=== PATIENT | male | born 1965 | race Caucasian/White ===

== ENCOUNTER 2017-06-19 09:37 | Inpatient (IN) | payer OTHER ==
[2017-06-19] MEDS ORDERED: Fentanyl 100 MCG/2 ML VIAL ONE ×2 (09:38→14:04)
[2017-06-19] MEDS ORDERED: Midazolam HCl 2 mg/2 ml Vial ONE (09:38)
[2017-06-19] MEDS ORDERED: Lidocaine 1% w/Epinephrine 1:200K 30 ML VIAL ONE (10:06)
[2017-06-19] MEDS ORDERED: PHENYLEPHRINE-NS 100 MCG/ML 10 ML SYRINGE ONE (10:48)
[2017-06-19] MEDS ORDERED: Propofol 200 MG/20 ML VIAL ONE ×2 (10:48)
[2017-06-19] MEDS ORDERED: Ondansetron HCl/PF 4 MG/2 ML Vial ONE (10:48)
[2017-06-19] MEDS ORDERED: Lidocaine 2% PF 10 ML AMP (For Epidural Use) ONE (10:48)
[2017-06-19] MEDS ORDERED: Clindamycin/D5W 900 mg/50 ml Premix Bag ONE (10:55)
[2017-06-19] MEDS ORDERED: Phenylephrine 10 MG/NS 250 ML 250 ML ONE ×2 (11:28→14:09)
[2017-06-19] MEDS ORDERED: metroNIDAZOLE 500 MG/100 ML BAG ONE (14:03)
[2017-06-19] MEDS ORDERED: Bacitracin Zinc Ointment 30 gm TUBE ONE (14:34)
[2017-06-19] MEDS ORDERED: Ondansetron HCl/PF 4 MG/2 ML Vial IVP PRN ×2 (15:42→16:22)
[2017-06-19] MEDS: Sodium Chloride 0.45% 1,000 ML IV SCH (15:52)
[2017-06-19] MEDS: Clindamycin/D5W 900 MG in Premix Bag 1 BAG IVPB SCH (15:58)
[2017-06-19] MEDS ORDERED: Fentanyl 5000 MCG/250 ML CADD IV PRN (16:22)
[2017-06-19] MEDS ORDERED: diphenhydrAMINE HCl 25 MG CAP PO PRN (16:22)
[2017-06-19] MEDS ORDERED: diphenhydrAMINE HCl 50 MG/ML 1 ML VIAL IM/IV PRN (16:22)
[2017-06-19] MEDS ORDERED: Zolpidem Tartrate 5 MG TAB PO PRN (16:22)
[2017-06-19] MEDS ORDERED: Promethazine HCl 25 MG/ML VIAL IM PRN (16:22)
[2017-06-19] MEDS ORDERED: Naloxone HCl 0.4 mg/ml Vial IV PRN (16:22)
--- NOTE | 2017-06-19 16:39 | RAD ---
PORTABLE CHEST: 06/19/17 HISTORY: Postop followup. COMPARISON: 10/11/15 Lung milan are clear. The heart and mediastinum appear unremarkable. Stranding and nodularity in th e left apical region is a stable finding. Skin lilian overlie the lower neck in the midline. IMPRESSION: No acute lung process identified. POS: EWELINA
[2017-06-19 17:45] VITALS: BMI 16.9
[2017-06-19] MEDS: Famotidine/PF 20 mg/2ml Vial SLOW IVP SCH (20:21)
--- NOTE | 2017-06-19 21:52 | CON ---
DATE OF CONSULTATION: 06/19/2017 CONSULTING PHYSICIAN: Juventino Figueroa M.D. REASON FOR CONSULTATION: ICU management. HISTORY OF PRESENT ILLNESS: This is a 52-year-old male who is a patient of Dr. Phoenix's. He came to the hospital today for modification of laryngectomy. He had a radical neck dissection. He also lilly d a feeding tube placed through his ostomy site into his esophagus. PAST MEDICAL HISTORY: 1. Tuberculosis treated many years ago. 2. Laryngeal cancer with recent tracheostomy placement. PAST SURGICAL HISTORY: He has had a feeding tube in the stomach in the past, which was removed. He had a tracheostomy placement several weeks ago. He also had treated tuberculosis with residual ___ __. ALLERGIES: TYLENOL. MEDICATIONS: Prior to admission noted. See chart. SOCIAL HISTORY: Drinks 4 to 6 drinks per day. Smokes a pack of cigarettes per day. REVIEW OF SYSTEMS: Otherwise, negative. PHYSICAL EXAMINATION: VITAL SIGNS: Temperature 97, pulse 85, blood pressure 148/85, O2 saturation 98% on humidified oxyge n. HEENT: Unremarkable. NECK: Laryngectomy noted. He has a feeding tube through his trachea that goes into his esophagus. He has bilateral neck wounds from the radical neck dissection. CARDIOVASCULAR: S1, S2, regular. LUNGS: Clear. ABDOMEN: Soft, nontender. EXTREMITIES: No edema. LABORATORY DATA: No labs have been obtained. ASSESSMENT: Status post laryngectomy and radical neck dissection. PLAN: 1. Pain management. 2. Hemodynamic monitoring. 3. Add Pepcid for GI prophylaxis and SCDs for deep venous thrombosis prophylaxis. Dr. Phoenix will r [facility] tomorrow.
--- NOTE | 2017-06-20 00:02 | OP ---
PREOPERATIVE DIAGNOSES: 1. 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 2. Dysphagia. 3. Dysphonia. POSTOPERATIVE DIAGNOSES: 1. 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 2. Dysphagia. 3. Dysphonia. PROCEDURES PERFORMED: 1. Total laryngectomy. 2. Bilateral modified radical neck dissections. 3. Cricopharyngeal myotomy. 4. Primary tracheoesophageal puncture. SURGEON: Juventino Figueroa M.D. UTILITY TECH: Carlos Alberto Clemente M.D. ESTIMATED BLOOD LOSS: 250 mL COMPLICATIONS: None. ANESTHESIA: GETA. DESCRIPTION OF PROCEDURE: The patient had previously trach placed and was placed supine on the oper ating room table armor-reinforced endotracheal tube was then replaced into his tracheostomy site. F ollowing this, the patient then prepped and draped in standard surgical fashion. A shoulder roll wa s placed. Following this, an Afrin type incision was made approximately 2 cm above the clavicles in feriorly and then vertical incisions were made superiorly along the posterior border of sternocleido mastoid, incision was made through skin, subcutaneous tissue, and platysma. Subplatysmal flaps were elevated superiorly and then inferiorly to the level of clavicle. Following this, the left neck di ssection was performed first. The digastric muscle was identified and the facial artery and vein wa s suture ligated. The submandibular gland and contents were then retracted superiorly with Army-Kanu y inferiorly. The mylohyoid muscle was identified and was ligated with the Bovie electrocautery and the inferior aspect at the level of the clavicle. Dissection was carried medially in the neck to t he deep neck musculature. This inferior margin of the neck dissection was then suture ligated with 3-0 and 2-0 silk stitches. Following this, the sternocleidomastoid was incised and was the investin g fascia of the SCM was then unrolled. The spinal accessory nerve was identified and was coursed an d was noted to be traveling lateral to the internal jugular vein. Following this, the neck dissecti on contents were then extended into the level 5 area. This dissection was then carried on its later al margin down to the level of the fascia of the deep neck musculature. Rolling this entire neck di ssection of levels L2-L5 anteriorly, the necrotic lymph nodes and any invasion into SCM muscles were then included in the specimen, it was unwrapped of its fascia and the dissection carried contents w ere carried medial to the larynx. Following this, a similar modified radical neck dissection was pe rformed on the right side; however, on the right side, the thyroid gland was included in the dissect ion contents that were suture ligating the inferior thyroid artery and the superior thyroid artery. The superior laryngeal arteries were then suture ligated bilaterally. Following this, the laryngec yarely portion of the procedure was begun. Dissection was carried down through the superior aspect of the hyoid bone with the suprahyoid musculature was released from the hyoid bone. Following this, t he lateral borders of the myringotomy were identified as the strap muscles were released from the th yroid cartilage. Minimal amount of perichondrium was elevated off of the lateral thyroid cartilage with [place] elevator. The stylohyoid ligament was then transected and the perichondrium and mucosa o f the larynx was then elevated off of the hyoid and the superior cornu of the thyroid. Following th is, the strap muscles were then incised inferiorly at the level of the new tracheostoma. Following this, a new tracheal incision was made horizontally with a 15 blade through half of the tracheal con tent and then extended and angled superiorly to the remainder of the tracheal cartilage. The endotr acheal tube was then removed and replaced into this new tracheostoma. Silk stitches were then place d to the anterior neck skin, securing the trachea anteriorly. Following this, the preepiglottic spa ce was identified and an incision and pharyngeal myotomy was made into the pharynx. The epiglottis was then grasped with an Allis clamp and delivered from the pharynx into the wound, allowing visuali zation of the internal pharyngeal and laryngeal structures. The surgeon at the top of the bed, raphael e curved scissors were then used to create a pharyngeal myotomy and then pharyngeal incisions leavin g a wide 2 cm margin around the laryngeal mask and cancer that was identified. Following this, the tracheal wall was from the esophagus and as much mucosa as was possible was preserved for the pharyngeal closure. Following this, the cricopharyngeal myotomy was made with a 15 blade on the right lateral aspect extending down through the anticipated tracheoesophageal puncture would be. F ollowing this, 90-degree clamp was then placed through the esophageal mucosa and was punctured into the trachea creating a tracheoesophageal puncture approximately 1.5 cm below the stoma area. Follow ing this, the larynx and his bilateral neck dissection contents were removed from the patient's body and a pharyngeal closure was made with a running Avis stitch with 4-0 silk. Following this, the wound was irrigated. Drains were placed and the skin platysmal layer and subcutaneous stitches wer e placed using Vicryl stitches and the skin was closed using lilian. The patient tolerated the pro cedure well and was transferred directly to the ICU in stable condition.
[2017-06-20] MEDS: Clindamycin/D5W 900 MG in Premix Bag 1 BAG IVPB SCH ×4 (00:18→23:00)
[2017-06-20] MEDS: Sodium Chloride 0.45% 1,000 ML IV SCH ×4 (00:19→22:29)
[2017-06-20 05:49] LABS: ALT (SGPT) Less than 7 U/L (8-55); AST (SGOT) 14 U/L (5-34); Alkaline Phosphatase 61 U/L (40-150); BUN (Urea Nitrogen) 6 mg/dL (8.4-25.7); Bilirubin, Total 0.6 mg/dL (0.2-1.2); Calc. Creatinine Clearance 105 mL/min (70-130); Calcium 7.9 mg/dL (7.8-10.44); Chloride 94 mmol/L (98-107); Estimated GFR-MDRD Greater than 90; Globulin 2.9 g/dL (2.4-3.5); Protein, Total 5.8 g/dL (6.0-8.3)
[2017-06-20 05:54] LABS: Anion Gap 13 mmol/L (10-20); Carbon Dioxide 22 mmol/L (22-29)
[2017-06-20 07:30] LABS: #Basophils 0.1 thou/uL (0.0-0.2); #Eosinphils 0.1 thou/uL (0.0-0.7); #Lymphocytes 1.8 thou/uL (1.20-3.40); #Monocytes 1.6 thou/uL (0.11-0.59); #Neutrophils 11.2 thou/uL (1.40-6.50); %Basophils 0.4 % (0.0-1.0); %Eosinophils 0.5 % (0.0-10.0); %Lymphocytes 12.4 % (21.0-51.0); %Monocytes 10.6 % (0.0-10.0); Mean Platelet Volume 6.6 fL (7.4-10.4); Red Blood Cell (RBC) Count 3.56 mill/uL (4.70-6.10); White Blood Cell (WBC) Count 14.6 thou/uL (4.8-10.8)
[2017-06-20] MEDS: Famotidine/PF 20 mg/2ml Vial SLOW IVP SCH ×2 (08:59→20:25)
[2017-06-20] MEDS: Sodium Chloride 0.9% 1,000 ML IV SCH (16:44)
--- NOTE | 2017-06-20 20:06 | PRG ---
DATE OF SERVICE: 06/20/2017 SUBJECTIVE: Sylvain did well overnight. He is not having any bleeding from his surgical sites. OBJECTIVE: VITAL SIGNS: His heart rate is 71, respiratory rate is 18, blood pressure is 159/75. LUNGS: Equal and clear. HEART: Regular rhythm. ABDOMEN: Soft. LABORATORY DATA: White count 14.6, hemoglobin 10.8, platelets 350. Sodium 126, potassium 4.4, chlo ride 94, bicarbonate 22, BUN 6, creatinine 0.68, glucose 123. IMPRESSION: 1. Status post laryngectomy. 2. Obstructive lung disease. 3. History of tuberculosis, treated. 4. Aspergilloma in his left upper lobe, does not need to be treated. 5. Hyponatremia. He had this last admission. I would guess that this is paraneoplastic. We will keep him hydrated with saline and then fluid restrict him if his sodium did not come up.
[2017-06-21] MEDS: Sodium Chloride 0.9% 1,000 ML IV SCH ×2 (02:57→15:14)
[2017-06-21 05:01] LABS: #Basophils 0.1 thou/uL (0.0-0.2); #Eosinphils 0.4 thou/uL (0.0-0.7); #Lymphocytes 1.8 thou/uL (1.20-3.40); #Monocytes 1.9 thou/uL (0.11-0.59); #Neutrophils 11.2 thou/uL (1.40-6.50); %Basophils 0.3 % (0.0-1.0); %Eosinophils 2.6 % (0.0-10.0); %Lymphocytes 11.7 % (21.0-51.0); %Monocytes 12.1 % (0.0-10.0); Hematocrit 34.1 % (42.0-52.0); Mean Platelet Volume 6.5 fL (7.4-10.4); Red Blood Cell (RBC) Count 3.68 mill/uL (4.70-6.10); White Blood Cell (WBC) Count 15.3 thou/uL (4.8-10.8)
[2017-06-21 05:33] LABS: ALT (SGPT) Less than 7 U/L (8-55); AST (SGOT) 13 U/L (5-34); Alkaline Phosphatase 59 U/L (40-150); Anion Gap 13 mmol/L (10-20); BUN (Urea Nitrogen) 5 mg/dL (8.4-25.7); Bilirubin, Total 0.5 mg/dL (0.2-1.2); Calc. Creatinine Clearance 119 mL/min (70-130); Calcium 8.2 mg/dL (7.8-10.44); Carbon Dioxide 24 mmol/L (22-29); Chloride 94 mmol/L (98-107); Estimated GFR-MDRD Greater than 90; Globulin 3.1 g/dL (2.4-3.5); Protein, Total 5.9 g/dL (6.0-8.3)
[2017-06-21] MEDS: Sodium Chloride 0.45% 1,000 ML IV SCH (08:46)
[2017-06-21] MEDS: Clindamycin/D5W 900 MG in Premix Bag 1 BAG IVPB SCH ×2 (08:52→15:13)
[2017-06-21] MEDS: Famotidine/PF 20 mg/2ml Vial SLOW IVP SCH ×2 (08:52→21:02)
--- NOTE | 2017-06-21 11:47 | PRG ---
DATE OF SERVICE: 06/21/2017 Mr. Narayan did well overnight. He has no complaints. PHYSICAL EXAMINATION: VITAL SIGNS: Blood pressure 132/70, heart rate 79, respiratory rate 18. LUNGS: He denies shortness of breath. His lungs are clear. CARDIOVASCULAR: Regular rhythm. ABDOMEN: Soft. IMPRESSION: 1. Status post laryngectomy, hemoglobin is stable at 11.2. Electrolytes are stable. His sodium is 127. 2. Hyponatremia, chronic, most likely syndrome of inappropriate antidiuretic hormone secretion asso ciated with his malignancy. He was intermittently hyponatremic last admission. We will continue wi th just gentle saline hydration and frequent blood draws monitoring this. 3. Chronic obstructive pulmonary disease. 4. History of neck abscesses requiring intubation in the past. 5. History of tuberculosis treated in the past. 6. Aspergilloma in his left upper lobe. There is no indication to treat this. PLAN: Continue supportive care.
[2017-06-21] MEDS: Bacitracin Zinc 1 Packet TOP PRN (13:24)
[2017-06-21] MEDS ORDERED: Morphine Sulfate 2 MG/ML SYRINGE SLOW IVP PRN (15:42)
[2017-06-21] MEDS ORDERED: Hydrocodone-Acetamin 15 ML UDCUP PO PRN ×2 (15:43)
[2017-06-22] MEDS: Clindamycin/D5W 900 MG in Premix Bag 1 BAG IVPB SCH ×3 (00:39→15:38)
[2017-06-22 04:43] LABS: #Basophils 0.1 thou/uL (0.0-0.2); #Eosinphils 0.5 thou/uL (0.0-0.7); #Lymphocytes 1.7 thou/uL (1.20-3.40); #Monocytes 1.8 thou/uL (0.11-0.59); #Neutrophils 8.5 thou/uL (1.40-6.50); %Basophils 0.4 % (0.0-1.0); %Eosinophils 4.3 % (0.0-10.0); %Lymphocytes 13.8 % (21.0-51.0); Hematocrit 30.6 % (42.0-52.0); Mean Platelet Volume 6.4 fL (7.4-10.4); Red Blood Cell (RBC) Count 3.27 mill/uL (4.70-6.10); White Blood Cell (WBC) Count 12.6 thou/uL (4.8-10.8)
[2017-06-22 05:01] LABS: ALT (SGPT) Less than 7 U/L (8-55); AST (SGOT) 11 U/L (5-34); Alkaline Phosphatase 57 U/L (40-150); Anion Gap 10 mmol/L (10-20); BUN (Urea Nitrogen) 6 mg/dL (8.4-25.7); Bilirubin, Total 0.4 mg/dL (0.2-1.2); Calc. Creatinine Clearance 130 mL/min (70-130); Carbon Dioxide 24 mmol/L (22-29); Chloride 97 mmol/L (98-107); Estimated GFR-MDRD Greater than 90; Globulin 2.9 g/dL (2.4-3.5); Protein, Total 5.5 g/dL (6.0-8.3)
[2017-06-22] MEDS: Sodium Chloride 0.9% 1,000 ML IV SCH ×2 (05:03→16:44)
[2017-06-22] MEDS: Famotidine/PF 20 mg/2ml Vial SLOW IVP SCH ×2 (09:10→21:01)
--- NOTE | 2017-06-22 13:48 | PRG ---
DATE OF SERVICE: 06/22/2017 SUBJECTIVE: Post laryngectomy pain but no difficulty breathing. OBJECTIVE: VITAL SIGNS: Blood pressure 130/74, pulse 84, sats 96%, respirations 18. CHEST: Reveals decreased breath sounds, no wheezing. CARDIAC: Normal S1, S2, no gallops. LABORATORY DATA: Sodium 127. White count 12,000, H\T\H 10 and 36. Electrolytes are normal. IMPRESSION: 1. Status post radical laryngectomy with feeding tube placed via the stoma. 2. History of chronic obstructive pulmonary disease. 3. History of aspergilloma. PLAN: Continue antibiotics, continue neb treatments. We will follow.
[2017-06-22] MEDS ORDERED: Morphine Sulfate 2 MG/ML SYRINGE SLOW IVP PRN (15:26)
[2017-06-23] MEDS: Clindamycin/D5W 900 MG in Premix Bag 1 BAG IVPB SCH ×4 (00:04→23:45)
[2017-06-23] MEDS: Sodium Chloride 0.9% 1,000 ML IV SCH ×2 (01:19→20:28)
[2017-06-23] MEDS: Famotidine/PF 20 mg/2ml Vial SLOW IVP SCH ×2 (08:58→20:28)
--- NOTE | 2017-06-23 13:25 | PRG ---
DATE OF SERVICE: 06/23/2017 SUBJECTIVE: This morning, awake, alert, responsive. Last night, he had problems with secretions an d hoping this is fresh tracheostomy site. PHYSICAL EXAMINATION: VITAL SIGNS: His pulse is 74, O2 sat is 98-99, respirations 18, temperature 97. CHEST: Reveals no wheezing. Anterior rhonchi. CARDIAC: Normal S1, S2. No gallops. ABDOMEN: Soft, no masses. IMPRESSION: Status post trach, status post feeding tube via tracheostoma. PLAN: At this stage, continue antibiotics, await ENT input. Supportive care.
[2017-06-23] MEDS: Bacitracin Zinc 1 Packet TOP PRN (20:40)
[2017-06-24] MEDS: Clindamycin/D5W 900 MG in Premix Bag 1 BAG IVPB SCH ×2 (08:51→16:49)
[2017-06-24] MEDS: Famotidine/PF 20 mg/2ml Vial SLOW IVP SCH ×2 (09:27→20:59)
--- NOTE | 2017-06-24 14:18 | PRG ---
DATE OF SERVICE: 06/24/2017 Mr. Narayan did well overnight. He is frustrated because he is not allowed to eat by mouth. PHYSICAL EXAMINATION: VITAL SIGNS: Blood pressure 143/76, heart rate 74, respiratory rate 10-12. LUNGS: His lungs are clear. HEART: Regular rhythm. ABDOMEN: Soft. LABORATORY DATA: There is no lab since the . I will order a CBC and electrolytes in the [facility]. IMPRESSION: 1. Status post laryngectomy. 2. Chronic obstructive pulmonary disease. 3. Treated tuberculosis. 4. Aspergilloma. 5. Deconditioning. PLAN: Continue supportive care.
[2017-06-24] MEDS: Sodium Chloride 0.9% 1,000 ML IV SCH (16:55)
[2017-06-25] MEDS: Clindamycin/D5W 900 MG in Premix Bag 1 BAG IVPB SCH ×4 (00:16→23:07)
[2017-06-25 06:34] LABS: Hematocrit 33.1 % (42.0-52.0); Mean Platelet Volume 6.9 fL (7.4-10.4); Red Blood Cell (RBC) Count 3.58 mill/uL (4.70-6.10); White Blood Cell (WBC) Count 10.4 thou/uL (4.8-10.8)
[2017-06-25 06:37] LABS: Anion Gap 13 mmol/L (10-20); BUN (Urea Nitrogen) 8 mg/dL (8.4-25.7); Calc. Creatinine Clearance 117 mL/min (70-130); Calcium 9.1 mg/dL (7.8-10.44); Carbon Dioxide 28 mmol/L (22-29); Chloride 93 mmol/L (98-107); Estimated GFR-MDRD Greater than 90
[2017-06-25 06:49] LABS: Band 4 % (5-11); Metamyelocyte 1 % (0-0); Neutrophil 69 % (42-75); Reactive Lymphocytes 1 % (0-10)
[2017-06-25] MEDS: Famotidine/PF 20 mg/2ml Vial SLOW IVP SCH ×2 (09:06→20:09)
[2017-06-25] MEDS: Sodium Chloride 0.9% 1,000 ML IV SCH (16:03)
[2017-06-26 05:13] LABS: Hematocrit 30.6 % (42.0-52.0); Mean Platelet Volume 6.6 fL (7.4-10.4); Neutrophil 50 % (42-75); Red Blood Cell (RBC) Count 3.31 mill/uL (4.70-6.10); White Blood Cell (WBC) Count 9.9 thou/uL (4.8-10.8)
[2017-06-26 05:25] LABS: Anion Gap 12 mmol/L (10-20); BUN (Urea Nitrogen) 8 mg/dL (8.4-25.7); Calc. Creatinine Clearance 110 mL/min (70-130); Calcium 9.3 mg/dL (7.8-10.44); Carbon Dioxide 29 mmol/L (22-29); Chloride 92 mmol/L (98-107); Estimated GFR-MDRD Greater than 90
[2017-06-26] MEDS: Famotidine/PF 20 mg/2ml Vial SLOW IVP SCH (08:42)
[2017-06-26] MEDS: Clindamycin/D5W 900 MG in Premix Bag 1 BAG IVPB SCH (08:42)
[2017-06-26] MEDS: Sodium Chloride 0.9% 1,000 ML IV SCH (14:30)
[2017-06-26 15:58] VITALS: BP 145/78; TEMP 97.8
--- NOTE | 2017-06-27 06:17 | DIS ---
DATE OF ADMISSION: 06/19/2017 DATE OF DISCHARGE: 06/26/2017 The patient is a postoperative day #7 status post total laryngectomy bilateral neck dissection. He has been doing well. He has began clear liquids since last night. No evidence of cellulitis. He c urrently has all of his home suctioning equipment and [facility] equipment already at his house ed rodriguez on him. He has been ambulatory. No evidence of fevers. PHYSICAL EXAMINATION: Incisions clean, dry and intact. Stoma is intact. He is doing self feed tubes and demonstrates a p rick use of his stoma-gastric tube. There was no leakage. HEART: Regular rate and rhythm. LUNGS: Clear to auscultation bilaterally. ASSESSMENT: Postoperative day #7 status post total laryngectomy bilateral neck dissection. Patient to be discharged to home. Prescriptions were called into [facility]; included amoxicillin and also oral pain medicine. He will follow up with us in clinic on Saturday.
== END 2017-06-26 16:03 | disposition home or self-care (01) | DRG 12 ==
LOC: SDC 09:37 → CCU 11:23 → SURG A 06-24 20:32
PROVIDERS: ADMIT Otolaryngology Plastic Surgery within the Head & Neck; ATTEND Otolaryngology Plastic Surgery within the Head & Neck
PROC: 0CTS0ZZ Resection of Larynx, Open Approach (ICD-10-PCS; principal; 2017-06-19)
PROC: 07T20ZZ Resection of Left Neck Lymphatic, Open Approach (ICD-10-PCS; 2017-06-19)
PROC: 07T10ZZ Resection of Right Neck Lymphatic, Open Approach (ICD-10-PCS; 2017-06-19)
PROC: 0BW10FZ Revision of Tracheostomy Device in Trachea, Open Approach (ICD-10-PCS; 2017-06-19)
DX: C32.9 Malignant neoplasm of larynx, unspecified (principal); B44.9 Aspergillosis, unspecified; E22.2 Syndrome of inappropriate secretion of antidiuretic hormone; E87.1 Hypo-osmolality and hyponatremia; R13.10 Dysphagia, unspecified; R49.0 Dysphonia; J44.9 Chronic obstructive pulmonary disease, unspecified; Z86.11 Personal history of tuberculosis; Z93.0 Tracheostomy status; Z88.6 Allergy status to analgesic agent; F17.210 Nicotine dependence, cigarettes, uncomplicated
CPT/HCPCS: 36415; 71010; 80048; 80053; 85007; 85025; 85027; 88309; 88311; 94640; G9171-GN-CN; G9172-GN-CL; J0690; J2001; J2250; J2270; J2405; J2704; J3010; J3490; J7050; S0028

== ENCOUNTER 2017-08-07 10:35 | Outpatient (CLI) | payer OTHER | END 2017-08-07 10:36 | disposition home or self-care (01) | LOC: LABBT 10:35 | PROVIDERS: ATTEND Surgery | DX: Z01.812 Encounter for preprocedural laboratory examination (principal); C32.9 Malignant neoplasm of larynx, unspecified ==

== ENCOUNTER 2017-08-09 07:50 | Day surgery (SDC) | payer OTHER, SELFPAY ==
[2017-08-07 10:49] VITALS: BMI 17.9
[2017-08-09] MEDS ORDERED: CEFAZOLIN/Water 2 GM/20 ML SYRINGE ONE (08:40)
[2017-08-09] MEDS ORDERED: Midazolam HCl 2 mg/2 ml Vial ONE (09:25)
[2017-08-09] MEDS ORDERED: Propofol 200 MG/20 ML VIAL ONE (10:40)
[2017-08-09] MEDS ORDERED: Lidocaine 1% PF 5 ML VIAL ONE (10:40)
--- NOTE | 2017-08-12 13:45 | OP ---
DATE OF PROCEDURE: 08/09/2017 PROCEDURE: PEG tube placement. SURGEON: Roz Muller M.D. PREOPERATIVE DIAGNOSIS: Dysphagia. POSTOPERATIVE DIAGNOSIS: Dysphagia. HISTORY: Mr. Narayan is a 52-year-old man who has undergone extensive surgery for head and neck cancer. He had a tracheoesophageal feeding tube in place, but cannot use this as it causes him to gag. He still requires nutritional supplementation, so a PEG tube placement has been requested. PROCEDURE: After informed consent was obtained and appropriate preoperative antibiotics wre administered, the patient was taken to the endoscopy suite where he was placed in the supine position and monitored anesthesia care was administered. Bite block was placed and an EGD scope advanced into the esophagus under direct vision and down into the stomach which insufflated easily. An excellent finger impulse was seen at the site of his previous PEG tube in the left upper quadrant. Local anesthesia was infused and the skin incision made. An introducer sheath was placed into the stomach under direct vision of the gastroscope and a wire grasped by the gastroscope and drawn out through the mouth. This was secured to a 20-Azerbaijani pull PEG which was then drawn out through the abdominal wall and seated at 3 cm at the skin. The gastroscope was then advanced down into the abdominal cavity and the PEG tube confirmed to be in excellent position. The tracheoesophageal feeding tube was well away from the area of the PEG tube. The gastroscope was then withdrawn and the PEG tube placed to gravity drain. The exit site was dressed with antibiotic ointment and gauze and the external flange secured, the patient was taken back to day stay in good condition. Estimated blood loss was minimal. There were no complications. There were no specimens. [facility]
== END 2017-08-09 11:43 | disposition home or self-care (01) ==
LOC: SDC 07:50
PROVIDERS: ATTEND Surgery
PROC: 0DH63UZ Insertion of Feeding Device into Stomach, Percutaneous Approach (ICD-10-PCS; principal; 2017-08-09)
DX: C32.9 Malignant neoplasm of larynx, unspecified (principal); F17.200 Nicotine dependence, unspecified, uncomplicated; Z88.8 Allergy status to other drugs, medicaments and biological substances; Z98.890 Other specified postprocedural states
CPT/HCPCS: J2001; J2250; J2704

== ENCOUNTER 2018-02-13 19:26 | Inpatient (IN) | payer OTHER, SELFPAY ==
[2018-02-13 19:54] LABS: Hemoglobin 13.2 g/dL (14.0-18.0); Mean Corpuscular HGB CONC 33.6 g/dL (32.0-36.0); Mean Corpuscular Hemoglobin 30.1 pg (27.0-31.0); Mean Corpuscular Volume 89.7 fl (80.0-94.0); Mean Platelet Volume 5.6 fL (7.4-10.4); Platelet Count 486 thou/uL (130-400); RBC Distribution Width 13.1 % (11.5-14.5); Red Blood Cell (RBC) Count 4.39 mill/uL (4.70-6.10); White Blood Cell (WBC) Count 25.9 thou/uL (4.8-10.8)
[2018-02-13 20:12] LABS: Band 10 % (5-11); Eosinophils 3 % (0-10); Lymphocytes 10 % (21-51); MDiff Complete? YES; Monocytes 5 % (0-10); Neutrophil 69 % (42-75); PLT Morphology Comment Appears Increased; Polychromasia SLIGHT = 2-3 cells (100X) (0-2/hpf); Reactive Lymphocytes 3 % (0-10)
[2018-02-13 20:15] LABS: ALT (SGPT) 7 U/L (8-55); AST (SGOT) 18 U/L (5-34); Alkaline Phosphatase 125 U/L (40-150); Anion Gap 11 mmol/L (10-20); BUN (Urea Nitrogen) 4 mg/dL (8.4-25.7); Bilirubin, Total 0.4 mg/dL (0.2-1.2); Calc. Creatinine Clearance 0 mL/min (70-130); Calcium 9.8 mg/dL (7.8-10.44); Carbon Dioxide 27 mmol/L (22-29); Chloride 93 mmol/L (98-107); Estimated GFR-MDRD Greater than 90; Globulin 4.2 g/dL (2.4-3.5); Glucose 127 mg/dL (70-105); Potassium 3.4 mmol/L (3.5-5.1); Protein, Total 8.2 g/dL (6.0-8.3); Sodium 128 mmol/L (136-145)
[2018-02-13] MEDS ORDERED: Morphine 4 MG/ML VIAL ONE (21:11)
[2018-02-13] MEDS ORDERED: Ondansetron ODT 4 MG TAB ONE (21:16)
[2018-02-13] MEDS ORDERED: Vancomycin HCl 1 GM in Premix Bag 1 BAG IVPB SCH (21:30)
--- NOTE | 2018-02-13 21:35 | RAD ---
CHEST ONE VIEW: 02/13/18 HISTORY: Hemoptysis. COMPARISON: Chest radiograph 06/19/17. FINDINGS: There is a mass in the left upper lobe . There appears to be an air fluid level peripheral to this ma ss. There is fluid/soft tissue mass density in the left lung apex. IMPRESSION: Left upper lobe mass air fluid level may be sequela of patient's prior tuberculosis and aspergilloma. Underlying malignancy cannot be totally excluded. Nonemergent followup CT of the chest may be benefi cial. POS: LANDEN
[2018-02-13 22:39] LABS: Bilirubin Negative (Negative); Blood, Urine Negative (Negative); Clarity CLEAR (Clear); Glucose, Urine (Dipstick) Negative (Negative); Leukocyte Negative (Negative); Nitrite Negative (Negative); Protein, Urine (Dipstick) Negative (Neg-Trace); Specific Gravity, Urine 1.006 (1.002-1.036); Urobilinogen 0.2 mg/dL (0.2-1.0); pH, Urine 7.5 (5.0-9.0)
[2018-02-13] MEDS ORDERED: cefTRIAXone\\ROCEPHIN 2 GM VIAL ONE (23:07)
[2018-02-14] MEDS ORDERED: Sodium Chloride 0.9% 1,000 ML IV SCH (01:11)
[2018-02-14 02:24] VITALS: BMI 18.9
[2018-02-14] MEDS ORDERED: cloNIDine 0.1 MG TAB PO PRN (02:31)
[2018-02-14] MEDS ORDERED: hydrALAZINE 20 MG/ML VIAL SLOW IVP PRN (02:31)
[2018-02-14] MEDS ORDERED: Ondansetron ODT 4 MG TAB PO PRN (02:31)
[2018-02-14] MEDS ORDERED: Guaifenesin DM 100-10/5 ML UDCUP PO PRN (02:31)
[2018-02-14] MEDS ORDERED: Ondansetron HCl/PF 4 MG/2 ML Vial IVP PRN (02:31)
[2018-02-14] MEDS ORDERED: Benzonatate 100 MG CAP PO PRN (02:31)
[2018-02-14] MEDS: Sodium Chloride 0.9% 1,000 ML IV SCH ×3 (04:17→22:35)
[2018-02-14 05:42] LABS: Anion Gap 9 mmol/L (10-20); BUN (Urea Nitrogen) Less than 4 mg/dL (8.4-25.7); Calc. Creatinine Clearance 111 mL/min (70-130); Calcium 9.1 mg/dL (7.8-10.44); Carbon Dioxide 30 mmol/L (22-29); Chloride 94 mmol/L (98-107); Estimated GFR-MDRD Greater than 90; Glucose 113 mg/dL (70-105); Potassium 3.9 mmol/L (3.5-5.1); Sodium 129 mmol/L (136-145)
[2018-02-14 06:13] LABS: Band 9 % (5-11); Eosinophils 1 % (0-10); Hemoglobin 12.6 g/dL (14.0-18.0); Lymphocytes 8 % (21-51); MDiff Complete? YES; Mean Corpuscular HGB CONC 32.7 g/dL (32.0-36.0); Mean Corpuscular Hemoglobin 29.1 pg (27.0-31.0); Mean Platelet Volume 5.5 fL (7.4-10.4); Monocytes 2 % (0-10); Neutrophil 79 % (42-75); PLT Morphology Comment Appears Increased; Platelet Count 480 thou/uL (130-400); RBC Distribution Width 13.1 % (11.5-14.5); RBC Morphology Normal; Reactive Lymphocytes 1 % (0-10); Red Blood Cell (RBC) Count 4.32 mill/uL (4.70-6.10); White Blood Cell (WBC) Count 25.3 thou/uL (4.8-10.8)
--- NOTE | 2018-02-14 07:34 | PDOC.PN ---
- Subjective Encounter Start Date: 02/14/18 Encounter Start Time: 07:33 Subjective: no sob, or further hemoptysis - Objective Resuscitation Status: Resuscitation Status FULL:Full Resuscitation MAR Reviewed: Yes Vital Signs & Weight: Vital Signs (12 hours) Temp Pulse Resp BP Pulse Ox 02/14/18 04:29 98.9 F 87 16 155/80 H 97 02/14/18 02:15 98 02/14/18 01:41 97.6 F 104 H 23 H 184/94 H 95 02/14/18 01:28 97.6 F 104 H 23 H 95 Weight Weight 151 lb 7 oz I&O: 02/13/18 02/14/18 02/15/18 06:59 06:59 06:59 Intake Total 156 Output Total 400 Balance -244 Result Diagrams: 02/14/18 04:55 02/14/18 04:55 Phys Exam - Physical Examination tracheostomy defect with marked erosions distant BS with exp wheezes Cardiovascular: RRR, no significant murmur Gastrointestinal: soft, positive bowel sounds Musculoskeletal: no edema Dx/Plan (1) Hemoptysis Code(s): R04.2 - HEMOPTYSIS Status: Acute (2) PNA (pneumonia) Code(s): J18.9 - PNEUMONIA, UNSPECIFIED ORGANISM Status: Acute Qualifiers: Pneumonia type: due to unspecified organism Laterality: left Lung location: upper lobe of lung Qualified Code(s): J18.1 - Lobar pneumonia, unspecified organism (3) Hyponatremia Code(s): E87.1 - HYPO-OSMOLALITY AND HYPONATREMIA Status: Acute (4) 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
[2018-02-14] MEDS: Cefepime 2 GM in Sodium Chloride 0.9% 100 ML IVPB SCH ×2 (08:49→20:59)
[2018-02-14] MEDS: Famotidine 20 MG TAB PO SCH ×2 (08:49→20:58)
--- NOTE | 2018-02-14 09:02 | HP ---
DATE OF ADMISSION: 02/15/2108 PRIMARY CARE PHYSICIAN: Tolu murphy. CHIEF COMPLAINT: Coughing up blood. HISTORY OF PRESENT ILLNESS: This is a 52-year-old male with significant history of squamou s cell carcinoma of the neck and throat, status post total laryngectomy with lymph node dissection in 2017. The patient underwent surgical intervention followed by radiation therapy with current stoma in place. The patient has noticed increased cough with blood in the sputum over the last 3 days. Th e patient admits to increased cough with productive sputum, but no specific or measured fever. The p atient denies any blood thinners or aspirin therapy, and denies any recent antibiotics or prednisone therapy. The patient denies using home oxygen therapy and tolerates a regular oral intake. The connor ent became concerned when he noted increasing blood in the mucus and sputum with coughing. The patie nt admits to some associated sensation of swelling of the neck and mouth region, but no dysphagia. T he patient denies taking any home remedies, NSAIDs, recent trauma. The patient does have a significa nt history of previously treated tuberculosis in 2000 as well as exposure to Aspergillus, treated wit h residual left upper lobe cavitary lesion. In the emergency room, the patient underwent chest imagi ng showing the persistent cavitary area of the left upper lobe. The patient received IV Rocephin, va ncomycin, morphine sulfate, Zofran and intravenous normal saline x1 liter. PAST MEDICAL HISTORY: 1. Squamous cell carcinoma of the larynx, status post total laryngectomy with lymph node dissection. 2. Tobacco abuse. 3. Syndrome of inappropriate antidiuretic hormone. 4. Chronic obstructive pulmonary disease. 5. History of primary tuberculosis, status post treatment. 6. History of abscess of the neck, status post incision and drainage. PAST SURGICAL HISTORY: 1. Status post transesophageal PEG tube placement. 2. Status post stoma after total laryngectomy with lymph node dissection. CURRENT MEDICATIONS: List will need to be obtained with family members. ALLERGIES: To ACETAMINOPHEN. FAMILY HISTORY: No inheritable diseases per patient report. SOCIAL HISTORY: The patient resides in [place], [place]. Accompanied by his significant other. No cur rent tobacco, alcohol or illicit drug use. Greater than [id number] history of smoking. REVIEW OF SYSTEMS: The following complete review of systems was negative, unless otherwise mentioned in the HPI or below: Constitutional: Weight loss or gain, ability to conduct usual activities. Skin: Rash, itching. Eyes: Double vision, pain. ENT/Mouth: Nose bleeding, neck stiffness, pain, tenderness. Cardiovascular: Palpitations, dyspnea on exertion, orthopnea. Respiratory: Shortness of breath, wheezing, cough, hemoptysis, fever or night sweats. Gastrointestinal: Poor appetite, abdominal pain, heartburn, nausea, vomiting, constipation, or diarr hea. Genitourinary: Urgency, frequency, dysuria, nocturia. Musculoskeletal: Pain, swelling. Neurologic/Psychiatric: Anxiety, depression. Allergy/Immunologic: Skin rash, bleeding tendency. PHYSICAL EXAMINATION: VITAL SIGNS: On admission, blood pressure 171/98, pulse 96, respiratory rate is 18, temperature 98.8 degrees Fahrenheit, and O2 saturation 97% on room air. GENERAL APPEARANCE: This is a 52-year-old male, alert and oriented x3, pleasant, in no acu te distress. HEENT: Pupils are equal, round, and reactive to light and accommodation. Extraocular muscles are in tact. No scleral icterus, no conjunctival injection. Nares are patent. OP is clear. Oral mucosa d ry appearing. NECK: Supple with large stoma in the anterior midline with dried blood on the periphery. Stomal mar gins with mild erythema noted. Mild edema palpated in the anterior neck bilaterally. No palpable ma ss. Cervical spine with full active and passive range of motion. CHEST: Diminished airflow in the bases bilaterally. Occasional expiratory wheeze. CARDIOVASCULAR: S1 and S2 without noted murmur, rub or gallop. ABDOMEN: Rounded, soft, nontender, nondistended. Bowel sounds are positive in all 4 quadrants. The re is no hepatosplenomegaly. No abdominal bruits. No rebound or guarding appreciated. EXTREMITIES: Warm and dry with fair turgor. No clubbing, cyanosis or asymmetric edema appreciated. Pulses palpable distally at the dorsalis pedis, posterior tibial, and popliteal arteries bilaterally . Capillary refill less than 2 seconds. NEUROLOGIC: Cranial nerves II through XII are grossly intact. No focal or lateralizing signs apprec iated. PERTINENT LABORATORY AND X-RAY FINDINGS: Sodium 128, potassium 3.4, chloride 93, CO2 of 27, BUN 4, c reatinine 0.73, estimated GFR greater than 90, glucose 127, lactic acid level 1.9, calcium 9.8. LFTs within normal limits. Albumin 4.0. CBC showed a white blood cell count of 25.9, hemoglobin 13, hem atocrit 39, platelet count 486 with 69% neutrophils. Urinalysis negative. Portable chest x-ray date d 02/13/2018 showed left upper lobe mass with air-fluid level consistent with prior imaging. ASSESSMENT AND PLAN: 1. Hemoptysis. The patient will be admitted to the telemetry unit. Exact underlying etiology may b e related to potential infectious process and developing pneumonia. Consideration for local inflamma tory process in the stomal region. We will consult ENT service in the a.m. for evaluation and questi onable local exploration. Avoid all NSAIDs and anticoagulation. Continue humidified oxygen. See #2 below for management. 2. Community-acquired pneumonia. Suspect left upper lobe infectious process given the distortion of anatomy based on prior insult and history of tuberculosis. Will continue cefepime 2 grams IV q.12 h ours with additional Levaquin 750 mg IV q.24 hours. Obtain sputum culture. Consult Pulmonology Serv ice in the a.m. 3. Hyponatremia, chronic. Suspect syndrome of inappropriate antidiuretic hormone secretion in conju nction with decreased oral intake. Repeat sodium level in the a.m. 4. Hypokalemia, mild. We will encourage increased oral intake of potassium and monitor serially. 5. Leukocytosis. Suspect secondary to infectious process as outlined in #2. Repeat CBC and monitor trend. 6. Squamous cell carcinoma of the larynx, status post total laryngectomy with radiation therapy. Se e above for management. 7. Prophylaxis. Sequential compression devices while in bed. Pepcid 20 mg p.o. b.i.d. 8. Code status is FULL. Surrogate medical decision maker is patient's aunt, Deepika Akhtar.
[2018-02-14] MEDS: traMADol HCl 50 MG TAB PO PRN ×2 (10:58→21:01)
[2018-02-14] MEDS ORDERED: Iopamidol 370 76% 100 ML VIAL ONE (11:22)
--- NOTE | 2018-02-14 11:29 | CT ---
CT NECK WITH CONTRAST: Date: 02/14/18 COMPARISON: 05/27/17. HISTORY: Laryngeal cancer, status post total laryngectomy and lymph node dissection in the neck. TECHNIQUE: Multiple contiguous axial images were obtained in a CT of the neck with contrast. Sagittal and blas l reformates were performed. FINDINGS: Postsurgical changes are seen from prior laryngectomy. The previously seen enlarged lymph nodes in th e neck are no longer visualized. There is soft tissue edema within the subcutaneous tissues of the ne ck. Calcifications are seen surrounding both carotid bifurcations. The parotid glands are unremarkable. There is a high density soft tissue structure just to the left o f the laryngectomy site which may represent a small amount of residual thyroid tissue in this locatio n. This measures 1.8 cm in width. Visualized intracranial structures are unremarkable. Mucosal thickening is seen in the maxillary sinu ses. Numerous dental caries are present. IMPRESSION: 1. Postsurgical changes as above with an enhancing mass just to the left of the laryngectomy site wh ich may represent residual thyroid tissue. 2. Removal of previously seen enlarged lymph nodes without evidence of residual lymphadenopathy. Please see dedicated chest CT for findings in the lung apices. POS: LANDEN
--- NOTE | 2018-02-14 11:40 | CT ---
CT OF THE CHEST WITH CONTRAST: Date: 02/14/18 COMPARISON: 05/27/17 and 06/17/13. TECHNIQUE: Multiple contiguous axial images were obtained in a CT of the chest with contrast. Coronal reformats were performed. FINDINGS: Emphysematous changes are seen in the lung apices. There is a large area of cavitation in the left up per lobe. This is predominantly filled with soft tissue density. The soft tissue density has increase d compared to the prior examination and now measures 3.8 cm in width and approximately 4.9 cm in cran iocaudal dimension. There has been volume loss in the left apex and the mass is now opposed to the to the apex as opposed to more centrally located where it was on the prior examination. There is possib le erosion of the undersurface of the second rib adjacent to this mass. No other pulmonary masses are seen. No pneumothorax or pleural effusions are present. The heart is normal in size. There is a small pericardial effusion. No hilar or mediastinal lymphaden opathy are seen. The visualized subdiaphragmatic structures are unremarkable. Please see dedicated neck CT for finding s above the clavicles. IMPRESSION: Enlarging left upper lobe lung mass. This started as a cavitary mass, but the soft tissue density com ponent has significantly increased. This is nonspecific. This could represent metastatic disease. Thi s could also represent a fungal infection or tuberculosis. CODE T. POS: LANDEN
[2018-02-14] MEDS: Triple Antibiotic Oint 1 GM Packet TOP SCH (13:45)
--- NOTE | 2018-02-14 15:10 | CON ---
DATE OF CONSULTATION: 02/14/2018 CONSULTING PHYSICIAN: Dr. Lan from [facility]. REASON FOR CONSULTATION: Hemoptysis. HISTORY OF PRESENT ILLNESS: This is a 52-year-old male who has been seen by Dr. Phoenix in our practic e in the past. He came in yesterday coughing up more blood than usual. He said this has been going on for about 3 days, but it is not out of the ordinary to have some hemoptysis. He has a laryngectom y from last year. He has a history of squamous cell carcinoma of the larynx. I believe he sees Dr. Figueroa and Dr. Clemente in that regard. He states that he completed a course of radiation last year. I do not believe he has had any chemoth erapy. Communication with him is somewhat impaired due to the fact that he had a laryngectomy and he would n ot use his speaking device. He is writing answers down in a piece of paper for me. PAST MEDICAL HISTORY: 1. Laryngeal cancer. 2. SIADH. 3. COPD. 4. Tuberculosis, treated back in 2000. 5. Abscess of the neck. PAST SURGICAL HISTORY: 1. I&D of the neck abscess. 2. Laryngectomy with stoma placement. 3. Previous PEG tube placement. MEDICATIONS PRIOR TO ADMISSION: Tramadol, clonazepam, promethazine. ALLERGIES: ACETAMINOPHEN. SOCIAL HISTORY: Former smoker, does not currently smoke, does not consume alcohol, does not use illi cit drugs. REVIEW OF SYSTEMS: Denies any weight loss. No fever, chills, nausea, vomiting, chest pain, hemateme sis, melena, hematochezia, hematuria or dysuria. PHYSICAL EXAMINATION: VITAL SIGNS: Temperature 98.1, pulse 78, respirations 12, O2 sat 94%, blood pressure 126/73. GENERAL: He is awake and alert and in no distress. HEENT: Pupils are reactive. Sclerae icteric. Oropharynx, no blood. NECK: Large laryngectomy area with erythematous mucosa. There is some blood at the posterior aspect of the trachea that I can see that is dried. LUNGS: Clear without wheezing or rhonchi. CARDIAC: S1, S2 regular without murmur. ABDOMEN: Soft, nontender, nondistended. EXTREMITIES: No clubbing, cyanosis or edema. LABORATORY DATA: White blood cell count 25.3, hemoglobin 12, hematocrit 38.5, platelet count 480,000 . Sodium 129, potassium 3.9, chloride 94, CO2 30, BUN 4, creatinine 0.7, glucose 113. I have review ed his CT scan in detail and this is compared to a scan from 04/2017. He has a superior left upper l obe mass, which was present to some degree in April, but appears larger. Just inferior to that, he has a cavitary lesion that has an air fluid level in it, previously this had more of a mycetoma appea dyana. ASSESSMENT: 1. Hemoptysis. This could be either from tracheitis or perhaps some bleeding from the site of the p revious aspergilloma or perhaps from a new malignancy in the left upper lobe. 2. History of laryngeal cancer. 3. Syndrome of inappropriate antidiuretic hormone secretion, which is chronic. RECOMMENDATIONS: Given elevated white count, etc., I would go ahead and treat him with antibiotics o gladys the weekend to see if this resolves. If it does not, then we can entertain bronchoscopy and perh aps getting ENT folks involved for an inspection of his laryngeal region. Biopsying the left upper l obe area may or may not be indicated. I will discuss that further with Dr. Phoenix. A PET scan could ultimately be helpful in further assessing left upper lobe lesion. This is a very complex case. Thank you for asking us to be involved. We will follow.
--- NOTE | 2018-02-14 20:02 | CON ---
DATE OF CONSULTATION: 02/13/2018 SUBJECTIVE: The patient was seen in ER last night due to coughing and some blood coming from previou s trach site secondary to laryngectomy caused by throat cancer. ENT was called for a consult. The [facility] was admitted, seen today in his hospital room. OBJECTIVE FINDINGS: VITAL SIGNS: Stable. GENERAL: He is in no acute distress. There is no audible wheezing coming from the trach site. Ther e was also no thick drainage that appeared around the trach site. PROCEDURE PERFORMED: Flexible scope. The entire nasopharynx region was explored bilaterally. There was no active sign of bleeding in any area. The trach site was also explored to about 2 inches into the site. There was no active arterial bleed that was noted. There was old scabbing that was seen. This is potentially the reason for the bleeding, but overall normal flex scope was performed with n o significant findings. We also reviewed CT of the neck, which showed no new findings. ASSESSMENT: Throat cancer with hemoptysis, also pneumonia. PLAN: We will continue with current treatment plan as put in place by the hospitalists. ENT may be consulted as needed. Upon discharge, we would like the patient to set up appointment with Ear, Nose and Throat, Dr. Figueroa with [facility].
[2018-02-15] MEDS: Triple Antibiotic Oint 1 GM Packet TOP SCH ×2 (08:45→20:31)
[2018-02-15] MEDS: Sodium Chloride 0.9% 1,000 ML IV SCH ×2 (08:45→20:30)
[2018-02-15] MEDS: Cefepime 2 GM in Sodium Chloride 0.9% 100 ML IVPB SCH ×2 (08:45→20:30)
[2018-02-15] MEDS: Famotidine 20 MG TAB PO SCH ×2 (08:45→20:30)
--- NOTE | 2018-02-15 11:55 | PDOC.PN ---
- Subjective Encounter Start Date: 02/15/18 Encounter Start Time: 11:53 Subjective: no hemoptysis, fever or chills - Objective Resuscitation Status: Resuscitation Status FULL:Full Resuscitation MAR Reviewed: Yes Vital Signs & Weight: Vital Signs (12 hours) Temp Pulse Resp BP Pulse Ox 02/15/18 07:32 97.8 F 81 16 136/81 96 02/15/18 07:26 98.1 F 80 18 Weight Admit Weight 151 lb 7 oz Weight 151 lb 7 oz I&O: 02/14/18 02/15/18 02/16/18 06:59 06:59 06:59 Intake Total 156 3305 Output Total 400 1580 Balance -244 1725 Result Diagrams: 02/14/18 04:55 02/14/18 04:55 Phys Exam - Physical Examination Neck: no JVD tracheosstoy non-focal, decreased BS Cardiovascular: RRR, no significant murmur Gastrointestinal: soft, positive bowel sounds Musculoskeletal: no edema Dx/Plan (1) Hemoptysis Code(s): R04.2 - HEMOPTYSIS Status: Acute (2) PNA (pneumonia) Code(s): J18.9 - PNEUMONIA, UNSPECIFIED ORGANISM Status: Acute Qualifiers: Pneumonia type: due to unspecified organism Laterality: left Lung location: upper lobe of lung Qualified Code(s): J18.1 - Lobar pneumonia, unspecified organism (3) Hyponatremia Code(s): E87.1 - HYPO-OSMOLALITY AND HYPONATREMIA Status: Acute (4) 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
--- NOTE | 2018-02-15 13:59 | PRG ---
DATE OF SERVICE: 02/15/2018 SUBJECTIVE: The patient says the hemoptysis is slowed down. He is coughing up some dark colored sec retions. PHYSICAL EXAMINATION: VITAL SIGNS: Temperature 97.8, pulse 81, respirations 16, O2 sat 96%, blood pressure 136/81. HEENT: Unremarkable. NECK: No adenopathy or JVD. CHEST: Clear without wheezing or rhonchi. Trach site looks good. ABDOMEN: Soft. EXTREMITIES: No edema. ASSESSMENT: 1. Tracheitis/pneumonia. 2. Possible left upper lobe mass. 3. Aspergilloma. PLAN: We will go ahead and continue the antibiotics. At some point down the road, he may need a PET scan to further workup of the left upper lobe findings.
[2018-02-16] MEDS: Sodium Chloride 0.9% 1,000 ML IV SCH (05:38)
[2018-02-16] MEDS: Famotidine 20 MG TAB PO SCH ×2 (08:52→19:56)
[2018-02-16] MEDS: Cefepime 2 GM in Sodium Chloride 0.9% 100 ML IVPB SCH ×2 (08:52→20:01)
[2018-02-16] MEDS: Triple Antibiotic Oint 1 GM Packet TOP SCH ×2 (08:52→17:19)
--- NOTE | 2018-02-16 11:45 | PRG ---
DATE OF SERVICE: 02/16/2018 SUBJECTIVE: He is coughing up blood, but he says it is much less than it has been. He is complainin g of swelling around his IV site on the right arm. PHYSICAL EXAMINATION: VITAL SIGNS: Temperature 98.0, pulse 81, respirations 18, O2 sat 92% on 5 liters trach collar. HEENT: Unremarkable. NECK: Ostomy site noted, appears to have some dry blood around the orifice. LUNGS: Clear. CARDIAC: S1 and S2 regular. ABDOMEN: Soft. EXTREMITIES: No edema. ASSESSMENT: 1. Hemoptysis. 2. Aspergilloma. 3. History of head and neck cancer. 4. Probable tracheitis. 5. Cannot rule out bleeding from the aspergilloma. PLAN: I will go ahead and add steroids to the current treatment regimen. Continue antibiotics. Dr. Phoenix will return tomorrow. Bronchoscopy might be considered if the bleeding does not subside.
--- NOTE | 2018-02-16 13:46 | PDOC.PN ---
- Subjective Encounter Start Date: 02/16/18 Encounter Start Time: 12:40 -: old records requested/rev Pt seen and examined, chart reviewed in its entirety, this is my first visit with this patient. Pt still with some blood streaked sputum, but markedly imrpoved. No F/c, no N/V /D/c, no CP, some cough, some LAZARO. no orthopnea, no PND. Pulm notes reviewed All systems reviewed and neg except as above - Objective Resuscitation Status: Resuscitation Status FULL:Full Resuscitation MAR Reviewed: Yes Vital Signs & Weight: Vital Signs (12 hours) Temp Pulse Resp BP Pulse Ox 02/16/18 07:40 98.0 F 81 18 02/16/18 07:31 98.0 F 81 18 110/68 91 L Weight Admit Weight 151 lb 7 oz Weight 151 lb 7 oz I&O: 02/15/18 02/16/18 02/17/18 06:59 06:59 06:59 Intake Total 3305 3350 Output Total 1580 2790 Balance 1725 560 Result Diagrams: 02/14/18 04:55 02/14/18 04:55 Radiology Reviewed by me: Yes EKG Reviewed by me: Yes Phys Exam - Physical Examination Constitutional: NAD HEENT: PERRLA, moist MMs, sclera anicteric tracheostome open to air, no tube. scabbing over right half. Neck: no nodes Respiratory: no wheezing, no rhonchi right posterior crackles 1/2 down back Cardiovascular: RRR, no significant murmur, no rub Gastrointestinal: soft, non-tender, no distention, positive bowel sounds Musculoskeletal: no edema, pulses present Neurological: non-focal, normal sensation, moves all 4 limbs Lymphatic: no nodes Psychiatric: normal affect, A&O x 3 Skin: no rash, normal turgor, cap refill <2 seconds Dx/Plan - Plan cont current plan of care, continue antibiotics, respiratory therapy, DVT proph w/SCDs * .
[2018-02-16] MEDS: traMADol HCl 50 MG TAB PO PRN (19:57)
[2018-02-17 06:14] LABS: Anion Gap 10 mmol/L (10-20); BUN (Urea Nitrogen) 8 mg/dL (8.4-25.7); Calc. Creatinine Clearance 109 mL/min (70-130); Calcium 9.3 mg/dL (7.8-10.44); Carbon Dioxide 28 mmol/L (22-29); Chloride 95 mmol/L (98-107); Estimated GFR-MDRD Greater than 90; Glucose 149 mg/dL (70-105); Magnesium 1.9 mg/dL (1.6-2.6); Potassium 4.2 mmol/L (3.5-5.1); Sodium 129 mmol/L (136-145)
[2018-02-17 06:23] LABS: Band 36 % (5-11); Hemoglobin 11.8 g/dL (14.0-18.0); Lymphocytes 2 % (21-51); MDiff Complete? YES; Mean Corpuscular HGB CONC 32.2 g/dL (32.0-36.0); Mean Corpuscular Hemoglobin 28.7 pg (27.0-31.0); Mean Platelet Volume 5.8 fL (7.4-10.4); Monocytes 4 % (0-10); Neutrophil 58 % (42-75); PLT Morphology Comment Appears Increased; Platelet Count 478 thou/uL (130-400); RBC Distribution Width 13.1 % (11.5-14.5); Red Blood Cell (RBC) Count 4.11 mill/uL (4.70-6.10); White Blood Cell (WBC) Count 30.1 thou/uL (4.8-10.8)
[2018-02-17] MEDS: Cefepime 2 GM in Sodium Chloride 0.9% 100 ML IVPB SCH ×2 (08:57→20:43)
[2018-02-17] MEDS: Famotidine 20 MG TAB PO SCH ×2 (08:57→20:43)
--- NOTE | 2018-02-17 15:50 | PRG ---
DATE OF SERVICE: 02/17/2018 SUBJECTIVE: Kody Narayan says his hemoptysis has decreased dramatically. OBJECTIVE: VITAL SIGNS: He is afebrile, heart rate 82, respiratory rate 22, oximetry is 92, blood pressure 127/ 78. LUNGS: Clear. HEART: Regular rhythm. ABDOMEN: Soft. Chest x-rays and chest CT have been reviewed. He may have an aspergilloma in his left upper lobe. I doubt he has tuberculosis. We will continue to follow. He may need bronchoscopy at some point, but we will continue conservativ elaine for now.
--- NOTE | 2018-02-17 15:57 | PDOC.PN ---
- Subjective Encounter Start Date: 02/17/18 Encounter Start Time: 11:10 Pt stable, less hemoptysis, no F/c, no N/V/D/c, case discussed with Dr Renteria and Dr Phoenix, no immediate plans for bronch. Pt with history of aspergilloma, clinically stable. all systems reviewed and neg x as above - Objective Resuscitation Status: Resuscitation Status FULL:Full Resuscitation MAR Reviewed: Yes Vital Signs & Weight: Vital Signs (12 hours) Temp Pulse Resp BP Pulse Ox 02/17/18 11:59 97.8 F 82 22 H 127/78 92 L 02/17/18 08:00 97.5 F L 91 18 02/17/18 07:41 97.5 F L 91 18 157/91 H 92 L 02/17/18 04:54 98.1 F 89 18 126/70 95 Weight Admit Weight 151 lb 7 oz Weight 151 lb 7 oz I&O: 02/16/18 02/17/18 02/18/18 06:59 06:59 06:59 Intake Total 3350 1820 250 Output Total 2790 2320 Balance 560 -500 250 Result Diagrams: 02/17/18 05:14 02/17/18 05:14 Radiology Reviewed by me: Yes Phys Exam - Physical Examination Constitutional: NAD HEENT: PERRLA, moist MMs, sclera anicteric, oral pharynx no lesions Neck: no nodes, no JVD, supple, full ROM trach site stable, scabbing same, no redness or swelling right posterior rales, no wheezes, no rhonchi Cardiovascular: RRR, no significant murmur, no rub Gastrointestinal: soft, non-tender, no distention, positive bowel sounds Musculoskeletal: no edema Neurological: non-focal, normal sensation, moves all 4 limbs Lymphatic: no nodes Psychiatric: normal affect, A&O x 3 Skin: no rash, normal turgor, cap refill <2 seconds Dx/Plan (1) Hemoptysis Code(s): R04.2 - HEMOPTYSIS Status: Acute Comment: improving, present on admit, will follow up on pulm recs, follow h/H, stablizing (2) Hyponatremia Code(s): E87.1 - HYPO-OSMOLALITY AND HYPONATREMIA Status: Acute (3) PNA (pneumonia) Code(s): J18.9 - PNEUMONIA, UNSPECIFIED ORGANISM Status: Acute Qualifiers: Pneumonia type: due to unspecified organism Laterality: left Lung location: upper lobe of lung Qualified Code(s): J18.1 - Lobar pneumonia, unspecified organism (4) Laryngeal squamous cell carcinoma Code(s): C32.9 - MALIGNANT NEOPLASM OF LARYNX, UNSPECIFIED Status: Chronic (5) COPD (chronic obstructive pulmonary disease) with emphysema Code(s): J43.9 - EMPHYSEMA, UNSPECIFIED Status: Chronic Qualifiers: Emphysema type: unspecified Qualified Code(s): J43.9 - Emphysema, unspecified (6) Hx of primary tuberculosis Code(s): Z86.11 - PERSONAL HISTORY OF TUBERCULOSIS Status: Chronic (7) Aspergillosis, unspecified Code(s): B44.9 - ASPERGILLOSIS, UNSPECIFIED Status: Chronic Comment: Hx of aspergilloma per Dr Phoenix. not excited to brinch this patient at this point - Plan cont current plan of care, continue antibiotics, PT/OT, respiratory therapy, out of bed/ambulate, DVT proph w/SCDs * .
[2018-02-17] MEDS: Triple Antibiotic Oint 1 GM Packet TOP SCH (18:34)
[2018-02-18 05:12] LABS: Anion Gap 8 mmol/L (10-20); BUN (Urea Nitrogen) 12 mg/dL (8.4-25.7); Calc. Creatinine Clearance 112 mL/min (70-130); Calcium 9.6 mg/dL (7.8-10.44); Carbon Dioxide 29 mmol/L (22-29); Chloride 97 mmol/L (98-107); Estimated GFR-MDRD Greater than 90; Glucose 123 mg/dL (70-105); Magnesium 2.2 mg/dL (1.6-2.6); Potassium 4.2 mmol/L (3.5-5.1); Sodium 130 mmol/L (136-145)
[2018-02-18 05:21] LABS: Band 25 % (5-11); Lymphocytes 4 % (21-51); MDiff Complete? YES; Mean Corpuscular HGB CONC 33.6 g/dL (32.0-36.0); Mean Corpuscular Hemoglobin 29.8 pg (27.0-31.0); Mean Corpuscular Volume 88.8 fl (80.0-94.0); Mean Platelet Volume 5.9 fL (7.4-10.4); Metamyelocyte 1 % (0-0); Monocytes 4 % (0-10); Neutrophil 66 % (42-75); PLT Morphology Comment Appears Increased; Platelet Count 536 thou/uL (130-400); RBC Distribution Width 13.2 % (11.5-14.5); Red Blood Cell (RBC) Count 4.02 mill/uL (4.70-6.10); White Blood Cell (WBC) Count 40.6 thou/uL (4.8-10.8)
[2018-02-18] MEDS: Cefepime 2 GM in Sodium Chloride 0.9% 100 ML IVPB SCH ×2 (09:07→21:36)
[2018-02-18] MEDS: Famotidine 20 MG TAB PO SCH ×2 (09:08→21:36)
--- NOTE | 2018-02-18 12:05 | PDOC.PN ---
- Subjective Encounter Start Date: 02/18/18 Encounter Start Time: 12:02 Dr Bowden note reviewed, CT reivewed. AFB and Fungal stans/cultures ordered, galactomanning and BDGlucan no F/c, no N/V/d/C, less hemoptysis daily. No current plans to scope. Per review, pt largely not compliant with home meds correction. All systems reviewed and neg x as above - Objective Resuscitation Status: Resuscitation Status FULL:Full Resuscitation MAR Reviewed: Yes Vital Signs & Weight: Vital Signs (12 hours) Temp Pulse Resp BP Pulse Ox 02/18/18 05:06 98.3 F 84 18 142/80 H 94 L Weight Admit Weight 151 lb 7 oz Weight 151 lb 7 oz I&O: 02/17/18 02/18/18 02/19/18 06:59 06:59 06:59 Intake Total 1820 990 Output Total 2320 1500 Balance -500 -510 Result Diagrams: 02/18/18 04:19 02/18/18 04:19 Radiology Reviewed by me: Yes Phys Exam - Physical Examination Constitutional: NAD HEENT: PERRLA, moist MMs, sclera anicteric, oral pharynx no lesions Neck: no nodes, no JVD, supple, full ROM trachesotomy stable, uncannulated RUL posterior crackles, no wheezes or rhonchi Cardiovascular: RRR, no significant murmur, no rub Gastrointestinal: soft, non-tender, no distention, positive bowel sounds Musculoskeletal: pulses present, edema present Neurological: non-focal, normal sensation, moves all 4 limbs Lymphatic: no nodes Psychiatric: normal affect, A&O x 3 Skin: no rash, normal turgor, cap refill <2 seconds Dx/Plan (1) Hemoptysis Code(s): R04.2 - HEMOPTYSIS Status: Acute Comment: improving, present on admit, will follow up on pulm recs, follow h/H, stablizing. CCM with abx, follow up on AFB and fungal smears and cultures. galactomanning and BDGlucan send outs, wont have back for a week. (2) Hyponatremia Code(s): E87.1 - HYPO-OSMOLALITY AND HYPONATREMIA Status: Acute Comment: stable, Na 129 up to 130 today (3) PNA (pneumonia) Code(s): J18.9 - PNEUMONIA, UNSPECIFIED ORGANISM Status: Acute Qualifiers: Pneumonia type: due to unspecified organism Laterality: left Lung location: upper lobe of lung Qualified Code(s): J18.1 - Lobar pneumonia, unspecified organism (4) Laryngeal squamous cell carcinoma Code(s): C32.9 - MALIGNANT NEOPLASM OF LARYNX, UNSPECIFIED Status: Chronic (5) COPD (chronic obstructive pulmonary disease) with emphysema Code(s): J43.9 - EMPHYSEMA, UNSPECIFIED Status: Chronic Qualifiers: Emphysema type: unspecified Qualified Code(s): J43.9 - Emphysema, unspecified (6) Hx of primary tuberculosis Code(s): Z86.11 - PERSONAL HISTORY OF TUBERCULOSIS Status: Chronic (7) Aspergillosis, unspecified Code(s): B44.9 - ASPERGILLOSIS, UNSPECIFIED Status: Chronic Comment: Hx of aspergilloma or suspicious for per Dr Phoenix. not excited to bronch this patient at this point - Plan cont current plan of care, continue antibiotics, social welfare administrator, respiratory therapy, out of bed/ambulate * .
[2018-02-18] MEDS: Vancomycin HCl 1 GM in Premix Bag 1 BAG IVPB SCH ×2 (13:35→23:55)
--- NOTE | 2018-02-18 15:02 | PRG ---
DATE OF SERVICE: 02/18/2018 SUBJECTIVE: His hemoptysis continues to decline. OBJECTIVE: VITAL SIGNS: He is afebrile, heart rate 80, respiratory rate is 20, oximetry is 95 on trach collar, blood pressure 142/80. LUNGS: Clear. HEART: Regular rhythm. ABDOMEN: Soft. MICROBIOLOGY: Sputum from yesterday shows gram positive cocci in clusters and few gram negative rods . I will add vancomycin for now in the event that this is gram-positive mediated with MRSA. IMPRESSION: History of large left upper lobe bolus airspace with an aspergilloma. This now has an a ir fluid level suggesting that it is infected. I do not feel he has a mass in his left upper lobe. We will continue to treat him for an acute infectious process, i.e. bullitis. Hopefully, we will see a slow decline in his white count, which is up to 40,000 with 25% bands on his peripheral smear, had 36% bands yesterday.
[2018-02-18 15:14] LABS: Ref Lab Test Ordered ASPERGILLUS AG; Reference Lab Name LABCORP
[2018-02-19 04:52] LABS: Mean Corpuscular HGB CONC 32.7 g/dL (32.0-36.0); Mean Corpuscular Hemoglobin 29.2 pg (27.0-31.0); Mean Corpuscular Volume 89.3 fl (80.0-94.0); Mean Platelet Volume 6.2 fL (7.4-10.4); Platelet Count 512 thou/uL (130-400); RBC Distribution Width 13.2 % (11.5-14.5); Red Blood Cell (RBC) Count 4.12 mill/uL (4.70-6.10); White Blood Cell (WBC) Count 42.3 thou/uL (4.8-10.8)
[2018-02-19 05:01] LABS: Anion Gap 15 mmol/L (10-20); BUN (Urea Nitrogen) 10 mg/dL (8.4-25.7); Calc. Creatinine Clearance 116 mL/min (70-130); Calcium 9.8 mg/dL (7.8-10.44); Carbon Dioxide 25 mmol/L (22-29); Chloride 94 mmol/L (98-107); Estimated GFR-MDRD Greater than 90; Glucose 118 mg/dL (70-105); Potassium 4.1 mmol/L (3.5-5.1); Sodium 130 mmol/L (136-145)
[2018-02-19 05:22] LABS: Band 20 % (5-11); Lymphocytes 8 % (21-51); MDiff Complete? YES; Metamyelocyte 1 % (0-0); Monocytes 4 % (0-10); Neutrophil 67 % (42-75); PLT Morphology Comment Appears Increased
[2018-02-19] MEDS: Cefepime 2 GM in Sodium Chloride 0.9% 100 ML IVPB SCH ×2 (09:18→22:22)
[2018-02-19] MEDS: Famotidine 20 MG TAB PO SCH ×2 (09:18→21:06)
--- NOTE | 2018-02-19 10:58 | PDOC.PN ---
- Subjective Encounter Start Date: 02/19/18 Encounter Start Time: 09:50 Pt feeling better, hemoptysis almost completely resolved, no F/c, no N/V/D/c, no CP, no SOB or LAZARO. Dr Phoenix's note reviewed, appreciate his assistance. Tolerating Vanc, Cefepime , Levoflox. Cultures pending. all systems reviewed and neg x as above - Objective Resuscitation Status: Resuscitation Status FULL:Full Resuscitation Vital Signs & Weight: Vital Signs (12 hours) Temp Pulse Resp BP Pulse Ox 02/19/18 07:36 97.9 F 88 20 145/88 H 96 Weight Admit Weight 151 lb 7 oz Weight 151 lb 7 oz I&O: 02/18/18 02/19/18 02/20/18 06:59 06:59 06:59 Intake Total 990 291.5 Output Total 1500 3250 Balance -510 -2958.5 Result Diagrams: 02/19/18 03:39 02/19/18 03:39 Phys Exam - Physical Examination Constitutional: NAD HEENT: PERRLA, moist MMs, sclera anicteric, oral pharynx no lesions Neck: no nodes, no JVD, supple, full ROM Trach site stable, uncannulated. right lateral aspect with echar-like scab Respiratory: no wheezing, no rales, no rhonchi, clear to auscultation bilateral Cardiovascular: RRR, no significant murmur, no rub Gastrointestinal: soft, non-tender, no distention, positive bowel sounds Musculoskeletal: pulses present, edema present Neurological: non-focal, normal sensation, moves all 4 limbs Lymphatic: no nodes Psychiatric: normal affect, A&O x 3 Skin: no rash, normal turgor, cap refill <2 seconds Dx/Plan (1) Hemoptysis Code(s): R04.2 - HEMOPTYSIS Status: Acute Comment: Still improving, present on admit, will follow up on pulm recs, follow h/H, stablizing. CCM with abx, follow up on AFB and fungal smears and cultures. galactomannin and BDGlucan send outs, wont have back for a week. CCM with abx (2) Hyponatremia Code(s): E87.1 - HYPO-OSMOLALITY AND HYPONATREMIA Status: Acute Comment: stable, Na 129 up to 130 today (3) PNA (pneumonia) Code(s): J18.9 - PNEUMONIA, UNSPECIFIED ORGANISM Status: Acute Qualifiers: Pneumonia type: due to unspecified organism Laterality: left Lung location: upper lobe of lung Qualified Code(s): J18.1 - Lobar pneumonia, unspecified organism (4) Laryngeal squamous cell carcinoma Code(s): C32.9 - MALIGNANT NEOPLASM OF LARYNX, UNSPECIFIED Status: Chronic (5) COPD (chronic obstructive pulmonary disease) with emphysema Code(s): J43.9 - EMPHYSEMA, UNSPECIFIED Status: Chronic Qualifiers: Emphysema type: unspecified Qualified Code(s): J43.9 - Emphysema, unspecified (6) Hx of primary tuberculosis Code(s): Z86.11 - PERSONAL HISTORY OF TUBERCULOSIS Status: Chronic (7) Aspergillosis, unspecified Code(s): B44.9 - ASPERGILLOSIS, UNSPECIFIED Status: Chronic Comment: Hx of aspergilloma or suspicious for per Dr Phoenix. not excited to bronch this patient at this point - Plan cont current plan of care, continue antibiotics, psych social worker, respiratory therapy, out of bed/ambulate * .
[2018-02-19] MEDS: Vancomycin HCl 1 GM in Premix Bag 1 BAG IVPB SCH (13:21)
--- NOTE | 2018-02-19 18:24 | PRG ---
DATE OF SERVICE: 02/19/2018 SUBJECTIVE: Ms. Narayan's hemoptysis has resolved. He still has an elevated white count, but maybe t his is plateaued. OBJECTIVE: He is afebrile, heart rate is 89, respiratory rate 20, oximetry is 96, blood pressure 122 /78. Lungs, heart, and abdomen are unchanged. IMPRESSION: Infected bolus airspace, most likely with bacteria. I doubt he has tuberculosis, probab ly has a leukocytosis associated with this and reactive thrombocytosis. I doubt this is related to h is primary malignancy. We will continue to follow him closely.
[2018-02-20] MEDS: Vancomycin HCl 1 GM in Premix Bag 1 BAG IVPB SCH ×2 (00:17→14:23)
[2018-02-20 05:55] LABS: Hemoglobin 12.5 g/dL (14.0-18.0); Mean Corpuscular HGB CONC 32.6 g/dL (32.0-36.0); Mean Corpuscular Hemoglobin 29.4 pg (27.0-31.0); Mean Corpuscular Volume 90.1 fl (80.0-94.0); Mean Platelet Volume 6.7 fL (7.4-10.4); Platelet Count 515 thou/uL (130-400); RBC Distribution Width 13.1 % (11.5-14.5); Red Blood Cell (RBC) Count 4.27 mill/uL (4.70-6.10); White Blood Cell (WBC) Count 48.6 thou/uL (4.8-10.8)
[2018-02-20 06:53] LABS: Band 3 % (5-11); Lymphocytes 4 % (21-51); MDiff Complete? YES; Monocytes 7 % (0-10); Neutrophil 86 % (42-75); PLT Morphology Comment Appears Increased
[2018-02-20] MEDS: Triple Antibiotic Oint 1 GM Packet TOP SCH (09:15)
[2018-02-20] MEDS: Cefepime 2 GM in Sodium Chloride 0.9% 100 ML IVPB SCH ×2 (09:16→21:30)
[2018-02-20] MEDS: Famotidine 20 MG TAB PO SCH ×2 (09:17→21:32)
--- NOTE | 2018-02-20 14:04 | PDOC.PN ---
- Subjective Encounter Start Date: 02/20/18 Encounter Start Time: 11:20 Pt feeling good, no more hemoptysis, no F/c, no N/V/D/C, no CP, no LAZARO or SOB. WBC up, but band have essentially gone to zero today. symptomatically improved, deanna Vanc, Cefepime, Levoflox. Case discussed with Dr Phoenix. all systems reviewed and neg x as above - Objective Resuscitation Status: Resuscitation Status FULL:Full Resuscitation Vital Signs & Weight: Vital Signs (12 hours) Temp Pulse Resp BP Pulse Ox 02/20/18 11:32 98.1 F 114 H 16 119/78 02/20/18 08:07 97.8 F 87 16 143/94 H 96 02/20/18 08:00 97.8 F 87 16 96 Weight Admit Weight 151 lb 7 oz Weight 151 lb 7 oz I&O: 02/19/18 02/20/18 02/21/18 06:59 06:59 06:59 Intake Total 291.5 2680 240 Output Total 3250 2875 Balance -2958.5 -195 240 Result Diagrams: 02/20/18 04:27 02/19/18 03:39 Radiology Reviewed by me: Yes Phys Exam - Physical Examination Constitutional: NAD HEENT: PERRLA, moist MMs, sclera anicteric, oral pharynx no lesions Neck: no nodes, no JVD, supple, full ROM trach site intact, uncannulated Respiratory: no wheezing, no rhonchi, clear to auscultation bilateral fine RUL posterior rales Cardiovascular: RRR, no significant murmur, no rub Gastrointestinal: soft, non-tender, no distention, positive bowel sounds Musculoskeletal: no edema, pulses present Neurological: non-focal, normal sensation, moves all 4 limbs Lymphatic: no nodes Psychiatric: normal affect, A&O x 3 Skin: no rash, normal turgor, cap refill <2 seconds Dx/Plan (1) Hemoptysis Code(s): R04.2 - HEMOPTYSIS Status: Resolved Comment: Resolved, present on admit, will follow up on pulm recs, follow h/H, stablizing. CCM with abx, follow up on AFB and fungal smears and cultures. galactomannin and BDGlucan send outs, wont have back for a week. CCM with abx (2) Hyponatremia Code(s): E87.1 - HYPO-OSMOLALITY AND HYPONATREMIA Status: Acute Comment: stable, Na 129 up to 130 today (3) PNA (pneumonia) Code(s): J18.9 - PNEUMONIA, UNSPECIFIED ORGANISM Status: Acute Qualifiers: Pneumonia type: due to unspecified organism Laterality: left Lung location: upper lobe of lung Qualified Code(s): J18.1 - Lobar pneumonia, unspecified organism (4) Laryngeal squamous cell carcinoma Code(s): C32.9 - MALIGNANT NEOPLASM OF LARYNX, UNSPECIFIED Status: Chronic (5) COPD (chronic obstructive pulmonary disease) with emphysema Code(s): J43.9 - EMPHYSEMA, UNSPECIFIED Status: Chronic Qualifiers: Emphysema type: unspecified Qualified Code(s): J43.9 - Emphysema, unspecified (6) Hx of primary tuberculosis Code(s): Z86.11 - PERSONAL HISTORY OF TUBERCULOSIS Status: Chronic (7) Aspergillosis, unspecified Code(s): B44.9 - ASPERGILLOSIS, UNSPECIFIED Status: Chronic Comment: Hx of aspergilloma or suspicious for per Dr Phoenix. not excited to bronch this patient at this point - Plan * .
--- NOTE | 2018-02-20 16:55 | PRG ---
DATE OF SERVICE: 02/20/2018 SUBJECTIVE: Sylvain has stopped coughing up blood. He is in no distress. OBJECTIVE: VITAL SIGNS: He is afebrile, heart rates in the 80s, respiratory rate 16, oximetry is 96 on room air , blood pressure 143/94. LUNGS: Clear. HEART: Regular rhythm. LABORATORY DATA: His white count is 48,000, but his bands are down to 3, so hopefully his white coun t plateaued. Since he is not wheezing up, I think it is reasonable to cut his steroids way back, so I have stopped his Medrol and placed him on 20 mg a day of prednisone. I still do not feel that there is any indication for bronchoscopy at this point. We will continue wi current antimicrobial therapy. I appreciate the assistance of Dr. Gray.
[2018-02-20 23:40] LABS: Vancomycin, Trough 4.5 ug/mL
[2018-02-21] MEDS: Vancomycin HCl 1 GM in Premix Bag 1 BAG IVPB SCH (01:08)
[2018-02-21 05:49] LABS: Anion Gap 9 mmol/L (10-20); BUN (Urea Nitrogen) 11 mg/dL (8.4-25.7); Calc. Creatinine Clearance 128 mL/min (70-130); Calcium 10.1 mg/dL (7.8-10.44); Carbon Dioxide 29 mmol/L (22-29); Chloride 95 mmol/L (98-107); Estimated GFR-MDRD Greater than 90; Glucose 70 mg/dL (70-105); Magnesium 1.9 mg/dL (1.6-2.6); Sodium 129 mmol/L (136-145)
[2018-02-21 06:39] LABS: Band 16 % (5-11); Hemoglobin 12.7 g/dL (14.0-18.0); Lymphocytes 5 % (21-51); MDiff Complete? YES; Mean Corpuscular HGB CONC 32.2 g/dL (32.0-36.0); Mean Corpuscular Hemoglobin 28.5 pg (27.0-31.0); Mean Corpuscular Volume 88.6 fl (80.0-94.0); Mean Platelet Volume 5.9 fL (7.4-10.4); Monocytes 4 % (0-10); Neutrophil 75 % (42-75); Platelet Count 514 thou/uL (130-400); RBC Distribution Width 13.1 % (11.5-14.5); Red Blood Cell (RBC) Count 4.44 mill/uL (4.70-6.10); White Blood Cell (WBC) Count 46.2 thou/uL (4.8-10.8)
[2018-02-21] MEDS ORDERED: Cefepime 2 GM in Sodium Chloride 0.9% 100 ML IVPB SCH (08:00)
[2018-02-21] MEDS: predniSONE 20 MG TAB PO SCH (10:16)
[2018-02-21] MEDS: Famotidine 20 MG TAB PO SCH ×2 (10:16→20:53)
[2018-02-21] MEDS: Nafcillin 2 GM in Sodium Chloride 0.9% 100 ML IVPB SCH ×3 (11:07→20:54)
--- NOTE | 2018-02-21 13:12 | PDOC.PN ---
- Subjective Encounter Start Date: 02/21/18 Encounter Start Time: 10:20 Pt feeling good, les cough, less sputum, no blood. No F/C, no N/V/D/C, no CP, no SOB, or LAZARO. SpCx back with MSSA Steno. steno is resistent to Bactrim and Levoflox. Ceftaz is next drug to try, but not tested, requested from [facility] lab. rj also can work. Ceftaz ordered, but apparently auto-exchanged to cefepime again. Cefepime stopped and Ceftaz will be here tomorrow. Minocycline started, levoflox contnued for now. Vanc and cefepime stopped, Nafcillin started for MSSA - Objective Resuscitation Status: Resuscitation Status FULL:Full Resuscitation MAR Reviewed: Yes Vital Signs & Weight: Vital Signs (12 hours) Temp Pulse Resp BP Pulse Ox 02/21/18 08:00 98.9 F 77 18 127/77 95 Weight Admit Weight 151 lb 7 oz Weight 151 lb 7 oz I&O: 02/20/18 02/21/18 02/22/18 06:59 06:59 06:59 Intake Total 2680 490 Output Total 2875 300 Balance -195 190 Result Diagrams: 02/21/18 04:46 02/21/18 04:46 Phys Exam - Physical Examination Constitutional: NAD HEENT: PERRLA, moist MMs, sclera anicteric, oral pharynx no lesions Neck: no nodes, no JVD, supple, full ROM Respiratory: no wheezing, no rales, no rhonchi, clear to auscultation bilateral Cardiovascular: RRR, no significant murmur, no rub Gastrointestinal: soft, non-tender, no distention, positive bowel sounds Musculoskeletal: no edema, pulses present Neurological: non-focal, normal sensation, moves all 4 limbs Lymphatic: no nodes Psychiatric: normal affect, A&O x 3 Skin: no rash, normal turgor, cap refill <2 seconds Dx/Plan (1) Hemoptysis Code(s): R04.2 - HEMOPTYSIS Status: Resolved Comment: Resolved, present on admit, will follow up on pulm recs, follow h/H, stablizing. CCM with abx, follow up on AFB and fungal smears and cultures. galactomannin and BDGlucan send outs, wont have back for a week. CCM with abx (2) Hyponatremia Code(s): E87.1 - HYPO-OSMOLALITY AND HYPONATREMIA Status: Acute Comment: stable, Na 129 up to 130 today (3) PNA (pneumonia) Code(s): J18.9 - PNEUMONIA, UNSPECIFIED ORGANISM Status: Acute Qualifiers: Pneumonia type: due to unspecified organism Laterality: left Lung location: upper lobe of lung Qualified Code(s): J18.1 - Lobar pneumonia, unspecified organism Comment: MSSA on culture - polk eo Nafcillin Stenotrophomonas on culture - resistant to Levofloxacin and Bactrim. Start Ceftaz when here, Minocycline po started. additional sensitivities requested - send out continue levoflox for now (4) Laryngeal squamous cell carcinoma Code(s): C32.9 - MALIGNANT NEOPLASM OF LARYNX, UNSPECIFIED Status: Chronic (5) COPD (chronic obstructive pulmonary disease) with emphysema Code(s): J43.9 - EMPHYSEMA, UNSPECIFIED Status: Chronic Qualifiers: Emphysema type: unspecified Qualified Code(s): J43.9 - Emphysema, unspecified (6) Hx of primary tuberculosis Code(s): Z86.11 - PERSONAL HISTORY OF TUBERCULOSIS Status: Chronic (7) Aspergillosis, unspecified Code(s): B44.9 - ASPERGILLOSIS, UNSPECIFIED Status: Chronic Comment: Hx of aspergilloma or suspicious for per Dr Phoenix. not excited to bronch this patient at this point. Awaiting Galactomannin and B-D-glucan assays - Plan cont current plan of care, continue antibiotics, respiratory therapy, out of bed /ambulate * .
--- NOTE | 2018-02-21 13:45 | PRG ---
DATE OF SERVICE: 02/21/2018 SUBJECTIVE: Mr. Narayan's white count appears to be starting to trend down in 16% bands on today's sm ear, 46,000 white count. He has had no hemoptysis. OBJECTIVE: VITAL SIGNS: He has been afebrile. LUNGS: Clear. HEART: Regular rhythm. Respiratory culture grew Stenotrophomonas, which was fairly resistant organism. Staph was methicilli n sensitive. We will continue antimicrobial therapy. I appreciate Dr. Gray's input. Steroid dosing has been in creased. He is not a candidate for discharge at this time.
[2018-02-21] MEDS: CEFTAZIDIME FORTAZ IVPB SCH ×2 (15:39→23:09)
[2018-02-21] MEDS: ADMIXTURE FEE IVPB SCH ×2 (15:39→23:09)
[2018-02-21] MEDS: SODIUM CHLORIDE IVPB SCH ×2 (15:39→23:09)
[2018-02-22] MEDS: Nafcillin 2 GM in Sodium Chloride 0.9% 100 ML IVPB SCH ×4 (02:42→20:05)
[2018-02-22] MEDS: ADMIXTURE FEE IVPB SCH ×3 (06:51→23:40)
[2018-02-22] MEDS: SODIUM CHLORIDE IVPB SCH ×3 (06:51→23:40)
[2018-02-22] MEDS: CEFTAZIDIME FORTAZ IVPB SCH ×3 (06:51→23:40)
[2018-02-22] MEDS: Famotidine 20 MG TAB PO SCH ×2 (09:02→20:05)
[2018-02-22] MEDS: predniSONE 20 MG TAB PO SCH (09:02)
--- NOTE | 2018-02-22 12:32 | PDOC.PN ---
- Subjective Encounter Start Date: 02/22/18 Encounter Start Time: 10:00 pt feeling pretty good. no cough, minimal sputum, hemoptysis resolved, no SBO, no LAZARO or orthopne,a no CP. Deanna Nafcillin well, Ceftaz actually started yesterday afternoon, deanna well. Minocycline started yesterday, deanna well. Still on levoflox for 'normal stuff' No F/C, no N/V/D/c, no CP, no itching or rash, no abd pain all systems reviewed neg except as above - Objective Resuscitation Status: Resuscitation Status FULL:Full Resuscitation MAR Reviewed: Yes Vital Signs & Weight: Vital Signs (12 hours) Temp Pulse Resp BP Pulse Ox 02/22/18 08:46 98.2 F 93 20 112/77 95 02/22/18 08:00 98.2 F 93 20 02/22/18 06:49 96 Weight Admit Weight 151 lb 7 oz Weight 151 lb 7 oz I&O: 02/21/18 02/22/18 02/23/18 06:59 06:59 06:59 Intake Total 490 3214 240 Output Total 300 3350 Balance 190 -136 240 Result Diagrams: 02/21/18 04:46 02/21/18 04:46 Additional Labs: Accuchecks 02/21/18 19:34 POC Glucose 144 H Phys Exam - Physical Examination Constitutional: NAD HEENT: PERRLA, moist MMs, sclera anicteric, oral pharynx no lesions Neck: no nodes, no JVD, supple, full ROM trach stoma stable Respiratory: no wheezing, no rales, no rhonchi, clear to auscultation bilateral faint posterior RUL rales Cardiovascular: RRR, no significant murmur, no rub Gastrointestinal: soft, no distention, positive bowel sounds Musculoskeletal: no edema, pulses present Neurological: non-focal, normal sensation, moves all 4 limbs Lymphatic: no nodes Psychiatric: normal affect, A&O x 3 Skin: no rash, normal turgor, cap refill <2 seconds Dx/Plan (1) Hemoptysis Code(s): R04.2 - HEMOPTYSIS Status: Resolved Comment: Resolved, present on admit, will follow up on pulm recs, follow h/H, stablizing. CCM with abx, follow up on AFB and fungal smears and cultures. galactomannin and BDGlucan negative. would not add in Vori unless we obtain a biopsy or culture with elements. Crypto not detected with BDGlucan, but pulm disease rare (2) Hyponatremia Code(s): E87.1 - HYPO-OSMOLALITY AND HYPONATREMIA Status: Acute Comment: stable (3) PNA (pneumonia) Code(s): J18.9 - PNEUMONIA, UNSPECIFIED ORGANISM Status: Acute Qualifiers: Pneumonia type: due to methicillin-sensitive Staphylococcus aureus (MSSA) Laterality: left Lung location: upper lobe of lung Qualified Code(s): J15.211 - Pneumonia due to Methicillin susceptible Staphylococcus aureus Comment: MSSA on culture - changed to Nafcillin. Check CBC tomorrow Stenotrophomonas on culture - resistant to Levofloxacin and Bactrim. Started Ceftaz yesterday, Minocycline po started yesterday. additional sensitivities requested - send out. check CBC in AM continue levoflox for now (4) Laryngeal squamous cell carcinoma Code(s): C32.9 - MALIGNANT NEOPLASM OF LARYNX, UNSPECIFIED Status: Chronic (5) COPD (chronic obstructive pulmonary disease) with emphysema Code(s): J43.9 - EMPHYSEMA, UNSPECIFIED Status: Chronic Qualifiers: Emphysema type: unspecified Qualified Code(s): J43.9 - Emphysema, unspecified Comment: not active (6) Hx of primary tuberculosis Code(s): Z86.11 - PERSONAL HISTORY OF TUBERCULOSIS Status: Chronic (7) Aspergillosis, unspecified Code(s): B44.9 - ASPERGILLOSIS, UNSPECIFIED Status: Chronic Comment: Hx of aspergilloma or suspicious for per Dr Phoenix. not excited to bronch this patient at this point. fungal serologies negative. would not add in vori at this point. if concenred, could check Histo ab and/or Ur ag. - Plan cont current plan of care, continue antibiotics, respiratory therapy, out of bed /ambulate * .
[2018-02-22 14:13] LABS: Fungus Stain Final report (.)
--- NOTE | 2018-02-22 15:56 | PRG ---
DATE OF SERVICE: 02/22/2018 SERVICE: Pulmonary Medicine. INTERVAL HISTORY: The patient is doing fantastic from a respiratory standpoint. He is on room air. He denies any current chest pain, nausea, vomiting, shortness of breath, fevers or chills. He is not having any difficulty with his breathing. Otherwise, he feels like he has had a significant improvement in his breathing. PHYSICAL EXAMINATION: VITAL SIGNS: Afebrile, pulse 93, blood pressure 112/77, respirations 20, saturation 95% on room air. GENERAL: The patient is awake, alert, no apparent distress. LUNGS: Excellent air entry. Rhonchi are present. No prolonged expiratory phase or wheezing is appreciated. HEART: Normal rate, regular. ABDOMEN: Soft, nontender, nondistended. Bowel sounds are positive. MUSCULOSKELETAL: No cyanosis or clubbing. There is no pitting in the bilateral lower extremities. NEUROLOGIC: Grossly nonfocal. LABORATORY DATA: WBC 46.2, hemoglobin 12.7, platelets 514,000. Neutrophil count is down trending, but bands are increasing once again to 16%. Sodium 129. Basic metabolic profile is otherwise unremarkable. Magnesium 1.9. Stenotrophomonas and MSSA are both growing in the culture. Urine culture and blood culture x2 are unremarkable to date. Acid fast bacilli, tracheal aspirate was negative. ASSESSMENT: 1. Acute hypoxic respiratory failure, resolved. 2. Community-acquired pneumonia secondary to MSSA and Stenotrophomonas. 3. History of pulmonary tuberculosis, status post full course of therapy with residual cavitary lesion in the left upper lobe. 4. History of squamous cell carcinoma of the head and neck, status post laryngectomy. PLAN: I will continue antibiotics as directed by Dr. Gray. Pulmonary or Critical Care will continue to follow along for the time being. Because he has colonization of pulmonary cavity, he will likely need a slightly protracted course of antibiotic therapy. [facility]
[2018-02-23] MEDS: Nafcillin 2 GM in Sodium Chloride 0.9% 100 ML IVPB SCH ×4 (02:50→19:58)
[2018-02-23 04:56] LABS: ALT (SGPT) 39 U/L (8-55); AST (SGOT) 17 U/L (5-34); Albumin 3.2 g/dL (3.5-5.0); Alkaline Phosphatase 100 U/L (40-150); Anion Gap 10 mmol/L (10-20); BUN (Urea Nitrogen) 11 mg/dL (8.4-25.7); Bilirubin, Total 0.3 mg/dL (0.2-1.2); Calc. Creatinine Clearance 124 mL/min (70-130); Carbon Dioxide 27 mmol/L (22-29); Chloride 96 mmol/L (98-107); Estimated GFR-MDRD Greater than 90; Globulin 2.8 g/dL (2.4-3.5); Glucose 98 mg/dL (70-105); Potassium 3.7 mmol/L (3.5-5.1); Sodium 129 mmol/L (136-145)
[2018-02-23 05:36] LABS: Band 15 % (5-11); Hemoglobin 11.5 g/dL (14.0-18.0); Lymphocytes 8 % (21-51); MDiff Complete? YES; Mean Corpuscular HGB CONC 34.4 g/dL (32.0-36.0); Mean Corpuscular Hemoglobin 30.9 pg (27.0-31.0); Mean Corpuscular Volume 89.7 fl (80.0-94.0); Mean Platelet Volume 6.2 fL (7.4-10.4); Monocytes 8 % (0-10); Myelocyte 1 % (0-0); Neutrophil 68 % (42-75); Platelet Count 427 thou/uL (130-400); RBC Distribution Width 13.1 % (11.5-14.5); Red Blood Cell (RBC) Count 3.74 mill/uL (4.70-6.10); White Blood Cell (WBC) Count 36.1 thou/uL (4.8-10.8)
[2018-02-23] MEDS: CEFTAZIDIME FORTAZ IVPB SCH ×3 (07:09→23:12)
[2018-02-23] MEDS: ADMIXTURE FEE IVPB SCH ×3 (07:09→23:12)
[2018-02-23] MEDS: SODIUM CHLORIDE IVPB SCH ×3 (07:09→23:12)
[2018-02-23] MEDS: Famotidine 20 MG TAB PO SCH ×2 (08:15→19:58)
[2018-02-23] MEDS: predniSONE 20 MG TAB PO SCH (08:15)
[2018-02-23] MEDS: Triple Antibiotic Oint 1 GM Packet TOP SCH (09:34)
--- NOTE | 2018-02-23 11:52 | PRG ---
DATE OF SERVICE: 02/23/2018 SERVICE: Pulmonary Medicine. INTERVAL HISTORY: The patient is doing fantastic from a respiratory standpoint. He is breathing comfortably. He has been up while taking a shower. He has been walking around his room. He is yet to walk the hallways. Otherwise, there has been no interval change to his condition. PHYSICAL EXAMINATION: VITAL SIGNS: Afebrile, pulse 82, blood pressure 126/80, respirations at 20, saturation 97% on room air. GENERAL: The patient is awake, alert, no apparent distress. LUNGS: Excellent air entry with no prolonged expiratory phase, wheezing, rhonchi or crackles. HEART: Normal rate and regular. ABDOMEN: Soft, nontender, and nondistended. Bowel sounds are positive. MUSCULOSKELETAL: No cyanosis or clubbing. There is no pitting in the bilateral lower extremities. NEUROLOGIC: Grossly nonfocal. LABORATORY DATA: WBC 36.1 and down trending. Hemoglobin 11.5, platelets 427, 000, neutrophils are improving to 68%. Sodium 129. Basic metabolic profile and liver function studies are otherwise unremarkable. Microbiology: Sputum aspirate is growing Stenotrophomonas and Staph aureus. The Stenotrophomonas is resistant to Levaquin and Bactrim. Additional resistance profiles are being requested. ASSESSMENT: 1. Acute hypoxic respiratory failure, resolved. 2. Community-acquired pneumonia secondary to MSSA and Stenotrophomonas. 3. History of pulmonary tuberculosis, status post full course of therapy with residual cavity in the left upper lobe. 4. Squamous cell carcinoma of the head and neck, status post laryngectomy. DISCUSSION AND PLAN: The patient will be continued on his empiric antibiotics. We are awaiting sensitivities. Once they resolve, we will know whether or not we can discharge the patient on oral or IV medications. Once the antibiotic course and duration is identified, he will be stable for transition out of the hospital. We will follow labs intermittently. I will give him a holiday in the morning. DARY
--- NOTE | 2018-02-23 13:44 | PDOC.PN ---
- Subjective Encounter Start Date: 02/23/18 Encounter Start Time: 11:20 Pt feeling well, case discussedwith Dr Patrick, his notes have been reviewed Deanna deanna Naf, Ceftaz and lvoflox and minocyclie well. No f/C, no n/V/d/c,no CP or SOB, no cough or sputum, no hemoptysis All systems reviewed and neg x as per HPI - Objective Resuscitation Status: Resuscitation Status FULL:Full Resuscitation MAR Reviewed: Yes Vital Signs & Weight: Vital Signs (12 hours) Temp Pulse Resp BP Pulse Ox 02/23/18 08:00 97.8 F 82 20 02/23/18 07:36 97.8 F 82 20 126/80 97 02/23/18 06:00 96 Weight Admit Weight 151 lb 7 oz Weight 151 lb 7 oz I&O: 02/22/18 02/23/18 02/24/18 06:59 06:59 06:59 Intake Total 3214 4362 240 Output Total 3350 3150 150 Balance -136 1212 90 Result Diagrams: 02/23/18 03:40 02/23/18 03:40 Phys Exam - Physical Examination Constitutional: NAD HEENT: PERRLA, moist MMs, sclera anicteric, oral pharynx no lesions Neck: no nodes, no JVD, supple, full ROM trach c/D/I Respiratory: no wheezing, no rhonchi, clear to auscultation bilateral Cardiovascular: RRR, no significant murmur, no rub Gastrointestinal: soft, non-tender, no distention, positive bowel sounds Musculoskeletal: no edema, pulses present Neurological: non-focal, normal sensation, moves all 4 limbs Lymphatic: no nodes Psychiatric: normal affect, A&O x 3 Skin: no rash, normal turgor, cap refill <2 seconds Dx/Plan (1) PNA (pneumonia) Code(s): J18.9 - PNEUMONIA, UNSPECIFIED ORGANISM Status: Acute Qualifiers: Pneumonia type: due to methicillin-sensitive Staphylococcus aureus (MSSA) Laterality: left Lung location: upper lobe of lung Qualified Code(s): J15.211 - Pneumonia due to Methicillin susceptible Staphylococcus aureus Comment: MSSA on culture - changed to Nafcillin. CBC down to 36K Stenotrophomonas on culture - resistant to Levofloxacin and Bactrim. Started Ceftaz yesterday, Minocycline po started yesterday. additional sensitivities requested - send out. check CBC in AM continue levoflox for now (2) Hyponatremia Code(s): E87.1 - HYPO-OSMOLALITY AND HYPONATREMIA Status: Acute Comment: stable (3) Laryngeal squamous cell carcinoma Code(s): C32.9 - MALIGNANT NEOPLASM OF LARYNX, UNSPECIFIED Status: Chronic (4) COPD (chronic obstructive pulmonary disease) with emphysema Code(s): J43.9 - EMPHYSEMA, UNSPECIFIED Status: Chronic Qualifiers: Emphysema type: unspecified Qualified Code(s): J43.9 - Emphysema, unspecified Comment: not active (5) Hx of primary tuberculosis Code(s): Z86.11 - PERSONAL HISTORY OF TUBERCULOSIS Status: Chronic (6) Aspergillosis, unspecified Code(s): B44.9 - ASPERGILLOSIS, UNSPECIFIED Status: Chronic Comment: Hx of aspergilloma or suspicious for per Dr Phoenix. not excited to bronch this patient at this point. fungal serologies negative. would not add in vori at this point. if concenred, could check Histo ab and/or Ur ag. (7) Hemoptysis Code(s): R04.2 - HEMOPTYSIS Status: Resolved Comment: Resolved, present on admit, will follow up on pulm recs, follow h/H, stablizing. CCM with abx, follow up on AFB and fungal smears and cultures. galactomannin and BDGlucan negative. would not add in Vori unless we obtain a biopsy or culture with elements. Crypto not detected with BDGlucan, but pulm disease rare - Plan cont current plan of care, continue antibiotics, respiratory therapy, incentive spirometry, out of bed/ambulate * .
[2018-02-24] MEDS: Nafcillin 2 GM in Sodium Chloride 0.9% 100 ML IVPB SCH ×4 (03:04→19:57)
[2018-02-24 06:06] LABS: Band 8 % (5-11); Hemoglobin 11.1 g/dL (14.0-18.0); Lymphocytes 6 % (21-51); MDiff Complete? YES; Mean Corpuscular HGB CONC 33.3 g/dL (32.0-36.0); Mean Corpuscular Hemoglobin 29.7 pg (27.0-31.0); Mean Corpuscular Volume 89.3 fl (80.0-94.0); Mean Platelet Volume 6.3 fL (7.4-10.4); Monocytes 4 % (0-10); Neutrophil 82 % (42-75); PLT Morphology Comment Appears Increased; Platelet Count 426 thou/uL (130-400); RBC Distribution Width 13.1 % (11.5-14.5); Red Blood Cell (RBC) Count 3.73 mill/uL (4.70-6.10); White Blood Cell (WBC) Count 38.9 thou/uL (4.8-10.8)
[2018-02-24] MEDS: ADMIXTURE FEE IVPB SCH ×3 (06:31→22:47)
[2018-02-24] MEDS: SODIUM CHLORIDE IVPB SCH ×3 (06:31→22:47)
[2018-02-24] MEDS: CEFTAZIDIME FORTAZ IVPB SCH ×3 (06:31→22:47)
[2018-02-24] MEDS: predniSONE 20 MG TAB PO SCH (08:28)
[2018-02-24] MEDS: Famotidine 20 MG TAB PO SCH ×2 (08:28→19:58)
--- NOTE | 2018-02-24 10:39 | PDOC.PN ---
- Subjective Encounter Start Date: 02/24/18 Encounter Start Time: 11:30 Subjective: Patient with decreased hemoptysis. Feeling much better. - Objective Resuscitation Status: Resuscitation Status FULL:Full Resuscitation MAR Reviewed: Yes Vital Signs & Weight: Vital Signs (12 hours) Temp Pulse Resp BP Pulse Ox 02/24/18 07:25 97.8 F 88 20 130/82 95 02/24/18 06:00 97 Weight Admit Weight 151 lb 7 oz Weight 151 lb 7 oz I&O: 02/23/18 02/24/18 02/25/18 06:59 06:59 06:59 Intake Total 4362 4374 240 Output Total 3150 2725 Balance 1212 1649 240 Result Diagrams: 02/24/18 03:10 02/23/18 03:40 Phys Exam - Physical Examination Constitutional: NAD HEENT: moist MMs trach hole in place, larynx absent Respiratory: no wheezing, no rales, no rhonchi Cardiovascular: RRR, no significant murmur Gastrointestinal: soft, positive bowel sounds Neurological: non-focal, moves all 4 limbs Psychiatric: normal affect, A&O x 3 Dx/Plan (1) PNA (pneumonia) Code(s): J18.9 - PNEUMONIA, UNSPECIFIED ORGANISM Status: Acute Qualifiers: Pneumonia type: due to methicillin-sensitive Staphylococcus aureus (MSSA) Laterality: left Lung location: upper lobe of lung Qualified Code(s): J15.211 - Pneumonia due to Methicillin susceptible Staphylococcus aureus Comment: MSSA on culture - changed to Nafcillin. CBC down to 36K Stenotrophomonas on culture - resistant to Levofloxacin and Bactrim. Started Ceftaz yesterday, Minocycline po started yesterday. additional sensitivities requested - send out. continue levoflox for now (2) Hyponatremia Code(s): E87.1 - HYPO-OSMOLALITY AND HYPONATREMIA Status: Acute Comment: stable (3) Hemoptysis Code(s): R04.2 - HEMOPTYSIS Status: Resolved Comment: Resolved, present on admit, will follow up on pulm recs, follow h/H, stablizing. CCM with abx, follow up on AFB and fungal smears and cultures. galactomannin and BDGlucan negative. would not add in Vori unless we obtain a biopsy or culture with elements. Crypto not detected with BDGlucan, but pulm disease rare (4) Aspergillosis, unspecified Code(s): B44.9 - ASPERGILLOSIS, UNSPECIFIED Status: Chronic Comment: Hx of aspergilloma or suspicious for per Dr Phoenix. not excited to bronch this patient at this point. fungal serologies negative. would not add in vori at this point. if concenred, could check Histo ab and/or Ur ag. (5) COPD (chronic obstructive pulmonary disease) with emphysema Code(s): J43.9 - EMPHYSEMA, UNSPECIFIED Status: Chronic Qualifiers: Emphysema type: unspecified Qualified Code(s): J43.9 - Emphysema, unspecified Comment: not active (6) Hx of primary tuberculosis Code(s): Z86.11 - PERSONAL HISTORY OF TUBERCULOSIS Status: Chronic (7) Laryngeal squamous cell carcinoma Code(s): C32.9 - MALIGNANT NEOPLASM OF LARYNX, UNSPECIFIED Status: Chronic Comment: s/p laryngectomy - Plan cont current plan of care, continue antibiotics, out of bed/ambulate, DVT proph w/SCDs Continue IV antibiotics for now as directed by pulmonary and Dr. Gray. * . - Discharge Day Encounter end time: 11:45
--- NOTE | 2018-02-24 14:01 | PRG ---
DATE OF SERVICE: 02/24/2018 SUBJECTIVE: Mr. Narayan remains on the antibiotics. He was down on the floor when I made rounds. Hi s white count is still elevated at 36,000 yesterday, 38,000 today. He has only 8% bands on his perip heral smear today. IMPRESSION: Bullitis with Stenotrophomonas and Staphylococcus aureus isolated from sputum. PLAN: Continue antimicrobial therapy. Dr. Gray's input is appreciated.
[2018-02-25] MEDS: Nafcillin 2 GM in Sodium Chloride 0.9% 100 ML IVPB SCH ×4 (03:59→20:42)
[2018-02-25 05:16] LABS: Anion Gap 10 mmol/L (10-20); BUN (Urea Nitrogen) 9 mg/dL (8.4-25.7); Calc. Creatinine Clearance 121 mL/min (70-130); Calcium 9.4 mg/dL (7.8-10.44); Carbon Dioxide 28 mmol/L (22-29); Chloride 96 mmol/L (98-107); Estimated GFR-MDRD Greater than 90; Glucose 88 mg/dL (70-105); Sodium 130 mmol/L (136-145)
[2018-02-25 05:20] LABS: White Blood Cell (WBC) Count 40.9 thou/uL (4.8-10.8)
[2018-02-25] MEDS: CEFTAZIDIME FORTAZ IVPB SCH ×3 (06:00→23:11)
[2018-02-25] MEDS: ADMIXTURE FEE IVPB SCH ×3 (06:00→23:11)
[2018-02-25] MEDS: SODIUM CHLORIDE IVPB SCH ×3 (06:00→23:11)
[2018-02-25 06:22] LABS: Band 27 % (5-11); Eosinophils 1 % (0-10); Hemoglobin 11.7 g/dL (14.0-18.0); Lymphocytes 5 % (21-51); MDiff Complete? YES; Mean Corpuscular Hemoglobin 28.6 pg (27.0-31.0); Mean Corpuscular Volume 89.5 fl (80.0-94.0); Mean Platelet Volume 5.9 fL (7.4-10.4); Monocytes 4 % (0-10); Neutrophil 63 % (42-75); Platelet Count 440 thou/uL (130-400); RBC Distribution Width 13.3 % (11.5-14.5); Red Blood Cell (RBC) Count 4.09 mill/uL (4.70-6.10)
[2018-02-25] MEDS: predniSONE 20 MG TAB PO SCH (09:05)
--- NOTE | 2018-02-25 09:35 | PDOC.PN ---
- Subjective Encounter Start Date: 02/25/18 Encounter Start Time: 11:20 Subjective: Cough with minimal pink sputum. No fever or other complaints. - Objective Resuscitation Status: Resuscitation Status FULL:Full Resuscitation MAR Reviewed: Yes Vital Signs & Weight: Vital Signs (12 hours) Temp Pulse Resp BP Pulse Ox 02/25/18 07:22 98.2 F 98 18 135/81 92 L Weight Admit Weight 151 lb 7 oz Weight 151 lb 7 oz I&O: 02/24/18 02/25/18 02/26/18 06:59 06:59 06:59 Intake Total 4374 4120 Output Total 2725 1650 Balance 1649 1210 Result Diagrams: 02/25/18 04:26 02/25/18 04:26 Phys Exam - Physical Examination Constitutional: NAD HEENT: moist MMs tracheostomy coarse breath sounds Cardiovascular: RRR Gastrointestinal: soft, positive bowel sounds Neurological: non-focal, moves all 4 limbs Dx/Plan (1) PNA (pneumonia) Code(s): J18.9 - PNEUMONIA, UNSPECIFIED ORGANISM Status: Acute Qualifiers: Pneumonia type: due to methicillin-sensitive Staphylococcus aureus (MSSA) Laterality: left Lung location: upper lobe of lung Qualified Code(s): J15.211 - Pneumonia due to Methicillin susceptible Staphylococcus aureus Comment: MSSA on culture - changed to Nafcillin. CBC down to 36K Stenotrophomonas on culture - resistant to Levofloxacin and Bactrim. Started Ceftaz yesterday, Minocycline po started yesterday. additional sensitivities requested - send out. continue levoflox for now (2) Hyponatremia Code(s): E87.1 - HYPO-OSMOLALITY AND HYPONATREMIA Status: Acute Comment: stable (3) Hemoptysis Code(s): R04.2 - HEMOPTYSIS Status: Resolved Comment: Resolved, present on admit, will follow up on pulm recs, follow h/H, stablizing. CCM with abx, follow up on AFB and fungal smears and cultures. galactomannin and BDGlucan negative. would not add in Vori unless we obtain a biopsy or culture with elements. Crypto not detected with BDGlucan, but pulm disease rare (4) Aspergillosis, unspecified Code(s): B44.9 - ASPERGILLOSIS, UNSPECIFIED Status: Chronic Comment: Hx of aspergilloma or suspicious for per Dr Phoenix. not excited to bronch this patient at this point. fungal serologies negative. would not add in vori at this point. if concenred, could check Histo ab and/or Ur ag. (5) COPD (chronic obstructive pulmonary disease) with emphysema Code(s): J43.9 - EMPHYSEMA, UNSPECIFIED Status: Chronic Qualifiers: Emphysema type: unspecified Qualified Code(s): J43.9 - Emphysema, unspecified Comment: not active (6) Hx of primary tuberculosis Code(s): Z86.11 - PERSONAL HISTORY OF TUBERCULOSIS Status: Chronic (7) Laryngeal squamous cell carcinoma Code(s): C32.9 - MALIGNANT NEOPLASM OF LARYNX, UNSPECIFIED Status: Chronic Comment: s/p laryngectomy - Plan cont current plan of care, continue antibiotics, DVT proph w/SCDs WBC climbing above 40,000 again. Ceftazadine sensitivities pending. * . - Discharge Day Encounter end time: 11:40
[2018-02-25] MEDS: Famotidine 20 MG TAB PO SCH ×2 (10:12→20:43)
[2018-02-25 14:01] LABS: Reference Lab Name LABCORP
[2018-02-25 14:02] LABS: Ref Lab Test Ordered SUSCEPTABILITY
--- NOTE | 2018-02-25 15:38 | PRG ---
DATE OF SERVICE: 02/25/2018 Kody Narayan says he actually feels well. I have asked him to go sit outside and get some fresh air. His white count remains elevated. I am not really sure what to do with this given his dramatic cli nical improvement, remains afebrile. He is coughing up almost nothing. His lungs are clear. I will repeat a CT without contrast in the morning, reassess this area and make further recommendatio ns after that.
[2018-02-25] MEDS ORDERED: Triple Antibiotic Oint 1 GM Packet TOP SCH (23:45)
[2018-02-26] MEDS: Nafcillin 2 GM in Sodium Chloride 0.9% 100 ML IVPB SCH ×4 (02:58→20:46)
[2018-02-26] MEDS: SODIUM CHLORIDE IVPB SCH ×2 (06:20→14:55)
[2018-02-26] MEDS: ADMIXTURE FEE IVPB SCH ×2 (06:20→14:55)
[2018-02-26] MEDS: CEFTAZIDIME FORTAZ IVPB SCH ×2 (06:20→14:55)
[2018-02-26] MEDS: predniSONE 20 MG TAB PO SCH (09:40)
[2018-02-26] MEDS: Famotidine 20 MG TAB PO SCH ×2 (09:40→20:44)
--- NOTE | 2018-02-26 10:32 | CT ---
CT CHEST WITHOUT CONTRAST: TECHNIQUE: Multiple axial tomograms were obtained through the chest without IV enhancement. INDICATION: Bullitis is given as a reason for the exam. History of squamous cell carcinoma of the larynx with le ukocytosis. Followup lung mass. COMPARISON: Comparison is made to a CT of 02/14/[address] of 05/27/17. FINDINGS: The pleural-based mass in the left upper lobe peripherally continues to enlarge. The soft tissue mas s measures 5.3 x 3.8 cm today. Previous measurements were recorded at 3.8 x 2.8 cm in the axial plan e. There is a suggestion of mild erosive change involving the lateral left 2nd rib adjacent to this pleural-based mass. A caviar component along the inferior margin of this soft tissue mass is again seen. Lung milan oth erwise remain clear and unchanged. Mediastinum unremarkable. There is evidence of small pericardial effusion which may have slightly enlarged. Images through the upper abdomen are unremarkable. IMPRESSION: 1. Continued enlargement of the pleural-based soft tissue mass left upper lobe. Mild erosive change s involving the adjacent lateral left 2nd rib. 2. Small pericardial effusion. POS: [facility]
--- NOTE | 2018-02-26 13:53 | PDOC.PN ---
- Subjective Encounter Start Date: 02/26/18 Encounter Start Time: 13:52 -: non-verbal Subjective: Pt seen and Examined, S/p Larengectomy - Objective Resuscitation Status: Resuscitation Status FULL:Full Resuscitation MAR Reviewed: Yes Vital Signs & Weight: Vital Signs (12 hours) Temp Pulse Resp BP Pulse Ox 02/26/18 08:00 97.9 F 80 18 143/86 H 95 Weight Admit Weight 151 lb 7 oz Weight 151 lb 7 oz I&O: 02/25/18 02/26/18 02/27/18 06:59 06:59 06:59 Intake Total 4120 3160 Output Total 1650 1500 Balance 2470 1660 Result Diagrams: 02/25/18 04:26 02/25/18 04:26 Radiology Reviewed by me: Yes Phys Exam - Physical Examination HEENT: PERRLA, sclera anicteric, TM's clear, oral pharynx no lesions Neck: no nodes (s/p Tracheostomy ), no JVD, supple, full ROM Respiratory: no wheezing, no rales, no rhonchi, clear to auscultation bilateral Cardiovascular: RRR, no significant murmur, no rub Gastrointestinal: soft, non-tender, no distention, positive bowel sounds Musculoskeletal: no edema Neurological: non-focal Lymphatic: no nodes Psychiatric: normal affect Dx/Plan - Plan cont current plan of care, continue antibiotics PLan (1) PNA (pneumonia) Code(s): J18.9 - PNEUMONIA, UNSPECIFIED ORGANISM Status: Acute Qualifiers: Pneumonia type: due to methicillin-sensitive Staphylococcus aureus (MSSA) Laterality: left Lung location: upper lobe of lung Qualified Code(s): J15.211 - Pneumonia due to Methicillin susceptible Staphylococcus aureus Comment: MSSA on culture - changed to Nafcillin. CBC down to 36K Stenotrophomonas on culture - resistant to Levofloxacin and Bactrim. Started Ceftaz additional sensitivities requested - send out. continue levoflox for now (2) Hyponatremia Code(s): E87.1 - HYPO-OSMOLALITY AND HYPONATREMIA Status: Acute Comment: stable (3) Hemoptysis Code(s): R04.2 - HEMOPTYSIS Status: Resolved Comment: Resolved, present on admit, will follow up on pulm recs, follow h/H, stablizing. CCM with abx, follow up on AFB and fungal smears and cultures. galactomannin and BDGlucan negative. would not add in Vori unless we obtain a biopsy or culture with elements. Crypto not detected with BDGlucan, but pulm disease rare (4) Aspergillosis, unspecified Code(s): B44.9 - ASPERGILLOSIS, UNSPECIFIED Status: Chronic Comment: Hx of aspergilloma or suspicious for per Dr Phoenix. not excited to bronch this patient at this point. fungal serologies negative. would not add in vori at this point. if concenred, could check Histo ab and/or Ur ag. (5) COPD (chronic obstructive pulmonary disease) with emphysema Code(s): J43.9 - EMPHYSEMA, UNSPECIFIED Status: Chronic Qualifiers: Emphysema type: unspecified Qualified Code(s): J43.9 - Emphysema, unspecified Comment: not active (6) Hx of primary tuberculosis Code(s): Z86.11 - PERSONAL HISTORY OF TUBERCULOSIS Status: Chronic (7) Laryngeal squamous cell carcinoma Code(s): C32.9 - MALIGNANT NEOPLASM OF LARYNX, UNSPECIFIED Status: Chronic Comment: s/p laryngectomy - Plan cont current plan of care, continue antibiotics, DVT proph w/SCDs WBC climbing above 40,000 again. Ceftazadine sensitivity * .
--- NOTE | 2018-02-26 16:05 | PRG ---
DATE OF SERVICE: 02/26/[address] was reviewed, also reviewed this with Radiology. The fluid in the cystic airspace in his left upper lobe has the density more of blood than pure fluid. I suppose that the CAT scan done today could be a downstream reflection of bleeding that occurred for the first 3-4 days after he got here and may not represent an infected bulla to this point. I was contemplating putting a percutane ous catheter into that area to see if drainage would help with his white count, but clinically actual ly looks quite well at this point in time, opted to hold off on doing that for now. I will ask [facility] one of the infectious disease doctors to take a look at him to see if he has any input or ideas. I will check CBC again in the morning.
[2018-02-27] MEDS: ADMIXTURE FEE IVPB SCH ×4 (00:27→23:08)
[2018-02-27] MEDS: CEFTAZIDIME FORTAZ IVPB SCH ×4 (00:27→23:08)
[2018-02-27] MEDS: SODIUM CHLORIDE IVPB SCH ×4 (00:27→23:08)
[2018-02-27] MEDS: Nafcillin 2 GM in Sodium Chloride 0.9% 100 ML IVPB SCH ×4 (03:00→20:30)
[2018-02-27 05:37] LABS: Band 34 % (5-11); Eosinophils 1 % (0-10); Lymphocytes 5 % (21-51); MDiff Complete? YES; Mean Corpuscular HGB CONC 32.8 g/dL (32.0-36.0); Mean Corpuscular Hemoglobin 29.3 pg (27.0-31.0); Mean Corpuscular Volume 89.4 fl (80.0-94.0); Mean Platelet Volume 6.1 fL (7.4-10.4); Monocytes 6 % (0-10); Neutrophil 54 % (42-75); PLT Morphology Comment Appears Increased; Platelet Count 405 thou/uL (130-400); RBC Distribution Width 13.4 % (11.5-14.5); Red Blood Cell (RBC) Count 3.75 mill/uL (4.70-6.10); White Blood Cell (WBC) Count 37.7 thou/uL (4.8-10.8)
--- NOTE | 2018-02-27 07:55 | CON ---
DATE OF CONSULTATION: 02/26/2018 REASON FOR CONSULTATION: Abnormalities in chest imaging and elevated white cell count. HISTORY OF PRESENT ILLNESS: A 52-year-old gentleman with a history of prior pulmonary TB treated to completion in 2000 with no evidence of recurrence as well as chronic smoking, prior submandibular infectious process related to teeth necrosis which required protracted IV antimicrobial therapy and surgical debridement and then development of a laryngeal carcinoma with local spread which has been managed with radical resection, ostomy placement and radiation therapy. 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 I believe, at that time, antifungal treatment was offered, although of questionable value, but this was mainly related to the upcoming chemotherapy at that time. Now, the patient has been admitted with worsening cough and hemoptysis which developed 3 days prior to this admission. He had some sputum production associated with it, but no documented fever. He has had the sensations in the neck area associated with the radiation therapy changes, some headaches, no visual symptoms. All teeth have been removed. No chest pain, no back pain, no abdominal pain or diarrhea. No genitourinary symptoms. No joint symptoms. Communication is limited because of loss of ability to speak. PAST MEDICAL HISTORY: 1. Treated tuberculosis to completion. 2. Infection mandibular area which requires antimicrobial therapy and tooth extraction. 3. Chronic obstructive pulmonary disease. 4. Laryngeal carcinoma, status post radical resection, and radiation and chemotherapy. 5. There is a cavitary lesion left upper lobe with what appeared to be a mycetoma at the center of the lower edge cavitary section. PAST SURGICAL HISTORY: Also includes a gastrostomy tube placement in addition to the above surgeries. ALLERGIES: ACETAMINOPHEN. MEDICATIONS: Tessalon, ceftazidime, Catapres, Pepcid, Robitussin, Apresoline, minocycline, nafcillin, ondansetron, prednisone. FAMILY HISTORY: Noncontributory. SOCIAL HISTORY: Former smoker, disabled. PHYSICAL EXAMINATION: VITAL SIGNS: T-max 98.9, blood pressure 130/80, pulse 86, respirations 18, O2 sat 96% on 6 liters nasal cannula. GENERAL: He appears awake, alert, oriented, pleasant. He does not appear in distress. SKIN: Shows the areas of radiation therapy induced changes in the anterior neck region. There is a shallow ulcerated region oval shaped to the right side of the tracheostomy. The patient has an exit site of the gastrostomy tube, which appears normal and a peripheral IV access. No lymphadenopathy. HEENT: Ocular movements conjugate. Oral cavity with some element of trismus. The patient has no teeth remaining. Oral cavity mucosa is somewhat dry. NECK: Supple. LUNGS: With symmetric air entry, diminished breath sounds in the left upper lobe. No wheezing. HEART: S1, S2, regular rate. No S3, S4. ABDOMEN: Soft, not distended or tender. No ascites. No bladder distention. : No genital abnormalities. EXTREMITIES: Pulses are 1+ in dorsalis pedis. He is able to move all extremities equally. NEUROLOGIC: Cognitive function appears to be intact with the limitations of communication related above. LABORATORY DATA: White cell counts, there is noticeable increase in white cell count which started around 02/13/2018 when it was 25.9 and it has gone up to 48.6, now is down to 37.7. The platelet count has increased starting on 2017 from 486 to a peak of 514, now is down to 405. Sodium is stable at 130, creatinine is stable at 0.7 and liver profile has been normal. Albumin 3.2. Lactic acid 1.9. Urinalysis was normal and the last Fungitell assay from 2017 with 76, which is less than 80. No fungi observed from 02/18/2018 sample and microbiology with Stenotrophomonas maltophilia and Staphylococcus aureus from one sample of sputum. This sample had been obtained from the paper towel had 0-5 epithelial cells, many WBCs and RBCs and a few gram positive cocci in clusters and few gram negative rods. There was moderate Stenotrophomonas maltophilia and moderate Staphylococcus aureus and few normal respiratory [place]. Stenotrophomonas maltophilia had a resistant phenotype and Staph aureus was MSSA phenotype. Imaging studies include a CT of chest from 02/26/2018 that showed a pleural based mass left upper lobe which appears to be enlarging measuring 5.3 x 3.8 cm. Previous measurements were recorded at 3.8 x 2.8 cm in the axial plane and a suggestion of mild erosive changes involving the lateral left second rib adjacent to this pleural based mass, small pericardial effusion. ASSESSMENT: History of cavitary lesion left upper lobe, which now appears to have been filled by fluid or turned into a mass-like lesion. This associated with a history of laryngeal carcinoma treated with radical resection, chemoradiation therapy and a possible history of Mycetoma. Now, he presents with this leukemoid reaction with bandemia. Extreme leukocytosis or leukemoid reaction has been identified in solid tumor patients and pretty much all types of solid tumors usually historically associated with poor outcomes. In series published in the past, etiology usually associated with various factors including administration of hematopoietic growth factors, corticosteroid administration and paraneoplastic leukemoid reaction as well as a minority with diagnosed infections. In summary, infection is uncommon cause of extreme leukocytosis in patients with a solid tumors, the majority of them have other factors contributing to this change. In this patient, the coexistence of high dose corticosteroids administration as well as possible paraneoplastic leukemoid reaction might be a factor. One cannot completely rule out an infectious process. The organisms isolated from the sputum are more likely to represent a colonization of the oropharyngeal area with contamination of the sample rather than a true pathogenic role in view of the lack clinical features of an acute infectious process. From a practical standpoint since the sampling of the area is not felt to be feasible at this point in time, we will have to continue treatment as currently. If there are changes in the clinical presentation that suggest lack of responsiveness to the antimicrobial regimen, one might try adding colistin, which is reproducibly nephrotoxic and I would probably avoid it unless absolutely necessary. In view of the suggestion of the ribcage involvement, may consider a bone scan. If it shows uptake in the area then the possibility of malignancy would increase. MTDD
[2018-02-27] MEDS: Famotidine 20 MG TAB PO SCH ×3 (09:20→20:26)
[2018-02-27] MEDS: predniSONE 20 MG TAB PO SCH (09:20)
--- NOTE | 2018-02-27 10:19 | PRG ---
DATE OF SERVICE: 02/27/2018 SUBJECTIVE: Mr. Narayan has no new complaints. He actually looks well. His white count is still elevated over 30,000. PHYSICAL EXAMINATION: LUNGS: His lungs are clear. HEART: Regular rhythm. ABDOMEN: Abdomen is soft. Dr. Nicole did not recommended changing antimicrobial therapy. He did suggest a bone scan, which I th ink is reasonable. We will continue to treat with current antimicrobial therapy, although we probably should be reaching end of the time period where he needs antibiotics. If we see a lytic bone lesion then will have to rethink this, but clearly when review of his serial C Ts the "mass" in the left upper lobe appears to be the old cystic cavity full of either blood or pus.
--- NOTE | 2018-02-27 13:39 | PDOC.PN ---
- Subjective Encounter Start Date: 02/27/18 Encounter Start Time: 09:30 Pt seen on rounds, no complaints. increased hemoptysis since i last saw. Noted reviewed, ID note reviewed no F/C, no N/V/d/C, no CP , no SOB deanna activity well, deanna abx well - Objective Resuscitation Status: Resuscitation Status FULL:Full Resuscitation MAR Reviewed: Yes Vital Signs & Weight: Vital Signs (12 hours) Temp Pulse Resp BP Pulse Ox 02/27/18 08:26 93 L 02/27/18 08:01 97.9 F 90 18 126/82 94 L 02/27/18 08:00 97.9 F 90 18 Weight Admit Weight 151 lb 7 oz Weight 151 lb 7 oz I&O: 02/26/18 02/27/18 02/28/18 06:59 06:59 06:59 Intake Total 3160 2300 Output Total 1500 Balance 1660 2300 Result Diagrams: 02/27/18 04:20 02/25/18 04:26 Radiology Reviewed by me: Yes Phys Exam - Physical Examination Constitutional: NAD HEENT: PERRLA, moist MMs, sclera anicteric, oral pharynx no lesions Neck: no nodes, no JVD, supple, full ROM trach decannulated, no erythema, scab improving Respiratory: no wheezing, no rhonchi, clear to auscultation bilateral rales to Lposter lung field Cardiovascular: RRR, no significant murmur, no rub Gastrointestinal: soft, non-tender, no distention, positive bowel sounds Musculoskeletal: no edema, pulses present Neurological: non-focal, normal sensation, moves all 4 limbs Lymphatic: no nodes Psychiatric: normal affect, A&O x 3 Skin: no rash, normal turgor, cap refill <2 seconds Dx/Plan (1) PNA (pneumonia) Code(s): J18.9 - PNEUMONIA, UNSPECIFIED ORGANISM Status: Acute Qualifiers: Pneumonia type: due to methicillin-sensitive Staphylococcus aureus (MSSA) Laterality: left Lung location: upper lobe of lung Qualified Code(s): J15.211 - Pneumonia due to Methicillin susceptible Staphylococcus aureus Comment: MSSA on culture - changed to Nafcillin. CBC down to 36K now up and down daily. Stenotrophomonas on culture - resistant to Levofloxacin and Bactrim. Started Ceftaz yesterday, Minocycline po started yesterday. additional sensitivities requested - send out. continue levoflox for now. Id recommended to continue therapy. I think its imperative to determine whether this CT fnding is blood, pus, or tumor. Will discuss with Dr Phoenix. looks like it cold be amenable to percutaenous sampling (2) Hyponatremia Code(s): E87.1 - HYPO-OSMOLALITY AND HYPONATREMIA Status: Acute Comment: stable (3) Laryngeal squamous cell carcinoma Code(s): C32.9 - MALIGNANT NEOPLASM OF LARYNX, UNSPECIFIED Status: Chronic Comment: s/p laryngectomy (4) COPD (chronic obstructive pulmonary disease) with emphysema Code(s): J43.9 - EMPHYSEMA, UNSPECIFIED Status: Chronic Qualifiers: Emphysema type: unspecified Qualified Code(s): J43.9 - Emphysema, unspecified Comment: not active (5) Hx of primary tuberculosis Code(s): Z86.11 - PERSONAL HISTORY OF TUBERCULOSIS Status: Resolved (6) Aspergillosis, unspecified Code(s): B44.9 - ASPERGILLOSIS, UNSPECIFIED Status: Chronic Comment: Hx of aspergilloma or suspicious for per Dr Phoenix. not excited to bronch this patient at this point. fungal serologies negative. would not add in vori at this point. if concerned, could check Histo ab and/or Ur ag. (7) Hemoptysis Code(s): R04.2 - HEMOPTYSIS Status: Resolved Comment: Resolved, present on admit, then recurring now. will follow up on pulm recs, follow h/H, stablizing. CCM with abx, follow up on AFB and fungal smears and cultures. galactomannin and BDGlucan negative. would not add in Vori unless we obtain a biopsy or culture with elements. Crypto not detected with BDGlucan, but pulm disease rare. Bone Scan recommended by ID. Ordered - Plan cont current plan of care, continue antibiotics, PT/OT, respiratory therapy, out of bed/ambulate * .
--- NOTE | 2018-02-27 18:30 | NM ---
WHOLE BODY BONE SCAN 02/27/18 COMPARISON: CT chest 02/26/18. HISTORY: Left upper lobe mass with possible rib involvement on CT. TECHNIQUE: A whole body bone scan was performed after the administration of 28 millicuries of technetium 99m MDP . FINDINGS: Abnormal increased uptake of the radiopharmaceutical is seen in the lateral left second rib. This cor responds to the abnormality on CT and likely represents osseous involvement. No other abnormal osseou s uptake of the radiopharmaceutical is seen. Soft tissue activity is unremarkable. IMPRESSION: Abnormal uptake in the left second rib suggests osseous involvement by the left upper lobe lung mass. POS: [facility]
[2018-02-28] MEDS: Nafcillin 2 GM in Sodium Chloride 0.9% 100 ML IVPB SCH ×4 (03:20→20:21)
[2018-02-28 05:55] LABS: Band 38 % (5-11); Hemoglobin 11.1 g/dL (14.0-18.0); Lymphocytes 2 % (21-51); MDiff Complete? YES; Mean Corpuscular HGB CONC 31.2 g/dL (32.0-36.0); Mean Corpuscular Hemoglobin 27.8 pg (27.0-31.0); Mean Platelet Volume 5.9 fL (7.4-10.4); Monocytes 6 % (0-10); Neutrophil 54 % (42-75); PLT Morphology Comment Appears Adequate; Platelet Count 392 thou/uL (130-400); RBC Distribution Width 13.6 % (11.5-14.5); Red Blood Cell (RBC) Count 3.98 mill/uL (4.70-6.10); White Blood Cell (WBC) Count 35.7 thou/uL (4.8-10.8)
[2018-02-28] MEDS: ADMIXTURE FEE IVPB SCH ×3 (06:24→22:11)
[2018-02-28] MEDS: SODIUM CHLORIDE IVPB SCH ×3 (06:24→22:11)
[2018-02-28] MEDS: CEFTAZIDIME FORTAZ IVPB SCH ×3 (06:24→22:11)
[2018-02-28] MEDS: predniSONE 20 MG TAB PO SCH (08:04)
[2018-02-28] MEDS: Famotidine 20 MG TAB PO SCH ×2 (08:04→20:21)
--- NOTE | 2018-02-28 13:16 | PDOC.PN ---
- Subjective Encounter Start Date: 02/28/18 Encounter Start Time: 11:00 Pt feels better. hemoptysis better and worse. No f/c, no N/V/D/C, no CP or SOB , no complaints. Case discusse with Dr Phoenix including bone scan findings. He will discuss with Dr Foster regarding options All systems reviewed and neg x as above - Objective Resuscitation Status: Resuscitation Status FULL:Full Resuscitation MAR Reviewed: Yes Vital Signs & Weight: Vital Signs (12 hours) Temp Pulse Resp BP Pulse Ox 02/28/18 08:00 97.5 F L 96 18 96 02/28/18 07:06 97.5 F L 96 18 144/82 H 96 Weight Admit Weight 151 lb 7 oz Weight 151 lb 7 oz I&O: 02/27/18 02/28/18 03/01/18 06:59 06:59 06:59 Intake Total 2300 3500 240 Balance 2300 3500 240 Result Diagrams: 02/28/18 04:51 02/25/18 04:26 Phys Exam - Physical Examination Constitutional: NAD HEENT: PERRLA, moist MMs, sclera anicteric, oral pharynx no lesions Neck: no nodes, no JVD, supple, full ROM trach c/d/i, uncannulated Respiratory: no wheezing, no rales, no rhonchi, clear to auscultation bilateral Cardiovascular: RRR, no significant murmur, no rub Gastrointestinal: soft, non-tender, no distention, positive bowel sounds Musculoskeletal: no edema, pulses present Neurological: non-focal, normal sensation, moves all 4 limbs Lymphatic: no nodes Psychiatric: normal affect, A&O x 3 Skin: no rash, normal turgor, cap refill <2 seconds Dx/Plan (1) PNA (pneumonia) Code(s): J18.9 - PNEUMONIA, UNSPECIFIED ORGANISM Status: Acute Qualifiers: Pneumonia type: due to methicillin-sensitive Staphylococcus aureus (MSSA) Laterality: left Lung location: upper lobe of lung Qualified Code(s): J15.211 - Pneumonia due to Methicillin susceptible Staphylococcus aureus Comment: MSSA on culture - changed to Nafcillin. CBC down to 36K now up and down daily. Stenotrophomonas on culture - resistant to Levofloxacin and Bactrim. Started Ceftaz yesterday, Minocycline po started yesterday. additional sensitivities requested - send out. continue levoflox for now. Id recommended to continue therapy. I think its imperative to determine whether this CT fnding is blood, pus, or tumor. Will discuss with Dr Phoenix. looks like it cold be amenable to percutaenous sampling (2) Hyponatremia Code(s): E87.1 - HYPO-OSMOLALITY AND HYPONATREMIA Status: Acute Comment: stable (3) Laryngeal squamous cell carcinoma Code(s): C32.9 - MALIGNANT NEOPLASM OF LARYNX, UNSPECIFIED Status: Chronic Comment: s/p laryngectomy (4) COPD (chronic obstructive pulmonary disease) with emphysema Code(s): J43.9 - EMPHYSEMA, UNSPECIFIED Status: Chronic Qualifiers: Emphysema type: unspecified Qualified Code(s): J43.9 - Emphysema, unspecified Comment: not active (5) Hx of primary tuberculosis Code(s): Z86.11 - PERSONAL HISTORY OF TUBERCULOSIS Status: Resolved (6) Aspergillosis, unspecified Code(s): B44.9 - ASPERGILLOSIS, UNSPECIFIED Status: Chronic Comment: Hx of aspergilloma or suspicious for per Dr Phoenix. not excited to bronch this patient at this point. fungal serologies negative. would not add in vori at this point. if concerned, could check Histo ab and/or Ur ag. (7) Hemoptysis Code(s): R04.2 - HEMOPTYSIS Status: Resolved Comment: Resolved, present on admit, then recurring now. will follow up on pulm recs, follow h/H, stablizing. CCM with abx, follow up on AFB and fungal smears and cultures. galactomannin and BDGlucan negative. would not add in Vori unless we obtain a biopsy or culture with elements. Crypto not detected with BDGlucan, but pulm disease rare. Bone Scan recommended by ID. Ordered - Plan * .
[2018-03-01] MEDS: Nafcillin 2 GM in Sodium Chloride 0.9% 100 ML IVPB SCH ×4 (03:05→20:00)
[2018-03-01 05:50] LABS: Anion Gap 11 mmol/L (10-20); BUN (Urea Nitrogen) 8 mg/dL (8.4-25.7); Calc. Creatinine Clearance 116 mL/min (70-130); Calcium 9.7 mg/dL (7.8-10.44); Carbon Dioxide 27 mmol/L (22-29); Chloride 95 mmol/L (98-107); Estimated GFR-MDRD Greater than 90; Glucose 95 mg/dL (70-105); Magnesium 1.5 mg/dL (1.6-2.6); Potassium 3.7 mmol/L (3.5-5.1); Sodium 129 mmol/L (136-145)
[2018-03-01] MEDS: ADMIXTURE FEE IVPB SCH ×3 (05:52→22:00)
[2018-03-01] MEDS: CEFTAZIDIME FORTAZ IVPB SCH ×3 (05:52→22:00)
[2018-03-01] MEDS: SODIUM CHLORIDE IVPB SCH ×3 (05:52→22:00)
[2018-03-01 07:00] LABS: Band 18 % (5-11); Lymphocytes 5 % (21-51); MDiff Complete? YES; Mean Corpuscular HGB CONC 32.5 g/dL (32.0-36.0); Mean Corpuscular Hemoglobin 28.9 pg (27.0-31.0); Monocytes 5 % (0-10); Neutrophil 72 % (42-75); PLT Morphology Comment Appears Adequate; Platelet Count 381 thou/uL (130-400); RBC Distribution Width 13.6 % (11.5-14.5); Red Blood Cell (RBC) Count 3.81 mill/uL (4.70-6.10); White Blood Cell (WBC) Count 37.1 thou/uL (4.8-10.8)
[2018-03-01] MEDS: predniSONE 20 MG TAB PO SCH (08:14)
[2018-03-01] MEDS: Famotidine 20 MG TAB PO SCH ×2 (08:14→20:00)
--- NOTE | 2018-03-01 16:39 | PRG ---
DATE OF SERVICE: 03/01/2018 SUBJECTIVE: Mr. Narayan has no new complaints. OBJECTIVE: VITAL SIGNS: He is afebrile, heart rate is 103, respiratory rate 20, oximetry is 93 on room air, blo od pressure 109/73. LUNGS: Unchanged. HEART: Unchanged. ABDOMEN: Unchanged. ASSESSMENT AND PLAN: Awaiting CT Surgery input for possible surgical biopsy of the left upper lobe a bnormality with specimens being sent for multiple different cultures as well as pathology. Different ial at this time would be actinomycosis versus peripheral malignant process that could be related or unrelated to his primary head and neck cancer. It would be unusual for him to develop metastatic head and neck cancer, it was already leading throug h his chest wall. Squamous cell carcinoma that is metastatic to the lung tends to be a little more i ndolent than this, but we will await pathology and cultures.
--- NOTE | 2018-03-01 17:05 | PDOC.PN ---
- Subjective Encounter Start Date: 03/01/18 Encounter Start Time: 14:30 follow up for CAP, resisteatn steno and MSSA on cx, possible abscess vs tumor in DU. No new complants. Dr pfeiffer discussed with CT surgery - they will see and schedule for I&D/open biopsy. All systems reviewe dand neg x as above - Objective Resuscitation Status: Resuscitation Status FULL:Full Resuscitation MAR Reviewed: Yes Vital Signs & Weight: Vital Signs (12 hours) Temp Pulse Resp BP Pulse Ox 03/01/18 08:00 98.1 F 103 H 20 109/73 93 L Weight Admit Weight 151 lb 7 oz Weight 151 lb 7 oz I&O: 02/28/18 03/01/18 03/02/18 06:59 06:59 06:59 Intake Total 3500 3837 740 Balance 3500 3837 740 Result Diagrams: 03/01/18 05:10 03/01/18 05:10 Phys Exam - Physical Examination Constitutional: NAD HEENT: PERRLA, moist MMs, sclera anicteric, oral pharynx no lesions Neck: no nodes, no JVD, supple, full ROM trach C/D/I Respiratory: no wheezing, no rales, no rhonchi, clear to auscultation bilateral Cardiovascular: RRR, no significant murmur, no rub Gastrointestinal: soft, non-tender, no distention, positive bowel sounds Musculoskeletal: no edema, pulses present Neurological: non-focal, normal sensation, moves all 4 limbs Lymphatic: no nodes Psychiatric: normal affect, A&O x 3 Skin: no rash, normal turgor, cap refill <2 seconds Dx/Plan (1) PNA (pneumonia) Code(s): J18.9 - PNEUMONIA, UNSPECIFIED ORGANISM Status: Acute Qualifiers: Pneumonia type: due to methicillin-sensitive Staphylococcus aureus (MSSA) Laterality: left Lung location: upper lobe of lung Qualified Code(s): J15.211 - Pneumonia due to Methicillin susceptible Staphylococcus aureus Comment: MSSA on culture - changed to Nafcillin. CBC down to 36K now up and down daily. Stenotrophomonas on culture - resistant to Levofloxacin and Bactrim. Started Ceftaz yesterday, Minocycline po started yesterday. additional sensitivities requested - send out. continue levoflox for now. Id recommended to continue therapy. I think its imperative to determine whether this CT fnding is blood, pus, or tumor. Will discuss with Dr Pfeiffer. looks like it cold be amenable to percutaenous sampling (2) Hyponatremia Code(s): E87.1 - HYPO-OSMOLALITY AND HYPONATREMIA Status: Acute Comment: stable (3) Laryngeal squamous cell carcinoma Code(s): C32.9 - MALIGNANT NEOPLASM OF LARYNX, UNSPECIFIED Status: Chronic Comment: s/p laryngectomy (4) COPD (chronic obstructive pulmonary disease) with emphysema Code(s): J43.9 - EMPHYSEMA, UNSPECIFIED Status: Chronic Qualifiers: Emphysema type: unspecified Qualified Code(s): J43.9 - Emphysema, unspecified Comment: not active (5) Hx of primary tuberculosis Code(s): Z86.11 - PERSONAL HISTORY OF TUBERCULOSIS Status: Resolved (6) Aspergillosis, unspecified Code(s): B44.9 - ASPERGILLOSIS, UNSPECIFIED Status: Chronic Comment: Hx of aspergilloma or suspicious for per Dr Pfeiffer. not excited to bronch this patient at this point. fungal serologies negative. would not add in vori at this point. if concerned, could check Histo ab and/or Ur ag. (7) Hemoptysis Code(s): R04.2 - HEMOPTYSIS Status: Resolved Comment: Resolved, present on admit, then recurring now. will follow up on pulm recs, follow h/H, stablizing. CCM with abx, follow up on AFB and fungal smears and cultures. galactomannin and BDGlucan negative. would not add in Vori unless we obtain a biopsy or culture with elements. Crypto not detected with BDGlucan, but pulm disease rare. Bone Scan recommended by ID. Ordered - Plan * .
--- NOTE | 2018-03-01 17:16 | PRG ---
DATE OF SERVICE: 02/28/2018 SUBJECTIVE: Mr. Narayan's bone scan showed erosion into a rib this lesion. Still not clear whether t his is malignant.
[2018-03-02] MEDS: Nafcillin 2 GM in Sodium Chloride 0.9% 100 ML IVPB SCH ×4 (02:11→20:13)
[2018-03-02 06:03] LABS: Band 22 % (5-11); Eosinophils 3 % (0-10); Hemoglobin 10.9 g/dL (14.0-18.0); Lymphocytes 10 % (21-51); MDiff Complete? YES; Mean Corpuscular HGB CONC 32.9 g/dL (32.0-36.0); Mean Corpuscular Hemoglobin 29.4 pg (27.0-31.0); Mean Corpuscular Volume 89.4 fl (80.0-94.0); Mean Platelet Volume 6.1 fL (7.4-10.4); Monocytes 10 % (0-10); Neutrophil 55 % (42-75); PLT Morphology Comment Appears Adequate; Platelet Count 379 thou/uL (130-400); RBC Distribution Width 13.8 % (11.5-14.5); RBC Morphology Normal; Red Blood Cell (RBC) Count 3.69 mill/uL (4.70-6.10); White Blood Cell (WBC) Count 36.5 thou/uL (4.8-10.8)
[2018-03-02] MEDS: SODIUM CHLORIDE IVPB SCH ×3 (06:09→22:10)
[2018-03-02] MEDS: CEFTAZIDIME FORTAZ IVPB SCH ×3 (06:09→22:10)
[2018-03-02] MEDS: ADMIXTURE FEE IVPB SCH ×3 (06:09→22:10)
[2018-03-02] MEDS: predniSONE 20 MG TAB PO SCH (08:24)
[2018-03-02] MEDS: Famotidine 20 MG TAB PO SCH ×2 (08:24→20:13)
[2018-03-03] MEDS: Nafcillin 2 GM in Sodium Chloride 0.9% 100 ML IVPB SCH ×2 (02:00→08:42)
--- NOTE | 2018-03-03 02:59 | PRG ---
DATE OF SERVICE: 03/02/2018. SUBJECTIVE: The patient is sitting up. He denies any pain. No shortness of breath, no abdominal pain. He does relate to pain a little bit in the posterior left-sided upper rib cage region, but he makes signs to indicate that this pain is mild. No diarrhea. OBJECTIVE: VITAL SIGNS: He has been afebrile, T-max 98.4. Other vital signs are normal. O2 sats 94%. GENERAL: Awake, alert, oriented. SKIN: There are skin changes around the ostomy site. LUNGS: Symmetric air entry without crackles or wheezing. HEART: S1, S2, regular rate. ABDOMEN: Soft, not distended. EXTREMITIES: Moves all extremities equally. LABORATORY DATA: White cell count at 36.5, hemoglobin 10.9, platelets 379,000 with 55% neutrophils, 22% bands and creatinine 0.71, sodium 129. Liver profile normal. Aspergillus antigen BAL was not elevated. The AFB smear was negative from tracheal aspirate. The patient had a bone scan, which showed abnormal uptake in the left 2nd ribcage area suggestive of osseous involvement by the left upper lobe lung mass. ASSESSMENT AND DISCUSSION: Cavitary lesion in the left upper lobe associated with overlying ribcage involvement and also following treatment for laryngeal carcinoma, treated with radical chemoradiation therapy. The patient now presents with leukemoid reaction and there is a concern with infection in the area and he has been started on broad spectrum coverage guided by the results of cultures. The possibility of a leukemoid reaction due to second primary malignancy with ribcage involvement is considered in the differential diagnosis. In terms of the antimicrobial therapy, I would probably discontinue it if there is no further improvement in the neutrophil count. MTDD
[2018-03-03] MEDS: SODIUM CHLORIDE IVPB SCH ×2 (06:12→14:20)
[2018-03-03] MEDS: ADMIXTURE FEE IVPB SCH ×2 (06:12→14:20)
[2018-03-03] MEDS: CEFTAZIDIME FORTAZ IVPB SCH ×2 (06:12→14:20)
--- NOTE | 2018-03-03 08:07 | PDOC.PN ---
- Subjective Encounter Start Date: 03/02/18 Encounter Start Time: 10:00 follow upfor hemoptysis, PNA, DU mass/fluid No changes, no note form CT surgery yet. no new complaints All systems reviewed and neg x as above - Objective Resuscitation Status: Resuscitation Status FULL:Full Resuscitation MAR Reviewed: Yes Vital Signs & Weight: Vital Signs (12 hours) Temp Pulse Resp BP Pulse Ox 03/03/18 07:23 97.7 F 84 18 129/75 94 L 03/03/18 06:20 95 Weight Admit Weight 151 lb 7 oz Weight 151 lb 7 oz I&O: 03/02/18 03/03/18 03/04/18 06:59 06:59 06:59 Intake Total 4316 4337 Output Total 450 1600 Balance 8686 7157 Result Diagrams: 03/02/18 04:35 03/01/18 05:10 Phys Exam - Physical Examination Constitutional: NAD HEENT: PERRLA, moist MMs, sclera anicteric, oral pharynx no lesions Neck: no nodes, no JVD, supple, full ROM Respiratory: no wheezing, no rales, no rhonchi, clear to auscultation bilateral Cardiovascular: RRR, no significant murmur, no rub Gastrointestinal: soft, non-tender, no distention, positive bowel sounds Musculoskeletal: no edema, pulses present Neurological: non-focal, normal sensation, moves all 4 limbs Lymphatic: no nodes Psychiatric: normal affect, A&O x 3 Dx/Plan (1) PNA (pneumonia) Code(s): J18.9 - PNEUMONIA, UNSPECIFIED ORGANISM Status: Acute Qualifiers: Pneumonia type: due to methicillin-sensitive Staphylococcus aureus (MSSA) Laterality: left Lung location: upper lobe of lung Qualified Code(s): J15.211 - Pneumonia due to Methicillin susceptible Staphylococcus aureus Comment: MSSA on culture - changed to Nafcillin. CBC down to 36K now up and down daily. Stenotrophomonas on culture - resistant to Levofloxacin and Bactrim. Started Ceftaz yesterday, Minocycline po started yesterday. additional sensitivities requested - send out. continue levoflox for now. Id recommended to continue therapy. I think its imperative to determine whether this CT fnding is blood, pus, or tumor. Will discuss with Dr Phoenix. looks like it cold be amenable to percutaenous sampling (2) Hyponatremia Code(s): E87.1 - HYPO-OSMOLALITY AND HYPONATREMIA Status: Acute Comment: stable (3) Laryngeal squamous cell carcinoma Code(s): C32.9 - MALIGNANT NEOPLASM OF LARYNX, UNSPECIFIED Status: Chronic Comment: s/p laryngectomy (4) COPD (chronic obstructive pulmonary disease) with emphysema Code(s): J43.9 - EMPHYSEMA, UNSPECIFIED Status: Chronic Qualifiers: Emphysema type: unspecified Qualified Code(s): J43.9 - Emphysema, unspecified Comment: not active (5) Hx of primary tuberculosis Code(s): Z86.11 - PERSONAL HISTORY OF TUBERCULOSIS Status: Resolved (6) Aspergillosis, unspecified Code(s): B44.9 - ASPERGILLOSIS, UNSPECIFIED Status: Chronic Comment: Hx of aspergilloma or suspicious for per Dr Phoenix. not excited to bronch this patient at this point. fungal serologies negative. would not add in vori at this point. if concerned, could check Histo ab and/or Ur ag. (7) Hemoptysis Code(s): R04.2 - HEMOPTYSIS Status: Resolved Comment: Resolved, present on admit, then recurring now. will follow up on pulm recs, follow h/H, stablizing. CCM with abx, follow up on AFB and fungal smears and cultures. galactomannin and BDGlucan negative. would not add in Vori unless we obtain a biopsy or culture with elements. Crypto not detected with BDGlucan, but pulm disease rare. Bone Scan recommended by ID. Ordered - Plan * .
[2018-03-03] MEDS: Famotidine 20 MG TAB PO SCH ×2 (08:41→20:55)
[2018-03-03] MEDS: predniSONE 20 MG TAB PO SCH (08:41)
[2018-03-03] MEDS ORDERED: predniSONE 20 MG TAB PO SCH ×2 (11:05→11:15)
--- NOTE | 2018-03-03 11:24 | PRG ---
DATE OF SERVICE: 03/03/2018 PHYSICAL EXAMINATION: VITAL SIGNS: Mr. Narayan's vital signs remains stable. He is afebrile, heart rate 84, respiratory ra te is 18, oximetry 94% on room air. LUNGS: Clear. We are awaiting his surgical biopsy with pathology as well as AFB fungal and routine cultures. [facility] has been quite busy, so he is on their schedule to be evaluated for surgery. I d iscussed this with Cardiothoracic Surgery.
--- NOTE | 2018-03-03 12:08 | PRG ---
DATE OF SERVICE: 02/28/2018 SUBJECTIVE: Mr. Narayan's bone scan showed erosion into a rib next to the lesion in his left upper lo be. It is still not clear whether or not this is malignant or an erosion due to infectious process s uch as actinomycosis. He clinically remained stable. OBJECTIVE: VITAL SIGNS: Stable. LUNGS: Clear. HEART: Regular rhythm. ABDOMEN: Soft. His hemoptysis is resolved. IMPRESSION: Lytic bone lesion adjacent to an area that was felt to be an infected cystic airspace. PLAN: 1. CT surgery intervention. 2. Culture and biopsy of this area.
--- NOTE | 2018-03-03 13:34 | CON ---
DATE OF CONSULTATION: 02/28/2018 HISTORY OF PRESENT ILLNESS: Mr. Narayan is a 52-year-old gentleman who presented with hemoptysis. He has a history of having had a laryngectomy for laryngeal cancer in the past. He has a history of a cavitary mass in his left upper lobe which was originally thought to potentially be an aspergilloma. On repeat scans, the cavitary portion has filled probably with blood and also now has noted an erosi ve component into the left second rib anteriorly. I have been asked to see him for biopsies. PAST MEDICAL HISTORY: 1. Laryngeal cancer status post laryngectomy for squamous cell carcinoma of the larynx. 2. History of tobacco abuse. 3. Syndrome of inappropriate antidiuretic hormone. 4. Chronic obstructive pulmonary disease. 5. History of primary tuberculosis. PAST SURGICAL HISTORY: 1. PEG placement. 2. Permanent stoma, post laryngectomy. ALLERGIES: ACETAMINOPHEN. SOCIAL HISTORY: He lives in [place]. He has a [id number] history of tobacco use. Currently, he is not smoking. REVIEW OF SYSTEMS: Is performed and is negative except as above to the best of our ability with him having no ability to speak currently. PHYSICAL EXAMINATION: GENERAL: This is a thin gentleman resting comfortably on the floor. VITAL SIGNS: Temperature is 97.7, pulse is 84 and regular, blood pressure 129/75. Height is 6 feet 3 inches, weight is 151 pounds. HEENT: He has permanent stoma. NECK: There is a nonhealing portion on the right side which is open and granulating. CHEST: Clear bilaterally. HEART: Rhythm is regular. On palpation of his chest wall, he does have some tenderness over the sec ond rib. ABDOMEN: Soft and nontender. EXTREMITIES: No edema. ASSESSMENT AND PLAN: Left upper lobe cavitary mass with erosion into his left second rib. I have di scussed open biopsy with him and he is agreeable for surgery tomorrow.
[2018-03-04] MEDS ORDERED: Fentanyl 250 MCG/5 ML VIAL ONE (06:49)
[2018-03-04] MEDS ORDERED: CEFAZOLIN/Water 2 GM/20 ML SYRINGE ONE (07:20)
[2018-03-04] MEDS ORDERED: Midazolam HCl 2 mg/2 ml Vial ONE (07:25)
[2018-03-04] MEDS ORDERED: Bupivacaine HCl 0.5%/Epinephrine 1:200,000/PF 30 ml Vial ONE (07:44)
[2018-03-04] MEDS ORDERED: Promethazine HCl 25 MG/ML VIAL IM PRN (08:51)
[2018-03-04] MEDS ORDERED: HYDROmorphone 2 MG/ML VIAL SLOW IVP PRN (08:51)
[2018-03-04] MEDS ORDERED: Meperidine HCl/PF 25 MG/ML VIAL SLOW IVP PRN (08:51)
[2018-03-04] MEDS ORDERED: Fentanyl 100 MCG/2 ML VIAL ONE (08:56)
[2018-03-04] MEDS: Famotidine 20 MG TAB PO SCH ×2 (09:00→18:57)
--- NOTE | 2018-03-04 09:47 | OP ---
DATE OF PROCEDURE: 03/04/2018 PREOPERATIVE DIAGNOSES: Left upper lobe mass with invasion into the second rib. POSTOPERATIVE DIAGNOSES: Left upper lobe mass with invasion into the second rib. PROCEDURE: Left chest wall resection/biopsy - second rib. SURGEON: Bharat Foster M.D. ANESTHESIA: General endotracheal. ESTIMATED BLOOD LOSS: Less than 20 mL. PROCEDURE IN DETAIL: After consent was obtained, the patient was brought to the operating room and placed in supine position on the operating table. Appropriate anesthetic monitor was placed and general endotracheal anesthesia was induced through his stoma. Chest was prepped and draped in usual sterile fashion. Skin incision was made over the second rib. Once the second rib was isolated it was followed posteriorly toward the lateral portion. Dissection above the rib was then performed with electrocautery. I was able to sneak my finger posterior to the rib and feel the mass in question where it abutted the rib. A short segment of chest wall and rib was resected and sent as multiple biopsies.of the second rib. Specimens were also sent for culture and pathologic exam. The wound was infiltrated with 0.5% Marcaine with epinephrine. The wound was ensured of hemostasis. Wound was then closed in layers and Dermabond applied to the skin. The patient was awakened, extubated, and transferred to the recovery room in stable condition. DARY
--- NOTE | 2018-03-04 11:36 | PRG ---
DATE OF SERVICE: 03/04/2018 SERVICE: Pulmonary Medicine. INTERVAL HISTORY: The patient just got back from the operating room. He underwent a biopsy of the left lung mass. He has some appropriate chest discomfort, but otherwise, denies any shortness of breath, fevers, chills, nausea or vomiting. PHYSICAL EXAMINATION: VITAL SIGNS: Afebrile, pulse 94, blood pressure 149/89, respirations 16, saturation 91% on room air. GENERAL: The patient is awake, alert, in no apparent distress. LUNGS: Excellent air entry. There is no prolonged expiratory phase or wheezing present. HEART: Normal rate, regular. ABDOMEN: Soft, nontender, nondistended. Bowel sounds are positive. MUSCULOSKELETAL: No cyanosis or clubbing. There is no pitting in the bilateral lower extremities. NEUROLOGIC: Grossly nonfocal. ASSESSMENT: 1. Acute hypoxic respiratory failure, resolved. 2. Community-acquired pneumonia, secondary to methicillin-sensitive Staphylococcus aureus and Stenotrophomonas, status post antibiotics. 3. Enlarging left lung mass with apparent erosion into the bony tissues now. 4. History of pulmonary tuberculosis, status post full course of therapy with residual cavity in the left upper lobe. 5. Squamous cell carcinoma of the head and neck, status post laryngectomy. DISCUSSION AND PLAN: We will await the pathology results. Pulmonary Critical Care will continue to follow along for the time being. They are differential and includes neoplastic, inflammatory, and infectious processes. Hopefully, we can find something that can be treated easily. That being said, with invasion into the rib, the patient may need surgical debridement. DARY
[2018-03-04] MEDS: predniSONE 20 MG TAB PO SCH (15:48)
[2018-03-04] MEDS ORDERED: Glycopyrrolate 0.2 MG/ML 5 ML SYRINGE ONE (16:16)
[2018-03-04] MEDS ORDERED: PROPOFOL 200 MG/20 ML VIAL ONE (16:16)
[2018-03-04] MEDS ORDERED: Lidocaine 1% PF 5 ML VIAL ONE (16:16)
[2018-03-04] MEDS ORDERED: PHENYLEPHRINE-NS 100 MCG/ML 10 ML SYRINGE ONE (16:16)
[2018-03-04] MEDS ORDERED: Dexamethasone 20 MG/5 ML VIAL ONE (16:16)
[2018-03-04] MEDS ORDERED: Naloxone HCl 0.4 mg/ml Vial ONE (16:16)
[2018-03-04] MEDS ORDERED: Ondansetron HCl/PF 4 MG/2 ML Vial ONE (16:16)
[2018-03-04] MEDS ORDERED: ePHEDrine/0.9% NaCl/PF SYRINGE 50 mg/10 ml ONE (16:16)
[2018-03-05] MEDS: predniSONE 20 MG TAB PO SCH (08:39)
[2018-03-05] MEDS: Famotidine 20 MG TAB PO SCH ×2 (08:39→20:33)
--- NOTE | 2018-03-05 10:25 | PRG ---
DATE OF SERVICE: 03/05/2018 SERVICE: Pulmonary Medicine. INTERVAL HISTORY: The patient is doing fine from a cardiovascular and respiratory standpoint. He denies any chest pain, nausea, vomiting, fevers or chills. Otherwise, there has been no interval change to his condition. He has got a little bit of chest wall discomfort associated with biopsy, but otherwise , he is in his usual state. PHYSICAL EXAMINATION: VITAL SIGNS: Afebrile, pulse 100, blood pressure 118/76, respirations 18, saturation 95% on room air. GENERAL: The patient is awake, alert, no apparent distress. LUNGS: Excellent air entry without prolonged expiratory phase, wheezing, rhonchi or crackles. HEART: Normal rate, regular. ABDOMEN: Soft, nontender, nondistended. Bowel sounds positive. MUSCULOSKELETAL: No cyanosis or clubbing. No pitting in the bilateral lower extremities. NEUROLOGIC: Grossly nonfocal. LABORATORY DATA: Microbiology is negative to date. Pathology currently pending on chest wall biopsy. ASSESSMENT: 1. Community-acquired pneumonia, secondary to possible MSSA, Stenotrophomonas, status post full course of antibiotic. 2. Enlarging left lung mass, status post biopsy. 3. Remote history of pulmonary tuberculosis, status post full course of therapy with residual cavitary lesion in the left upper lobe. 4. Squamous cell carcinoma of the head and neck, status post laryngectomy. DISCUSSION AND PLAN: At this point, we are waiting for the pathology results so that we can help understand what our next step is. I will continue to follow along with you. DARY
--- NOTE | 2018-03-05 13:54 | PDOC.PN ---
- Subjective Encounter Start Date: 03/03/18 Encounter Start Time: 11:15 No new complaint,s no changes, hemoptysis about the same, no CP, no LAZARO, no F/C , no night sweats. deanna abx all systems reviewed and neg x as per HPI. seen by Dr Foster, to go for open biopsy tomorrow AM - Objective Resuscitation Status: Resuscitation Status FULL:Full Resuscitation MAR Reviewed: Yes Vital Signs & Weight: Vital Signs (12 hours) Temp Pulse Resp BP Pulse Ox 03/05/18 08:00 98.0 F 100 18 95 03/05/18 07:35 98.0 F 100 18 118/76 95 Weight Admit Weight 151 lb 7 oz Weight 151 lb 7 oz I&O: 03/04/18 03/05/18 03/06/18 06:59 06:59 06:59 Intake Total 283 240 Output Total 1700 2700 Balance -7438 -4395 Result Diagrams: 03/02/18 04:35 03/01/18 05:10 Phys Exam - Physical Examination Constitutional: NAD HEENT: PERRLA, moist MMs, sclera anicteric, oral pharynx no lesions Neck: no nodes, no JVD, supple, full ROM trach open, no change Respiratory: no wheezing, no rales, no rhonchi, clear to auscultation bilateral Cardiovascular: RRR, no significant murmur, no rub Gastrointestinal: soft, non-tender, no distention, positive bowel sounds Musculoskeletal: no edema, pulses present Neurological: non-focal, normal sensation, moves all 4 limbs Lymphatic: no nodes Psychiatric: normal affect, A&O x 3 Skin: no rash, normal turgor, cap refill <2 seconds Dx/Plan (1) PNA (pneumonia) Code(s): J18.9 - PNEUMONIA, UNSPECIFIED ORGANISM Status: Acute Qualifiers: Pneumonia type: due to methicillin-sensitive Staphylococcus aureus (MSSA) Laterality: left Lung location: upper lobe of lung Qualified Code(s): J15.211 - Pneumonia due to Methicillin susceptible Staphylococcus aureus Comment: MSSA on culture - changed to Nafcillin. CBC down to 36K now up and down daily. Stenotrophomonas on culture - resistant to Levofloxacin and Bactrim. Started Ceftaz yesterday, Minocycline po started yesterday. additional sensitivities requested - send out. continue levoflox for now. Id recommended to continue therapy. I think its imperative to determine whether this CT fnding is blood, pus, or tumor. Will discuss with Dr Phoenix. looks like it cold be amenable to percutaenous sampling (2) Hyponatremia Code(s): E87.1 - HYPO-OSMOLALITY AND HYPONATREMIA Status: Acute Comment: stable (3) Laryngeal squamous cell carcinoma Code(s): C32.9 - MALIGNANT NEOPLASM OF LARYNX, UNSPECIFIED Status: Chronic Comment: s/p laryngectomy (4) COPD (chronic obstructive pulmonary disease) with emphysema Code(s): J43.9 - EMPHYSEMA, UNSPECIFIED Status: Chronic Qualifiers: Emphysema type: unspecified Qualified Code(s): J43.9 - Emphysema, unspecified Comment: not active (5) Hx of primary tuberculosis Code(s): Z86.11 - PERSONAL HISTORY OF TUBERCULOSIS Status: Resolved (6) Aspergillosis, unspecified Code(s): B44.9 - ASPERGILLOSIS, UNSPECIFIED Status: Chronic Comment: Hx of aspergilloma or suspicious for per Dr Phoenix. not excited to bronch this patient at this point. fungal serologies negative. would not add in vori at this point. if concerned, could check Histo ab and/or Ur ag. (7) Hemoptysis Code(s): R04.2 - HEMOPTYSIS Status: Resolved Comment: Resolved, present on admit, then recurring now. will follow up on pulm recs, follow h/H, stablizing. CCM with abx, follow up on AFB and fungal smears and cultures. galactomannin and BDGlucan negative. would not add in Vori unless we obtain a biopsy or culture with elements. Crypto not detected with BDGlucan, but pulm disease rare. Bone Scan recommended by ID. Ordered - Plan cont current plan of care, continue antibiotics, respiratory therapy, out of bed /ambulate * . CCM thrugh biopsy until resulted, top po when ready D/c workup for Steno revealed bactrim sensitive, rj sensitive and Ceftaz intermediate
--- NOTE | 2018-03-05 13:57 | PDOC.PN ---
- Subjective Encounter Start Date: 03/04/18 Encounter Start Time: 11:35 No new complaint,s no changes, hemoptysis about the same, no CP, no LAZARO, no F/C , no night sweats. deanna abx all systems reviewed and neg x as per HPI. biopsy this AM, sore post op - Objective Resuscitation Status: Resuscitation Status FULL:Full Resuscitation MAR Reviewed: Yes Vital Signs & Weight: Vital Signs (12 hours) Temp Pulse Resp BP Pulse Ox 03/05/18 08:00 98.0 F 100 18 95 03/05/18 07:35 98.0 F 100 18 118/76 95 Weight Admit Weight 151 lb 7 oz Weight 151 lb 7 oz I&O: 03/04/18 03/05/18 03/06/18 06:59 06:59 06:59 Intake Total 283 240 Output Total 1700 2700 Balance -1417 -2460 Result Diagrams: 03/02/18 04:35 03/01/18 05:10 Radiology Reviewed by me: Yes Phys Exam - Physical Examination Constitutional: NAD HEENT: PERRLA, moist MMs, sclera anicteric, oral pharynx no lesions Neck: no nodes, no JVD, supple, full ROM Respiratory: no wheezing, no rales, no rhonchi, clear to auscultation bilateral Cardiovascular: RRR, no significant murmur, no rub Gastrointestinal: soft, non-tender, no distention, positive bowel sounds Musculoskeletal: no edema, pulses present Neurological: non-focal, normal sensation, moves all 4 limbs Lymphatic: no nodes Psychiatric: normal affect, A&O x 3 Skin: no rash, normal turgor, cap refill <2 seconds Deviation from normal: incision to Left chest C/D/I Dx/Plan (1) PNA (pneumonia) Code(s): J18.9 - PNEUMONIA, UNSPECIFIED ORGANISM Status: Acute Qualifiers: Pneumonia type: due to methicillin-sensitive Staphylococcus aureus (MSSA) Laterality: left Lung location: upper lobe of lung Qualified Code(s): J15.211 - Pneumonia due to Methicillin susceptible Staphylococcus aureus Comment: MSSA on culture - changed to Nafcillin. CBC down to 36K now up and down daily. Stenotrophomonas on culture - resistant to Levofloxacin and Bactrim. Started Ceftaz yesterday, Minocycline po started yesterday. additional sensitivities requested - send out. continue levoflox for now. Id recommended to continue therapy. I think its imperative to determine whether this CT fnding is blood, pus, or tumor. Will discuss with Dr Phoenix. looks like it cold be amenable to percutaenous sampling (2) Hyponatremia Code(s): E87.1 - HYPO-OSMOLALITY AND HYPONATREMIA Status: Acute Comment: stable (3) Laryngeal squamous cell carcinoma Code(s): C32.9 - MALIGNANT NEOPLASM OF LARYNX, UNSPECIFIED Status: Chronic Comment: s/p laryngectomy (4) COPD (chronic obstructive pulmonary disease) with emphysema Code(s): J43.9 - EMPHYSEMA, UNSPECIFIED Status: Chronic Qualifiers: Emphysema type: unspecified Qualified Code(s): J43.9 - Emphysema, unspecified Comment: not active (5) Hx of primary tuberculosis Code(s): Z86.11 - PERSONAL HISTORY OF TUBERCULOSIS Status: Resolved (6) Aspergillosis, unspecified Code(s): B44.9 - ASPERGILLOSIS, UNSPECIFIED Status: Chronic Comment: Hx of aspergilloma or suspicious for per Dr Phoenix. not excited to bronch this patient at this point. fungal serologies negative. would not add in vori at this point. if concerned, could check Histo ab and/or Ur ag. (7) Hemoptysis Code(s): R04.2 - HEMOPTYSIS Status: Resolved Comment: Resolved, present on admit, then recurring now. will follow up on pulm recs, follow h/H, stablizing. CCM with abx, follow up on AFB and fungal smears and cultures. galactomannin and BDGlucan negative. would not add in Vori unless we obtain a biopsy or culture with elements. Crypto not detected with BDGlucan, but pulm disease rare. Bone Scan recommended by ID. Ordered - Plan cont current plan of care, continue antibiotics, respiratory therapy, out of bed /ambulate * . CCM, pending path
--- NOTE | 2018-03-05 13:58 | PDOC.PN ---
- Subjective Encounter Start Date: 03/05/18 Encounter Start Time: 11:45 No new complaint,s no changes, hemoptysis about the same, no CP, no LAZARO, no F/C , no night sweats. deanna abx all systems reviewed and neg x as per HPI. - Objective Resuscitation Status: Resuscitation Status FULL:Full Resuscitation MAR Reviewed: Yes Vital Signs & Weight: Vital Signs (12 hours) Temp Pulse Resp BP Pulse Ox 03/05/18 08:00 98.0 F 100 18 95 03/05/18 07:35 98.0 F 100 18 118/76 95 Weight Admit Weight 151 lb 7 oz Weight 151 lb 7 oz I&O: 03/04/18 03/05/18 03/06/18 06:59 06:59 06:59 Intake Total 283 240 Output Total 1700 2700 Balance -1417 -2460 Result Diagrams: 03/02/18 04:35 03/01/18 05:10 Phys Exam - Physical Examination Constitutional: NAD HEENT: PERRLA, moist MMs, sclera anicteric, oral pharynx no lesions Neck: no nodes, no JVD, supple, full ROM Respiratory: no wheezing, no rales, no rhonchi, clear to auscultation bilateral Cardiovascular: RRR, no significant murmur, no rub Gastrointestinal: soft, non-tender, no distention, positive bowel sounds Musculoskeletal: no edema, pulses present Neurological: non-focal, normal sensation, moves all 4 limbs Lymphatic: no nodes Psychiatric: normal affect, A&O x 3 Skin: no rash, normal turgor, cap refill <2 seconds Dx/Plan (1) PNA (pneumonia) Code(s): J18.9 - PNEUMONIA, UNSPECIFIED ORGANISM Status: Acute Qualifiers: Pneumonia type: due to methicillin-sensitive Staphylococcus aureus (MSSA) Laterality: left Lung location: upper lobe of lung Qualified Code(s): J15.211 - Pneumonia due to Methicillin susceptible Staphylococcus aureus Comment: MSSA on culture - changed to Nafcillin. CBC down to 36K now up and down daily. Stenotrophomonas on culture - resistant to Levofloxacin and Bactrim. Started Ceftaz yesterday, Minocycline po started yesterday. additional sensitivities requested - send out. continue levoflox for now. Id recommended to continue therapy. I think its imperative to determine whether this CT fnding is blood, pus, or tumor. Will discuss with Dr Phoenix. looks like it cold be amenable to percutaenous sampling (2) Hyponatremia Code(s): E87.1 - HYPO-OSMOLALITY AND HYPONATREMIA Status: Acute Comment: stable (3) Laryngeal squamous cell carcinoma Code(s): C32.9 - MALIGNANT NEOPLASM OF LARYNX, UNSPECIFIED Status: Chronic Comment: s/p laryngectomy (4) COPD (chronic obstructive pulmonary disease) with emphysema Code(s): J43.9 - EMPHYSEMA, UNSPECIFIED Status: Chronic Qualifiers: Emphysema type: unspecified Qualified Code(s): J43.9 - Emphysema, unspecified Comment: not active (5) Hx of primary tuberculosis Code(s): Z86.11 - PERSONAL HISTORY OF TUBERCULOSIS Status: Resolved (6) Aspergillosis, unspecified Code(s): B44.9 - ASPERGILLOSIS, UNSPECIFIED Status: Chronic Comment: Hx of aspergilloma or suspicious for per Dr Phoenix. not excited to bronch this patient at this point. fungal serologies negative. would not add in vori at this point. if concerned, could check Histo ab and/or Ur ag. (7) Hemoptysis Code(s): R04.2 - HEMOPTYSIS Status: Resolved Comment: Resolved, present on admit, then recurring now. will follow up on pulm recs, follow h/H, stablizing. CCM with abx, follow up on AFB and fungal smears and cultures. galactomannin and BDGlucan negative. would not add in Vori unless we obtain a biopsy or culture with elements. Crypto not detected with BDGlucan, but pulm disease rare. Bone Scan recommended by ID. Ordered - Plan cont current plan of care, continue antibiotics, PT/OT, respiratory therapy, out of bed/ambulate * . await path, antcipate d/c on po in 1-2 days
[2018-03-06 05:27] LABS: Anion Gap 11 mmol/L (10-20); BUN (Urea Nitrogen) 9 mg/dL (8.4-25.7); Calc. Creatinine Clearance 114 mL/min (70-130); Calcium 9.7 mg/dL (7.8-10.44); Carbon Dioxide 32 mmol/L (22-29); Chloride 91 mmol/L (98-107); Estimated GFR-MDRD Greater than 90; Glucose 89 mg/dL (70-105); Magnesium 1.5 mg/dL (1.6-2.6); Potassium 3.9 mmol/L (3.5-5.1); Sodium 130 mmol/L (136-145)
[2018-03-06 06:07] LABS: Band 24 % (5-11); Eosinophils 2 % (0-10); Hemoglobin 10.2 g/dL (14.0-18.0); Lymphocytes 4 % (21-51); MDiff Complete? YES; Mean Corpuscular HGB CONC 32.5 g/dL (32.0-36.0); Mean Corpuscular Hemoglobin 28.6 pg (27.0-31.0); Mean Corpuscular Volume 88.1 fl (80.0-94.0); Monocytes 7 % (0-10); Myelocyte 2 % (0-0); Neutrophil 61 % (42-75); Platelet Count 368 thou/uL (130-400); RBC Distribution Width 14.3 % (11.5-14.5); Red Blood Cell (RBC) Count 3.56 mill/uL (4.70-6.10); White Blood Cell (WBC) Count 31.2 thou/uL (4.8-10.8)
[2018-03-06] MEDS ORDERED: Magnesium 2 GM/NS 0.9% 100 ML 2 GM in Premix Bag 1 BAG IVPB SCH ×2 (08:15→15:45)
[2018-03-06] MEDS: predniSONE 20 MG TAB PO SCH (09:04)
[2018-03-06] MEDS: Famotidine 20 MG TAB PO SCH ×2 (09:05→20:51)
--- NOTE | 2018-03-06 15:41 | PRG ---
DATE OF SERVICE: 03/06/2018 SERVICE: Pulmonary Medicine. INTERVAL HISTORY: The patient is doing fine from a cardiovascular and respiratory standpoint. He is breathing comfortably. He has no complaints of chest pain, nausea, vomiting, fevers, or chills. Ot herwise, there has been no interval change to his condition. PHYSICAL EXAMINATION: VITAL SIGNS: Afebrile, pulse 99, blood pressure 121/77, respirations 20, saturation 93% on room air. GENERAL: The patient is awake, alert, in no apparent distress. LUNGS: Excellent air entry without prolonged expiratory phase, wheezing, rhonchi, or crackles. HEART: Normal rate, regular. ABDOMEN: Soft, nontender, nondistended. Bowel sounds are positive. MUSCULOSKELETAL: No cyanosis or clubbing. There is no pitting in the bilateral lower extremities. NEUROLOGIC: Grossly nonfocal. LABORATORY DATA: WBC 31.2, hemoglobin 10.2, platelets 368,000. Band count remains elevated at 24%. Neutrophils are 61%. Microbiology is negative to date. AFB smear and culture from the chest tissue was negative. There are moderate white blood cells seen and moderate red blood cells seen, but no o rganisms were identified. There is a possible growth in the subculture. ASSESSMENT: 1. Community-acquired pneumonia, secondary to methicillin-susceptible Staphylococcus aureus, and Brody notrophomonas, status post full course of antibiotic therapy. 2. Enlarging lung mass, status post biopsy. 3. History of pulmonary tuberculosis, status post full course of therapy with residual cavitary lesi on in left upper lobe. 4. Squamous cell carcinoma of the head and neck, status post laryngectomy. DISCUSSION AND PLAN: At this point, we are just simply awaiting culture and biopsy results. We will continue to follow the patient on a day-by-day basis.
--- NOTE | 2018-03-07 00:25 | PRG ---
DATE OF SERVICE: 03/06/2018 Mr. Narayan is doing well. 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 Cultures were all preliminarily negative. I briefly discussed the pathology with the patient. He will need oncologic/Radiation Oncology referr al. I am not sure as to who his previous oncologist and radiation therapist was, and if he would be a candidate for any further radiation therapy.
[2018-03-07] MEDS: predniSONE 20 MG TAB PO SCH (08:49)
[2018-03-07] MEDS: Famotidine 20 MG TAB PO SCH ×2 (08:49→20:00)
[2018-03-07 09:21] LABS: Fungus Stain Final report (.)
--- NOTE | 2018-03-07 13:50 | PDOC.PN ---
- Subjective Encounter Start Date: 03/06/18 Encounter Start Time: 12:30 Pt seen in followup, still pending pathology. no new complaints, or events All systems reviewed adn neg x as per HPI NoF/C, no n/V/d/C, no Cp, no SOB, minimal cough or sputum, rare blood tinging All systems reviewed and neg x as above - Objective Resuscitation Status: Resuscitation Status FULL:Full Resuscitation MAR Reviewed: Yes Vital Signs & Weight: Vital Signs (12 hours) Temp Pulse Resp BP BP Pulse Ox 03/07/18 08:00 98.4 F 91 18 95 03/07/18 07:54 98.4 F 91 18 132/80 95 03/07/18 04:14 98.3 F 91 20 108/73 95 Weight Admit Weight 151 lb 7 oz Weight 151 lb 7 oz I&O: 03/06/18 03/07/18 03/08/18 06:59 06:59 06:59 Intake Total 980 240 Output Total 2100 2100 Balance -1120 -1860 Result Diagrams: 03/06/18 04:21 03/06/18 04:21 Phys Exam - Physical Examination Constitutional: NAD HEENT: PERRLA, moist MMs, sclera anicteric, oral pharynx no lesions Neck: no nodes, no JVD, supple, full ROM trach scab healing well Respiratory: no wheezing, no rales, no rhonchi, clear to auscultation bilateral Cardiovascular: RRR, no significant murmur, no rub Gastrointestinal: soft, non-tender, no distention, positive bowel sounds Musculoskeletal: no edema, pulses present Neurological: non-focal, normal sensation, moves all 4 limbs Lymphatic: no nodes Psychiatric: normal affect, A&O x 3 Skin: no rash, normal turgor, cap refill <2 seconds Dx/Plan (1) PNA (pneumonia) Code(s): J18.9 - PNEUMONIA, UNSPECIFIED ORGANISM Status: Acute Qualifiers: Pneumonia type: due to methicillin-sensitive Staphylococcus aureus (MSSA) Laterality: left Lung location: upper lobe of lung Qualified Code(s): J15.211 - Pneumonia due to Methicillin susceptible Staphylococcus aureus Comment: MSSA on culture - changed to Nafcillin. CBC down to 36K now up and down daily. Stenotrophomonas on culture - resistant to Levofloxacin and Bactrim. Started Ceftaz yesterday, Minocycline po started yesterday. additional sensitivities requested - send out. continue levoflox for now. Id recommended to continue therapy. I think its imperative to determine whether this CT fnding is blood, pus, or tumor. Will discuss with Dr Phoenix. looks like it cold be amenable to percutaenous sampling (2) Hyponatremia Code(s): E87.1 - HYPO-OSMOLALITY AND HYPONATREMIA Status: Acute Comment: stable (3) Laryngeal squamous cell carcinoma Code(s): C32.9 - MALIGNANT NEOPLASM OF LARYNX, UNSPECIFIED Status: Chronic Comment: s/p laryngectomy (4) COPD (chronic obstructive pulmonary disease) with emphysema Code(s): J43.9 - EMPHYSEMA, UNSPECIFIED Status: Chronic Qualifiers: Emphysema type: unspecified Qualified Code(s): J43.9 - Emphysema, unspecified Comment: not active (5) Hx of primary tuberculosis Code(s): Z86.11 - PERSONAL HISTORY OF TUBERCULOSIS Status: Resolved (6) Aspergillosis, unspecified Code(s): B44.9 - ASPERGILLOSIS, UNSPECIFIED Status: Chronic Comment: Hx of aspergilloma or suspicious for per Dr Phoenix. not excited to bronch this patient at this point. fungal serologies negative. would not add in vori at this point. if concerned, could check Histo ab and/or Ur ag. (7) Hemoptysis Code(s): R04.2 - HEMOPTYSIS Status: Resolved Comment: Resolved, present on admit, then recurring now. will follow up on pulm recs, follow h/H, stablizing. CCM with abx, follow up on AFB and fungal smears and cultures. galactomannin and BDGlucan negative. would not add in Vori unless we obtain a biopsy or culture with elements. Crypto not detected with BDGlucan, but pulm disease rare. Bone Scan recommended by ID. Ordered - Plan cont current plan of care, continue antibiotics, respiratory therapy, out of bed /ambulate * . folllow up on biopsy results
--- NOTE | 2018-03-07 13:53 | PDOC.PN ---
- Subjective Encounter Start Date: 03/07/18 Encounter Start Time: 10:00 follow up for PNA, hemptysis, lung mass Biopsy back - SqCC. no F/C, no N/V/d/C. Pt saw Dr waddell for radiation after surgery with Dr Figueroa for his laryngeal CA. all systems reviewed adn neg x as above - Objective Resuscitation Status: Resuscitation Status FULL:Full Resuscitation MAR Reviewed: Yes Vital Signs & Weight: Vital Signs (12 hours) Temp Pulse Resp BP BP Pulse Ox 03/07/18 08:00 98.4 F 91 18 95 03/07/18 07:54 98.4 F 91 18 132/80 95 03/07/18 04:14 98.3 F 91 20 108/73 95 Weight Admit Weight 151 lb 7 oz Weight 151 lb 7 oz I&O: 03/06/18 03/07/18 03/08/18 06:59 06:59 06:59 Intake Total 980 240 Output Total 2100 2100 Balance -1120 -1860 Result Diagrams: 03/06/18 04:21 03/06/18 04:21 Phys Exam - Physical Examination Constitutional: NAD HEENT: PERRLA, moist MMs, sclera anicteric, oral pharynx no lesions Neck: no nodes, no JVD, supple, full ROM Respiratory: no wheezing, no rales, no rhonchi, clear to auscultation bilateral Cardiovascular: RRR, no significant murmur, no rub Gastrointestinal: soft, non-tender, no distention, positive bowel sounds Musculoskeletal: no edema, pulses present Neurological: non-focal, normal sensation, moves all 4 limbs Lymphatic: no nodes Psychiatric: normal affect, A&O x 3 Skin: no rash, normal turgor, cap refill <2 seconds Dx/Plan (1) PNA (pneumonia) Code(s): J18.9 - PNEUMONIA, UNSPECIFIED ORGANISM Status: Acute Qualifiers: Pneumonia type: due to methicillin-sensitive Staphylococcus aureus (MSSA) Laterality: left Lung location: upper lobe of lung Qualified Code(s): J15.211 - Pneumonia due to Methicillin susceptible Staphylococcus aureus Comment: MSSA on culture - changed to Nafcillin. CBC down to 36K now up and down daily. Stenotrophomonas on culture - resistant to Levofloxacin and Bactrim. Started Ceftaz yesterday, Minocycline po started yesterday. additional sensitivities requested - send out. continue levoflox for now. Id recommended to continue therapy. I think its imperative to determine whether this CT fnding is blood, pus, or tumor. Will discuss with Dr Phoenix. looks like it cold be amenable to percutaenous sampling (2) Hyponatremia Code(s): E87.1 - HYPO-OSMOLALITY AND HYPONATREMIA Status: Chronic Comment: stable (3) Laryngeal squamous cell carcinoma Code(s): C32.9 - MALIGNANT NEOPLASM OF LARYNX, UNSPECIFIED Status: Chronic Comment: s/p laryngectomy (4) COPD (chronic obstructive pulmonary disease) with emphysema Code(s): J43.9 - EMPHYSEMA, UNSPECIFIED Status: Chronic Qualifiers: Emphysema type: unspecified Qualified Code(s): J43.9 - Emphysema, unspecified Comment: not active (5) Hx of primary tuberculosis Code(s): Z86.11 - PERSONAL HISTORY OF TUBERCULOSIS Status: Resolved (6) Aspergillosis, unspecified Code(s): B44.9 - ASPERGILLOSIS, UNSPECIFIED Status: Chronic Comment: Hx of aspergilloma or suspicious for per Dr Phoenix. not excited to bronch this patient at this point. fungal serologies negative. would not add in vori at this point. if concerned, could check Histo ab and/or Ur ag. (7) Hemoptysis Code(s): R04.2 - HEMOPTYSIS Status: Resolved Comment: Resolved, present on admit, then recurring now. will follow up on pulm recs, follow h/H, stablizing. CCM with abx, follow up on AFB and fungal smears and cultures. galactomannin and BDGlucan negative. would not add in Vori unless we obtain a biopsy or culture with elements. Crypto not detected with BDGlucan, but pulm disease rare. Bone Scan recommended by ID. Ordered (8) Lung mass Code(s): R91.8 - OTHER NONSPECIFIC ABNORMAL FINDING OF LUNG FIELD Status: Acute Comment: Sq Cell Ca with extension to the Rib. will ask medical onc to see - Plan * .
--- NOTE | 2018-03-07 14:57 | PRG ---
DATE OF SERVICE: 03/07/2018 SERVICE: Pulmonary Medicine. INTERVAL HISTORY: The patient is doing fine from a respiratory standpoint. He remains in his usual state of health. He is very pleasant to talk to every time we have the opportunity. PHYSICAL EXAMINATION: VITAL SIGNS: Afebrile, pulse 93, blood pressure 143/82, respirations 16, saturation 96% on room air. GENERAL: The patient is awake, alert, no apparent distress. LUNGS: Decent air entry with no prolonged expiratory phase, wheezing, rhonchi or crackles. HEART: Normal rate, regular. ABDOMEN: Soft, nontender, nondistended. Bowel sounds are positive. MUSCULOSKELETAL: No cyanosis or clubbing. There is no pitting in the bilateral lower extremities. NEUROLOGIC: Grossly nonfocal. LABORATORY DATA: Biopsy results are consistent with squamous cell carcinoma. ASSESSMENT: 1. Community-acquired pneumonia secondary to methicillin-susceptible Staphylococcus aureus and Steno trophomonas, status post full course of antibiotic therapy. 2. History of pulmonary tuberculosis, status post full course of therapy with residual cavitary lesi on in the left upper lobe. 3. Squamous cell carcinoma of the head and neck, status post laryngectomy and radiation therapy with out any chemotherapy. 4. Squamous cell carcinoma of the lung. DISCUSSION AND PLAN: The special stains are currently pending. Oncology referral will be made. Onc e the plan is in place, the patient will likely be a candidate for discharge from the hospital. Pulm onary Critical Care will continue to follow along if he remains in house.
--- NOTE | 2018-03-07 19:10 | CT ---
CT BRAIN WITH AND WITHOUT CONTRAST 03/07/18 HISTORY: Staging of lung cancer. COMPARISON: None. FINDINGS: On a noncontrast examination, there is no acute territorial infarct or hemorrhage. No midline shift o r mass effect. No midline shift or mass effect. No vasogenic edema. On the contrast enhanced portion, there are no abnormal enhancing masses. . The calvarium is intact. The paranasal sinuses are clear. There is fluid within the mastoids bilatera lly. IMPRESSION: No acute intracranial abnormality. POS: [facility]
--- NOTE | 2018-03-07 23:45 | CON ---
DATE OF CONSULTATION: 03/07/2018 REASON FOR CONSULTATION OR CHIEF COMPLAINT: Mr. 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 HISTORY OF PRESENT ILLNESS: Mr. Narayan is well known to me. He completed his radiation therapy in 10/2016 which is given postoperatively following laryngectomy and neck dissection for a stage JACOBO, T4a N2c M0 squamous cell carcinoma. At the time of his initial diagnosis, he had a thin walled cavitary lesion involving the left upper lobe of the lung. He had been seen by Dr. Phoenix. A previous histor y of having been treated TB as well as Aspergillus infection. At that time that did not represent ma lignancy. He tolerated his treatment very well. I saw him again in September and then he became lost a followup. He was admitted to the hospital because of hemoptysis. He underwent a CT scan of the ne ck and chest, which suggested no local recurrence. He still had a thyroid remnant. However, he did have a new mass lesion in the left upper lobe of the lung that appears to be involving chest wall. I t measured about 4.9 cm in greatest dimension. It was adjacent to involving the previously known are a of cavitation. There was no definite adenopathy. There is not certain whether this represented in fection versus new primary tumor versus metastatic disease. He has been treated with antibiotics and evaluated by Dr. Phoeinx. On 02/26/2018, he underwent a repeat CT scan of the chest which showed the mass to be slightly larger. It now measured 5.3 x 3.8 cm. There was some suggestion of erosive hernandez ge involving the left second rib. There is no evidence of adenopathy. He was evaluated by [facility] and earlier this week underwent an open biopsy. Pathology from that returned fragments of squamous cell carcinoma. I have been asked by Dr. Bradshaw who is also going to see the patient t o see him in consultation to discuss his treatment options. He still remains uninsured. PAST MEDICAL HISTORY: 1. Laryngeal cancer as mentioned above. 2. History of tuberculosis treated in 2000. 3. Incision and drainage of an abscess involving the right neck in the past. 4. History of right broken collarbone. 5. History of broken left foot. 6. History of Aspergillus exposure. 7. Syndrome of inappropriate antidiuretic hormone. MEDICATIONS: Prednisone and IV fluids. ALLERGIES: TYLENOL, which caused hives. FAMILY HISTORY: Negative for malignancy. SOCIAL HISTORY: The patient is now residing in [place], [place]. He has a greater than [id number] hi story of smoking, although he is not smoking at the present time. He has no alcohol use at the prese nt time. He is unemployed and does not have medical insurance. REVIEW OF SYSTEMS: Twelve-system review of systems is otherwise negative. He is eating and swallowi ng without difficulty. He has had his PEG tube removed. PHYSICAL EXAMINATION: VITAL SIGNS: Height 6 feet 3 inches, weight 151 pounds, blood pressure 143/82, pulse is 93, respirat ions are 16, temperature is 98.2, O2 saturation is 96%. GENERAL: He is alert and oriented and in no apparent distress. He looks like he has gained weight s amadeo I last saw him. Karnofsky performance status is 70%. EYES: Pupils equal, round, react to light. Extraocular movements are intact. ENT: Oral cavity and oropharynx normal without lesion or erythema. Palate elevates symmetrically. Gingiva is intact. NECK: Bilaterally firm with no preauricular, submandibular, cervical, supraclavicular adenopathy. S kira is widely patent. There is no evidence of local recurrence, although there is firmness around t he stoma, but no mass lesion seen. No thyromegaly. LUNGS: Breathing nonlabored. Clear to auscultation and percussion. CARDIOVASCULAR: Heart regular rate and rhythm without murmur. No lower extremity edema. BACK: No tenderness on fist percussion of the spine. LYMPHATIC: No axillary or inguinal adenopathy. ABDOMEN: Soft, nontender, nondistended, without mass or hepatosplenomegaly. Bowel sounds are presen t. PEG tube site is healed well. NEUROLOGIC: Cranial nerves II-XII grossly intact. Motor strength is 5/5 in both upper and lower ext remities in all muscle groups tested. Reflexes are normal and symmetrical. Gait was not tested. Re flexes are normal. LABORATORY DATA AND X-RAY FINDINGS: Pathology from his recent biopsy showed fragments of squamous ce ll carcinoma. CBC revealed a white blood cell count of 31,000 with a hemoglobin of 10.2, hematocrit of 31.4, platelet count of 368,000. Chemistry group revealed sodium of 130. Magnesium was 1.5. Cre atinine was normal. RADIOLOGIC: CT scan of the neck and chest from admission as well as recent CT scan of the chest were all personally reviewed. I also looked at his old CT scan of the chest from last April. He has lilly d a definite change in the left upper lobe area. Previously had a thin walled cavitary area with a s mall solid component. Now, he still has a cavitary area, but arising from this or arising adjacent t o this, it is a large solid mass which appears to be involving the overlying second rib. The mass le morena is slightly larger over a 2-week time frame. More recently, it measured 5.3 x 3.8 cm. No other lesion was seen. There was no definite evidence of mediastinal adenopathy. ASSESSMENT: Mr. Narayan is a 52-year-old gentleman with a previous history of a stage JACOBO T4a N2c M0 squamous cell carcinoma of the larynx who is status post laryngectomy and radiation therapy. He now has what appears to be a solitary lung mass involving the left upper lobe of the lung and invading th e chest wall. This could represent either a new primary lung cancer versus a metastasis. There is n o way to exclude one or the other. Some component of this could still be related to an infectious et iology with his elevated white blood cell count. My suspicion is that this represents a new primary lesion in the lung which would make this a stage IIB, T3 N0 M0 lesion. PLAN: I had a long discussion with Mr. Narayan regarding his diagnosis, prognosis, prognostic factors , and treatment options. We discussed the significance of the pathology and the current situation. I explained that he likely has a new primary lung cancer, although this could be metastatic disease f rom his voice box. The area of previous radiation was close to, but did not include this area that w as treated. I think we have 2 options for treatment. One option would be to proceed with neoadjuvan t chemotherapy followed by radiation therapy. The second option for treatment would be to do concurr ent chemoradiotherapy from the beginning. He has no insurance and so we will need to work with [facility] financial assistance asked manager rn case to make a disposition on his treatment possibilities. He is going to be seen by Dr. Bradshaw in the near future also. The logistics of radiation as well as t he benefits and risks of treatment were discussed. Side effects would include but not be limited to skin reaction, fatigue, lower blood counts, possible damage to his brachial plexus, and possible radi ation pneumonitis. Since he does not appear to have any mediastinal adenopathy, I would likely just treat the lung lesion only with radiation and therefore would be able to stay off his esophagus. I a lso do not think is going to overlap significantly and his brachial plexus and therefore I think his risk of brachial plexopathy is low. I also think his risk of radiation pneumonitis would be low also . Time was taken to answer all of his questions regarding his treatment options. Once the patient h as been evaluated by Dr. Bradshaw, we can coordinate and discussed possible treatment options and make a final treatment plan in a multidisciplinary manner. Thank you for this interesting consultation.
--- NOTE | 2018-03-08 01:02 | CON ---
DATE OF CONSULTATION: 03/07/2018. HISTORY OF PRESENT ILLNESS: Mr. Narayan is a 52-year-old male with a history of squamous cell carcino ma of the larynx, who was treated a few years ago with laryngectomy followed by adjuvant radiation. He did not receive any adjuvant chemotherapy because he did not have any lymph node involvement. He has had a known cavitary mass in his left lung for some time and has a history of pulmonary tuberculo sis as well as aspergillosis. He presented on this admission and was found to have a polymicrobial p neumonia with MSSA as well as Stenotrophomonas. He has been on IV antibiotics this entire time. Thi s cavitary lesion that was growing this also recently was found to have squamous cell carcinoma of th e lung. There is some question about whether or not this is metastatic disease or a primary. The maikel vega states that he feels much better since being in the hospital. He does still have a cough. He is not losing weight and his appetite is good. He swallows and does not have a feeding tube. We are consulted for further workup. He feels like he could go home whenever the primary team states that at this time for him to go home. Pulmonary thinks that he is stable respiratory baum, but this is no t resectable as it is invading into the chest wall. PAST MEDICAL HISTORY: 1. History of laryngeal squamous cell carcinoma, status post laryngectomy and adjuvant radiation. 2. Long history of tobacco use. 3. COPD. 4. History of pulmonary tuberculosis, status post treatment. 5. History of abscess of the neck, status post incision and drainage. CURRENT MEDICATIONS: 1. Tessalon Perles. 2. Catapres 0.1 mg p.o. q.4 hours p.r.n. 3. Pepcid 20 mg p.o. b.i.d. 4. Robitussin-DM 15 mL p.o. q.4 hours p.r.n. 5. Hydralazine 10 mg IV q.4 hours p.r.n. 6. Morphine 3 mg IV q.4 hours p.r.n. 7. Triple antibiotic ointment. 8. Zofran 4 mg p.o. q.6 hours p.r.n. 9. Zofran 4 mg IV q.6 hours p.r.n. 10. Prednisone 10 mg p.o. daily. ALLERGIES: TYLENOL. SOCIAL HISTORY: He has psychosocial issues including at one time, I think being somewhat homeless. He does have tobacco use history and I think he is uninsured. He denies anything other than occasion al alcohol use. REVIEW OF SYSTEMS: Otherwise, 10-point review of systems is negative. PHYSICAL EXAMINATION: VITAL SIGNS: Temperature 98.2, respirations 16, pulse 93, O2 sat 96% on room air, blood pressure 143 /82. GENERAL: He is quite pleasant, sitting up in bed, eating dinner. HEENT: Extraocular muscles are intact. Pupils are equal and reactive to light. NECK: Supple. NEUROLOGIC: He does have an ostomy site in the anterior part of the neck with some raw areas, but no signs of erythema or infection. LUNGS: Decreased breath sounds throughout consistent with COPD. ABDOMEN: Hypoactive bowel sounds. Soft, nontender, nondistended. EXTREMITIES: No edema, no petechia. LABORATORY DATA: White blood cell count 31,000 down from 40,000, hemoglobin 10.2, platelets 368,000. Sodium 130, potassium 3.9, chloride 91, CO2 of 32, creatinine 0.72, BUN 9, calcium 9.7, magnesium 1 .5. Pathology report from the rib biopsy shows multiple bone fragments with squamous cell carcinoma, this could be consistent with metastatic disease. Given that it is a rib biopsy, according to the pathol ogist. However, this is coming from a lung mass invading into ribs. ASSESSMENT: Mr. Narayan is a 52-year-old male with: 1. History of squamous cell carcinoma of the larynx, status post laryngectomy and adjuvant radiation . 2. New squamous cell carcinoma of the lung, invading into rib, possibly a new primary, although coul d be consistent with metastatic disease. 3. History of cavitary lung lesion consistent with a history of tuberculosis and aspergillosis. 4. Community-acquired pneumonia with Stenotrophomonas and methicillin-sensitive Staphylococcus aureu s. 5. Psychosocial issues including being uninsured. PLAN: 1. I discussed with Mr. Narayan that this is likely to be a new primary, but could in fact be metasta tic disease. He has been staged with a bone scan and had a CT of the chest. We will also stage him with a CT of the brain. He would be unlikely to be able to get a PET scan and given all of his recen t infections, this might be too confusing on the clinical picture regardless. Therefore, we will jim id a PET scan and staging with CT scan and a bone scan. 2. I have discussed the case with Dr. Natarajan who will also be seeing the patient. I think that he co uld possibly benefit from a combination of chemoradiotherapy. We will discuss him further at tumor b oard. 3. Ultimately need to discuss the case with Dr. Phoenix, he has multiple pulmonary findings that need to be worked out including if his pneumonia resolves. We would want him to complete his IV antibioti cs ideally before we started him on chemotherapy. 4. We will follow him up as an outpatient. He does not need to stay in the hospital for this workup .
[2018-03-08 05:07] LABS: Anion Gap 12 mmol/L (10-20); BUN (Urea Nitrogen) 8 mg/dL (8.4-25.7); Calc. Creatinine Clearance 112 mL/min (70-130); Calcium 9.6 mg/dL (7.8-10.44); Carbon Dioxide 29 mmol/L (22-29); Chloride 92 mmol/L (98-107); Estimated GFR-MDRD Greater than 90; Glucose 76 mg/dL (70-105); Magnesium 1.6 mg/dL (1.6-2.6); Potassium 3.7 mmol/L (3.5-5.1); Sodium 129 mmol/L (136-145)
[2018-03-08 05:48] LABS: Band 23 % (5-11); Hemoglobin 10.2 g/dL (14.0-18.0); Lymphocytes 9 % (21-51); MDiff Complete? YES; Mean Corpuscular HGB CONC 32.7 g/dL (32.0-36.0); Mean Corpuscular Volume 88.5 fl (80.0-94.0); Monocytes 6 % (0-10); Neutrophil 62 % (42-75); Platelet Count 369 thou/uL (130-400); RBC Distribution Width 14.2 % (11.5-14.5); Red Blood Cell (RBC) Count 3.51 mill/uL (4.70-6.10); White Blood Cell (WBC) Count 35.3 thou/uL (4.8-10.8)
[2018-03-08] MEDS: Famotidine 20 MG TAB PO SCH ×2 (09:01→20:22)
[2018-03-08] MEDS: predniSONE 20 MG TAB PO SCH (09:01)
--- NOTE | 2018-03-08 11:54 | PRG ---
DATE OF SERVICE: 03/08/2018 SUBJECTIVE: This morning, he is awake, alert and responsive. He has some pain from his surgery, but no shortness of breath. OBJECTIVE: VITAL SIGNS: Sats are 96, pulse 93, temperature 98, blood pressure 137/81. CHEST: Chest revealed no wheezing or crackles. CARDIAC: Normal S1, S2, no gallops. ABDOMEN: Soft, no masses. LABORATORY DATA: White count is 35,000. Sodium 129. IMAGING: CT brain performed yesterday, which shows no acute hemorrhage. Oncology was consulted. IMPRESSION: 1. Squamous cell carcinoma of the larynx status post laryngectomy. 2. Squamous cell carcinoma of the left lung, primary versus metastatic disease. PLAN: The patient being staged. Further recommendations per Oncology. In the meantime, continue supportive care.
--- NOTE | 2018-03-08 12:39 | PDOC.PN ---
- Subjective Encounter Start Date: 03/08/18 Encounter Start Time: 12:36 Patient seen and examined for Pneumonia/Metastatic throat Ca. No new complaints. No overnight events - Objective Resuscitation Status: Resuscitation Status FULL:Full Resuscitation MAR Reviewed: Yes Vital Signs & Weight: Vital Signs (12 hours) Temp Pulse Resp BP Pulse Ox 03/08/18 07:28 98.2 F 93 18 137/81 96 Weight Admit Weight 151 lb 7 oz Weight 151 lb 7 oz I&O: 03/07/18 03/08/18 03/09/18 06:59 06:59 06:59 Intake Total 240 2134.5 Output Total 2100 2175 Balance -1860 -40.5 Result Diagrams: 03/08/18 03:50 03/08/18 03:50 Phys Exam - Physical Examination Constitutional: NAD Respiratory: no wheezing, no rhonchi Cardiovascular: RRR, no rub Gastrointestinal: soft, non-tender, positive bowel sounds Musculoskeletal: no edema Neurological: moves all 4 limbs Dx/Plan (1) Sepsis due to pneumonia Code(s): J18.9 - PNEUMONIA, UNSPECIFIED ORGANISM; A41.9 - SEPSIS, UNSPECIFIED ORGANISM Status: Acute Comment: due to Staph (2) Lung mass Code(s): R91.8 - OTHER NONSPECIFIC ABNORMAL FINDING OF LUNG FIELD Status: Acute Comment: Sq Cell Ca with extension to the Rib. s/p biopsy (3) Hemoptysis Code(s): R04.2 - HEMOPTYSIS Status: Resolved Comment: No new episodes (4) Laryngeal squamous cell carcinoma Code(s): C32.9 - MALIGNANT NEOPLASM OF LARYNX, UNSPECIFIED Status: Chronic Comment: s/p laryngectomy (5) SIADH (syndrome of inappropriate ADH production) Status: Chronic (6) Hypomagnesemia Code(s): E83.42 - HYPOMAGNESEMIA Status: Acute Comment: Replaced. - Plan DVT proph w/SCDs Cont current meds as below -: Probably completed Atbx -: Cont to monitor -: DC planning Review of Systems - Review of Systems Cardiovascular: negative: chest pain, palpitations, orthopnea, paroxysmal nocturnal dyspnea, edema, light headedness, other Gastrointestinal: negative: Nausea, Vomiting, Abdominal Pain, Diarrhea, Constipation, Melena, Hematochezia, Other - Medications/Allergies Allergies/Adverse Reactions: Allergies Allergy/AdvReac Type Severity Reaction Status Date / Time acetaminophen [From Tylenol] Allergy n/v, hives Verified 06/18/17 13:46 Medications: Current Medications Benzonatate (Tessalon) 200 mg PO Q6H PRN PRN Reason: Cough Clonidine (Catapres) 0.1 mg PO Q4H PRN PRN Reason: Systolic BP > 180 Famotidine (Pepcid) 20 mg PO BID [facility] Last Admin: 03/08/18 09:01 Dose: 20 mg Guaifenesin/Dextromethorphan (Robitussin Dm) 15 ml PO Q4H PRN PRN Reason: Cough Hydralazine HCl (Apresoline) 10 mg SLOW IVP Q4H PRN PRN Reason: Systolic BP > 180 Morphine Sulfate (Morphine) 3 mg SLOW IVP Q4H PRN PRN Reason: Severe Pain (7-10) Last Admin: 03/08/18 06:19 Dose: 3 mg Ondansetron HCl (Zofran Odt) 4 mg PO Q6H PRN PRN Reason: Nausea/Vomiting Ondansetron HCl (Zofran) 4 mg IVP Q6H PRN PRN Reason: Nausea/Vomiting Prednisone (Prednisone) 10 mg PO QAM-WM [facility] Last Admin: 03/08/18 09:01 Dose: 10 mg Sodium Chloride (Flush - Normal Saline) 10 ml IVF Q12HR [facility] Last Admin: 03/08/18 09:01 Dose: 10 ml Sodium Chloride (Flush - Normal Saline) 10 ml IVF PRN PRN PRN Reason: Saline Flush Last Admin: 03/08/18 06:20 Dose: 10 ml
[2018-03-09] MEDS: predniSONE 20 MG TAB PO SCH (07:57)
[2018-03-09] MEDS: Famotidine 20 MG TAB PO SCH ×2 (07:57→19:51)
[2018-03-09] MEDS: traMADol HCl 50 MG TAB PO PRN ×3 (07:58→22:17)
--- NOTE | 2018-03-09 12:32 | PRG ---
DATE OF SERVICE: 03/09/2018 SUBJECTIVE: This morning, he is complaining of pain, but no shortness of breath. OBJECTIVE: VITAL SIGNS: Blood pressure is 143/90, sats 90% on room air, respiration 15, temperature 98, pulse 9 9. CHEST: No wheezing. CARDIAC: Normal S1, S2, no gallops. ABDOMEN: Soft. IMPRESSION: Metastatic squamous cell carcinoma, status post trach. Comfort care, pain relief. Await Oncology input.
--- NOTE | 2018-03-09 19:55 | PDOC.PN ---
- Subjective Encounter Start Date: 03/09/18 Encounter Start Time: 12:30 Patient seen and examined for Pneumonia with Metastatic Ca. No new complaints. No overnight events - Objective Resuscitation Status: Resuscitation Status FULL:Full Resuscitation MAR Reviewed: Yes Vital Signs & Weight: Vital Signs (12 hours) Temp Pulse Resp BP BP Pulse Ox 03/09/18 19:33 98.6 F 84 18 128/78 95 03/09/18 15:21 98.0 F 92 20 155/78 H 96 03/09/18 11:21 98.3 F 95 16 124/75 93 L 03/09/18 08:00 98.1 F 99 15 92 L Weight Admit Weight 151 lb 7 oz Weight 151 lb 7 oz I&O: 03/08/18 03/09/18 03/10/18 06:59 06:59 06:59 Intake Total 2134.5 1615 1800 Output Total 2175 600 Balance -40.5 1015 1800 Result Diagrams: 03/10/18 04:07 03/10/18 04:07 Phys Exam - Physical Examination Constitutional: NAD Respiratory: no wheezing, no rhonchi Cardiovascular: RRR, no rub Gastrointestinal: soft, non-tender, positive bowel sounds Musculoskeletal: no edema Dx/Plan (1) Sepsis due to pneumonia Code(s): J18.9 - PNEUMONIA, UNSPECIFIED ORGANISM; A41.9 - SEPSIS, UNSPECIFIED ORGANISM Status: Acute Comment: due to Staph (2) Lung mass Code(s): R91.8 - OTHER NONSPECIFIC ABNORMAL FINDING OF LUNG FIELD Status: Acute Comment: Sq Cell Ca with extension to the Rib. s/p biopsy (3) Hemoptysis Code(s): R04.2 - HEMOPTYSIS Status: Resolved Comment: No new episodes (4) Laryngeal squamous cell carcinoma Code(s): C32.9 - MALIGNANT NEOPLASM OF LARYNX, UNSPECIFIED Status: Chronic Comment: s/p laryngectomy (5) SIADH (syndrome of inappropriate ADH production) Status: Chronic (6) Hypomagnesemia Code(s): E83.42 - HYPOMAGNESEMIA Status: Acute Comment: Replaced. - Plan DVT proph w/SCDs AM labs -: Onc/Pulm following -: Cont current meds as below Review of Systems - Review of Systems Constitutional: negative: fever, chills, sweats, weakness, malaise, other Gastrointestinal: negative: Nausea, Vomiting, Abdominal Pain, Diarrhea, Constipation, Melena, Hematochezia, Other - Medications/Allergies Allergies/Adverse Reactions: Allergies Allergy/AdvReac Type Severity Reaction Status Date / Time acetaminophen [From Tylenol] Allergy n/v, hives Verified 06/18/17 13:46 Medications: Current Medications Benzonatate (Tessalon) 200 mg PO Q6H PRN PRN Reason: Cough Clonidine (Catapres) 0.1 mg PO Q4H PRN PRN Reason: Systolic BP > 180 Famotidine (Pepcid) 20 mg PO BID [facility] Last Admin: 03/09/18 19:51 Dose: 20 mg Guaifenesin/Dextromethorphan (Robitussin Dm) 15 ml PO Q4H PRN PRN Reason: Cough Hydralazine HCl (Apresoline) 10 mg SLOW IVP Q4H PRN PRN Reason: Systolic BP > 180 Ondansetron HCl (Zofran Odt) 4 mg PO Q6H PRN PRN Reason: Nausea/Vomiting Ondansetron HCl (Zofran) 4 mg IVP Q6H PRN PRN Reason: Nausea/Vomiting Prednisone (Prednisone) 10 mg PO QAM-WM [facility] Last Admin: 03/09/18 07:57 Dose: 10 mg Sodium Chloride (Flush - Normal Saline) 10 ml IVF Q12HR [facility] Last Admin: 03/09/18 19:52 Dose: Not Given Sodium Chloride (Flush - Normal Saline) 10 ml IVF PRN PRN PRN Reason: Saline Flush Last Admin: 03/08/18 06:20 Dose: 10 ml Tramadol HCl (Ultram) 50 mg PO Q4H PRN PRN Reason: Moderate Pain (4-6) Last Admin: 03/09/18 16:29 Dose: 50 mg
[2018-03-10 05:14] LABS: Albumin 3.5 g/dL (3.5-5.0); Anion Gap 15 mmol/L (10-20); BUN (Urea Nitrogen) 9 mg/dL (8.4-25.7); BUN/Creatinine Ratio 12.33; Calc. Creatinine Clearance 112 mL/min (70-130); Calcium 10.1 mg/dL (7.8-10.44); Carbon Dioxide 26 mmol/L (22-29); Chloride 92 mmol/L (98-107); Estimated GFR-MDRD Greater than 90; Glucose 78 mg/dL (70-105); Magnesium 1.5 mg/dL (1.6-2.6); Phosphorus 3.4 mg/dL (2.3-4.7); Sodium 129 mmol/L (136-145)
[2018-03-10 05:29] LABS: White Blood Cell (WBC) Count 40.6 thou/uL (4.8-10.8)
[2018-03-10 06:16] LABS: Band 28 % (5-11); Eosinophils 2 % (0-10); Hemoglobin 10.7 g/dL (14.0-18.0); Lymphocytes 5 % (21-51); MDiff Complete? YES; Mean Corpuscular HGB CONC 32.1 g/dL (32.0-36.0); Mean Corpuscular Hemoglobin 28.5 pg (27.0-31.0); Mean Corpuscular Volume 88.9 fl (80.0-94.0); Mean Platelet Volume 6.1 fL (7.4-10.4); Monocytes 7 % (0-10); Neutrophil 58 % (42-75); Platelet Count 409 thou/uL (130-400); RBC Distribution Width 14.2 % (11.5-14.5); Red Blood Cell (RBC) Count 3.75 mill/uL (4.70-6.10)
[2018-03-10] MEDS ORDERED: Magnesium 2 GM/NS 0.9% 100 ML 2 GM in Premix Bag 1 BAG IVPB SCH (08:00)
[2018-03-10] MEDS: Famotidine 20 MG TAB PO SCH ×2 (08:27→19:58)
[2018-03-10] MEDS: predniSONE 20 MG TAB PO SCH (08:27)
[2018-03-10] MEDS: traMADol HCl 50 MG TAB PO PRN (08:29)
[2018-03-10] MEDS: Multivit, Therapeutic 1 TAB PO SCH (08:29)
--- NOTE | 2018-03-10 12:46 | PRG ---
DATE OF SERVICE: 03/10/2018 SERVICE: Pulmonary Medicine INTERVAL HISTORY: The patient is doing fine from a respiratory standpoint. He is breathing comforta bonnie. He has got some minimal chest discomfort. Otherwise, there has been no interval change to his condition. PHYSICAL EXAMINATION: VITAL SIGNS: Afebrile, pulse 83, blood pressure 138/83, respirations 18, saturation 94% on room air. GENERAL: The patient is awake, alert, in no apparent distress. LUNGS: Decent air entry. There is no prolonged expiratory phase, wheezing, rhonchi or crackles. HEART: Normal rate, regular. ABDOMEN: Soft, nontender, nondistended. Bowel sounds are positive. MUSCULOSKELETAL: No cyanosis or clubbing. There is no pitting in the bilateral lower extremities. NEUROLOGIC: Grossly nonfocal. LABORATORY DATA: WBC 41, hemoglobin 10.7, platelets 409,000. Sodium 129. Basic metabolic profile i s otherwise unremarkable. Phosphorus is normal. Magnesium 1.5. ASSESSMENT: 1. Community-acquired pneumonia secondary to methicillin-susceptible Staphylococcus aureus, Stenotr ophomonas, status post full course of antibiotic therapy. 2. History of pulmonary tuberculosis, status post full course of therapy with residual cavitary lesi on left upper lobe. 3. Squamous cell carcinoma of the head and neck, status post laryngectomy and radiation therapy with out chemotherapy. 4. Squamous cell carcinoma of the left upper lobe. DISCUSSION AND PLAN: Apparently, the patient has been staged out. It looks like disease may be limi ramez to the left upper lobe. We will discuss whether or not surgical options are available here with Thoracic Surgery. Pulmonary Critical Care will continue to follow along. Dr. Phoenix will resume care in the morning. I will replace the magnesium and give him a lab holiday tomorrow.
[2018-03-10] MEDS ORDERED: Triple Antibiotic Oint 1 GM Packet TOP SCH (15:00)
[2018-03-10] MEDS ORDERED: Triple Antibiotic Oint 1 GM Packet TOP PRN (15:47)
--- NOTE | 2018-03-10 22:41 | PDOC.PN ---
- Subjective Encounter Start Date: 03/10/18 Encounter Start Time: 12:00 Patient seen and examined for Pneumonia/Metastasis. No new complaints. No overnight events - Objective Resuscitation Status: Resuscitation Status FULL:Full Resuscitation MAR Reviewed: Yes Vital Signs & Weight: Vital Signs (12 hours) Temp Pulse Resp BP Pulse Ox 03/10/18 19:32 98.2 F 80 20 113/72 96 Weight Admit Weight 151 lb 7 oz Weight 151 lb 7 oz I&O: 03/09/18 03/10/18 03/11/18 06:59 06:59 06:59 Intake Total 1615 2300 1310 Output Total 600 Balance 1015 2300 1310 Result Diagrams: 03/10/18 04:07 03/10/18 04:07 Phys Exam - Physical Examination Constitutional: NAD Respiratory: no wheezing Scat rhonchi Cardiovascular: RRR, no rub Gastrointestinal: soft, positive bowel sounds Musculoskeletal: no edema Dx/Plan (1) Sepsis due to pneumonia Code(s): J18.9 - PNEUMONIA, UNSPECIFIED ORGANISM; A41.9 - SEPSIS, UNSPECIFIED ORGANISM Status: Acute Comment: due to Staph (2) Lung mass Code(s): R91.8 - OTHER NONSPECIFIC ABNORMAL FINDING OF LUNG FIELD Status: Acute Comment: Sq Cell Ca with extension to the Rib. s/p biopsy (3) Hemoptysis Code(s): R04.2 - HEMOPTYSIS Status: Resolved Comment: No new episodes (4) Laryngeal squamous cell carcinoma Code(s): C32.9 - MALIGNANT NEOPLASM OF LARYNX, UNSPECIFIED Status: Chronic Comment: s/p laryngectomy (5) SIADH (syndrome of inappropriate ADH production) Status: Chronic (6) Hypomagnesemia Code(s): E83.42 - HYPOMAGNESEMIA Status: Acute Comment: Replaced. - Plan DVT proph w/SCDs Cont Nebs/O2/Steroids -: Pulm/Onc following -: Cont to monitor -: Replace Magnessium Review of Systems - Review of Systems Respiratory: negative: Cough, Dry, Shortness of Breath, Hemoptysis, SOB with Excertion, Pleuritic Pain, Sputum, Wheezing Cardiovascular: negative: chest pain, palpitations, orthopnea, paroxysmal nocturnal dyspnea, edema, light headedness, other - Medications/Allergies Allergies/Adverse Reactions: Allergies Allergy/AdvReac Type Severity Reaction Status Date / Time acetaminophen [From Tylenol] Allergy n/v, hives Verified 06/18/17 13:46 Medications: Current Medications Benzonatate (Tessalon) 200 mg PO Q6H PRN PRN Reason: Cough Clonidine (Catapres) 0.1 mg PO Q4H PRN PRN Reason: Systolic BP > 180 Famotidine (Pepcid) 20 mg PO BID [facility] Last Admin: 03/10/18 19:58 Dose: 20 mg Guaifenesin/Dextromethorphan (Robitussin Dm) 15 ml PO Q4H PRN PRN Reason: Cough Hydralazine HCl (Apresoline) 10 mg SLOW IVP Q4H PRN PRN Reason: Systolic BP > 180 Multivitamins (Theragran) 1 tab PO DAILY [facility] Last Admin: 03/10/18 08:29 Dose: Not Given Neomycin/Polymyxin/Bacitracin (Triple Antibiotic) 1 gm TOP TID PRN PRN Reason: Rash/Topical Irritation Ondansetron HCl (Zofran Odt) 4 mg PO Q6H PRN PRN Reason: Nausea/Vomiting Ondansetron HCl (Zofran) 4 mg IVP Q6H PRN PRN Reason: Nausea/Vomiting Prednisone (Prednisone) 10 mg PO QAM-WM [facility] Last Admin: 03/10/18 08:27 Dose: 10 mg Sodium Chloride (Flush - Normal Saline) 10 ml IVF Q12HR [facility] Last Admin: 03/10/18 19:58 Dose: 10 ml Sodium Chloride (Flush - Normal Saline) 10 ml IVF PRN PRN PRN Reason: Saline Flush Last Admin: 03/08/18 06:20 Dose: 10 ml Tramadol HCl (Ultram) 50 mg PO Q4H PRN PRN Reason: Moderate Pain (4-6) Last Admin: 03/10/18 08:29 Dose: 50 mg
[2018-03-11] MEDS: traMADol HCl 50 MG TAB PO PRN ×2 (03:16→18:34)
[2018-03-11] MEDS: predniSONE 20 MG TAB PO SCH (08:03)
[2018-03-11] MEDS: Multivit, Therapeutic 1 TAB PO SCH (08:04)
[2018-03-11] MEDS: Famotidine 20 MG TAB PO SCH ×2 (08:04→20:52)
--- NOTE | 2018-03-11 16:24 | PRG ---
DATE OF SERVICE: 03/11/2018 He has no complaints. He is afebrile. His pathology results were reviewed. He has no new lung find ings. The remainder of his exam is unremarkable. Cultures from his surgical biopsy have not grown any organisms. In my opinion, he is a candidate for discharge for outpatient followup for chemo and radiation therap y. I suspect this is a primary peripheral lung malignancy he has brought into his chest wall and not metastatic disease.
--- NOTE | 2018-03-11 19:21 | PDOC.PN ---
- Subjective Encounter Start Date: 03/11/18 Encounter Start Time: 09:00 Patient seen and examined for Pneumonia/Hemoptysis. No new complaints. No overnight events - Objective Resuscitation Status: Resuscitation Status FULL:Full Resuscitation MAR Reviewed: Yes Vital Signs & Weight: Vital Signs (12 hours) Temp Pulse Resp BP BP Pulse Ox 03/11/18 19:10 98.7 F 87 20 125/73 96 03/11/18 08:00 97.3 F L 87 16 95 03/11/18 07:38 97.3 F L 87 16 134/80 95 Weight Admit Weight 151 lb 7 oz Weight 151 lb 7 oz I&O: 03/10/18 03/11/18 03/12/18 06:59 06:59 06:59 Intake Total 2300 2060 1210 Output Total 1 Balance 2300 2060 1209 Result Diagrams: 03/10/18 04:07 03/10/18 04:07 Phys Exam - Physical Examination Constitutional: NAD Respiratory: no wheezing, no rhonchi Cardiovascular: RRR, no rub Gastrointestinal: soft, non-tender, positive bowel sounds Musculoskeletal: no edema Dx/Plan (1) Sepsis due to pneumonia Code(s): J18.9 - PNEUMONIA, UNSPECIFIED ORGANISM; A41.9 - SEPSIS, UNSPECIFIED ORGANISM Status: Acute Comment: due to Staph (2) Lung mass Code(s): R91.8 - OTHER NONSPECIFIC ABNORMAL FINDING OF LUNG FIELD Status: Acute Comment: Sq Cell Ca with extension to the Rib. s/p biopsy (3) Hemoptysis Code(s): R04.2 - HEMOPTYSIS Status: Resolved Comment: No new episodes (4) Laryngeal squamous cell carcinoma Code(s): C32.9 - MALIGNANT NEOPLASM OF LARYNX, UNSPECIFIED Status: Chronic Comment: s/p laryngectomy (5) SIADH (syndrome of inappropriate ADH production) Status: Chronic (6) Hypomagnesemia Code(s): E83.42 - HYPOMAGNESEMIA Status: Acute Comment: Replaced. - Plan DVT proph w/SCDs Completed Atbx -: Cont current meds as below -: DC planning later today or in AM if ok with Pulmonary/Oncology Review of Systems - Review of Systems Cardiovascular: negative: chest pain, palpitations, orthopnea, paroxysmal nocturnal dyspnea, edema, light headedness, other - Medications/Allergies Allergies/Adverse Reactions: Allergies Allergy/AdvReac Type Severity Reaction Status Date / Time acetaminophen [From Tylenol] Allergy n/v, hives Verified 06/18/17 13:46 Medications: Current Medications Benzonatate (Tessalon) 200 mg PO Q6H PRN PRN Reason: Cough Clonidine (Catapres) 0.1 mg PO Q4H PRN PRN Reason: Systolic BP > 180 Famotidine (Pepcid) 20 mg PO BID [facility] Last Admin: 03/11/18 08:04 Dose: 20 mg Guaifenesin/Dextromethorphan (Robitussin Dm) 15 ml PO Q4H PRN PRN Reason: Cough Hydralazine HCl (Apresoline) 10 mg SLOW IVP Q4H PRN PRN Reason: Systolic BP > 180 Multivitamins (Theragran) 1 tab PO DAILY [facility] Last Admin: 03/11/18 08:04 Dose: Not Given Neomycin/Polymyxin/Bacitracin (Triple Antibiotic) 1 gm TOP TID PRN PRN Reason: Rash/Topical Irritation Ondansetron HCl (Zofran Odt) 4 mg PO Q6H PRN PRN Reason: Nausea/Vomiting Ondansetron HCl (Zofran) 4 mg IVP Q6H PRN PRN Reason: Nausea/Vomiting Sodium Chloride (Flush - Normal Saline) 10 ml IVF Q12HR [facility] Last Admin: 03/11/18 08:04 Dose: 10 ml Sodium Chloride (Flush - Normal Saline) 10 ml IVF PRN PRN PRN Reason: Saline Flush Last Admin: 03/08/18 06:20 Dose: 10 ml Tramadol HCl (Ultram) 50 mg PO Q4H PRN PRN Reason: Moderate Pain (4-6) Last Admin: 03/11/18 18:34 Dose: 50 mg
[2018-03-12] MEDS: traMADol HCl 50 MG TAB PO PRN ×2 (01:38→08:18)
[2018-03-12] MEDS: Famotidine 20 MG TAB PO SCH (08:13)
[2018-03-12] MEDS: Multivit, Therapeutic 1 TAB PO SCH (08:14)
[2018-03-12 12:11] VITALS: BP 144/82; TEMP 98.4
--- NOTE | 2018-03-12 22:16 | DIS ---
DATE OF DISCHARGE: 03/12/2018 DISCHARGE DISPOSITION: Home. FOLLOWUP: Follow up with primary care physician at [facility] in 1 week. DISCHARGE MEDICATIONS: Same as admission medication. No changes were made. The patient takes clona zepam, Phenergan, and tramadol as needed. INPATIENT CONSULTANTS: Pulmonary, Dr. Phoenix; Oncology, Dr. Bradshaw; Radiation Oncology, Dr. Natarajan; C ardiovascular, Dr. Foster. INPATIENT PROCEDURES: On 03/04/2018, the patient underwent left chest wall resection/biopsy of the s econd drip. The pathology was consistent with squamous cell carcinoma, moderately differentiated. DIAGNOSTIC TESTS: Chest x-ray on admission showed left upper lobe mass with air fluid level. Soft t issue neck CT showed postsurgical changes with enhancing mass just to the left of the laryngectomy si te. CT of the chest on 02/14/2018, showed enlarging left upper lobe lung mass. CT scan of the brain on 03/07/2018 was negative. Bone scan on 02/27/2018, showed abnormal uptake in the left second rib. BRIEF HOSPITAL COURSE: Patient is a 52-year-old male with squamous cell carcinoma of the larynx, sta tus post laryngectomy, presented to the hospital with hemoptysis. Please refer to the history and ph ysical dated 02/13/2018 for further details. The patient was admitted to the hospital with a diagnosis of hemoptysis/sepsis due to pneumonia. He was started on broad spectrum antibiotics. He was also seen by ENT. Later on Oncology as well as Ra diation Oncology were consulted due to enlarging left lung mass. Patient underwent PET scan with bio psy as discussed above. The patient has been cleared by consultants for discharge. He will follow u p with Oncology Clinic as outpatient for chemotherapy and radiation therapy. He probably has primary peripheral lung malignancy per Dr. Phoenix. He has completed antibiotics during this hospital stay. FINAL DIAGNOSES: 1. Sepsis due to pneumonia, suspected Staphylococcus, completed antibiotics. 2. Lung mass, status post biopsy. 3. Hemoptysis, resolved. 4. History of laryngeal squamous cell carcinoma. 5. 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 6. Hypomagnesemia. 7. Leukocytosis, unlikely to be infectious. 8. Mild protein-calorie malnutrition. Plan of care was discussed with the patient in detail. He stated understanding. Total time coordinating the discharge of this patient was 38 minutes.
--- NOTE | 2018-03-13 12:35 | PQF ---
Kdoy Narayan MALIK MD [id number] CLINICAL DOCUMENTATION CLARIFICATION FORM: POST DISCHARGE Addendum to original discharge summary date: 03/12/18 Late entry note date: 03/21/18 Documentation of Acute Hypoxic Respiratory Failure was documented on 02/22. Please provide the appropriate POA status for the Acute Hypoxic Respiratory Failure. Please exercise your independent, professional judgment in responding to the clarification form. Clinical indicators are provided on the bottom of this form for your review Diagnosis:Acute Hypoxic Respiratory Failure Present on Admission (POA): [ x ] Yes [ ] No [ ] Unable to determine Coding guidelines require hospitals to identify whether a diagnosis was present on admission (POA) or not. To accurately assign the appropriate POA indicator, this information must be clearly documented within the medical record. CLINICAL INDICATORS - SIGNS / SYMPTOMS / LABS difficulty breathing cough hemoptysis RISK FACTORS: SCC of DU lung tracheostomy TREATMENT: biopsy oncology consultation (This form is maintained as a part of the permanent medical record) 2014 [employer], [employer]. All Rights Reserved [email or web address] [phone] DARY
--- NOTE | 2018-03-13 12:41 | PQF ---
Kody Narayan MALIK MD [id number] CLINICAL DOCUMENTATION CLARIFICATION FORM: POST DISCHARGE Addendum to original discharge summary date: 03/12/18 Late entry note date: 03/21/18 Documnetation of SEPSIS began on 03/08/18. Please select the appropriate POA indicator for the diagnosis of SEPSIS. Please exercise your independent, professional judgment in responding to the clarification form. Clinical indicators are provided on the bottom of this form for your review Diagnosis: SEPSIS Present on Admission (POA): [ x ] Yes [ ] No [ ] Unable to determine Coding guidelines require hospitals to identify whether a diagnosis was present on admission (POA) or not. To accurately assign the appropriate POA indicator, this information must be clearly documented within the medical record. CLINICAL INDICATORS - SIGNS / SYMPTOMS / LABS fever leukocytosis infection RISK FACTORS: MSSA pneumonia steno pneumonia TREATMENT: antibiotics (This form is maintained as a part of the permanent medical record) 2014 [employer], [employer] All Rights Reserved [email or web address] [phone] [email or web address]
[2018-03-19 07:31] LABS: Fungus Culture Final report (.)
== END 2018-03-12 12:07 | disposition home or self-care (01) | DRG 853 ==
LOC: ERS 19:26 → ERHOLD 22:20 → 2NO 02-14 01:01 → T4-B 02-14 09:19
PROVIDERS: ADMIT Family Medicine; ATTEND Family Medicine
PROC: 0CJY8ZZ Inspection of Mouth and Throat, Via Natural or Artificial Opening Endoscopic (ICD-10-PCS; 2018-02-13)
PROC: 0WB80ZX Excision of Chest Wall, Open Approach, Diagnostic (ICD-10-PCS; principal; 2018-03-04)
PROC: 0PB Upper Bones, Excision (ICD-10-PCS; 2018-03-04)
DX: A41.01 Sepsis due to Methicillin susceptible Staphylococcus aureus (principal); J15.211 Pneumonia due to Methicillin susceptible Staphylococcus aureus; J96.01 Acute respiratory failure with hypoxia; J15.6 Pneumonia due to other Gram-negative bacteria; R04.2 Hemoptysis; R64 Cachexia; Z68.1 Body mass index [BMI] 19.9 or less, adult; E22.2 Syndrome of inappropriate secretion of antidiuretic hormone; B44.9 Aspergillosis, unspecified; C79.51 Secondary malignant neoplasm of bone; C34.12 Malignant neoplasm of upper lobe, left bronchus or lung; E44.1 Mild protein-calorie malnutrition; J43.9 Emphysema, unspecified; D72.823 Leukemoid reaction; E83.42 Hypomagnesemia; Y83.6 Removal of other organ (partial) (total) as the cause of abnormal reaction of the patient, or of later complication, without mention of misadventure at the time of the procedure; Y83.3 Surgical operation with formation of external stoma as the cause of abnormal reaction of the patient, or of later complication, without mention of misadventure at the time of the procedure; E87.6 Hypokalemia; Y92.9 Unspecified place or not applicable; Z92.3 Personal history of irradiation; Z85.21 Personal history of malignant neoplasm of larynx; Z90.02 Acquired absence of larynx; Z86.19 Personal history of other infectious and parasitic diseases; Z86.11 Personal history of tuberculosis; Z88.6 Allergy status to analgesic agent; Z87.891 Personal history of nicotine dependence; Z79.899 Other long term (current) drug therapy
CPT/HCPCS: 36415; 36416; 70470; 70491; 71045; 71250; 71260; 78306; 80048; 80053; 80069; 80202; 81003; 83605; 83735; 85007; 85025; 85027; 86850; 86900; 86901; 87040; 87070; 87077; 87086; 87102; 87116; 87186; 87205; 87206; 87449; 88307; 88311; 90471; 90732; 96365; 96367; 96375; A4216; A9503; G0009; J0131; J0670; J0692; J0696; J0713; J1100; J1956; J2001; J2250; J2270; J2310; J2405; J2704; J2920; J3010; J3370; J3475; J7050; J7506; Q0162; S0032

== ENCOUNTER 2018-04-16 11:22 | Day surgery (SDC) | payer OTHER, SELFPAY ==
[2018-04-16] MEDS ORDERED: Sodium Chloride 0.9% 30 ML ONE (11:59)
[2018-04-16] MEDS ORDERED: Ondansetron HCl/PF 10 MG, Dexamethasone 10 MG in Sodium Chloride 0.9% 50 ML IVPB SCH (12:30)
[2018-04-16] MEDS ORDERED: CARBOplatin 300 MG in Sodium Chloride 0.9% 250 ML 250 ML IVPB SCH (13:00)
[2018-04-16] MEDS ORDERED: PACLitaxel 100 MG in Sodium Chloride 0.9% 250 ML 250 ML IVPB SCH (13:00)
[2018-04-16 14:09] VITALS: BP 151/83; TEMP 99.1
== END 2018-04-16 15:10 | disposition home or self-care (01) ==
LOC: ONC/OP 11:22
PROVIDERS: ATTEND Internal Medicine Hematology & Oncology
DX: Z51.11 Encounter for antineoplastic chemotherapy (principal); C32.3 Malignant neoplasm of laryngeal cartilage; C34.12 Malignant neoplasm of upper lobe, left bronchus or lung; F41.9 Anxiety disorder, unspecified; F32.9 Major depressive disorder, single episode, unspecified; F17.200 Nicotine dependence, unspecified, uncomplicated; Z88.8 Allergy status to other drugs, medicaments and biological substances
CPT/HCPCS: 96375; 96413; 96417; A4216; J1100; J2405; J7050; J9045; J9267

== ENCOUNTER 2018-04-23 10:10 | Day surgery (SDC) | payer SELFPAY ==
[2018-04-23] MEDS ORDERED: PACLitaxel 100 MG in Sodium Chloride 0.9% 250 ML 250 ML IVPB SCH (10:30)
[2018-04-23] MEDS ORDERED: SODIUM CHLORIDE 0.9% IVPB SCH (10:30)
[2018-04-23] MEDS ORDERED: Ondansetron 2MG/ML MDV 10 MG, Dexamethasone 10 MG in Sodium Chloride 0.9% 50 ML IVP SCH (10:30)
[2018-04-23] MEDS ORDERED: CARBOPLATIN IVPB SCH (10:30)
[2018-04-23 10:58] VITALS: BP 128/68; TEMP 97.7
== END 2018-04-23 13:55 | disposition home or self-care (01) ==
LOC: ONC/OP 10:10
PROVIDERS: ATTEND Internal Medicine Hematology & Oncology
DX: Z51.11 Encounter for antineoplastic chemotherapy (principal); C34.12 Malignant neoplasm of upper lobe, left bronchus or lung; C32.3 Malignant neoplasm of laryngeal cartilage; E46 Unspecified protein-calorie malnutrition; F41.9 Anxiety disorder, unspecified; F32.9 Major depressive disorder, single episode, unspecified; Z88.5 Allergy status to narcotic agent
CPT/HCPCS: 96375; 96413; 96417; J1100; J2405; J7050; J9045; J9267

== ENCOUNTER 2018-04-30 10:15 | Day surgery (SDC) | payer SELFPAY ==
[2018-04-30] MEDS ORDERED: Sodium Chloride 0.9% 10 ML ONE (10:33)
[2018-04-30] MEDS ORDERED: Ondansetron 2MG/ML MDV 10 MG, Dexamethasone 10 MG in Sodium Chloride 0.9% 50 ML IVPB SCH (10:45)
[2018-04-30] MEDS ORDERED: PACLitaxel 100 MG in Sodium Chloride 0.9% 250 ML 250 ML IVPB SCH (11:00)
[2018-04-30] MEDS ORDERED: SODIUM CHLORIDE 0.9% IVPB SCH (11:00)
[2018-04-30] MEDS ORDERED: CARBOPLATIN IVPB SCH (11:00)
[2018-04-30 11:04] VITALS: BP 112/72; TEMP 98.1
== END 2018-04-30 13:34 | disposition home or self-care (01) ==
LOC: ONC/OP 10:15
PROVIDERS: ATTEND Internal Medicine Hematology & Oncology
DX: Z51.11 Encounter for antineoplastic chemotherapy (principal); C32.3 Malignant neoplasm of laryngeal cartilage; C34.12 Malignant neoplasm of upper lobe, left bronchus or lung; J18.9 Pneumonia, unspecified organism; E46 Unspecified protein-calorie malnutrition; F41.9 Anxiety disorder, unspecified; F32.9 Major depressive disorder, single episode, unspecified; F17.200 Nicotine dependence, unspecified, uncomplicated; Z88.5 Allergy status to narcotic agent
CPT/HCPCS: 96375; 96413; 96417; A4216; J1100; J1642; J2405; J7050; J9045; J9267

== ENCOUNTER 2018-06-07 13:44 | Inpatient (IN) | payer SELFPAY ==
[2018-06-07 14:29] LABS: #Eosinphils 0.1 thou/uL (0.0-0.7); #Lymphocytes 0.8 thou/uL (1.20-3.40); #Monocytes 1.1 thou/uL (0.11-0.59); #Neutrophils 9.5 thou/uL (1.40-6.50); %Eosinophils 0.6 % (0.0-10.0); %Lymphocytes 7.2 % (21.0-51.0); %Monocytes 9.2 % (0.0-10.0); Hemoglobin 10.1 g/dL (14.0-18.0); Mean Corpuscular HGB CONC 33.9 g/dL (32.0-36.0); Mean Corpuscular Hemoglobin 29.9 pg (27.0-31.0); Mean Corpuscular Volume 88.3 fL (78.0-98.0); Mean Platelet Volume 5.6 fL (7.4-10.4); Platelet Count 629 thou/uL (130-400); RBC Distribution Width 15.9 % (11.5-14.5); Red Blood Cell (RBC) Count 3.39 mill/uL (4.70-6.10); White Blood Cell (WBC) Count 11.4 thou/uL (4.8-10.8)
[2018-06-07 14:46] LABS: ALT (SGPT) Less than 7 U/L (8-55); AST (SGOT) 12 U/L (5-34); Albumin 2.8 g/dL (3.5-5.0); Alkaline Phosphatase 109 U/L (40-150); Anion Gap 17 mmol/L (10-20); BUN (Urea Nitrogen) 4 mg/dL (8.4-25.7); Bilirubin, Total 0.5 mg/dL (0.2-1.2); Calc. Creatinine Clearance 0 mL/min (70-130); Calcium 8.4 mg/dL (7.8-10.44); Carbon Dioxide 25 mmol/L (22-29); Chloride 87 mmol/L (98-107); Estimated GFR-MDRD Greater than 90; Globulin 4.2 g/dL (2.4-3.5); Glucose 93 mg/dL (70-105); Lipase 7 U/L (8-78); Potassium 3.7 mmol/L (3.5-5.1); Sodium 125 mmol/L (136-145)
[2018-06-07] MEDS ORDERED: Ondansetron HCl/PF 4 MG/2 ML Vial ONE (15:05)
[2018-06-07 15:38] LABS: Bilirubin Negative (Negative); Blood, Urine Moderate (Negative); Clarity CLEAR (Clear); Glucose, Urine (Dipstick) Negative (Negative); Leukocyte Negative (Negative); Nitrite Negative (Negative); Protein, Urine (Dipstick) Negative (Neg-Trace); Specific Gravity, Urine 1.006 (1.002-1.036)
[2018-06-07 15:41] LABS: Bacteria/HPF None Seen HPF (None Seen); Hyaline Casts/LPF 0-3 HYALINE CAST LPF (0-3 Hyaline); RBC/HPF 0-3 HPF (0-3); Squamous Epithelial 0-3 HPF (0-3); WBC/HPF 0-3 HPF (0-3)
[2018-06-07] MEDS ORDERED: Ondansetron HCl/PF 4 MG/2 ML Vial IVP PRN (18:53)
[2018-06-07] MEDS ORDERED: hydrALAZINE 20 MG/ML VIAL SLOW IVP PRN (18:53)
[2018-06-07] MEDS ORDERED: Mag-Al 1200 mg/1200 mg/30 ML UDCUP PO PRN (18:53)
[2018-06-07] MEDS ORDERED: traMADol HCl 50 MG TAB PO PRN (18:53)
[2018-06-07] MEDS ORDERED: Ondansetron ODT 4 MG TAB PO PRN (18:53)
[2018-06-07] MEDS ORDERED: Milk Of Magnesia 30 ML UDCUP PO PRN (18:53)
--- NOTE | 2018-06-07 19:12 | HP ---
PRIMARY CARE PHYSICIAN: Dr. Bradshaw. CHIEF COMPLAINT: Generalized weakness. HISTORY OF PRESENT ILLNESS: The history of present illness is somewhat limited in that the patient carlos garcia had a complete laryngectomy and is writing all of his responses down or communicating nonverbally. He states that he began having flu-like symptoms about 3 weeks ago with fever and chills, and cough , which was productive of dark green phlegm. He also was having some nausea as well as vomiting, but no diarrhea. He also noted some pain on the left side which he admits he has had for some time. Th subha symptoms continued and he continued to get weaker and as a result, he came to the ER for evaluati on. In the ER, it was found that his sodium was low at 125 and he also had a mild leukocytosis and carlos damon is being admitted for symptomatic hyponatremia. He says that his last chemotherapy was about a mon ago. He normally gets it once a week, but he states that due to transportation issues, he has not been able to get any more chemotherapy. When asked if he lives alone, he says he does not, but he w rote down that people keep him in a corner and he lives with his aunt, but she leaves all the time. Therefore, it is unclear what type of support system he has. He denies any abdominal pain. He denie s any diarrhea, no blood in the stool, and his last normal bowel movement was 2 days ago. The vomiti ng has stopped 3 days ago, but he continues to have some nausea. REVIEW OF SYSTEMS: All systems were reviewed and are negative except for that mentioned in the histo ry of present illness. PAST MEDICAL HISTORY: Significant for squamous cell carcinoma of the larynx also a new lung primary has been discovered as well as a metastatic to the left rib. He has a history of chronic hyponatremi a due to syndrome of inappropriate antidiuretic hormone secretion, COPD, history of pulmonary tubercu losis and tobacco abuse. PAST SURGICAL HISTORY: He had a PEG tube placed, but this has been since removed. He has had a tota l laryngectomy and lymph node dissection. ALLERGIES: ACETAMINOPHEN. SOCIAL HISTORY: He is single. He lives with family. He is a former smoker, but he has a greater th an [id number] history of smoking. He quit a year ago. Occasionally drinks about 6 ounces of beer daily. FAMILY HISTORY: Significant for brother and aunt had cancer. MEDICATIONS: Tramadol and clonazepam. PHYSICAL EXAMINATION: GENERAL: He is alert and oriented. He appears to be in no acute distress. He is quite thin and bladimir ears a bit cachectic. VITAL SIGNS: Blood pressure was 125/74, heart rate 105, respiratory rate of 20, temperature is 99.1. HEENT: Pupils are equal, round, and reactive. Extraocular muscles are intact. His sclerae are anic teric. Throat: He has got some dry mucous membranes, poor dentition. NECK: He has an open stoma with an irregular border with some greenish, yellowish purulent drainage from the stoma site with some surrounding erythema on the skin. LUNGS: He has got some mild bibasilar rales and decreased breath sounds at the bases, some scattered wheezing, but no rhonchi. CARDIOVASCULAR: He has a normal S1 and S2. I do not appreciate an S3 or S4. No murmurs, clicks or rubs. ABDOMEN: Soft, scaphoid, diffusely tender. There is no rebound, no guarding, no organomegaly. EXTREMITIES: There is no edema, no skin changes. No muscle tenderness. He has got good dorsalis pe dis pulses bilaterally. NEUROLOGIC: His cranial nerves II-XII are intact. Muscle strength is 5/5 in both his upper and lowe r extremities. LABORATORY RESULTS: Urinalysis was essentially negative except for some moderate blood. White blood cell count 11.4, hemoglobin 10.1, hematocrit is 29.9, platelet count is 629. Sodium 125, potassium 3.7, chloride is 87, CO2 is 25, BUN of 4, creatinine 0.7, glucose was 93. ASSESSMENT AND PLAN: This is a pleasant 53-year-old gentleman who presents to the emergency room wit h generalized weakness and low sodium. He also has a productive cough with some fairly dark greenish sputum. 1. Symptomatic hyponatremia. This is likely multifactorial due to some baseline hyponatremia from s yndrome of inappropriate antidiuretic hormone secretion and I suspect he also has a component of volu me depletion as well. We will place him on IV normal saline for gentle hydration. 2. Generalized weakness. I suspect this is likely the result of the low sodium as well as bronchiti s. Hopefully, this will improve with treatment of both. For the bronchitis/chronic obstructive pulm onary disease or chronic bronchitis exacerbation, we will place him on antibiotics as well as DuoNebs . 3. Chronic left chest wall pain from metastatic cancer. We will place him on tramadol as he has joe herbert been getting and also IV morphine p.r.n. and he will likely need some reevaluation of his regime n for pain as an outpatient. He will also be placed on deep venous thrombosis and gastrointestinal p rophylaxis.
[2018-06-07] MEDS: Sodium Chloride 0.9% 1,000 ML IV SCH (20:04)
[2018-06-07] MEDS: Famotidine 20 MG TAB PO SCH (20:08)
[2018-06-07] MEDS: Docusate 100 MG CAP PO SCH (20:08)
[2018-06-07] MEDS: clonazePAM 0.5 MG TAB PO PRN (20:15)
[2018-06-08] MEDS: Lorazepam 1 MG TAB PO PRN (04:07)
[2018-06-08 05:25] LABS: Anion Gap 12 mmol/L (10-20); BUN (Urea Nitrogen) 4 mg/dL (8.4-25.7); Calc. Creatinine Clearance 110 mL/min (70-130); Calcium 7.8 mg/dL (7.8-10.44); Carbon Dioxide 27 mmol/L (22-29); Chloride 91 mmol/L (98-107); Estimated GFR-MDRD Greater than 90; Glucose 92 mg/dL (70-105); Potassium 3.8 mmol/L (3.5-5.1); Sodium 126 mmol/L (136-145)
[2018-06-08 06:17] LABS: Band 5 % (5-11); Eosinophils 3 % (0-10); Hemoglobin 9.1 g/dL (14.0-18.0); Hypochromia SLIGHT = 6-15 cells (100X) (0-5/hpf); Lymphocytes 6 % (21-51); MDiff Complete? YES; Mean Corpuscular Hemoglobin 30.1 pg (27.0-31.0); Mean Corpuscular Volume 88.4 fL (78.0-98.0); Mean Platelet Volume 5.9 fL (7.4-10.4); Monocytes 8 % (0-10); Neutrophil 78 % (42-75); PLT Morphology Comment Appears Increased; Platelet Count 549 thou/uL (130-400); RBC Distribution Width 15.8 % (11.5-14.5); Red Blood Cell (RBC) Count 3.04 mill/uL (4.70-6.10); White Blood Cell (WBC) Count 8.4 thou/uL (4.8-10.8)
[2018-06-08] MEDS: Famotidine 20 MG TAB PO SCH ×2 (10:01→20:11)
[2018-06-08] MEDS: Enoxaparin Sodium 40 MG/0.4 ML SYRINGE SC SCH (10:02)
[2018-06-08] MEDS: Docusate 100 MG CAP PO SCH ×2 (10:02→20:11)
[2018-06-08] MEDS: Sodium Chloride 0.9% 1,000 ML IV SCH (13:38)
--- NOTE | 2018-06-08 13:40 | PDOC.PN ---
- Subjective Encounter Start Date: 06/08/18 Encounter Start Time: 13:38 Mr. Narayan was seen today in follow-up of generalized weakness and hyponatremia. He says he is feeling a little better now. He still has some pretty thick greenish phlem. - Objective Resuscitation Status: Resuscitation Status FULL:Full Resuscitation MAR Reviewed: Yes Vital Signs & Weight: Vital Signs (12 hours) Temp Pulse Resp BP Pulse Ox 06/08/18 12:35 96.1 F L 92 20 91/53 L 91 L 06/08/18 09:00 98.2 F 99 20 107/64 99 06/08/18 08:00 98.2 F 99 20 99 06/08/18 04:55 90 L 06/08/18 04:18 98.3 F 97 16 114/64 84 L Weight Weight 134 lb 5 oz I&O: 06/07/18 06/08/18 06/09/18 06:59 06:59 06:59 Intake Total 100 250 Balance 100 250 Result Diagrams: 06/08/18 04:01 06/08/18 04:01 Phys Exam - Physical Examination HEENT: PERRLA Respiratory: no wheezing, no rales + rhonchi bilaterally, decreased breath sounds at both bases Cardiovascular: RRR, no significant murmur, no rub no gallop Gastrointestinal: soft, non-tender, no distention, positive bowel sounds Musculoskeletal: no edema Dx/Plan (1) Hyponatremia Code(s): E87.1 - HYPO-OSMOLALITY AND HYPONATREMIA Status: Acute Comment: stable (2) Acute exacerbation of chronic bronchitis Code(s): J20.9 - ACUTE BRONCHITIS, UNSPECIFIED; J42 - UNSPECIFIED CHRONIC BRONCHITIS Status: Acute (3) Moderate malnutrition Code(s): E44.0 - MODERATE PROTEIN-CALORIE MALNUTRITION Status: Chronic (4) Laryngeal squamous cell carcinoma Code(s): C32.9 - MALIGNANT NEOPLASM OF LARYNX, UNSPECIFIED Status: Chronic Comment: s/p laryngectomy - Plan * Hyponatremia- improved only slightly- will add salt tab, and continue to monitor * Acute on chronic bronchitis flair- continue Levaquin, and will also culture his sputum, and add mucinex * Malnutrition he is eating well - this could be due to cancer cachexia - continue to encourage oral intake, and supplements as needed. * Stoma care- wound care consult * Case Management consult in the AM
[2018-06-08] MEDS: guaiFENesin ER 600 MG TAB PO SCH (20:11)
[2018-06-08] MEDS: Sodium Chloride 1 GM TAB PO SCH (20:11)
[2018-06-08] MEDS: clonazePAM 0.5 MG TAB PO PRN (20:11)
[2018-06-08] MEDS: Triple Antibiotic Ointment 30 GM TUBE TOP SCH (20:47)
[2018-06-09] MEDS: Lorazepam 1 MG TAB PO PRN (01:43)
[2018-06-09] MEDS: Sodium Chloride 0.9% 1,000 ML IV SCH ×2 (01:48→08:23)
[2018-06-09 04:44] LABS: Anion Gap 8 mmol/L (10-20); BUN (Urea Nitrogen) Less than 4 mg/dL (8.4-25.7); Calc. Creatinine Clearance 112 mL/min (70-130); Calcium 7.6 mg/dL (7.8-10.44); Carbon Dioxide 28 mmol/L (22-29); Chloride 94 mmol/L (98-107); Estimated GFR-MDRD Greater than 90; Glucose 112 mg/dL (70-105); Potassium 3.8 mmol/L (3.5-5.1); Sodium 126 mmol/L (136-145)
[2018-06-09] MEDS: Docusate 100 MG CAP PO SCH (08:23)
[2018-06-09] MEDS: Triple Antibiotic Ointment 30 GM TUBE TOP SCH (08:23)
[2018-06-09] MEDS: guaiFENesin ER 600 MG TAB PO SCH (08:23)
[2018-06-09] MEDS: Enoxaparin Sodium 40 MG/0.4 ML SYRINGE SC SCH (08:23)
[2018-06-09] MEDS: Famotidine 20 MG TAB PO SCH (08:23)
[2018-06-09] MEDS: Sodium Chloride 1 GM TAB PO SCH (08:23)
[2018-06-09 11:39] VITALS: BMI 17.2
[2018-06-09 12:35] VITALS: BP 102/63; TEMP 97.8
--- NOTE | 2018-06-09 15:35 | PDOC.PN ---
- Subjective Encounter Start Date: 06/09/18 Encounter Start Time: 15:33 Mr. Narayan was seen today in follow-up of generalized weakness. He does not have any new complaints. - Objective Resuscitation Status: Resuscitation Status FULL:Full Resuscitation MAR Reviewed: Yes Vital Signs & Weight: Vital Signs (12 hours) Temp Pulse Resp BP Pulse Ox 06/09/18 11:25 97.8 F 92 22 H 102/63 90 L 06/09/18 08:00 98.2 F 92 22 H 123/79 88 L 06/09/18 06:19 80 14 06/09/18 04:00 98.0 F 85 16 116/67 98 Weight Admit Weight 131 lb Weight 138 lb I&O: 06/08/18 06/09/18 06/10/18 06:59 06:59 06:59 Intake Total 100 2200 550 Output Total 1800 Balance 100 400 550 Result Diagrams: 06/08/18 04:01 06/09/18 04:01 Phys Exam - Physical Examination HEENT: PERRLA Respiratory: no wheezing, no rales, no rhonchi, clear to auscultation bilateral Cardiovascular: RRR, no significant murmur, no rub Gastrointestinal: soft, non-tender, no distention, positive bowel sounds Musculoskeletal: no edema Dx/Plan (1) Hyponatremia Code(s): E87.1 - HYPO-OSMOLALITY AND HYPONATREMIA Status: Acute Comment: stable (2) Acute exacerbation of chronic bronchitis Code(s): J20.9 - ACUTE BRONCHITIS, UNSPECIFIED; J42 - UNSPECIFIED CHRONIC BRONCHITIS Status: Acute (3) Moderate malnutrition Code(s): E44.0 - MODERATE PROTEIN-CALORIE MALNUTRITION Status: Chronic (4) Laryngeal squamous cell carcinoma Code(s): C32.9 - MALIGNANT NEOPLASM OF LARYNX, UNSPECIFIED Status: Chronic Comment: s/p laryngectomy - Plan * Hyponatremia- chronic, and he is no longer symptomatic from this * Bronchitis- improved- he can be discharge on Cipro orally * He has been seen by Case Management and he will be given a gas card worth 75$ to aid with transportation * He is stable for discharge home.
--- NOTE | 2018-06-10 02:33 | DIS ---
DATE OF ADMISSION: 06/07/2018 DATE OF DISCHARGE: 06/09/2018 PRIMARY CARE PHYSICIAN: The patient does not have a primary care physician. DISCHARGE DISPOSITION: Home. DISCHARGE DIAGNOSES: 1. Symptomatic hyponatremia. 2. Acute on chronic bronchitis. 3. Squamous cell carcinoma of the larynx. CODE STATUS: FULL CODE. ALLERGIES: ACETAMINOPHEN. HOSPITAL COURSE: Mr. Narayan is a pleasant 53-year-old gentleman who presented to the emergency room with complaints of feeling extremely weak and tired. He was found to have a slightly lower sodium th en normal and was initially placed in observation for this. He was treated with IV fluids. His sodi um went up just 1 or 2 points, but symptomatically, it was actually pretty much at his baseline. He has been ambulatory, but he did have some cough productive of some greenish sputum, which in review o f his records this has been an off and on problem. We started IV antibiotics during this hospital st ay and he will be discharged home on Cipro. He was also seen by case management to help with some of his social issues as he had not been to cancer treatment in over 3 weeks. He stated it had to do [facility]. from [facility] came and provided gas cards and a value of 75 dollar s to drawbench operator helper with the transportation. He was also seen by Palliative Care and they documented that he is obtaining food stamps to help with food in the home and from the patient's own discussion with me, he does have a vehicle. Therefore, he will be able to be discharged home today and encouraged to follow up with the Cancer Center as he has been scheduled.
== END 2018-06-09 17:13 | disposition home or self-care (01) | DRG 644 ==
LOC: ERS 13:44 → ONC 17:42
PROVIDERS: ADMIT Internal Medicine; ATTEND Internal Medicine
DX: E22.2 Syndrome of inappropriate secretion of antidiuretic hormone (principal); J44.0 Chronic obstructive pulmonary disease with (acute) lower respiratory infection; E44.0 Moderate protein-calorie malnutrition; Z68.1 Body mass index [BMI] 19.9 or less, adult; G89.29 Other chronic pain; R07.89 Other chest pain; J20.9 Acute bronchitis, unspecified; C32.9 Malignant neoplasm of larynx, unspecified; Z85.118 Personal history of other malignant neoplasm of bronchus and lung; Z85.830 Personal history of malignant neoplasm of bone; Z87.891 Personal history of nicotine dependence; Z93.1 Gastrostomy status; Z90.02 Acquired absence of larynx; Z80.9 Family history of malignant neoplasm, unspecified
CPT/HCPCS: 36415; 80048; 80053; 81003; 81015; 83690; 85025; 87040; 87070; 87077; 87086; 87186; 87205; 93005; 94640; 94760; 96361; 96374; 96375; A4216; J1650; J1956; J2270; J2405; J7620

== ENCOUNTER 2018-06-19 14:21 | Inpatient (IN) | payer SELFPAY ==
[2018-06-19 14:55] LABS: Mean Corpuscular HGB CONC 32.9 g/dL (32.0-36.0); Mean Corpuscular Hemoglobin 28.5 pg (27.0-31.0); Mean Corpuscular Volume 86.7 fL (78.0-98.0); Mean Platelet Volume 5.8 fL (7.4-10.4); Platelet Count 759 thou/uL (130-400); RBC Distribution Width 16.3 % (11.5-14.5); Red Blood Cell (RBC) Count 3.51 mill/uL (4.70-6.10); White Blood Cell (WBC) Count 11.9 thou/uL (4.8-10.8)
[2018-06-19 15:09] LABS: Anisocytosis SLIGHT = 6-15 cells (100X) (0-5/hpf); Band 3 % (5-11); Eosinophils 3 % (0-10); Lymphocytes 10 % (21-51); MDiff Complete? YES; Monocytes 2 % (0-10); Neutrophil 82 % (42-75); PLT Morphology Comment Appears Increased; Polychromasia SLIGHT = 2-3 cells (100X) (0-2/hpf)
[2018-06-19 15:21] LABS: ALT (SGPT) Less than 7 U/L (8-55); AST (SGOT) 15 U/L (5-34); Albumin 2.7 g/dL (3.5-5.0); Alkaline Phosphatase 110 U/L (40-150); Anion Gap 10 mmol/L (10-20); BUN (Urea Nitrogen) 4 mg/dL (8.4-25.7); Bilirubin, Total 0.5 mg/dL (0.2-1.2); Calc. Creatinine Clearance 0 mL/min (70-130); Calcium 8.3 mg/dL (7.8-10.44); Carbon Dioxide 27 mmol/L (22-29); Chloride 85 mmol/L (98-107); Estimated GFR-MDRD Greater than 90; Globulin 4.1 g/dL (2.4-3.5); Glucose 104 mg/dL (70-105); Protein, Total 6.8 g/dL (6.0-8.3)
[2018-06-19 15:27] LABS: Sodium 118 mmol/L (136-145)
[2018-06-19] MEDS ORDERED: Ondansetron HCl/PF 4 MG/2 ML Vial IVP PRN (19:31)
[2018-06-19] MEDS ORDERED: Ondansetron ODT 4 MG TAB SL PRN (19:31)
[2018-06-19] MEDS ORDERED: clonazePAM 0.5 MG TAB PO PRN (22:16)
[2018-06-19] MEDS ORDERED: traMADol HCl 50 MG TAB PO PRN (22:16)
[2018-06-20] MEDS ORDERED: Sodium Chloride 0.9% 1,000 ML IV SCH (00:45)
[2018-06-20 01:15] LABS: Osmolality, Serum 248 mOsm/kg (280-295)
[2018-06-20 01:34] LABS: Anion Gap 11 mmol/L (10-20); BUN (Urea Nitrogen) Less than 4 mg/dL (8.4-25.7); Calc. Creatinine Clearance 120 mL/min (70-130); Calcium 8.2 mg/dL (7.8-10.44); Carbon Dioxide 25 mmol/L (22-29); Chloride 88 mmol/L (98-107); Estimated GFR-MDRD Greater than 90; Glucose 94 mg/dL (70-105); Potassium 3.9 mmol/L (3.5-5.1); Sodium 120 mmol/L (136-145)
--- NOTE | 2018-06-20 02:50 | HP ---
CHIEF COMPLAINT: "Sent here from my primary care doctor for my low sodium and my low T4 levels." The patient is a historian and patient writes everything. Patient is nonverbal. HISTORY OF PRESENT ILLNESS: This is a 53-year-old male with past medical history of squamous cell carcinoma of the larynx, chronic hyponatremia likely due to SIADH, COPD, history of pulmonary tuberculosis and tobacco abuse, who is presenting with hyponatremia and hypothyroidism. Per the patient, he went to visit his primary care physician and he was told that his sodium levels were low and his primary care doctor transferred him to come to the hospital. Otherwise, patient says that he does not have any other symptoms except for mild cough with phlegm that he gets which he has had for some time. Of note, patient was recently in the hospital and patient was found to be hyponatremic of 125. Patient was given IV fluids. Patient's sodium did not really jump back to normal levels and the patient was discharged around that time. REVIEW OF SYSTEMS: Positive for cough and lower extremity leg weakness, otherwise as documented in the HPI. All other systems were reviewed and are negative. PAST MEDICAL HISTORY: Squamous cell carcinoma of the larynx also new lung primary has been discovered as well as metastatic to the left rib, history of chronic hyponatremia, COPD, pulmonary tuberculosis, and tobacco abuse. PAST SURGICAL HISTORY: PEG tube placed, status post removal; total laryngectomy ; and lymph node dissection. ALLERGIES: ACETAMINOPHEN. SOCIAL HISTORY: Patient lives with family. Single. Former smoker, smoked for about [id number], patient quit a year ago. The patient is an occasional drinker, drinks about 6 ounces of beer daily. FAMILY HISTORY: Significant for brother and aunt who had cancer. MEDICATIONS: Tramadol and clonazepam. PHYSICAL EXAMINATION: GENERAL: Patient is alert and oriented x3, not in acute distress. The patient is nonverbal. VITAL SIGNS: Blood pressure 101/69, pulse 130, respiratory rate of 20, temperature of 99.1. HEENT: Normocephalic, atraumatic. Pupils are equally round and reactive to light. Extraocular movements are intact. No scleral icterus. NECK: The patient do have a stoma noted with purulent cough production. Trachea is midline. Full range of motion. RESPIRATORY: Lungs clear to auscultation bilaterally. No wheezing, no rales, no rhonchi is appreciated. CARDIOVASCULAR: S1, S2, regular rate and rhythm. No murmurs, no gallops, no rubs appreciated. ABDOMEN: Soft, nontender, nondistended. Bowel sounds are positive in all quadrants. No masses. No peritoneal signs. EXTREMITIES: Upper extremity: 5/5 upper extremity strength and 5/5 lower extremity strength. Good pulses bilaterally at the upper extremities and lower extremities. NEUROLOGIC: Cranial nerves II through XII grossly intact. No neurologic deficit noted. The patient did have some weakness with lower extremity. Patient states that he uses a wheelchair. SKIN: Warm, dry, and intact. No rash. PSYCHIATRIC: Alert, oriented x3, normal affect. LABORATORY DATA: WBC 11.9, hemoglobin 10.0, hematocrit 30.5, platelet is 759, bands of 3. Sodium 118, potassium 4.0, chloride is 85, carbon dioxide 27, anion gap of 10, BUN of 4, creatinine of 0.68, GFR greater than 90. AST 15, ALT less than 7, alkaline phosphatase is 110, albumin 2.7, free T4 is 0.40. ASSESSMENT AND PLAN: 1. This is a 53-year-old male being admitted for hyponatremia. Patient's sodium is 118. Patient has been started on IV fluids since we think the patient 's hyponatremia is a combination of syndrome of inappropriate antidiuretic hormone and some dehydration. At this point, we will do BMP every 6 hours. We have consulted Nephrology to help manage the patient's hyponatremia. 2. Hypothyroidism. Patient's free T4 levels are low, that is why we will start patient on levothyroxine and we will continue to manage the patient. 3. Squamous cell carcinoma of the larynx stable at this time. We will continue patient on current management. 4. History of chronic obstructive pulmonary disease, currently stable. We will monitor the patient. 5. History of pulmonary tuberculosis and tobacco abuse. Patient quit tobacco a year ago. The patient does not have any signs of tuberculosis at this time. 6. Deep vein thrombosis and gastrointestinal prophylaxis. We will do Lovenox for deep vein thrombosis prophylaxis. No chemical gastrointestinal prophylaxis needed at this time. MTDD
[2018-06-20 02:58] LABS: Sodium 121 mmol/L (136-145)
[2018-06-20] MEDS ORDERED: Levothyroxine Sodium 25 MCG TAB PO SCH (06:00)
[2018-06-20 06:43] LABS: Anion Gap 10 mmol/L (10-20); BUN (Urea Nitrogen) Less than 4 mg/dL (8.4-25.7); Calc. Creatinine Clearance 112 mL/min (70-130); Calcium 7.8 mg/dL (7.8-10.44); Carbon Dioxide 25 mmol/L (22-29); Chloride 89 mmol/L (98-107); Estimated GFR-MDRD Greater than 90; Glucose 83 mg/dL (70-105); Potassium 3.9 mmol/L (3.5-5.1); Sodium 120 mmol/L (136-145)
--- NOTE | 2018-06-20 07:43 | CON ---
DATE OF CONSULTATION: 06/20/2018 HISTORY OF PRESENT ILLNESS: Mr. Narayan is a 53-year-old white male who was seen for hyponatremia. H is initial serum sodium was noted at 118, it is now currently at 120. Please note he has been given volume repletion for presumptive component of prerenal azotemia. Of interest, the patient's TSH will be checked at the same time. We are now following this patient for further management of his hyponatremia. REVIEW OF SYSTEMS: No chest pain or shortness of breath. No mental status change. No confusion. N o nausea, no vomiting, no diarrhea. The patient is somewhat hoarse and unable to speak due to his un derlying intrinsic laryngeal problem. No fever or chills, no abdominal pain, no syncopal episode, no productive cough, no gross hematuria, no hematochezia, no melena, no hematemesis. MEDICATIONS: Klonopin 0.5 mg p.o. b.i.d., Lovenox 40 mg subcu every day, Pepcid 20 mg p.o. b.i.d., S ynthroid 25 mcg every day, normal saline at 80 mL per hour, levothyroxine 25 mcg every day. PAST MEDICAL HISTORY: The patient has history of squamous cell carcinoma of the larynx with metastat ic to the lungs and left rib, history of chronic hyponatremia, COPD, pulmonary tuberculosis, tobacco abuse. PAST SURGICAL HISTORY: 1. Status post PEG tube placement. 2. Status post total laryngectomy with lymph node dissection. SOCIAL HISTORY: The patient is a former smoker, [id number]. Currently, not smoking. Alcohol, occ asional. Sedentary lifestyle. The patient lives with his family. Single. No IV drug abuse. FAMILY HISTORY: No family history of ESRD. ALLERGIES: ACETAMINOPHEN. TRAUMA: None. IMMUNIZATIONS: Up to date. PHYSICAL EXAMINATION: VITAL SIGNS: Blood pressure 101/62, heart rate 78, respiratory rate 16, temperature 97.5, pulse ox 9 2%. GENERAL: The patient is noted to be awake, alert, comfortable, not in distress. SKIN: Adequate turgor. HEENT: He has pinkish conjunctivae, anicteric sclerae. NECK: No neck mass, no carotid bruits, no JVD. CHEST: No deformities. LUNGS: Clear breath sounds. HEART: Normal sinus rhythm. No murmur, no gallops or murmurs. ABDOMEN: Globular, soft, nontender. Positive for PEG tube. EXTREMITIES: No edema. NEUROLOGIC: Awake, oriented to 3 spheres, unable to vocalize due to his laryngectomy. Moving all ex tremities. No tremors, no asterixis. LABORATORY: 06/20/2018 - Sodium 120, potassium 3.9, chloride 89, carbon dioxide 25, BUN 4, creatinin e 0.62, calcium 7.8, serum osmolality is 248. 06/19/2018 - Serum sodium was 118. Urinalysis, urine sodium is 26, urine osmolality 227. ASSESSMENT AND PLAN: Hyponatremia, unclear etiology. Empiric volume repletion is being given. The possibility of syndrome of inappropriate antidiuretic hormone secretion remains with this patient's. Serum sodium is slowly improving. My bias is to start this patient on least 1.5% sodium chloride an d run this at 50 mL per hour with careful monitoring of the serum sodium. If he has syndrome of inap propriate antidiuretic hormone secretion, I do not think it will respond to the normal saline. Lyndsay nue free water restriction. We will check for uric acid, TSH, cortisol level and urine chemistries w ith this patient. Overall I agree with current management. Slow correction of the serum sodium.
[2018-06-20] MEDS ORDERED: Prevnar 13-Val Conj/PF 0.5 ML SYRINGE IM ONE (09:00)
[2018-06-20] MEDS: Famotidine 20 MG TAB PO SCH ×2 (09:13→20:07)
[2018-06-20] MEDS: Enoxaparin Sodium 40 MG/0.4 ML SYRINGE SC SCH (09:13)
[2018-06-20] MEDS: Sodium Chloride 256 MEQ in Sterile Water Injection 936 ML IV SCH (09:14)
[2018-06-20] MEDS ORDERED: Levothyroxine Sodium 100 MCG TAB PO SCH (11:36)
[2018-06-20 13:04] LABS: Creatinine, Urine 54.1 mg/dL (63-166)
[2018-06-20 13:14] LABS: Anion Gap 10 mmol/L (10-20); BUN (Urea Nitrogen) Less than 4 mg/dL (8.4-25.7); Calc. Creatinine Clearance 114 mL/min (70-130); Calcium 7.9 mg/dL (7.8-10.44); Carbon Dioxide 24 mmol/L (22-29); Chloride 89 mmol/L (98-107); Estimated GFR-MDRD Greater than 90; Glucose 90 mg/dL (70-105); Potassium 3.7 mmol/L (3.5-5.1)
[2018-06-20 13:17] LABS: Sodium 119 mmol/L (136-145)
--- NOTE | 2018-06-20 14:24 | PDOC.PN ---
- Subjective Encounter Start Date: 06/20/18 Encounter Start Time: 10:40 Subjective: no sob or chest pain -: feels better, no specific weakness -: is amb in room - Objective Resuscitation Status: Resuscitation Status FULL:Full Resuscitation MAR Reviewed: Yes Vital Signs & Weight: Vital Signs (12 hours) Temp Pulse Resp BP Pulse Ox 06/20/18 11:50 97.7 F 86 13 109/67 95 06/20/18 07:05 97.6 F 77 16 111/67 92 L 06/20/18 04:00 97.5 F L 78 16 101/62 92 L Weight Admit Weight 129 lb 11.2 oz Weight 125 lb 14.4 oz I&O: 06/19/18 06/20/18 06/21/18 06:59 06:59 06:59 Intake Total 554 Output Total 450 Balance 104 Result Diagrams: 06/19/18 14:42 06/20/18 12:47 Phys Exam - Physical Examination HEENT: PERRLA, moist MMs Neck: no JVD has chronic tracheal stoma Respiratory: no rales rhonchi+ Cardiovascular: RRR, no significant murmur Gastrointestinal: soft, no distention, positive bowel sounds Musculoskeletal: no edema, pulses present Neurological: non-focal, moves all 4 limbs Psychiatric: A&O x 3 Dx/Plan (1) Hypothyroidism Code(s): E03.9 - HYPOTHYROIDISM, UNSPECIFIED Status: Acute Qualifiers: Hypothyroidism type: acquired Qualified Code(s): E03.9 - Hypothyroidism, unspecified (2) Lung cancer Code(s): C34.90 - MALIGNANT NEOPLASM OF UNSP PART OF UNSP BRONCHUS OR LUNG Status: Acute Comment: on treatment with (3) Hyponatremia Code(s): E87.1 - HYPO-OSMOLALITY AND HYPONATREMIA Status: Acute Comment: stable (4) COPD (chronic obstructive pulmonary disease) with emphysema Code(s): J43.9 - EMPHYSEMA, UNSPECIFIED Status: Chronic Qualifiers: Comment: not active (5) Laryngeal squamous cell carcinoma Code(s): C32.9 - MALIGNANT NEOPLASM OF LARYNX, UNSPECIFIED Status: Chronic Comment: h/o laryngectomy, has tracheal stoma, likely is in remission? (6) SIADH (syndrome of inappropriate ADH production) Status: Chronic - Plan is on hypertonic saline per 's advice -: sod is 119 -: increase synthroid to 100mcg daily -: watch for electrolytes, nebs prn -: may tx to medical floor this evening * . Review of Systems - Medications/Allergies Allergies/Adverse Reactions: Allergies Allergy/AdvReac Type Severity Reaction Status Date / Time acetaminophen [From Tylenol] Allergy n/v, hives Verified 06/07/18 19:07 Medications: Current Medications Clonazepam (Klonopin) 0.5 mg PO BIDPRN PRN PRN Reason: Anxiety Enoxaparin Sodium (Lovenox) 40 mg SC 0900 [facility] Last Admin: 06/20/18 09:13 Dose: 40 mg Famotidine (Pepcid) 20 mg PO BID [facility] Last Admin: 06/20/18 09:13 Dose: 20 mg Sodium Chloride 256 meq/ (Sterile Water) 1,000 mls @ 70 mls/hr IV INF [facility] Last Admin: 06/20/18 09:14 Dose: 1,000 mls Levothyroxine Sodium (Synthroid) 100 mcg PO 0600 [facility] Sodium Chloride (Flush - Normal Saline) 10 ml IVF Q12HR [facility] Last Admin: 06/20/18 09:13 Dose: Not Given Sodium Chloride (Flush - Normal Saline) 10 ml IVF PRN PRN PRN Reason: Saline Flush Tramadol HCl (Ultram) 50 mg PO TIDPRN PRN PRN Reason: Pain
[2018-06-20] MEDS: clonazePAM 0.5 MG TAB PO PRN (17:32)
[2018-06-20] MEDS: traMADol HCl 50 MG TAB PO PRN (17:32)
[2018-06-20 19:38] LABS: Anion Gap 12 mmol/L (10-20); BUN (Urea Nitrogen) Less than 4 mg/dL (8.4-25.7); Calc. Creatinine Clearance 120 mL/min (70-130); Calcium 8.1 mg/dL (7.8-10.44); Carbon Dioxide 25 mmol/L (22-29); Chloride 90 mmol/L (98-107); Estimated GFR-MDRD Greater than 90; Glucose 92 mg/dL (70-105); Sodium 123 mmol/L (136-145)
[2018-06-21 01:25] LABS: Anion Gap 10 mmol/L (10-20); BUN (Urea Nitrogen) Less than 4 mg/dL (8.4-25.7); Calc. Creatinine Clearance 112 mL/min (70-130); Calcium 7.8 mg/dL (7.8-10.44); Carbon Dioxide 24 mmol/L (22-29); Chloride 93 mmol/L (98-107); Estimated GFR-MDRD Greater than 90; Glucose 87 mg/dL (70-105); Sodium 123 mmol/L (136-145)
[2018-06-21] MEDS: Levothyroxine Sodium 100 MCG TAB PO SCH (05:08)
[2018-06-21 07:22] LABS: Anion Gap 9 mmol/L (10-20); BUN (Urea Nitrogen) Less than 4 mg/dL (8.4-25.7); Calc. Creatinine Clearance 115 mL/min (70-130); Calcium 7.7 mg/dL (7.8-10.44); Carbon Dioxide 27 mmol/L (22-29); Chloride 94 mmol/L (98-107); Estimated GFR-MDRD Greater than 90; Glucose 80 mg/dL (70-105); Potassium 3.9 mmol/L (3.5-5.1); Sodium 126 mmol/L (136-145)
[2018-06-21] MEDS: Famotidine 20 MG TAB PO SCH ×2 (09:54→20:23)
[2018-06-21] MEDS: Enoxaparin Sodium 40 MG/0.4 ML SYRINGE SC SCH (09:54)
[2018-06-21] MEDS: traMADol HCl 50 MG TAB PO PRN ×2 (10:01→20:22)
--- NOTE | 2018-06-21 11:56 | PRG ---
DATE OF SERVICE: 06/21/2018 SERVICE: Renal Medicine. SUBJECTIVE: Mr. Narayan is a 53-year-old white male, who was seen for his chronic hyponatremia. We h ave done several serologies and this suggested that the hyponatremia is probably from SIADH. He has been started on 1.5% sodium chloride and his serum sodium slowly improving. He is also on free water restriction. Please note, he is unable to vocalize due to his laryngectomy. No other complaints to day. PHYSICAL EXAMINATION: VITAL SIGNS: Blood pressure is 112/72, heart rate 82, respiratory rate 18, temperature 97.9, pulse o x 91%. GENERAL EXAM: Noted to be awake, alert, comfortable. SKIN: Adequate turgor. HEENT: He has pinkish conjunctivae. Anicteric sclerae. NECK: No neck mass, no carotid bruits, no JVD. CHEST: No deformities. LUNGS: Clear breath sounds. HEART: Normal sinus rhythm. No murmur, no gallops, no rubs. ABDOMEN: Flat, soft, nontender. EXTREMITIES: No edema. Medications of 06/21/2018 were reviewed. LABORATORY DATA: Laboratories of 06/21/2018, sodium 126, potassium 3.9, chloride 94, carbon dioxide 27, BUN is 4, creatinine 0.62, calcium 7.7. ASSESSMENT AND PLAN: Hyponatremia - this is most likely syndrome of inappropriate antidiuretic hormo ne secretion. Serologies have been done. Most recent cortisol was noted at 7 and uric acid was decr eased at 2.6. The plan is to continue current 1.5% sodium chloride. Optimize serum sodium. Continu e free water restriction.
[2018-06-21 12:52] LABS: Sodium 127 mmol/L (136-145)
--- NOTE | 2018-06-21 14:06 | PDOC.PN ---
- Subjective Encounter Start Date: 06/21/18 Encounter Start Time: 13:25 Subjective: awake, not in distress -: is watching tv -: tolerating oral diet - Objective Resuscitation Status: Resuscitation Status FULL:Full Resuscitation MAR Reviewed: Yes Vital Signs & Weight: Vital Signs (12 hours) Temp Pulse Resp BP Pulse Ox 06/21/18 11:42 97.3 F L 85 18 106/67 92 L 06/21/18 08:00 92 L 06/21/18 07:17 97.9 F 82 18 112/72 91 L 06/21/18 04:00 98.2 F 84 18 116/77 92 L Weight Admit Weight 129 lb 11.2 oz Weight 133 lb 4 oz I&O: 06/20/18 06/21/18 06/22/18 06:59 06:59 06:59 Intake Total 554 2685 Output Total 450 4225 Balance 104 -1540 Result Diagrams: 06/19/18 14:42 06/21/18 12:27 Phys Exam - Physical Examination HEENT: PERRLA, moist MMs Neck: no JVD tracheal stoma+ Respiratory: no wheezing rhonchi++ Cardiovascular: RRR, no significant murmur Gastrointestinal: soft, non-tender, positive bowel sounds Musculoskeletal: no edema, pulses present Neurological: non-focal, moves all 4 limbs Psychiatric: normal affect, A&O x 3 Dx/Plan (1) Hypothyroidism Code(s): E03.9 - HYPOTHYROIDISM, UNSPECIFIED Status: Acute Qualifiers: Hypothyroidism type: acquired Qualified Code(s): E03.9 - Hypothyroidism, unspecified (2) Lung cancer Code(s): C34.90 - MALIGNANT NEOPLASM OF UNSP PART OF UNSP BRONCHUS OR LUNG Status: Acute Comment: on treatment with (3) Hyponatremia Code(s): E87.1 - HYPO-OSMOLALITY AND HYPONATREMIA Status: Acute Comment: stable (4) COPD (chronic obstructive pulmonary disease) with emphysema Code(s): J43.9 - EMPHYSEMA, UNSPECIFIED Status: Chronic Qualifiers: Comment: not active (5) Laryngeal squamous cell carcinoma Code(s): C32.9 - MALIGNANT NEOPLASM OF LARYNX, UNSPECIFIED Status: Chronic Comment: h/o laryngectomy, has tracheal stoma, likely is in remission? (6) SIADH (syndrome of inappropriate ADH production) Status: Chronic - Plan sodium is better, is on 1.5% nacl per -: no arrhythmias with synthroid, to continue at 100mcg daily -: dc plan in am if ok with -: to ambulate as tolerated * . Review of Systems - Medications/Allergies Allergies/Adverse Reactions: Allergies Allergy/AdvReac Type Severity Reaction Status Date / Time acetaminophen [From Tylenol] Allergy n/v, hives Verified 06/07/18 19:07 Medications: Current Medications Clonazepam (Klonopin) 0.5 mg PO BIDPRN PRN PRN Reason: Anxiety Last Admin: 06/20/18 17:32 Dose: 0.5 mg Enoxaparin Sodium (Lovenox) 40 mg SC 0900 [facility] Last Admin: 06/21/18 09:54 Dose: 40 mg Famotidine (Pepcid) 20 mg PO BID [facility] Last Admin: 06/21/18 09:54 Dose: 20 mg Sodium Chloride 256 meq/ (Sterile Water) 1,000 mls @ 70 mls/hr IV INF [facility] Last Admin: 06/21/18 00:00 Dose: 1,000 mls Levothyroxine Sodium (Synthroid) 100 mcg PO 0600 [facility] Last Admin: 06/21/18 05:08 Dose: 100 mcg Sodium Chloride (Flush - Normal Saline) 10 ml IVF Q12HR [facility] Last Admin: 06/21/18 09:54 Dose: Not Given Sodium Chloride (Flush - Normal Saline) 10 ml IVF PRN PRN PRN Reason: Saline Flush Tramadol HCl (Ultram) 50 mg PO TIDPRN PRN PRN Reason: Pain Last Admin: 06/21/18 10:01 Dose: 50 mg
[2018-06-21] MEDS: Sodium Chloride 256 MEQ in Sterile Water Injection 936 ML IV SCH ×2 (14:59)
[2018-06-21 18:19] LABS: Sodium 123 mmol/L (136-145)
[2018-06-21] MEDS: clonazePAM 0.5 MG TAB PO PRN (20:22)
[2018-06-22] MEDS: Sodium Chloride 256 MEQ in Sterile Water Injection 936 ML IV SCH (04:28)
[2018-06-22 05:08] LABS: Anion Gap 8 mmol/L (10-20); BUN (Urea Nitrogen) Less than 4 mg/dL (8.4-25.7); Calc. Creatinine Clearance 113 mL/min (70-130); Calcium 7.7 mg/dL (7.8-10.44); Carbon Dioxide 27 mmol/L (22-29); Chloride 96 mmol/L (98-107); Estimated GFR-MDRD Greater than 90; Glucose 83 mg/dL (70-105); Potassium 3.8 mmol/L (3.5-5.1); Sodium 127 mmol/L (136-145)
[2018-06-22] MEDS: Levothyroxine Sodium 100 MCG TAB PO SCH (05:22)
[2018-06-22] MEDS: traMADol HCl 50 MG TAB PO PRN ×2 (05:28→20:29)
[2018-06-22] MEDS: clonazePAM 0.5 MG TAB PO PRN ×2 (05:28→20:29)
[2018-06-22] MEDS: Enoxaparin Sodium 40 MG/0.4 ML SYRINGE SC SCH (08:02)
[2018-06-22] MEDS: Famotidine 20 MG TAB PO SCH ×2 (08:02→20:29)
--- NOTE | 2018-06-22 10:54 | PRG ---
DATE OF SERVICE: 06/22/2018 SUBJECTIVE: Mr. Narayan is a 53-year-old white male, who was seen for his chronic hyponatremia. The feeling of the Renal Service this could be an SIADH as suggested by a low uric acid. Free water rest riction has been done and is currently on 1.5% sodium chloride. PHYSICAL EXAMINATION: VITAL SIGNS: Blood pressure is 138/75, heart rate 84, respiratory rate 18, temperature 97.6, pulse o x is 92%. GENERAL: He is noted to be awake, alert, comfortable, not in distress. SKIN: Adequate turgor. HEENT: He has pinkish conjunctivae, anicteric sclerae. NECK: No neck mass, no carotid bruit, no JVD. Positive for tracheal ostomy. LUNGS: Decreased breath sounds. No wheezing, no crackles. HEART: Normal sinus rhythm. No murmur, no gallops or rubs. ABDOMEN: Flat, soft, nontender, no masses. EXTREMITIES: No edema, no deformities. NEUROLOGIC: The patient is oriented to 3 spheres. Moving all extremities. LABORATORY DATA: Of 06/19/2018. Hemoglobin is 10. Sodium is 127, potassium is 3.8, chloride 96, ca rbon dioxide 27, BUN is 4, creatinine 0.63, calcium is 7.7. ASSESSMENT AND PLAN: 1. Chronic hyponatremia -- most likely from syndrome of inappropriate antidiuretic hormone. Current ly, still on 1.5% sodium chloride. Serum sodium is stable. Continue to observe. Continue free wate r restriction. I have not excluded in considering sodium chloride 1000 mg b.i.d. supplementation wit h this patient once we taper off the 1.5% sodium chloride. 2. Feeling weak and tired. No exact etiology for the complaints. We will simply observe this. He s aid he feels chilly, but review of the vital signs shows the patient to be afebrile. We will recheck another basic metabolic panel in a.m. We will add sodium chloride 1000 mg b.i.d.
[2018-06-22 12:35] LABS: Anion Gap 9 mmol/L (10-20); BUN (Urea Nitrogen) Less than 4 mg/dL (8.4-25.7); Calc. Creatinine Clearance 111 mL/min (70-130); Calcium 7.7 mg/dL (7.8-10.44); Carbon Dioxide 25 mmol/L (22-29); Chloride 97 mmol/L (98-107); Estimated GFR-MDRD Greater than 90; Glucose 81 mg/dL (70-105); Potassium 4.1 mmol/L (3.5-5.1); Sodium 127 mmol/L (136-145)
--- NOTE | 2018-06-22 14:37 | PDOC.PN ---
- Subjective Encounter Start Date: 06/22/18 Encounter Start Time: 13:00 Subjective: says he doesn't feel good, has chills but no fever -: no trouble passing urine or altered sputum -: no abd pain or nausea - Objective Resuscitation Status: Resuscitation Status FULL:Full Resuscitation MAR Reviewed: Yes Vital Signs & Weight: Vital Signs (12 hours) Temp Pulse Resp BP BP Pulse Ox 06/22/18 13:37 84 18 90 L 06/22/18 08:00 92 L 06/22/18 07:50 97.6 F 84 18 138/75 92 L 06/22/18 07:05 79 18 97 06/22/18 04:57 97.9 F 76 20 120/76 97 Weight Admit Weight 129 lb 11.2 oz Weight 137 lb 2 oz I&O: 06/21/18 06/22/18 06/23/18 06:59 06:59 06:59 Intake Total 2685 1645 Output Total 4225 300 Balance -1540 1345 Result Diagrams: 06/19/18 14:42 06/22/18 11:58 Phys Exam - Physical Examination HEENT: PERRLA, moist MMs Neck: no JVD tracheal stoma Respiratory: no wheezing, no rales Cardiovascular: RRR, no significant murmur Gastrointestinal: soft, no distention, positive bowel sounds Musculoskeletal: no edema, pulses present Neurological: non-focal, moves all 4 limbs Psychiatric: normal affect, A&O x 3 Dx/Plan (1) Hypothyroidism Code(s): E03.9 - HYPOTHYROIDISM, UNSPECIFIED Status: Acute Qualifiers: Hypothyroidism type: acquired Qualified Code(s): E03.9 - Hypothyroidism, unspecified (2) Lung cancer Code(s): C34.90 - MALIGNANT NEOPLASM OF UNSP PART OF UNSP BRONCHUS OR LUNG Status: Acute Comment: on treatment with (3) Hyponatremia Code(s): E87.1 - HYPO-OSMOLALITY AND HYPONATREMIA Status: Acute Comment: stable (4) COPD (chronic obstructive pulmonary disease) with emphysema Code(s): J43.9 - EMPHYSEMA, UNSPECIFIED Status: Chronic Qualifiers: Comment: not active (5) Laryngeal squamous cell carcinoma Code(s): C32.9 - MALIGNANT NEOPLASM OF LARYNX, UNSPECIFIED Status: Chronic Comment: h/o laryngectomy, has tracheal stoma, likely is in remission? (6) SIADH (syndrome of inappropriate ADH production) Status: Chronic - Plan cxr reviewed -: levaquin daily -: blood and urine cs -: stop hypertonic saline, d/w -: hold discharge for today * . Review of Systems - Medications/Allergies Allergies/Adverse Reactions: Allergies Allergy/AdvReac Type Severity Reaction Status Date / Time acetaminophen [From Tylenol] Allergy n/v, hives Verified 06/07/18 19:07 Medications: Current Medications Albuterol/Ipratropium (Duoneb) 3 ml NEB [id number] [facility] Last Admin: 06/22/18 13:37 Dose: 3 ml Clonazepam (Klonopin) 0.5 mg PO BIDPRN PRN PRN Reason: Anxiety Last Admin: 06/22/18 05:28 Dose: 0.5 mg Enoxaparin Sodium (Lovenox) 40 mg SC 0900 [facility] Last Admin: 06/22/18 08:02 Dose: 40 mg Famotidine (Pepcid) 20 mg PO BID [facility] Last Admin: 06/22/18 08:02 Dose: 20 mg Levofloxacin (Levaquin) 500 mg PO 1500 [facility] Levothyroxine Sodium (Synthroid) 100 mcg PO 0600 [facility] Last Admin: 06/22/18 05:22 Dose: 100 mcg Sodium Chloride (Flush - Normal Saline) 10 ml IVF Q12HR [facility] Last Admin: 06/22/18 08:02 Dose: Not Given Sodium Chloride (Flush - Normal Saline) 10 ml IVF PRN PRN PRN Reason: Saline Flush Sodium Chloride (Sodium Chloride) 1 gm PO BID [facility] Tramadol HCl (Ultram) 50 mg PO TIDPRN PRN PRN Reason: Pain Last Admin: 06/22/18 05:28 Dose: 50 mg
--- NOTE | 2018-06-22 17:47 | EKG ---
Test Reason : Blood Pressure : / mmHG Vent. Rate : 077 BPM Atrial Rate : 077 BPM P-R Int : 194 ms QRS Dur : 088 ms QT Int : 416 ms P-R-T Axes : 087 094 087 degrees QTc Int : 470 ms Normal sinus rhythm Rightward axis Borderline ECG When compared with ECG of 07-JUN-2018 14:14, (Unconfirmed) Criteria for Anteroseptal infarct are no longer Present Confirmed by KERVIN RODRIGUEZ (2) on 06/22/2018 5:47:25 PM Referred By: CHRIS Confirmed By:KERVIN RODRIGUEZ
--- NOTE | 2018-06-22 18:06 | RAD ---
PORTABLE AP CHEST XRAY: DATE: 06/22/18. HISTORY: Infiltrate. COMPARISON: 02/13/18. FINDINGS: Large cavitary mass left upper lobe and left lung apex which has increased in size compared to prior exam. There are surgical clips overlying this region. There is now pleural and parenchymal density at the left lung base which may be related to left pleural effusion with parenchymal changes related to pneumonia. Minimal pleural thickening is seen at the right lung apex. The right lung is otherwis e clear. Cardiac silhouette is magnified by projection. Pulmonary vasculature is within normal limi ts. Vascular calcifications are seen in the thoracic aorta. IMPRESSION: 1. Significant interval enlargement of cavitary mass in the left upper lobe/left lung apex when com pared to the prior study on 02/13/18. This may be related to patient's history of tuberculosis and as pergilloma, but neoplastic process is also a possibility. There are surgical clips now overlying thi s region as well. 2. Interval development of pleural and parenchymal changes at the left lung base which may represent small left pleural effusion with parenchymal changes possibly representing pneumonia, but followup t o complete resolution is recommended. 3. Stable remote right clavicle fracture. POS: [facility]
[2018-06-22] MEDS: Sodium Chloride 1 GM TAB PO SCH (20:29)
[2018-06-23 05:06] LABS: Anion Gap 11 mmol/L (10-20); BUN (Urea Nitrogen) Less than 4 mg/dL (8.4-25.7); Calc. Creatinine Clearance 118 mL/min (70-130); Carbon Dioxide 25 mmol/L (22-29); Chloride 94 mmol/L (98-107); Estimated GFR-MDRD Greater than 90; Glucose 92 mg/dL (70-105); Sodium 126 mmol/L (136-145)
[2018-06-23] MEDS: Levothyroxine Sodium 100 MCG TAB PO SCH (05:34)
[2018-06-23] MEDS: traMADol HCl 50 MG TAB PO PRN (05:35)
[2018-06-23] MEDS: clonazePAM 0.5 MG TAB PO PRN (05:35)
[2018-06-23 08:22] LABS: #Basophils 0.1 thou/uL (0.0-0.2); #Eosinphils 0.1 thou/uL (0.0-0.7); #Monocytes 0.5 thou/uL (0.11-0.59); %Eosinophils 1.8 % (0.0-10.0); %Lymphocytes 12.5 % (21.0-51.0); %Monocytes 6.7 % (0.0-10.0); Hemoglobin 8.5 g/dL (14.0-18.0); Mean Corpuscular HGB CONC 32.4 g/dL (32.0-36.0); Mean Corpuscular Hemoglobin 28.8 pg (27.0-31.0); Mean Corpuscular Volume 88.8 fL (78.0-98.0); Mean Platelet Volume 5.9 fL (7.4-10.4); Platelet Count 524 thou/uL (130-400); RBC Distribution Width 16.5 % (11.5-14.5); Red Blood Cell (RBC) Count 2.96 mill/uL (4.70-6.10); White Blood Cell (WBC) Count 7.7 thou/uL (4.8-10.8)
[2018-06-23] MEDS: Famotidine 20 MG TAB PO SCH ×2 (08:22→20:22)
[2018-06-23] MEDS: Enoxaparin Sodium 40 MG/0.4 ML SYRINGE SC SCH (08:22)
[2018-06-23] MEDS: Sodium Chloride 1 GM TAB PO SCH ×2 (08:24→20:22)
--- NOTE | 2018-06-23 11:27 | PDOC.PN ---
- Subjective Encounter Start Date: 06/23/18 Encounter Start Time: 10:50 Subjective: still feels weak, no fever, c/o off and on chills - Objective Resuscitation Status: Resuscitation Status FULL:Full Resuscitation MAR Reviewed: Yes Vital Signs & Weight: Vital Signs (12 hours) Temp Pulse Resp BP Pulse Ox 06/23/18 08:14 98.0 F 80 16 94/55 L 96 06/23/18 08:00 96 06/23/18 06:18 74 16 97 06/23/18 04:00 98.0 F 83 18 105/69 93 L 06/23/18 00:00 97.7 F 93 18 121/76 92 L 06/22/18 23:46 90 16 Weight Admit Weight 129 lb 11.2 oz Weight 141 lb 3 oz I&O: 06/22/18 06/23/18 06/24/18 06:59 06:59 06:59 Intake Total 1645 1330 Output Total 300 1575 Balance 1345 -245 Result Diagrams: 06/23/18 04:18 06/23/18 04:18 Phys Exam - Physical Examination HEENT: PERRLA, moist MMs Neck: no JVD stoma+ Respiratory: no wheezing, no rales Cardiovascular: RRR, no significant murmur Gastrointestinal: soft, non-tender, positive bowel sounds Musculoskeletal: no edema, pulses present Neurological: non-focal, moves all 4 limbs Psychiatric: A&O x 3 Dx/Plan (1) Hypothyroidism Code(s): E03.9 - HYPOTHYROIDISM, UNSPECIFIED Status: Acute Qualifiers: Hypothyroidism type: acquired Qualified Code(s): E03.9 - Hypothyroidism, unspecified (2) Lung cancer Code(s): C34.90 - MALIGNANT NEOPLASM OF UNSP PART OF UNSP BRONCHUS OR LUNG Status: Acute Comment: on treatment with (3) Hyponatremia Code(s): E87.1 - HYPO-OSMOLALITY AND HYPONATREMIA Status: Acute Comment: stable (4) COPD (chronic obstructive pulmonary disease) with emphysema Code(s): J43.9 - EMPHYSEMA, UNSPECIFIED Status: Chronic Qualifiers: Comment: not active (5) Laryngeal squamous cell carcinoma Code(s): C32.9 - MALIGNANT NEOPLASM OF LARYNX, UNSPECIFIED Status: Chronic Comment: h/o laryngectomy, has tracheal stoma, likely is in remission? (6) SIADH (syndrome of inappropriate ADH production) Status: Chronic - Plan CT chest with contrast -: prelim blood cs are -ve -: likely has chronic colonization of staph and stenotrophomonas in his stoma -: continue levaquin, synthroid and nebs -: on oral nacl 1g bid, will d/w and likely home if CT is same as bef * . Review of Systems - Medications/Allergies Allergies/Adverse Reactions: Allergies Allergy/AdvReac Type Severity Reaction Status Date / Time acetaminophen [From Tylenol] Allergy n/v, hives Verified 06/07/18 19:07 Medications: Current Medications Albuterol/Ipratropium (Duoneb) 3 ml NEB [id number] [facility] Last Admin: 06/23/18 06:18 Dose: 3 ml Clonazepam (Klonopin) 0.5 mg PO BIDPRN PRN PRN Reason: Anxiety Last Admin: 06/23/18 05:35 Dose: 0.5 mg Enoxaparin Sodium (Lovenox) 40 mg SC 0900 [facility] Last Admin: 06/23/18 08:22 Dose: 40 mg Famotidine (Pepcid) 20 mg PO BID [facility] Last Admin: 06/23/18 08:22 Dose: 20 mg Levofloxacin (Levaquin) 500 mg PO 1500 [facility] Last Admin: 06/22/18 15:10 Dose: 500 mg Levothyroxine Sodium (Synthroid) 100 mcg PO 0600 [facility] Last Admin: 06/23/18 05:34 Dose: 100 mcg Sodium Chloride (Flush - Normal Saline) 10 ml IVF Q12HR [facility] Last Admin: 06/23/18 08:22 Dose: 10 ml Sodium Chloride (Flush - Normal Saline) 10 ml IVF PRN PRN PRN Reason: Saline Flush Sodium Chloride (Sodium Chloride) 1 gm PO BID [facility] Last Admin: 06/23/18 08:24 Dose: 1 gm Tramadol HCl (Ultram) 50 mg PO TIDPRN PRN PRN Reason: Pain Last Admin: 06/23/18 05:35 Dose: 50 mg
[2018-06-23] MEDS ORDERED: ISOVUE-370 76%-LOCM 1 ML ONE (12:22)
--- NOTE | 2018-06-23 15:14 | CT ---
CT OF CHEST WITH CONTRAST ENHANCEMENT: Comparison: 06-22-18 Chest x-ray; 02-14-18 CT. History: Remote history of TB. History of lung and laryngeal cancer is also give. FINDINGS: There is now a large cavity measuring approximately 5.7 cm in size with an air fluid level within the left upper lobe. On the previous examination in this area was more of a soft tissue density collecti on with a cavitary area directly inferior to this. This all appears contiguous now. There is also mor e consolidation in air bronchograms involving larger portion of the left upper lobe as compared to th e prior study. There are emphysematous lung changes. The right upper lobe is clear. There is atelectatic changes in the right base. Pleural based nodule in the right lower lobe is stable measuring approximately 5-6 mm . There are bilateral pleural effusions, left larger than right, and left lower lobe infiltrative proce ss is seen. I do not appreciate significant mediastinal or hilar adenopathy. There are small right paratracheal n odes although these are not pathologically enlarged they are increased in size as compared to the rafi or examination measuring in the 2-3 mm range on the prior exam, not pressuring 7-8 mm. These still co uld be reactive in nature. Visualized liver parenchyma shows no focal findings. There is some free fluid seen within Butler's pouch region. The right and left adrenal glands are normal. There is mild pericardial effusion. IMPRESSION: 1. Definite change in the appearance of the chest, now with a large cavity with an airfluid level in the left upper lobe with surrounding consolidating appearing infiltrate. I would favor this to be on the basis of an infectious process and an entity such as TB is a prime consideration. 2. Increase in size of the mediastinal nodes, specifically the aorticopulmonary and paratracheal node s are more prominent. These could still be reactive in nature. 3. Moderate left and somewhat small right pleural effusion with right lower lobe atelectasis and left lower lobe infiltrative appearing process which could be on the basis of aspiration. 4. Mild pericardial effusion. 5. Some ascites was incidentally noted. POS: [facility]
--- NOTE | 2018-06-24 02:05 | CON ---
DATE OF CONSULTATION: 06/23/2018 HISTORY OF PRESENT ILLNESS: Sylvain is a 53-year-old male who presented 3 days ago with low sodium an d identified as having hypothyroidism. The patient is well known to me, [facility] years. He is diagnosed with head and neck cancer in 2016. He underwent radiati on therapy for this after surgery which included a laryngectomy. He was seen by me earlier this year . We identified a malignant process involving his left upper lobe and chest wall at that time. He h as subsequently been radiated for that. I first met him in 2012 when he presented with a neck absces s, requiring a stay in the critical care unit. He is also seen here in 2016 with radial artery lacer ation that required surgical repair. In any event, he was consulted for an abnormal chest radiograph . PAST MEDICAL HISTORY: Remarkable for PEG placement, laryngectomy. He has a history of COPD with bul lous lung disease at his apex. 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 FAMILY HISTORY: Negative for lung disease in early age. SOCIAL HISTORY: He is not currently smoking, not drinking or using drugs. REVIEW OF SYSTEMS: Ten-point review of systems is remarkable only for malaise. PHYSICAL EXAMINATION: VITAL SIGNS: Afebrile, heart rate is 81, respiratory rate is 18, oximetry is 93 on room air, blood p ressure 114/72. HEENT: Laryngectomy. He has a large ulcer to the right of his ostomy that most likely is representa tive of radiation burn. LUNGS: Remarkable for equal breath sounds. HEART: Regular rhythm. ABDOMEN: Soft. LABORATORY AND DIAGNOSTIC DATA: White count 7.7, hemoglobin 8.5, platelets 524,000. Sodium 126, pot assium 4, chloride 94, bicarbonate 25, BUN , creatinine 0.62. Chest x-ray shows haziness of his left upper lung field. Chest CT shows left upper lobe alveolar infiltrate with a large area of necr osis. IMPRESSION: 1. 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 I doubt he has tuberculosis. 2. Hyponatremia secondary to hypothyroidism. 3. Severe hypothyroidism with TSH of over 100. I will be happy to follow with the other physicians caring for him. Plan to discuss the above with merged with [facility].
[2018-06-24] MEDS: Levothyroxine Sodium 100 MCG TAB PO SCH (05:25)
[2018-06-24] MEDS: Sodium Chloride 1 GM TAB PO SCH ×2 (08:26→20:29)
[2018-06-24] MEDS: Enoxaparin Sodium 40 MG/0.4 ML SYRINGE SC SCH (08:26)
[2018-06-24] MEDS: Famotidine 20 MG TAB PO SCH ×2 (08:26→20:30)
--- NOTE | 2018-06-24 12:09 | PDOC.PN ---
- Subjective Encounter Start Date: 06/24/18 Encounter Start Time: 11:30 Subjective: feels better, no chills now - Objective Resuscitation Status: Resuscitation Status FULL:Full Resuscitation MAR Reviewed: Yes Vital Signs & Weight: Vital Signs (12 hours) Temp Pulse Resp BP Pulse Ox 06/24/18 08:51 98.3 F 98 18 93/57 L 100 06/24/18 08:20 100 06/24/18 07:24 86 16 90 L Weight Admit Weight 129 lb 11.2 oz Weight 138 lb 6.4 oz I&O: 06/23/18 06/24/18 06/25/18 06:59 06:59 06:59 Intake Total 1330 880 Output Total 1575 Balance -245 880 Result Diagrams: 06/23/18 04:18 06/23/18 04:18 Phys Exam - Physical Examination HEENT: PERRLA, sclera anicteric Neck: no JVD chronic tracheal stoma with non healing ulceration to right lat area neck Respiratory: no wheezing rhonchi+ Cardiovascular: RRR, no significant murmur Gastrointestinal: soft, non-tender, positive bowel sounds Musculoskeletal: no edema, pulses present Neurological: non-focal, moves all 4 limbs Psychiatric: A&O x 3 Dx/Plan (1) Hypothyroidism Code(s): E03.9 - HYPOTHYROIDISM, UNSPECIFIED Status: Acute Qualifiers: Hypothyroidism type: acquired Qualified Code(s): E03.9 - Hypothyroidism, unspecified Comment: likely due to prior radiation (2) Lung cancer Code(s): C34.90 - MALIGNANT NEOPLASM OF UNSP PART OF UNSP BRONCHUS OR LUNG Status: Chronic Comment: on treatment with (3) Hyponatremia Code(s): E87.1 - HYPO-OSMOLALITY AND HYPONATREMIA Status: Chronic Comment: stable (4) COPD (chronic obstructive pulmonary disease) with emphysema Code(s): J43.9 - EMPHYSEMA, UNSPECIFIED Status: Chronic Qualifiers: Comment: not active (5) Laryngeal squamous cell carcinoma Code(s): C32.9 - MALIGNANT NEOPLASM OF LARYNX, UNSPECIFIED Status: Chronic Comment: h/o laryngectomy, has tracheal stoma, likely is in remission? (6) SIADH (syndrome of inappropriate ADH production) Status: Chronic - Plan has chronic left lung upper lobe cavity with enlargement now -: has finished his treatment for TB, ?worsoning aspergillus/malignancy -: has issues with aspiration as well -: overall prognosis is guarded -: dc plan per 's advice * . Review of Systems - Medications/Allergies Allergies/Adverse Reactions: Allergies Allergy/AdvReac Type Severity Reaction Status Date / Time acetaminophen [From Tylenol] Allergy n/v, hives Verified 06/07/18 19:07 Medications: Current Medications Albuterol/Ipratropium (Duoneb) 3 ml NEB [id number] [facility] Last Admin: 06/24/18 07:24 Dose: 3 ml Clonazepam (Klonopin) 0.5 mg PO BIDPRN PRN PRN Reason: Anxiety Last Admin: 06/23/18 05:35 Dose: 0.5 mg Enoxaparin Sodium (Lovenox) 40 mg SC 0900 [facility] Last Admin: 06/24/18 08:26 Dose: 40 mg Famotidine (Pepcid) 20 mg PO BID [facility] Last Admin: 06/24/18 08:26 Dose: 20 mg Levofloxacin (Levaquin) 500 mg PO 1500 [facility] Last Admin: 06/23/18 15:21 Dose: 500 mg Levothyroxine Sodium (Synthroid) 100 mcg PO 0600 [facility] Last Admin: 06/24/18 05:25 Dose: 100 mcg Sodium Chloride (Flush - Normal Saline) 10 ml IVF Q12HR [facility] Last Admin: 06/24/18 08:26 Dose: 10 ml Sodium Chloride (Flush - Normal Saline) 10 ml IVF PRN PRN PRN Reason: Saline Flush Sodium Chloride (Sodium Chloride) 1 gm PO BID [facility] Last Admin: 06/24/18 08:26 Dose: 1 gm Tramadol HCl (Ultram) 50 mg PO TIDPRN PRN PRN Reason: Pain Last Admin: 06/23/18 05:35 Dose: 50 mg
--- NOTE | 2018-06-24 13:45 | PRG ---
DATE OF SERVICE: 06/24/2018 Mr. Narayan did well overnight. He has no new complaints. He says he feels like he has a little bit more energy. PHYSICAL EXAMINATION: VITAL SIGNS: He is afebrile, heart rate 88, respiratory rate is 18, oximetry is 94% on room air, blo od pressure 113/70. CHEST: He denies having any chest pain or discomfort. His lungs are clear. HEART: Regular rhythm. IMPRESSION: 1. 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 2. 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 3. Status post laryngectomy. 4. Anemia of chronic disease. 5. History of bullous lung disease with an aspergilloma. I really doubt he has a progressive Asperg illus infection in his left upper lobe. It is much more likely that this is radiation necrosis of th at lobe. 6. Hypothyroidism, now actually on full dose Synthroid replacement already. I am not sure he needs antimicrobial therapy at this point. There is nothing clinically to suggest t hat he has an acute infection. There is no doubt his left upper lobe is colonized with bacteria. Tr acheal aspirate cultures will not be very helpful. He has grown Staph out of his cultures, which is oxacillin sensitive, but I do not feel this needs to be treated.
[2018-06-25] MEDS: Levothyroxine Sodium 100 MCG TAB PO SCH (05:32)
[2018-06-25 05:58] LABS: #Eosinphils 0.2 thou/uL (0.0-0.7); #Lymphocytes 0.9 thou/uL (1.20-3.40); #Monocytes 0.7 thou/uL (0.11-0.59); #Neutrophils 4.4 thou/uL (1.40-6.50); %Basophils 0.6 % (0.0-1.0); %Eosinophils 3.2 % (0.0-10.0); %Lymphocytes 14.2 % (21.0-51.0); %Monocytes 11.1 % (0.0-10.0); %Neutrophils 70.9 % (42.0-75.0); Hemoglobin 8.4 g/dL (14.0-18.0); Mean Corpuscular HGB CONC 32.8 g/dL (32.0-36.0); Mean Corpuscular Hemoglobin 28.6 pg (27.0-31.0); Mean Corpuscular Volume 87.3 fL (78.0-98.0); Mean Platelet Volume 5.8 fL (7.4-10.4); Platelet Count 487 thou/uL (130-400); RBC Distribution Width 16.2 % (11.5-14.5); Red Blood Cell (RBC) Count 2.92 mill/uL (4.70-6.10); White Blood Cell (WBC) Count 6.2 thou/uL (4.8-10.8)
[2018-06-25 06:15] LABS: Anion Gap 9 mmol/L (10-20); BUN (Urea Nitrogen) Less than 4 mg/dL (8.4-25.7); Calc. Creatinine Clearance 119 mL/min (70-130); Carbon Dioxide 26 mmol/L (22-29); Chloride 95 mmol/L (98-107); Estimated GFR-MDRD Greater than 90; Glucose 99 mg/dL (70-105); Potassium 3.7 mmol/L (3.5-5.1); Sodium 126 mmol/L (136-145)
[2018-06-25] MEDS: Sodium Chloride 1 GM TAB PO SCH ×2 (08:40→20:21)
[2018-06-25] MEDS: Enoxaparin Sodium 40 MG/0.4 ML SYRINGE SC SCH (08:40)
[2018-06-25] MEDS: Famotidine 20 MG TAB PO SCH ×2 (08:40→20:33)
--- NOTE | 2018-06-25 10:38 | PDOC.PN ---
- Subjective Encounter Start Date: 06/25/18 Encounter Start Time: 07:15 Subjective: no new complaints -: feels better - Objective Resuscitation Status: Resuscitation Status FULL:Full Resuscitation MAR Reviewed: Yes Vital Signs & Weight: Vital Signs (12 hours) Temp Pulse Resp BP BP Pulse Ox 06/25/18 08:54 98.3 F 97 18 118/76 97 06/25/18 08:30 97 06/25/18 06:54 90 20 94 L 06/25/18 04:33 98.5 F 87 19 118/76 95 06/25/18 00:12 98.8 F 88 18 115/74 98 06/25/18 00:04 95 20 94 L Weight Admit Weight 129 lb 11.2 oz Weight 135 lb 9.6 oz I&O: 06/24/18 06/25/18 06/26/18 06:59 06:59 06:59 Intake Total 880 1200 Output Total 1900 Balance 880 -700 Result Diagrams: 06/25/18 05:34 06/25/18 05:34 Phys Exam - Physical Examination HEENT: PERRLA, moist MMs Neck: no JVD tracheal stoma+ Respiratory: no wheezing, no rales Cardiovascular: RRR, no significant murmur Gastrointestinal: soft, non-tender, positive bowel sounds Musculoskeletal: no edema, pulses present Neurological: non-focal, moves all 4 limbs Psychiatric: A&O x 3 Dx/Plan (1) Hypothyroidism Code(s): E03.9 - HYPOTHYROIDISM, UNSPECIFIED Status: Acute Qualifiers: Hypothyroidism type: acquired Qualified Code(s): E03.9 - Hypothyroidism, unspecified Comment: likely due to prior radiation (2) Lung cancer Code(s): C34.90 - MALIGNANT NEOPLASM OF UNSP PART OF UNSP BRONCHUS OR LUNG Status: Chronic Comment: on treatment with (3) Hyponatremia Code(s): E87.1 - HYPO-OSMOLALITY AND HYPONATREMIA Status: Chronic Comment: stable (4) COPD (chronic obstructive pulmonary disease) with emphysema Code(s): J43.9 - EMPHYSEMA, UNSPECIFIED Status: Chronic Qualifiers: (5) Laryngeal squamous cell carcinoma Code(s): C32.9 - MALIGNANT NEOPLASM OF LARYNX, UNSPECIFIED Status: Chronic Comment: h/o laryngectomy, has tracheal stoma, likely is in remission? (6) SIADH (syndrome of inappropriate ADH production) Status: Chronic - Plan off levaquin -: on synthroid, nebs and nacl tabs -: may dc home if ok with * . Review of Systems - Medications/Allergies Allergies/Adverse Reactions: Allergies Allergy/AdvReac Type Severity Reaction Status Date / Time acetaminophen [From Tylenol] Allergy n/v, hives Verified 06/07/18 19:07 Medications: Current Medications Albuterol/Ipratropium (Duoneb) 3 ml NEB [id number] [facility] Last Admin: 06/25/18 06:54 Dose: 3 ml Clonazepam (Klonopin) 0.5 mg PO BIDPRN PRN PRN Reason: Anxiety Last Admin: 06/23/18 05:35 Dose: 0.5 mg Enoxaparin Sodium (Lovenox) 40 mg SC 0900 [facility] Last Admin: 06/25/18 08:40 Dose: 40 mg Famotidine (Pepcid) 20 mg PO BID [facility] Last Admin: 06/25/18 08:40 Dose: 20 mg Levothyroxine Sodium (Synthroid) 100 mcg PO 0600 [facility] Last Admin: 06/25/18 05:32 Dose: 100 mcg Sodium Chloride (Flush - Normal Saline) 10 ml IVF Q12HR [facility] Last Admin: 06/25/18 08:40 Dose: 10 ml Sodium Chloride (Flush - Normal Saline) 10 ml IVF PRN PRN PRN Reason: Saline Flush Sodium Chloride (Sodium Chloride) 1 gm PO BID [facility] Last Admin: 06/25/18 08:40 Dose: 1 gm Tramadol HCl (Ultram) 50 mg PO TIDPRN PRN PRN Reason: Pain Last Admin: 06/23/18 05:35 Dose: 50 mg
--- NOTE | 2018-06-25 13:22 | PRG ---
DATE OF SERVICE: 06/25/2018 SUBJECTIVE: Kody Narayan has no new complaints. I inquired about how much exercise he was given in the hospital and he has not received any. He says he has not been out of bed for any walks and is no t spending any time up in a chair. He is concerned about going home, stating that he is very weak. He has been living with his aunt. OBJECTIVE: VITAL SIGNS: He is afebrile, heart rate is 91, respiratory rate is 18, oximetry is 100, blood pressu re 114/70. LUNGS: Clear. HEART: Regular rhythm. ABDOMEN: Soft. Apparently, he has applied for disability and was never given permanent disability. LABORATORY DATA: His white count 6.2, hemoglobin 8.4, platelets 47. Electrolytes are remarkable onl y for sodium of 126, which I suspect is still related to hypothyroidism. IMPRESSION: 1. Myxedema, which should gradually clinically improve. 2. Head and neck cancer with a very large ulcer adjacent to his tracheal stoma, most likely secondar y to radiation necrosis of his skin. 3. Chest wall and lung mass that was biopsy-proven to be malignant. He now has necrosis of his left upper lobe. 4. Cachexia. He is 6 feet 3 inches, 135 pounds. 5. Hyponatremia, secondary to hypothyroidism. 6. Extreme deconditioning. 7. Underlying obstructive lung disease. 8. History of an aspergilloma. 9. Positive blood culture with Staphylococcus aureus, likely a contaminant. PLAN: He needs physical therapy or placement in a skilled facility for physical therapy. He at least needs to be walking a reasonable distance before he can go to the house. In my opinion, Mr. Narayan is 100% disabled. If a reviewer would look at the above problem list, he w ould discover that there is no way Mr. Narayan could be employed to do anything. If a reviewer would meet him in person, this would become instantly clear. Hopefully, he can reapply for disability.
[2018-06-25 14:18] VITALS: BMI 16.9
[2018-06-25] MEDS: traMADol HCl 50 MG TAB PO PRN (20:34)
[2018-06-26] MEDS: Levothyroxine Sodium 100 MCG TAB PO SCH (05:26)
[2018-06-26] MEDS: Sodium Chloride 1 GM TAB PO SCH ×2 (09:33→20:33)
[2018-06-26] MEDS: Famotidine 20 MG TAB PO SCH ×2 (09:33→20:32)
[2018-06-26] MEDS: Enoxaparin Sodium 40 MG/0.4 ML SYRINGE SC SCH (09:33)
[2018-06-26] MEDS ORDERED: Bisacodyl 10 MG SUPP PR SCH (10:45)
--- NOTE | 2018-06-26 13:39 | PDOC.PN ---
- Subjective Encounter Start Date: 06/26/18 Encounter Start Time: 10:45 Subjective: feels better, no sob -: is drinking ensure, says he is finishing his plate of meals - Objective Resuscitation Status: Resuscitation Status FULL:Full Resuscitation MAR Reviewed: Yes Vital Signs & Weight: Vital Signs (12 hours) Temp Pulse Resp BP Pulse Ox 06/26/18 11:08 98.1 F 86 20 127/82 95 06/26/18 08:05 97.5 F L 88 20 129/81 93 L Weight Admit Weight 129 lb 11.2 oz Weight 135 lb 14.4 oz I&O: 06/25/18 06/26/18 06/27/18 06:59 06:59 06:59 Intake Total 1200 740 Output Total 1900 1200 Balance -700 -460 Result Diagrams: 06/25/18 05:34 06/25/18 05:34 Phys Exam - Physical Examination HEENT: PERRLA, moist MMs Neck: no JVD chronic tracheal stoma with ulceration on right lat neck Respiratory: no wheezing, no rales Cardiovascular: RRR, no significant murmur Gastrointestinal: soft, non-tender, positive bowel sounds Musculoskeletal: no edema, pulses present Neurological: non-focal, moves all 4 limbs Psychiatric: normal affect, A&O x 3 Dx/Plan (1) Hypothyroidism Code(s): E03.9 - HYPOTHYROIDISM, UNSPECIFIED Status: Acute Qualifiers: Hypothyroidism type: acquired Qualified Code(s): E03.9 - Hypothyroidism, unspecified Comment: likely due to prior radiation (2) Lung cancer Code(s): C34.90 - MALIGNANT NEOPLASM OF UNSP PART OF UNSP BRONCHUS OR LUNG Status: Chronic Comment: on treatment with (3) Hyponatremia Code(s): E87.1 - HYPO-OSMOLALITY AND HYPONATREMIA Status: Chronic Comment: stable (4) COPD (chronic obstructive pulmonary disease) with emphysema Code(s): J43.9 - EMPHYSEMA, UNSPECIFIED Status: Chronic Qualifiers: (5) Laryngeal squamous cell carcinoma Code(s): C32.9 - MALIGNANT NEOPLASM OF LARYNX, UNSPECIFIED Status: Chronic Comment: h/o laryngectomy, has tracheal stoma, likely is in remission? (6) SIADH (syndrome of inappropriate ADH production) Status: Chronic - Plan has ambulated 80ft with rw, he does not want to go to rehab/snf -: is not interested in peg (had peg x2 previously), says can eat orally well -: ensure 1 can tid, rolling walker for home use -: CM trying to find HH and resources for applying for disability via cancer c -: -enter/hosp financial analysis consultant. Continue synthroid, nebs prn * . Review of Systems - Medications/Allergies Allergies/Adverse Reactions: Allergies Allergy/AdvReac Type Severity Reaction Status Date / Time acetaminophen [From Tylenol] Allergy n/v, hives Verified 06/07/18 19:07 Medications: Current Medications Albuterol/Ipratropium (Duoneb) 3 ml NEB [id number] [facility] Last Admin: 06/26/18 13:37 Dose: Not Given Clonazepam (Klonopin) 0.5 mg PO BIDPRN PRN PRN Reason: Anxiety Last Admin: 06/23/18 05:35 Dose: 0.5 mg Enoxaparin Sodium (Lovenox) 40 mg SC 0900 [facility] Last Admin: 06/26/18 09:33 Dose: 40 mg Famotidine (Pepcid) 20 mg PO BID [facility] Last Admin: 06/26/18 09:33 Dose: 20 mg Levothyroxine Sodium (Synthroid) 100 mcg PO 0600 [facility] Last Admin: 06/26/18 05:26 Dose: 100 mcg Sodium Chloride (Flush - Normal Saline) 10 ml IVF Q12HR [facility] Last Admin: 06/26/18 09:33 Dose: 10 ml Sodium Chloride (Flush - Normal Saline) 10 ml IVF PRN PRN PRN Reason: Saline Flush Sodium Chloride (Sodium Chloride) 1 gm PO BID [facility] Last Admin: 06/26/18 09:33 Dose: 1 gm Tramadol HCl (Ultram) 50 mg PO TIDPRN PRN PRN Reason: Pain Last Admin: 06/25/18 20:34 Dose: 50 mg
[2018-06-26] MEDS: traMADol HCl 50 MG TAB PO PRN (20:41)
[2018-06-26 20:44] VITALS: TEMP 98.3
[2018-06-27] MEDS: Levothyroxine Sodium 100 MCG TAB PO SCH (06:12)
[2018-06-27 07:37] VITALS: BP 118/76
[2018-06-27] MEDS: Famotidine 20 MG TAB PO SCH (08:28)
[2018-06-27] MEDS: Enoxaparin Sodium 40 MG/0.4 ML SYRINGE SC SCH (08:28)
[2018-06-27] MEDS: Sodium Chloride 1 GM TAB PO SCH (08:28)
--- NOTE | 2018-06-27 12:54 | PDOC.PN ---
- Subjective Encounter Start Date: 06/27/18 Encounter Start Time: 09:00 Subjective: feels good, no sob -: has ambulated 180ft with rw - Objective Resuscitation Status: Resuscitation Status FULL:Full Resuscitation MAR Reviewed: Yes Vital Signs & Weight: Vital Signs (12 hours) Temp Pulse Resp BP Pulse Ox 06/27/18 08:00 91 L 06/27/18 07:37 98.3 F 83 18 118/76 91 L 06/27/18 06:11 93 12 94 L Weight Admit Weight 129 lb 11.2 oz Weight 141 lb 2 oz I&O: 06/26/18 06/27/18 06/28/18 06:59 06:59 06:59 Intake Total 740 1274 Output Total 1200 2300 Balance -460 -1026 Result Diagrams: 06/25/18 05:34 06/25/18 05:34 Phys Exam - Physical Examination HEENT: PERRLA, moist MMs Neck: no JVD tracheal stoma with lat neck ulcer Respiratory: no wheezing, no rales Cardiovascular: RRR, no significant murmur Gastrointestinal: soft, non-tender, positive bowel sounds Musculoskeletal: no edema, pulses present Neurological: non-focal, moves all 4 limbs Psychiatric: normal affect, A&O x 3 Dx/Plan (1) Hypothyroidism Code(s): E03.9 - HYPOTHYROIDISM, UNSPECIFIED Status: Acute Qualifiers: Hypothyroidism type: acquired Qualified Code(s): E03.9 - Hypothyroidism, unspecified Comment: likely due to prior radiation (2) Lung cancer Code(s): C34.90 - MALIGNANT NEOPLASM OF UNSP PART OF UNSP BRONCHUS OR LUNG Status: Chronic Comment: on treatment with (3) Hyponatremia Code(s): E87.1 - HYPO-OSMOLALITY AND HYPONATREMIA Status: Chronic Comment: stable (4) COPD (chronic obstructive pulmonary disease) with emphysema Code(s): J43.9 - EMPHYSEMA, UNSPECIFIED Status: Chronic Qualifiers: (5) Laryngeal squamous cell carcinoma Code(s): C32.9 - MALIGNANT NEOPLASM OF LARYNX, UNSPECIFIED Status: Chronic Comment: h/o laryngectomy, has tracheal stoma, likely is in remission? (6) SIADH (syndrome of inappropriate ADH production) Status: Chronic - Plan hemostable -: dc pt home -: HH has been set up, needs tsh, free T3,4 in 5 weeks -: has ensure cans and medications for discharge -: counselled reg paper work to apply for disability on saturday * .
--- NOTE | 2018-06-28 19:07 | DIS ---
DATE OF ADMISSION: 06/20/2018 DATE OF DISCHARGE: 06/27/2018 DISCHARGE DISPOSITION: To home. PRIMARY DISCHARGE DIAGNOSES: Myxedema with hypothyroidism, likely due to prior radiation therapy for laryngeal cancer; hyponatremia. 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 PROCEDURES DONE DURING HOSPITALIZATION: CT chest done on 06/23/2018 showed large cavity with an air fluid level in the left upper lobe with surrounding consolidating appearing infiltrate. This is a change in the size of the prior cavity, increase in size of mediastinal nodes, specifically aortic pulmonary and paratracheal nodes, bilateral pleural effusion, mild pericardial effusion. Blood cultures x2 no growth. Urine cultures no growth. Hemoglobin and hematocrit 8 and 25, platelet count 487, MCV is 87. White count of 6. Had a TSH of 127 on the day of admission. Free T4 less than 0.40. Discharge sodium of 126. Admitting sodium 119. Cortisol level was 7 and albumin 2.7. DISCHARGE MEDICATIONS: Synthroid 100 mcg p.o. daily, clonazepam 0.5 mg p.o. twice daily, sodium chloride 1 gram tablet twice daily and DuoNebs q.6 hourly p.r.n. ALLERGIES: TYLENOL. DISCHARGE PLAN: Patient to follow up with Dr. Bradshaw and Dr. Phoenix as advised and primary care physician in 1 week. BRIEF COURSE DURING HOSPITALIZATION: Patient initially was sent from Dr. Bradshaw's office for very high TSH and low sodium levels. He has had prior history of laryngeal cancer and is undergoing treatment for lung cancer as well. He has had prior radiation as well. The patient was in myxedema likely due to prior radiation therapy for laryngeal cancer. He was loaded up on Synthroid. The patient also had history of chronic hyponatremia with further worsening with sodium levels dropping down to 118. Has had a CT chest done which showed enlargement of his prior left lung cavity as well. Dr. Phoenix was consulted for Pulmonary and Critical Care. He has had severe deconditioning and has done remarkably well with that. Home health and medication assistance were provided including a rolling walker. The patient needs to apply for disability, which will help with this Medicaid and prescription coverage. He is currently living with his aunt. He is ambulating 180 feet with a rolling walker prior to discharge. The patient's BMI is 17 with patient being 141 pounds and is 6 feet 3 inches. He was counseled with regards to drinking Ensure 1 can 3 times daily. A month's supply of the same has been provided at the time of discharge. The patient was counseled multiple times with regards to applying for disability on Saturday and other information towards the same has been provided by case management. He also needs to closely [facility] with [facility] worker as well who has been notified of patient's current social situation by case managers. Please see a [id number] documentation on [facility] for the day of discharge. DARY
== END 2018-06-27 11:52 | disposition home or self-care (01) | DRG 643 ==
LOC: ERS 14:21 → 2NO 19:28 → T4-B 06-20 16:53
PROVIDERS: ADMIT Internal Medicine Infectious Disease; ATTEND Internal Medicine Infectious Disease
DX: E89.0 Postprocedural hypothyroidism (principal); J85.0 Gangrene and necrosis of lung; E22.2 Syndrome of inappropriate secretion of antidiuretic hormone; R64 Cachexia; Z68.1 Body mass index [BMI] 19.9 or less, adult; C34.12 Malignant neoplasm of upper lobe, left bronchus or lung; C32.9 Malignant neoplasm of larynx, unspecified; Z85.118 Personal history of other malignant neoplasm of bronchus and lung; J44.9 Chronic obstructive pulmonary disease, unspecified; Z87.891 Personal history of nicotine dependence; Z79.899 Other long term (current) drug therapy; Z92.3 Personal history of irradiation
CPT/HCPCS: 36415; 71045; 71260; 80048; 82533; 82570; 83930; 83935; 84300; 84439; 84550; 85025; 87040; 87070; 87077; 87086; 87186; 87205; 90471; 90670; 93005; 93010; 94640; 99285; A4216; A4217; G0009; G8978-GP-CL; G8979-GP-CK; J1650; J7620

== ENCOUNTER 2018-08-31 15:20 | Inpatient (IN) | payer OTHER, SELFPAY ==
[2018-08-31] MEDS ORDERED: Morphine 4 MG/ML VIAL ONE ×2 (16:37→18:42)
[2018-08-31] MEDS ORDERED: Iopamidol 370 76% 100 ML VIAL ONE (16:39)
[2018-08-31 17:50] LABS: ALT (SGPT) Less than 7 U/L (8-55); AST (SGOT) 17 U/L (5-34); Albumin 2.8 g/dL (3.5-5.0); Alkaline Phosphatase 192 U/L (40-150); Anion Gap 15 mmol/L (10-20); BUN (Urea Nitrogen) 7 mg/dL (8.4-25.7); Bilirubin, Total 0.3 mg/dL (0.2-1.2); Calc. Creatinine Clearance 0 mL/min (70-130); Calcium 11.1 mg/dL (7.8-10.44); Carbon Dioxide 23 mmol/L (22-29); Chloride 88 mmol/L (98-107); Estimated GFR-MDRD 69; Globulin 4.2 g/dL (2.4-3.5); Glucose 95 mg/dL (70-105); Potassium 3.4 mmol/L (3.5-5.1); Sodium 123 mmol/L (136-145)
[2018-08-31 18:06] LABS: Hemoglobin 10.2 g/dL (14.0-18.0); Mean Corpuscular HGB CONC 33.3 g/dL (32.0-36.0); Mean Corpuscular Hemoglobin 27.3 pg (27.0-31.0); Mean Corpuscular Volume 81.9 fL (78.0-98.0); Mean Platelet Volume 6.2 fL (7.4-10.4); Platelet Count 593 thou/uL (130-400); RBC Distribution Width 13.6 % (11.5-14.5); Red Blood Cell (RBC) Count 3.73 mill/uL (4.70-6.10); White Blood Cell (WBC) Count 38.8 thou/uL (4.8-10.8)
--- NOTE | 2018-08-31 18:09 | CT ---
CT OF THE CHEST WITH CONTRAST: Comparison: 06-23-18 History: History of lung cancer and laryngeal cancer. Mass in the left chest wall and chest wall pain . Evaluate for metastatic disease. Technique: Multiple contiguous axial images were obtained in a CT of the chest with contrast. Coronal reformats were performed. FINDINGS: There is cavitary region in the left upper lobe, unchanged in size, with adjacent atelectasis. Emphys ematous changes are seen in the lungs. No pleural effusion is seen. The heart is normal in size without focal cardiac abnormality. No hilar or mediastinal lymphadenopath y are seen. There is a large mass in the anterior left chest wall with adjacent surgical clips. This has a centra l low density consistent with necrosis and measures 3.6 cm in size. There is a very large mass in the left axillary region also demonstrating central necrosis measuring 7.6 cm in size. These likely repr esent enlarged lymph nodes. No right axillary adenopathy is seen. The visualized subdiaphragmatic structures are unremarkable. There are fractures of the left 9th and 10th ribs. The fracture of the 10th rib is new compared to the prior examination and has an area of l ucency adjacent to the fracture measuring 1.3 cm in size. IMPRESSION: 1. Left axillary and anterior chest wall masses likely representing enlarged necrotic lymph nodes and likely secondary to recurrent disease. 2. Stable cavitary lesion in the left upper lobe. 3. New left 10th rib fracture with adjacent lytic lesion could represent a bony metastasis. POS: EWELINA
[2018-08-31 18:18] LABS: Band 20 % (5-11); Eosinophils 1 % (0-10); MDiff Complete? YES; Monocytes 7 % (0-10); Neutrophil 72 % (42-75); PLT Morphology Comment Appears Increased; Polychromasia SLIGHT = 2-3 cells (100X) (0-2/hpf); Toxic Granulation SLIGHT; Vacuoles SLIGHT
[2018-09-01] MEDS ORDERED: Morphine 2 MG/ML SYRINGE ONE ×2 (03:13→08:32)
[2018-09-01] MEDS ORDERED: Senokot S 8.6-50 MG TAB PO PRN ×2 (09:21)
[2018-09-01] MEDS ORDERED: Nitroglycerin 0.4 MG TAB (25 Tab Bottle) SL PRN (09:21)
[2018-09-01] MEDS ORDERED: Benzonatate 100 MG CAP PO PRN (09:21)
[2018-09-01] MEDS ORDERED: hydrALAZINE 20 MG/ML VIAL SLOW IVP PRN (09:21)
[2018-09-01] MEDS ORDERED: Ondansetron PF 4 MG/2 ML Vial IVP PRN ×2 (09:21)
[2018-09-01] MEDS ORDERED: cloNIDine 0.1 MG TAB PO PRN (09:21)
[2018-09-01] MEDS ORDERED: Bisacodyl 5 MG TAB PO PRN ×2 (09:21)
[2018-09-01] MEDS ORDERED: Sodium Chloride 0.9% 1,000 ML IV SCH (09:30)
[2018-09-01 10:03] LABS: Anion Gap 10 mmol/L (10-20); BUN (Urea Nitrogen) 6 mg/dL (8.4-25.7); Calc. Creatinine Clearance 0 mL/min (70-130); Calcium 11.3 mg/dL (7.8-10.44); Carbon Dioxide 32 mmol/L (22-29); Chloride 89 mmol/L (98-107); Estimated GFR-MDRD 70; Glucose 99 mg/dL (70-105); Potassium 3.1 mmol/L (3.5-5.1); Sodium 128 mmol/L (136-145)
[2018-09-01 12:31] VITALS: BMI 14.8
[2018-09-01] MEDS ORDERED: Iopamidol 370 76% 100 ML VIAL ONE (12:46)
[2018-09-01 13:56] LABS: Bilirubin Negative (Negative); Blood, Urine Large (Negative); Clarity CLEAR (Clear); Glucose, Urine (Dipstick) Negative (Negative); Leukocyte Small (Negative); Nitrite Negative (Negative); Protein, Urine (Dipstick) Trace mg/dL (Neg-Trace); Specific Gravity, Urine 1.021 (1.002-1.036); Urobilinogen 0.2 mg/dL (0.2-1.0); pH, Urine 7.5 (5.0-9.0)
[2018-09-01 14:03] LABS: Bacteria/HPF None Seen HPF (None Seen); Hyaline Casts/LPF 0-3 HYALINE CAST LPF (0-3 Hyaline); RBC/HPF GREATER THAN 50-TNTC HPF (0-3); Squamous Epithelial None Seen HPF (0-3)
[2018-09-01] MEDS: Morphine 4 MG/ML VIAL SLOW IVP PRN ×3 (14:05→22:54)
[2018-09-01] MEDS: Cefepime 1 GM in Sodium Chloride 0.9% 100 ML IVPB SCH (15:35)
[2018-09-01] MEDS: Sodium Chloride 0.9% 1,000 ML IV SCH (15:35)
[2018-09-01] MEDS ORDERED: Vancomycin HCl 1 GM in Premix Bag 1 BAG IVPB SCH (16:00)
[2018-09-01] MEDS: Potassium Chloride 20 MEQ in Premix Bag 1 BAG IVPB SCH ×2 (16:16→18:26)
--- NOTE | 2018-09-01 17:10 | HP ---
PRIMARY CARE PHYSICIAN: None. PRIMARY ONCOLOGIST: Dr. Bradshaw. CHIEF COMPLAINT: Chest wall pain, a new lump on the chest wall. HISTORY OF PRESENT ILLNESS: Mr. Narayan is a pleasant 53-year-old male with past medical history of squamous cell carcinoma of the larynx, status post tracheostomy and chronic skin ulceration on the trach as well as history of chronic hyponatremia likely due to SIADH; COPD; history of lung cancer, status post chemotherapy and radiation, who presented to the emergency room with above-mentioned complaints. History is mainly obtained by the patient himself, but it is a little bit difficult to obtain as the patient has tracheostomy and is not able to verbalize. He communicates per writing on the paper. He was recently admitted to our facility from 06/20/2018 to 06/27/2018, at which time he was diagnosed with myxedema due to hypothyroidism. CT of the chest done on 06/23/2018 showed a large cavity with air fluid level in the left upper lobe with surrounding consolidating appearing infiltrate. This has increased in size as well as increase in size of the mediastinal lymph nodes and pulmonary and paratracheal lymph nodes were noticed. He was seen by Pulmonary Medicine, Dr. Phoenix, during this hospitalization, but I am not sure if he was evaluated by Oncology at that time. Nevertheless, Mr. Narayan reported today that he has finished treatment with radiation and chemotherapy 3 months ago for his lung cancer or laryngeal cancer, I am not sure. He reports that he was "cured." He presented to the ER last night, when he noticed that he has been having significant pain in the chest wall and noticed a new lump. He also noticed a lump in the left armpit and significant pain in the left anterior chest wall outside of the lump. He denies having any fever, but has been having some chills and malaise. He reports independence with his ADLs and IDLs and reports good appetite, though he appears severely cachectic. He does have a chronic tracheostomy open wound, which has been draining significant amount of purulent discharge, which he reports has not changed in quantity or consistency. He does report some sick contacts in the house and has noticed some increased cough. Otherwise, he denies any nausea, vomiting, or diarrhea. He denies any increased urinary frequency, urgency, or dysuria. Upon presentation to the emergency room, his vital signs were stable. He was tachycardic; however, with a heart rate of 103. His temperature was not recorded in the ER notes. He was found to have drainage from his tracheal stoma. He was found to have a tender mass in left anterior chest wall and a left axillary nodule, which was tender. He underwent a CT angio of the chest because of these findings. The chest CT showed the left apical cavitary mass, which apparently has been there since at least May. Once again, it was not known if an infectious workup for this was done or not. He was now also found to have a metastatic lymph node to the left anterior chest wall and left axilla as well as left 10th pathological rib fracture with lytic bone lesion on the left 10th rib. He was admitted for pain control. Incidentally, his WBC count is elevated to over 38,000 with left shift with 20% bands. His sodium is at 123, which seems to be his baseline. He has elevated alkaline phosphatase with normal AST and ALT. PAST MEDICAL HISTORY: 1. History of squamous cell carcinoma of the larynx, status post tracheostomy and radiation therapy. 2. New diagnosis of lung cancer, unknown type, in 05/2008, with unknown type of treatment as an outpatient. 3. Known history of left rib metastasis according to the H and P done on 06/19/[address] Schofield. 4. History of chronic hyponatremia, likely due to SIADH. 5. COPD. 6. History of tuberculosis, treated to completion. 7. History of tobacco abuse. 8. History of cavitary lesion of the left upper lobe, which appeared to be a mycetoma at the center of the lower edge cavitary section according to note dictated by Infectious Disease, Dr. Nicole, on 02/26/2018. PAST SURGICAL HISTORY: 1. History of PEG tube placement with subsequent removal. 2. History of total laryngectomy. 3. Tracheostomy. 4. Lymph node dissection. ALLERGIES: INCLUDE ACETAMINOPHEN. SOCIAL HISTORY: He reports that he lives with his family and has a [id number] smoking history, but quit a few years ago. He has no history of drug or alcohol abuse. FAMILY HISTORY: Significant for brother and aunt who also had cancer. MEDICATIONS: Current home medications have not been reconciled so far. REVIEW OF SYSTEMS: A 10-point review of systems was done. It is negative except for those mentioned in the history and physical. DIAGNOSTIC STUDIES: LABORATORY RESULTS: CBC shows WBCs of 38.8 with 20% bands, hemoglobin is 10.8, and platelet count of 593. Serum chemistry shows sodium of 123 with repeat sodium of 128, potassium 3.4, chloride 88, alkaline phosphatase is elevated to 192, albumin is down at 2.8. Urinalysis shows rbc's, some wbc's, and leukocyte esterase without any bacteria. IMAGING STUDIES: CT scan of the chest by my review is consistent with the findings mentioned in the HPI. He has a left axillary and anterior chest well masses likely representing enlarged necrotic lymph nodes, likely secondary to recurrent disease and a stable cavitary lesion in the left upper lobe. He also has a new left 10th rib fracture with a different lytic lesion representing possibly a bony metastasis. CODE STATUS: Full code, discussed with the patient in detail. PHYSICAL EXAMINATION: VITAL SIGNS: Most recent vital signs; temperature 97.5, pulse of 78, respirations 18, saturating 96% on room air, and blood pressure 154/78. GENERAL: He is thin and cachectic appearing, frail looking, but in no acute distress. He appears to be in good spirits. HEENT: Mucous membrane is slightly dry. No oropharyngeal exudate or erythema. Head is normocephalic and atraumatic. Pupils equal and reactive to light and accommodation. Extraocular movement intact. NECK: Neck has a chronically draining tracheostomy in the midline with significant purulent discharge. Skin is ulcerated adjacent to the stoma on the right side. CHEST: Clear to auscultation bilaterally; however, he has a very tender mass anteriorly in the left upper chest near the 2nd and 3rd rib as well as a tender lymphadenopathy in the left axillary area and tenderness to palpation in the 10th and 11th rib cage area. The anterior chest wall mass is approximately 4 x 4 cm and somewhat squarish in nature. His left axillary lymph node is a size of a golf ball at the very least. There is no overlying warmth or erythema. ABDOMEN: Scaphoid, nontender, and nondistended. EXTREMITIES: Free of any cyanosis, clubbing, or edema. NEUROLOGIC: Nonfocal. SKIN: Free of any rashes or bruises. Feel warm and dry to touch. PSYCHIATRIC: Normal affect. IMPRESSION AND PLAN: 1. Sepsis. Given the patient's leukocytosis, tachycardia, and history of sick contacts, most likely he does have sepsis with unknown source of infection. At this time, aspiration cannot be ruled out versus urinary tract infection versus bacteremia due to his immunocompromised status. We will put him on empiric IV antibiotics and cultures have been sent from the ER and we will follow the results. His leukocytosis can be secondary to aggressive metastasis at this time. 2. New chest wall and axillary masses. These appeared to be secondary to metastasis and seemed to be a new diagnosis for this patient. At this time, he will be admitted for pain control. After giving him the fact that these might represent progression of his carcinoma, the patient is not discouraged and reports that he wants to keep on "fighting." We will consult palliative care team for further discussion as the patient is known to them from previous admissions. Please note that the patient is unfunded according to the palliative care nurse. 3. Chronic hyponatremia, likely syndrome of inappropriate antidiuretic hormone from chronic lung process including the cavitary lung lesion and metastatic lung carcinoma. Once again, I am not sure if the lung carcinoma diagnosis was made after his discharge from the hospital in May or what. His sodium is improving and we will hold off on further fluid resuscitation. We will reduce the IV fluids and monitor sodium closely. 4. Hypokalemia. We will replace and recheck. 5. Severe protein-calorie malnutrition. We will request a cold water machine operator consult and add Ensure t.i.d. Provide tracheostomy care. 6. Hypothyroidism with history of myxedema in May. We will restart his home medication of levothyroxine once the dosage is confirmed. 7. Intractable pain. This is likely secondary to metastatic carcinoma. Pain medications have been ordered and he reports that his pain is much improved from 10/10 to 5/10 for now. 8. Code status, full code, discussed with the patient. 9. History of laryngeal cancer, status post tracheostomy, chemotherapy, and radiation. DISPOSITION: Mr. Narayan is currently being admitted to oncology floor for pain control and workup for possible sepsis. Further management will depend upon his clinical course, but estimated length of stay at this time is at least 2 to 3 midnights. Job ID: [id number]
[2018-09-01] MEDS: Famotidine 20 MG TAB PO SCH (20:07)
[2018-09-01] MEDS: Sodium Chloride 1 GM TAB PO SCH (20:08)
--- NOTE | 2018-09-01 20:39 | CT ---
CT ABDOMEN AND PELVIS PERFORMED WITH CONTRAST ENHANCEMENT: HISTORY: Lung mass noted on CT chest done yesterday. Evaluation for metastatic disease. COMPARISON: CT study from 08/31/2018. FINDINGS: ABDOMEN: The lung bases show some minimal parenchymal change in the left lower lobe and within the r ight middle lobe. Changes are stable as compared to the prior study. There is a pericardial effusio n identified. The liver and spleen are normal in size. No mass is identified. The pancreas is unremarkable. Ther e is some subtle increased attenuation within the gallbladder, difficult to assess due to motion. I cannot exclude some minimal sludge. The right and left adrenal glands and right and left kidneys are normal in appearance. The lack of i ntraabdominal fat significantly degrades detail, but I do not appreciate any significant periaortic o r mesenteric adenopathy. There is suggestion of some trace fluid within the right paracolic gutter. PELVIS: There appears to be some minimal free fluid present. I do not appreciate any obvious adenop athy or mass. A left posterior 11th rib fracture is identified. It appears to have a slightly lytic focus adjacent to it, and this could very well represent a pathologic fracture. I do not see any other lytic or bl astic bony change that would definitely suggest metastatic disease. IMPRESSION: 1. Trace free fluid within the abdomen. 2. Small pericardial effusion. 3. Minimal left-sided pleural effusion with a left posterior 11th rib fracture, which could represen t a pathologic fracture. Further evaluation with bone scan may be helpful. POS: LANDEN
[2018-09-01] MEDS: Vancomycin HCl 1 GM in Premix Bag 1 BAG IVPB SCH (21:31)
--- NOTE | 2018-09-01 23:48 | CON ---
DATE OF CONSULTATION: REASON FOR CONSULTATION: Metastatic lung cancer. HISTORY OF PRESENT ILLNESS: A 53-year-old male with history of squamous cell carcinoma of the larynx, status post laryngectomy and adjuvant radiation, currently in remission since 2017 with new primary lung cancer, status post chemotherapy and radiation completed in April of 2018, presenting with worsening pain in his left chest. The patient was last seen in the Oncology Clinic by Dr. Bradshaw on June 19, 2018, and at that time, was 6 weeks' out from radiation and complaining of discomfort in his left chest area as well. The patient has had transportation issues during treatment and only received 4 of his 6 planned chemotherapy treatments. He had not followed up with Radiation Oncology or Pulmonology and did not follow up with Dr. Bradshaw at his last scheduled appointment or get his restaging CAT scan. The patient now is presenting with increasing pain in his left chest and axilla that has been worsening over the last few weeks. He states this pain is better controlled since admission to the hospital. He denies any fevers, night sweats, nausea, vomiting, diarrhea or constipation at home. He does state that he has lost approximately 10 pounds in the last 3 months. CAT scan of the chest done on admission shows left axillary and anterior chest wall masses, but it likely represents an enlarged necrotic lymph nodes and/or likely secondary to recurrent disease. Imaging also shows a new left tenth rib fracture with adjacent lytic lesion possibly representing bony mets. REVIEW OF SYSTEMS: A 10-point review of systems negative except as per HPI. PAST MEDICAL HISTORY: Anxiety, depression, laryngeal cancer, and lung cancer. PAST SURGICAL HISTORY: Laryngectomy with lymph node dissection. SOCIAL HISTORY: The patient is and has 4 children and lives alone. Current smoker. No alcohol or illicit drug use. ALLERGIES: TYLENOL. CURRENT MEDICATIONS: Reviewed. PHYSICAL EXAMINATION: VITAL SIGNS: Temperature 97.5, pulse of 78, respirations 18, saturating 96% on room air, and blood pressure 154/78 up to 183/85. GENERAL APPEARANCE: The patient is lying in bed, in no acute distress. HEENT: The patient is status post laryngectomy with some discharge from stoma noted. Otherwise atraumatic and normocephalic. CARDIOVASCULAR: Regular S1 and S2 with regular rate and rhythm. LUNGS: Respirations; clear to auscultation bilaterally without any wheezing. ABDOMEN: Soft, nondistended, and nontender. CHEST WALL: Small palpable left upper chest wall lesion that is very tender to palpation as is his left axilla with notable palpable disease. EXTREMITIES: No edema. NEUROLOGIC: Cranial nerves 2 through 12 grossly intact. Otherwise a nonfocal exam. The patient is able to move all extremities. The patient is nonverbal due to laryngectomy. PSYCHIATRIC: Awake, alert and oriented x3. LABORATORY DATA: White blood cells 38.8, hemoglobin 10.2, platelets 593. Sodium 128, potassium 3.1, chloride 89, carbon dioxide 32, BUN 6, creatinine 1.09, glucose 99, calcium 11.3. Albumin of 2.8. IMAGING DATA: CT of the chest with contrast dated August 31, 2018, shows a cavitary lesion in the left upper lobe unchanged in size with adjacent atelectasis. No hilar or mediastinal lymphadenopathy are seen. There is a large mass in the anterior left chest wall with adjacent surgical clips, there is a central lobe density consistent with necrosis and measures 3.6 cm in size. There is a very large mass in the left axillary region also demonstrating central necrosis measuring 7.6 cm in size. These likely represent enlarged lymph nodes. Visualized subdiaphragmatic structures are unremarkable. There are fractures of left ninth and tenth ribs. The fracture of the tenth rib is new compared to the prior exam and has an area of lucency adjacent to the fracture measuring 1.3 cm in size. ASSESSMENT AND PLAN: A 53-year-old male with history of left upper lobe primary lung cancer, status post chemotherapy and radiation, presenting with worsening chest wall mass and axillary lymphadenopathy, which is severely tender and likely metastatic in origin. The patient was not able to complete his full treatment and has been noncompliant with followup due to transportation issues. The patient likely does have recurrent metastatic disease based on physical findings and CAT scan findings. The patient does require further workup with a CT of the abdomen and pelvis and a bone scan. PET scan may be done as an outpatient. The patient may have a superimposed infection in this necrotic lesion as well and is currently on vancomycin and cefepime for this. The patient's lab show a calcium of 11.3 with an albumin of 2.8 and he has corrected calcium above 12. He is currently on IV fluids and we will follow this and if this does not improve tomorrow, we would recommend a dose of Zometa. We will follow along with you. Thank you for this consult. Job ID: [id number]
[2018-09-02] MEDS: Cefepime 1 GM in Sodium Chloride 0.9% 100 ML IVPB SCH ×2 (03:02→15:32)
[2018-09-02] MEDS: Morphine 4 MG/ML VIAL SLOW IVP PRN ×4 (03:05→20:24)
[2018-09-02] MEDS: Levothyroxine Sodium 100 MCG TAB PO SCH (05:13)
[2018-09-02 06:30] LABS: Hemoglobin 9.7 g/dL (14.0-18.0); Mean Corpuscular HGB CONC 31.4 g/dL (32.0-36.0); Mean Corpuscular Volume 86.1 fL (78.0-98.0); Platelet Count 568 thou/uL (130-400); White Blood Cell (WBC) Count 41.4 thou/uL (4.8-10.8)
[2018-09-02 06:43] LABS: Anion Gap 12 mmol/L (10-20); BUN (Urea Nitrogen) 6 mg/dL (8.4-25.7); Calc. Creatinine Clearance 69 mL/min (70-130); Calcium 10.9 mg/dL (7.8-10.44); Carbon Dioxide 28 mmol/L (22-29); Chloride 93 mmol/L (98-107); Estimated GFR-MDRD 84; Glucose 83 mg/dL (70-105); Potassium 3.5 mmol/L (3.5-5.1); Sodium 129 mmol/L (136-145)
[2018-09-02 06:50] LABS: Band 7 % (5-11); Hypochromia SLIGHT = 6-15 cells (100X) (0-5/hpf); Lymphocytes 4 % (21-51); MDiff Complete? YES; Monocytes 1 % (0-10); Neutrophil 88 % (42-75); PLT Morphology Comment Appears Increased
--- NOTE | 2018-09-02 07:46 | PDOC.PN ---
- Subjective Encounter Start Date: 09/02/18 Encounter Start Time: 07:44 Mr. Narayan was seen today in follow-up of Chest wall pain, and mass, and Leukomoid reaction. He says the morphine is helping his symptoms. - Objective Resuscitation Status - Order Detail: 09/01/18 14:23 Resuscitation Status Routine Resuscitation Status: FULL: Full Resuscitation MAR Reviewed: Yes Vital Signs & Weight: Vital Signs (12 hours) Temp Pulse Resp BP Pulse Ox 09/02/18 05:32 97.9 F 75 18 135/70 93 L 09/02/18 00:15 98.0 F 76 16 168/81 H 95 09/01/18 19:56 97.5 F L 78 16 158/87 H 94 L Weight Weight 119 lb I&O: 09/01/18 09/02/18 09/03/18 06:59 06:59 06:59 Intake Total 101 Balance 101 Result Diagrams: 09/02/18 06:04 09/02/18 06:04 Phys Exam - Physical Examination Respiratory: no wheezing, no rales, no rhonchi, clear to auscultation bilateral Cardiovascular: RRR, no significant murmur, no rub Gastrointestinal: soft, non-tender, no distention, positive bowel sounds Musculoskeletal: no edema Dx/Plan (1) Chest wall mass Status: Acute (2) Leukemoid reaction Code(s): D72.823 - LEUKEMOID REACTION Status: Acute (3) Hypercalcemia Code(s): E83.52 - HYPERCALCEMIA Status: Acute (4) Lung cancer Code(s): C34.90 - MALIGNANT NEOPLASM OF UNSP PART OF UNSP BRONCHUS OR LUNG Status: Chronic (5) Chronic hyponatremia Code(s): E87.1 - HYPO-OSMOLALITY AND HYPONATREMIA Status: Chronic (6) Hypothyroidism Code(s): E03.9 - HYPOTHYROIDISM, UNSPECIFIED Status: Chronic Qualifiers: Hypothyroidism type: acquired Qualified Code(s): E03.9 - Hypothyroidism, unspecified Comment: likely due to prior radiation - Plan * Chest Wall Mass- likely a metastatic lesion- pain is controlled with morphine * Work-up is in progress- bone scan has been ordered * Hypercalcemia- improved with hydration * Hyponatremia- chronic and liley from SIADH * Leukomoid reaction- I suspect this is due to his cancer- will continue IV antibiotics, however will consult ID for guidance * Moderate Protein calorie malnutrition- dietary supplements as needed. * Hypothyroidism- stable
[2018-09-02] MEDS: Vancomycin HCl 1 GM in Premix Bag 1 BAG IVPB SCH (09:14)
[2018-09-02] MEDS: Enoxaparin Sodium 40 MG/0.4 ML SYRINGE SC SCH (09:14)
[2018-09-02] MEDS: Sodium Chloride 1 GM TAB PO SCH ×2 (09:52→20:19)
[2018-09-02] MEDS: Famotidine 20 MG TAB PO SCH ×2 (09:52→20:18)
[2018-09-02] MEDS: Sodium Chloride 0.9% 1,000 ML IV SCH (15:35)
[2018-09-02] MEDS: clonazePAM 0.5 MG TAB PO PRN (15:40)
--- NOTE | 2018-09-02 16:09 | NM ---
BONE SCAN: HISTORY: Recurrent lung cancer for staging. The patient refused additional images. FINDINGS: Anterior and posterior whole body delayed images obtained. Images demonstrate areas of increased activity in the left posterior 9th and 10th ribs. These may re present possible metastatic lesions versus possible rib fractures from trauma. Correlate with histor y. Area of abnormal activity remains in the right clavicle compatible with an old history of trauma. No other significant abnormality is seen. IMPRESSION: Two areas of activity seen in the left 9th and 10th ribs likely due to left rib fractures. No other definite evidence of metastatic bony disease seen. POS: [facility]
--- NOTE | 2018-09-03 00:21 | CON ---
DATE OF CONSULTATION: 09/02/2018 HISTORY OF PRESENT ILLNESS: A 53-year-old patient known to me from recent consultation in January when he presented with a history of pulmonary tuberculosis, treated to completion in 2000 and then chronic smoking and laryngeal carcinoma with local spread, managed with radical resections, ostomy placement, radiation therapy and now with worsening cavitary lesion left upper lobe with central nodule in the lower segments, which was felt to be a mycetoma. He was admitted and there was a pleural-based mass on a CT scan of the chest in January, which was enlarging, measured about 5 x 3 cm. Our impression then was that the patient had a leukemoid reaction probably from malignancy. A bone scan showed uptake and the biopsy completed demonstrated squamous cell carcinoma consistent with metastatic disease. The patient is back in the hospital now because of chest wall pain and a lump in the chest area. He has completed treatment with radiation chemotherapy about three months before. Currently, he is awake. He denies any headaches. No visual symptoms. No sore throat. There is marked pain on the left side of the chest wall, right at the axillary area, medial aspect. No cough. No abdominal pain. No genitourinary symptoms. No diarrhea. No other joint symptoms. PAST MEDICAL HISTORY: Squamous cell CA of the larynx treated with resection and a chronic tracheostomy status post radiation therapy for lung cancer squamous cell, diagnosed in January with likely left rib cage metastases, hyponatremia, COPD, prior tuberculosis treated to completion and now cavitary lesion, left upper lobe with some mycetoma. PAST SURGICAL HISTORY: 1. PEG tube placement with removal. 2. Laryngectomy total. 3. Tracheostomy. 4. Lymph node dissection. 5. Biopsy of the left chest wall, which diagnosed a metastatic squamous cell cancer. 6. Leukemoid reaction associated with the malignancy. ALLERGIES: ACETAMINOPHEN. SOCIAL HISTORY: Thirty-pack year smoking history. Quit few years before. CURRENT MEDICATIONS: 1. DuoNeb. 2. Tessalon. 3. Dulcolax. 4. Cefepime. 5. Klonopin. 6. Catapres. 7. Lovenox. 8. Pepcid. 9. Apresoline. 10. Synthroid. 11. Morphine. 12. Zofran. 13. Vancomycin. PHYSICAL EXAMINATION: VITAL SIGNS: T-max 98, blood pressure 130/70, pulse 75, respirations 18, and O2 saturation 93% to 95 %. SKIN: At the tracheostomy site, there is a wound at the lateral aspect, which is probably related to radiation therapy. There is a small area of erythema also in the left heel around the small ulcer. HEENT: Ocular movements conjugate. Oral cavity with no [place] teeth remaining. LUNGS: Symmetric air entry. There is a large hard mass in the left axillary region. I would say it measures at least 10 cm in diameter. ABDOMEN: Soft, not distended or tender. No ascites. GENITOURINARY: No bladder distention. No genital abnormalities. Voiding spontaneously without difficulty. EXTREMITIES: No joint inflammatory activity. Pulses 1+ dorsalis pedis. Moves extremities without problems. NEUROLOGIC: Cognitive function appears to be intact, although communication difficulties are obvious. LABORATORY DATA: WBC count is 38,000, now is up to 41,000, hemoglobin 9.7, platelets 568, with 88% neutrophils. Sodium 129, creatinine 0.93, calcium 11. Microbiology with all cultures no growth. ASSESSMENT: Metastatic squamous cell carcinoma with prior episode of leukemoid reaction, which led to the diagnosis of metastatic squamous cell to the ribcage region, left side. He had treatment done with improvement and now he has obvious recrudescence of the malignancy with his large mass in the left axilla and recrudescence of the leukemoid reaction. Most likely, the patient has leukemoid reaction as a paraneoplastic manifestation rather than an infectious complication. Recommend discontinuation of antimicrobial therapy. Not clear, if he has any other options for treatment at this point in time. PLAN: Followup with Oncology will be carried out. Job ID: [id number]
[2018-09-03] MEDS: Morphine 4 MG/ML VIAL SLOW IVP PRN ×3 (00:46→09:08)
[2018-09-03 05:23] LABS: Band 38 % (5-11); Eosinophils 5 % (0-10); Hemoglobin 8.4 g/dL (14.0-18.0); Lymphocytes 6 % (21-51); MDiff Complete? YES; Mean Corpuscular HGB CONC 31.8 g/dL (32.0-36.0); Mean Corpuscular Hemoglobin 26.7 pg (27.0-31.0); Mean Corpuscular Volume 83.9 fL (78.0-98.0); Mean Platelet Volume 6.2 fL (7.4-10.4); Monocytes 2 % (0-10); Neutrophil 49 % (42-75); PLT Morphology Comment Appears Increased; Platelet Count 591 thou/uL (130-400); RBC Distribution Width 13.8 % (11.5-14.5); Red Blood Cell (RBC) Count 3.15 mill/uL (4.70-6.10); White Blood Cell (WBC) Count 39.2 thou/uL (4.8-10.8)
[2018-09-03 05:37] LABS: Anion Gap 11 mmol/L (10-20); BUN (Urea Nitrogen) 6 mg/dL (8.4-25.7); Calc. Creatinine Clearance 69 mL/min (70-130); Calcium 10.7 mg/dL (7.8-10.44); Carbon Dioxide 24 mmol/L (22-29); Chloride 97 mmol/L (98-107); Estimated GFR-MDRD 84; Glucose 79 mg/dL (70-105); Potassium 3.6 mmol/L (3.5-5.1); Sodium 128 mmol/L (136-145)
[2018-09-03] MEDS: Levothyroxine Sodium 100 MCG TAB PO SCH (06:06)
[2018-09-03] MEDS: Enoxaparin Sodium 40 MG/0.4 ML SYRINGE SC SCH (09:09)
[2018-09-03] MEDS: Famotidine 20 MG TAB PO SCH ×2 (09:09→20:23)
[2018-09-03] MEDS: Sodium Chloride 1 GM TAB PO SCH ×2 (09:10→20:21)
--- NOTE | 2018-09-03 11:29 | PDOC.PN ---
- Subjective Encounter Start Date: 09/03/18 Encounter Start Time: 07:30 Mr. Narayan was seen today in follow-up of chest wall mass. He says the pain is controlled with IV Morphine. He does not have any other complaints. - Objective Resuscitation Status - Order Detail: 09/01/18 14:23 Resuscitation Status Routine Resuscitation Status: FULL: Full Resuscitation MAR Reviewed: Yes Vital Signs & Weight: Vital Signs (12 hours) Temp Pulse Resp BP Pulse Ox 09/03/18 08:00 100 09/03/18 07:30 98.2 F 81 16 110/63 100 Weight Admit Weight 119 lb Weight 119 lb I&O: 09/02/18 09/03/18 09/04/18 06:59 06:59 06:59 Intake Total 101 2302 Output Total 2300 Balance 101 2 Result Diagrams: 09/03/18 04:50 09/03/18 04:50 Phys Exam - Physical Examination HEENT: PERRLA Respiratory: no wheezing, no rales, no rhonchi, clear to auscultation bilateral Cardiovascular: RRR, no significant murmur, no rub Gastrointestinal: soft, non-tender, no distention, positive bowel sounds Musculoskeletal: no edema Dx/Plan (1) Chest wall mass Status: Acute (2) Leukemoid reaction Code(s): D72.823 - LEUKEMOID REACTION Status: Acute (3) Hypercalcemia Code(s): E83.52 - HYPERCALCEMIA Status: Acute (4) Lung cancer Code(s): C34.90 - MALIGNANT NEOPLASM OF UNSP PART OF UNSP BRONCHUS OR LUNG Status: Chronic (5) Chronic hyponatremia Code(s): E87.1 - HYPO-OSMOLALITY AND HYPONATREMIA Status: Chronic (6) Hypothyroidism Code(s): E03.9 - HYPOTHYROIDISM, UNSPECIFIED Status: Chronic Qualifiers: Hypothyroidism type: acquired Qualified Code(s): E03.9 - Hypothyroidism, unspecified Comment: likely due to prior radiation - Plan * Chest wall mass with caner pain- await treatment options from Oncology, however this may be difficult due to his unfunded status. 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 * Hypercalcemia- improved * Will need to begin discharge planning
[2018-09-03] MEDS: clonazePAM 0.5 MG TAB PO PRN ×2 (12:23→20:23)
[2018-09-03] MEDS: Sodium Chloride 0.9% 1,000 ML IV SCH (12:23)
[2018-09-03] MEDS: traMADol HCl 50 MG TAB PO PRN (17:06)
[2018-09-03] MEDS: Morphine ER 15 MG TAB PO SCH (20:21)
[2018-09-04] MEDS: traMADol HCl 50 MG TAB PO PRN (01:35)
[2018-09-04] MEDS: Levothyroxine Sodium 100 MCG TAB PO SCH (05:55)
[2018-09-04 08:43] VITALS: BP 129/64; TEMP 98.2
[2018-09-04] MEDS: Sodium Chloride 1 GM TAB PO SCH (08:53)
[2018-09-04] MEDS: Famotidine 20 MG TAB PO SCH (08:53)
[2018-09-04] MEDS: Morphine ER 15 MG TAB PO SCH (08:54)
[2018-09-04] MEDS: Enoxaparin Sodium 40 MG/0.4 ML SYRINGE SC SCH (08:54)
[2018-09-04] MEDS: Sodium Chloride 0.9% 1,000 ML IV SCH (08:59)
--- NOTE | 2018-09-04 12:36 | PDOC.PN ---
- Subjective Encounter Start Date: 09/04/18 Encounter Start Time: 12:33 Mr. Narayan was seen today in follow-up. He is a bit drowsy this morning. He does not have any pain today - Objective Resuscitation Status - Order Detail: 09/01/18 14:23 Resuscitation Status Routine Resuscitation Status: FULL: Full Resuscitation MAR Reviewed: Yes Vital Signs & Weight: Vital Signs (12 hours) Temp Pulse Resp BP Pulse Ox 09/04/18 08:00 98.2 F 92 12 129/64 96 Weight Admit Weight 119 lb Weight 119 lb I&O: 09/03/18 09/04/18 09/05/18 06:59 06:59 06:59 Intake Total 2302 2241 Output Total 2300 Balance 2 2241 Result Diagrams: 09/03/18 04:50 09/03/18 04:50 Phys Exam - Physical Examination HEENT: PERRLA Respiratory: no wheezing, no rales, no rhonchi, clear to auscultation bilateral Cardiovascular: RRR, no significant murmur, no rub Gastrointestinal: soft, non-tender, no distention, positive bowel sounds Musculoskeletal: no edema Dx/Plan (1) Chest wall mass Status: Acute (2) Leukemoid reaction Code(s): D72.823 - LEUKEMOID REACTION Status: Acute (3) Hypercalcemia Code(s): E83.52 - HYPERCALCEMIA Status: Acute (4) Lung cancer Code(s): C34.90 - MALIGNANT NEOPLASM OF UNSP PART OF UNSP BRONCHUS OR LUNG Status: Chronic (5) Chronic hyponatremia Code(s): E87.1 - HYPO-OSMOLALITY AND HYPONATREMIA Status: Chronic (6) Hypothyroidism Code(s): E03.9 - HYPOTHYROIDISM, UNSPECIFIED Status: Chronic Qualifiers: Hypothyroidism type: acquired Qualified Code(s): E03.9 - Hypothyroidism, unspecified Comment: likely due to prior radiation - Plan * Chest Wall Mas- likely metastatic disease * Pain control- he has been very drowsy, concerned this may be due to the MS - contin. He was given the lowest dose * Will likely discharge him on Tramadol at 100mg instead of the MS Contin.
--- NOTE | 2018-09-05 11:30 | DIS ---
DATE OF ADMISSION: 08/31/2018 DATE OF DISCHARGE: 09/04/2018 DISCHARGE DISPOSITION: Home. PRIMARY DISCHARGE DIAGNOSES: 1. Chest wall mass, likely metastatic cancer. 2. History of squamous cell carcinoma of the larynx. 3. Lung cancer, unknown type. 4. Chronic hyponatremia, secondary to syndrome of inappropriate secretion of antidiuretic hormone. 5. Chronic obstructive pulmonary disease. DISCHARGE MEDICATIONS: Include, 1. Tramadol 50 to 100 mg q.4 as needed for pain. 2. Salt tablet 1 g twice a day. 3. Levothyroxine 100 mcg p.o. daily. 4. DuoNeb q.6h as needed. 5. Clonazepam 0.5 mg twice a day. PROCEDURES DONE DURING ADMISSION: The patient had a CT scan of the chest, showing a left axillary and anterior chest wall mass, representing an enlarging necrotic lymph nodes, likely secondary to recurrent disease. There were stable cavitary lesions in the left upper lobe. There was a new left 10th rib fracture with adjacent lytic lesions, which could represent a bony metastasis. He had a CT scan of the abdomen and pelvis, showing trace free fluid within the abdomen. There was a small pericardial effusion. There was minimal left-sided pleural effusion with a posterior 11th rib fracture, which could represent a pathological fracture. The patient also had a nuclear bone scan, demonstrating two areas of activity seen in the 9th and 10th ribs, likely due to left rib fractures. There was no other definite bony metastatic disease. CODE STATUS: Full code. ALLERGIES: TO ACETAMINOPHEN. HOSPITAL COURSE: Mr. Narayan is a pleasant 53-year-old gentleman, who presented to the emergency room, complaining of pain in the left chest wall. He also noted a masslike lesion there as well. He was evaluated by CT scan of the chest as well as abdomen and pelvis and it was found that he likely had a metastatic recurrence. He was seen by Dr. Juarez with Oncology and treatment plan would be outlined in the outpatient setting after discharge. His treatment will be complicated and he is uninsured. He was also found to have a leukemoid reaction with a white blood cell count that went as high as 41,400. He also had chronic hyponatremia, which was treated and hypercalcemia which was treated with fluid administration. He was tried on MS Contin for pain control. However, he became extremely drowsy and therefore, there was some concern that this would cause some significant respiratory depression at home. Therefore, he will be discharged home instead on tramadol 50 to 100 mg as needed for pain and close outpatient followup. Job ID: [id number]
--- NOTE | 2018-09-10 06:43 | PQF ---
Kody Narayan TONI MD [id number] CLINICAL DOCUMENTATION CLARIFICATION FORM: POST DISCHARGE Date: 09/10/2018 ATTN: Dr. Cintron Please exercise your independent, professional judgment in responding to the clarification form. Clinical indicators are provided on the bottom of this form for your review Please check appropriate box(s): [ ] Protein Calorie Malnutrition: [ ] Mild [ X] Moderate [ ] Severe [ ] Other Malnutrition (please specify) __ [ ] Underweight without malnutrition [ ] Cachexia [ ] Other diagnosis [ ] Unable to determine In addition, please specify: Present on Admission (POA): [ X ] Yes [ ] No [ ] Unable to determine CLINICAL INDICATORS - SIGNS / SYMPTOMS / LABS Per H&P: He is thin and cachexic appearing, frail looking but in no acute distress. Severe protein calorie malnutrition. Hospitalist progress note: Moderate protein calorie malnutrition. BMI of 14.9. Two or More of the Following: Weight Loss--Per nursin pounds in January. 129 pounds in May. 119 pounds on admission. Loss of Muscle Mass--Per ED--Muscle wasting diffusely. RISK FACTORS Metastatic squamous cell carcinoma. . TREATMENTS Per H&P: Ensure t.i.d. Dietary supplements as needed. Moderate Malnutrition (in acute illness) Energy Intake: <75% of estimated energy requirement for > 7 days Weight Loss: 1-2%/1 week; 5%/ 1 month; 7.5%/3 months Other: mild body fat loss; mild muscle mass loss; mild fluid accumulation; Severe Malnutrition (in acute illness) Energy Intake: < 50% of estimated energy requirement for > 5 days Weight Loss: >1-2%/1 week; >5%/1 month; >7.5%/3 months Other: moderate body fat loss; moderate muscle mass loss; moderate- severe fluid accumulation; measurably reduced bacon skin lifter strength Moderate Malnutrition (in chronic illness) Energy Intake: <75% of estimated energy requirement for >1 month Weight Loss: 5%/1 month; 7.5%/3 months; 10%/6 months; 20%/1 year Other: mild body fat loss; mild muscle mass loss; mild fluid accumulation Severe Malnutrition (in chronic illness) Energy Intake: <75% of estimated energy requirement for >1 month Weight Loss: >5%/1 month; >7.5%/3 months; >10%/6 months; >20%/1 year Other: severe body fat loss; severe muscle mass loss; severe fluid accumulation ; measurably reduced bacon skin lifter strength (This form is maintained as a part of the permanent medical record) 2014 [employer]. All Rights Reserved Kaye [email or web address] [phone] MTDD
== END 2018-09-04 19:10 | disposition home or self-care (01) | DRG 844 ==
LOC: ERS 15:20 → ERHOLD 18:20 → OBSVTOIN 18:20 → ONC 18:35
PROVIDERS: ADMIT Internal Medicine; ATTEND Internal Medicine
DX: C79.89 Secondary malignant neoplasm of other specified sites (principal); E22.2 Syndrome of inappropriate secretion of antidiuretic hormone; M84.58XA Pathological fracture in neoplastic disease, other specified site, initial encounter for fracture; Z68.1 Body mass index [BMI] 19.9 or less, adult; E44.0 Moderate protein-calorie malnutrition; D72.823 Leukemoid reaction; C79.51 Secondary malignant neoplasm of bone; Z51.5 Encounter for palliative care; G89.3 Neoplasm related pain (acute) (chronic); J44.9 Chronic obstructive pulmonary disease, unspecified; E87.6 Hypokalemia; E83.52 Hypercalcemia; Z93.0 Tracheostomy status; Z85.21 Personal history of malignant neoplasm of larynx; Z85.118 Personal history of other malignant neoplasm of bronchus and lung; Z92.21 Personal history of antineoplastic chemotherapy; Z92.3 Personal history of irradiation; Z86.11 Personal history of tuberculosis; Z87.891 Personal history of nicotine dependence; Z88.6 Allergy status to analgesic agent; Z79.899 Other long term (current) drug therapy
CPT/HCPCS: 36415; 71260; 74177; 78306; 80048; 80053; 81001; 85025; 87040; 87086; 90471; 90686; 96361; 96374; 96376; A9503; G0008; G8978-GP-CJ; G8979-GP-CI; G8987-GO-CI; G8988-GO-CI; G8989-GO-CI; J0692; J1650; J2270; J3370; J3480; J7050

== ENCOUNTER 2018-09-16 12:33 | Inpatient (IN) | payer OTHER, SELFPAY ==
[~2018-09-16 12:33] MED LIST: Iopamidol-370 76% 500 ML 1 ML ONE
[2018-09-16 13:57] LABS: Hemoglobin 10.4 g/dL (14.0-18.0); Mean Corpuscular HGB CONC 31.5 g/dL (32.0-36.0); Mean Corpuscular Volume 82.5 fL (78.0-98.0); Mean Platelet Volume 6.2 fL (7.4-10.4); Platelet Count 593 thou/uL (130-400); RBC Distribution Width 14.4 % (11.5-14.5); Red Blood Cell (RBC) Count 4.01 mill/uL (4.70-6.10); White Blood Cell (WBC) Count 46.3 thou/uL (4.8-10.8)
[2018-09-16] MEDS ORDERED: Morphine 4 MG/ML VIAL ONE (14:06)
[2018-09-16] MEDS ORDERED: Ondansetron PF 4 MG/2 ML Vial ONE (14:06)
[2018-09-16 14:07] LABS: ALT (SGPT) Less than 7 U/L (8-55); AST (SGOT) 16 U/L (5-34); Albumin 3.3 g/dL (3.5-5.0); Alkaline Phosphatase 183 U/L (40-150); Anion Gap 13 mmol/L (10-20); BUN (Urea Nitrogen) 9 mg/dL (8.4-25.7); Bilirubin, Total 0.4 mg/dL (0.2-1.2); Calc. Creatinine Clearance 0 mL/min (70-130); Carbon Dioxide 26 mmol/L (22-29); Chloride 87 mmol/L (98-107); Estimated GFR-MDRD 67; Globulin 4.4 g/dL (2.4-3.5); Glucose 117 mg/dL (70-105); Potassium 3.4 mmol/L (3.5-5.1); Protein, Total 7.7 g/dL (6.0-8.3); Sodium 123 mmol/L (136-145)
[2018-09-16 14:14] LABS: Calcium 13.3 mg/dL (7.8-10.44)
[2018-09-16 14:15] LABS: Band 31 % (5-11); Eosinophils 2 % (0-10); Hypochromia SLIGHT = 6-15 cells (100X) (0-5/hpf); Lymphocytes 7 % (21-51); MDiff Complete? YES; Monocytes 2 % (0-10); Neutrophil 58 % (42-75); PLT Morphology Comment Appears Increased; Polychromasia SLIGHT = 2-3 cells (100X) (0-2/hpf)
--- NOTE | 2018-09-16 15:07 | CT ---
CT PULMONARY ANGIOGRAM CHEST WITH 3D RENDERIN09/16/18 HISTORY: 53-year-old male with history of cancer, tachycardia and chest pain. COMPARISON: Postcontrast chest CT scan 08/31/18. Stable large cavitary mass in the right upper lobe with some progressive parenchymal change posterior ly in the right apex with some associated air bronchograms possibly representing some acute pneumonia or progressive disease related to the large cavitary mass. Large soft tissue masses noted in the lef t anterior and lateral chest wall are stable. One measuring approximately 3.6 cm in diameter and the other one measuring approximately 8 cm in diameter. Multiple destructive rib lesions including the le ft second, ninth, and tenth ribs with an associated pathologic fracture of the ninth and possibly the tenth rib. Small stable pleural based nodule in the right lower lobe. Stable bullous lesion in the l eft lower lobe. Moderate pericardial effusion up to 1.[address] evidence for acute pulmonary embol ism. There is minimal scarring of some of the left upper lobe arterial branches. IMPRESSION: No convincing CT evidence for acute pulmonary embolism. Stable multiple left rib destructive lesions and large masses in the left anterolateral and axillary chest wall. Moderate sized pericardial effusi on, stable. Small stable right pulmonary nodule. Some minimal increased parenchymal density posterior ly in the upper lobe on the left side raising concern for the possibility of some minimal acute pneu monitis versus some progressive disease involving the large left cavitary lesion. Other findings as a jeronimo. POS: [facility]
--- NOTE | 2018-09-16 15:44 | ULT ---
LEFT UPPER EXTREMITY VENOUS DUPLEX EXAM: INDICATIONS: Left upper extremity pain and swelling. TECHNIQUE: The veins of the left upper extremity were evaluated with color Doppler and spectral analysis. FINDINGS: The left subclavian vein is evaluated with color Doppler. There is echogenicity thrombus seen in the distal left subclavian vein. Flow is identified. The internal jugular vein shows normal flow and compression. The left axillary vein, brachial vein, basilic vein, ulnar vein, and cephalic vein are all imaged and show normal flow and compression. There are large hypoechoic masses in the left axilla and along the chest wall inferior to the axilla, which are consistent with adenopathy. These masses compressing the venous and lymphatic return woul d probably explain the patient's arm edema. IMPRESSION: 1. Doppler does show evidence of thrombus in the left subclavian vein; however, this is nonocclusive , as flow is demonstrated. 2. Other veins of the left upper extremity show normal flow with no evidence of thrombus. 3. There are large masses in the left axilla and along the chest wall inferior to the axilla, presum ably representing massive adenopathy. POS: [facility]
[2018-09-16] MEDS ORDERED: Bisacodyl 10 MG SUPP PR PRN (17:08)
[2018-09-16] MEDS ORDERED: Loperamide HCl 2 MG CAP PO PRN (17:08)
[2018-09-16] MEDS ORDERED: Diabetic Tussin 200 MG/10 ML UDCUP PO PRN (17:08)
[2018-09-16] MEDS ORDERED: Zolpidem Tartrate 5 MG TAB PO PRN (17:08)
[2018-09-16] MEDS ORDERED: Ondansetron PF 4 MG/2 ML Vial IVP PRN (17:08)
[2018-09-16] MEDS ORDERED: Eucerin (Mineral Oil/Petrolatum,White) 30 gm Jar TOP PRN (17:08)
[2018-09-16] MEDS ORDERED: hydrALAZINE 20 MG/ML VIAL SLOW IVP PRN (17:08)
[2018-09-16] MEDS ORDERED: Artificial Tears 18 DROP/0.9 ML EA EYE PRN (17:08)
[2018-09-16] MEDS ORDERED: cloNIDine 0.1 MG TAB PO PRN (17:08)
[2018-09-16] MEDS ORDERED: Bisacodyl 5 MG TAB PO PRN (17:08)
[2018-09-16] MEDS ORDERED: Loratadine 10 MG TAB PO PRN (17:08)
[2018-09-16] MEDS ORDERED: Ondansetron ODT 4 MG TAB SL PRN (17:08)
[2018-09-16] MEDS ORDERED: Cepastat Lozenges 1 LOZ PO PRN (17:08)
[2018-09-16] MEDS ORDERED: Sodium Chloride 0.65% Nasal 44 ML BOT EA NARE PRN (17:08)
[2018-09-16] MEDS ORDERED: Senokot S 8.6-50 MG TAB PO PRN (17:08)
[2018-09-16] MEDS ORDERED: traMADol HCl 50 MG TAB PO PRN (17:20)
--- NOTE | 2018-09-16 18:29 | HP ---
PRIMARY CARE PHYSICIAN: [facility]. REASON FOR ADMISSION: Intractable pain, possible sepsis, hypercalcemia of malignancy, hyponatremia. 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 He required tracheostomy and now status post laryngectomy. He also has underlying history of chronic hyponatremia due to SIADH as well as previous history of lung cancer and COPD. Lung cancer was treated with chemotherapy as well as radiation therapy. This time, he presented to emergency room with complaints of chest pain. He had chest pain which is predominantly chest wall pain which is intractable, 6/10 in intensity. He also complains of pain over his chest wall lesion which is present since previous admission. He reports that his pain is getting worse and pain is not controlled by pain medication. The patient was recently diagnosed with metastatic lymph node on the left anterior chest wall and at that time patient was followed by oncologist and plan for immunotherapy, but this patient did not follow up with the Oncology. The patient also noticed that his left upper extremity was getting swollen and he was also having left upper extremity pain. He denies any dizziness, palpitation, or syncope. He is able to eat, but his appetite is very marginal and he continue to lose weight. In the Emergency Room, this patient is cachectic. He wants to be full code. He makes his own decision. He lives at home with his son. The patient is not agreed with the hospice type of care at this point. The patient is nonverbal because of complete laryngectomy, so history is very difficult to obtain from the patient. This patient was recently evaluated in the Emergency Room. He was also recently admitted in our hospital. At that time, Oncology Service saw this patient. He also had recently CT abdomen and pelvis as well as bone scan. This patient also has persistent leukocytosis. During previous admission, the patient had small pericardial effusion and during this admission, CT angiography showed moderate pericardial effusion. The patient does have chronically distracted pathological rib fracture and where the patient is complaining of pain. The patient's bone scan also showed abnormal activity in the rib fracture site. During previous admission, Dr. Nicole saw because patient was having persistent leukocytosis. At that time, his leukocytosis was attributed to be due to leukemoid reaction. This patient was discharged home on September 04, 2018, and subsequently, he had couple of ER visits and now he is readmitted in the hospital. REVIEW OF SYSTEMS: CONSTITUTIONAL: Negative for weight loss or gain, ability to conduct usual activities. SKIN: Negative for rash, itching. EYES: Negative for double vision, pain. ENT/MOUTH: Negative for nose bleeding, neck stiffness, pain, tenderness. CARDIOVASCULAR: Negative for palpitations, dyspnea on exertion, orthopnea. RESPIRATORY: Negative for shortness of breath, wheezing, cough, hemoptysis, fever or night sweats. GASTROINTESTINAL: Negative for poor appetite, abdominal pain, heartburn, nausea, vomiting, constipation, or diarrhea. GENITOURINARY: Negative for urgency, frequency, dysuria, nocturia. MUSCULOSKELETAL: Negative for pain, swelling. NEUROLOGIC/PSYCHIATRIC: Negative for anxiety, depression. ALLERGY/IMMUNOLOGIC: Negative for skin rash, bleeding tendency. Please see my HPI for pertinent positives and negative. All other review of systems reviewed and negative except as mentioned in HPI. PAST MEDICAL HISTORY: 1. History of lung cancer diagnosed in 2007. 2. History of squamous cell carcinoma of larynx, required tracheostomy and subsequently laryngectomy treated with chemoradiation therapy. 3. History of left rib metastasis. 4. Chronic hyponatremia due to SIADH. 5. COPD. 6. History of tuberculosis, treated with antituberculous treatment completely. 7. Tobacco abuse disorder. 8. Severe protein-calorie malnutrition. 9. Cavitary lesion of left upper lobe which appeared to be mycetoma. 10. Hypothyroidism. PAST SURGICAL HISTORY: 1. PEG tube placement and subsequent removal. 2. Total laryngectomy, tracheostomy, lymph node dissection. PAST PSYCHIATRIC HISTORY: Anxiety and depression. ALLERGIES: THE PATIENT DOES NOT TOLERATE ACETAMINOPHEN. SOCIAL HISTORY: The patient lives at home with family. He lives with his son. He has 30-pack year smoking history. He quit smoking upon diagnosis of laryngeal cancer. He was alcoholic in the past, but he currently denies any alcohol or other illicit drug abuse. FAMILY HISTORY: Brother and aunt had similar type of head and neck, and lung cancer. CURRENT HOME MEDICATIONS: The patient did not bring his medication but based on our hospital record, the patient is on following medication. 1. Clonazepam 0.5 mg daily. 2. DuoNeb q.6 hourly. 3. Levothyroxine 100 mcg p.o. daily. 4. Sodium chloride 1 g p.o. b.i.d. 5. Tramadol 50 mg q.6 hourly p.r.n. PHYSICAL EXAMINATION: VITAL SIGNS: Vital signs today in the emergency room, blood pressure 102/68, pulse 113, respiratory rate 22, temperature 98.7, saturation 99% on room air. Weight 54 kg. GENERAL: Patient is currently cachectic, chronically ill, no obvious acute distress. HEENT: Head; normocephalic, atraumatic. Eyes; pupils round, reactive to light, sunken eyeballs. ENT; pale mucous membrane. Complete laryngectomy noted. Moist mucous membranes. NECK: Supple. Complete laryngectomy noted. RESPIRATORY: The patient does have erythema and swelling of the nodule over left upper chest which is tender, indurated, erythematous. Lung sounds are clear without any rhonchi or rales. The patient does have reproducible chest pain over affected area. CARDIAC: S1 and S2 regular, tachycardia. No murmur. ABDOMEN: Soft, benign without any tenderness. No organomegaly. No mass. No suprapubic tenderness. BACK: Examination unremarkable. No CVA tenderness. EXTREMITIES: Upper extremities; passive movement of all joints are normal. Lower extremity; no edema, muscle wasting noted. SKIN: No skin rash other than erythematous nodule over left chest. PSYCHIATRIC: Flat affect. NEUROLOGIC: Nonfocal examination. He is able to move all four limbs. SIGNIFICANT LABORATORY DATA: EKG showing sinus tachycardia, right axis deviation, nonspecific ST-T changes. CT angiography showed no evidence of pulmonary embolism. Stable multiple left-sided rib destructive changes and large masses in the left anterolateral and axillary chest wall. Moderate sized pericardial effusion. Stable right pulmonary nodule. Large left cavitary lesion. Ultrasound showed nonocclusive thrombus in left subclavian vein, axillary lymphadenopathy. CBC: WBC 46.3, hemoglobin 10.4, platelet 593 with bandemia. BMP: Sodium 123, potassium 3.4, chloride 87, carbon dioxide 26, anion gap 13, BUN 9, creatinine 1.14, glucose 117, calcium 13.3. LFT: AST 16, ALT less than 7, alkaline phosphatase 183, albumin 3.3. Cardiac enzyme negative. Lactic acid 1.7. ASSESSMENT AND PLAN: IMPRESSION: 1. Severe leukocytosis, suspected from leukemoid reaction. He does not have any fever, but the patient is immunocompromised and we will monitor WBC count and we will continue with empiric antibiotic therapy. We will check urinalysis. The patient will be given broad-spectrum antibiotic therapy with cefepime, Levaquin, and vancomycin. We will repeat CBC tomorrow. If culture remains negative, then we will discontinue antibiotic therapy, but this is most likely from a leukemoid reaction given patient has a recurrent leukocytosis. 2. Anemia of chronic disease. We will repeat CBC tomorrow. The patient will need nutritional support. This is related with anemia of chronic disease secondary to tumor. At this point, patient does not need any blood transfusion. 3. Reactive thrombocytosis from tumor as well as anemia. 4. Hyponatremia secondary to syndrome of inappropriate antidiuretic hormone secretion. At this point, we will continue with NS with KCl and we will repeat BMP tomorrow. If sodium gets worse, then we will consider discontinuing IV fluid and fluid restriction will be started. At that point, we will consider Nephrology for possible treatment with tolvaptan therapy. At this point, patient does not have any symptoms associated with hyponatremia. This is chronic and compensated. 5. Hypokalemia. We will replace potassium with IV fluid and we will check magnesium and phosphorus level tomorrow. 6. 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 The patient will be given IV fluid and we will repeat BMP tomorrow. 7. Hypoalbuminemia related with severe protein-calorie malnutrition. The patient will be given nutritional supplement. Dietary will be consulted. 8. Intractable pain from rib metastases. Pain will be controlled with morphine p.r.n. basis and Toradol p.r.n. basis. 9. Advanced squamous cell carcinoma of the larynx. Oncology will be consulted. This patient is noncompliant with followup. We will defer further treatment to Oncology. At this point, I doubt this patient will be a candidate for any kind of treatment. Palliative Care will be consulted. The patient's performance status is significantly poor and nutritional status is poor. He cannot tolerate any chemotherapy. 10. Goal of care. I tried to discuss with the patient's prognosis with the patient, but he wants to be full code. At this point, we will consult Palliative Care to continue to explore his palliative options. 11. Hypothyroidism. We will continue Synthroid 100 mcg p.o. daily. 12. Anxiety disorder. We will continue clonazepam 0.5 mg p.o. b.i.d. 13. Chronic obstructive pulmonary disease. We will continue DuoNeb q.6 hourly. 14. Deep venous thrombosis prophylaxis. Lovenox 40 mg subcu daily. 15. GI prophylaxis. Pepcid 20 mg IV b.i.d. CODE STATUS: The patient is full code. The patient is making his own decision. DISPOSITION PLAN: Based on clinical course, this patient's prognosis is extremely poor. We will continue to follow up with the patient while in the hospital. Job ID: [id number]
[2018-09-16] MEDS: Morphine 4 MG/ML VIAL SLOW IVP PRN ×2 (18:33→22:43)
[2018-09-16 18:37] LABS: Bilirubin Negative (Negative); Blood, Urine Large (Negative); Clarity CLEAR (Clear); Glucose, Urine (Dipstick) Negative (Negative); Leukocyte Small (Negative); Nitrite Negative (Negative); Protein, Urine (Dipstick) Negative (Neg-Trace); Specific Gravity, Urine 1.029 (1.002-1.036); Urobilinogen 0.2 mg/dL (0.2-1.0)
[2018-09-16 18:54] LABS: Bacteria/HPF None Seen HPF (None Seen); Hyaline Casts/LPF 0-3 HYALINE CAST LPF (0-3 Hyaline); Pathc Cast-AUWi Flag 0.14 (0-2.49); RBC/HPF GREATER THAN 50-TNTC HPF (0-3); Squamous Epithelial 0-3 HPF (0-3)
[2018-09-16] MEDS: Famotidine/PF 20 mg/2ml Vial SLOW IVP SCH (19:46)
[2018-09-16] MEDS: NS 0.9% w/ 20 MEQ KCL 1,000 ML/1,000 ML BAG IV SCH (19:50)
[2018-09-16] MEDS: Cefepime 1 GM in Sodium Chloride 0.9% 100 ML IVPB SCH (19:54)
[2018-09-16] MEDS: Sodium Chloride 1 GM TAB PO SCH (20:05)
[2018-09-16] MEDS: clonazePAM 0.5 MG TAB PO PRN (20:05)
[2018-09-16] MEDS: Vancomycin HCl 500 MG in Sodium Chloride 0.9% 100 ML IVPB SCH (22:05)
--- NOTE | 2018-09-16 23:23 | RAD ---
PORTABLE CHEST: 09/16/18 PROVIDED CLINICAL HISTORY: Comparison is made with the study dated 06/22/18. Parenchymal consolidation and cavitary lung change involving the left lung apex are redemonstrated. T he lungs appear otherwise clear. No evidence for pleural fluid or pneumothorax. Heart size is within normal limits. IMPRESSION: Left apical consolidation associated with cavitary change. Please correlate with the subsequently per formed chest CT. POS: LANDEN
[2018-09-17] MEDS: Morphine 4 MG/ML VIAL SLOW IVP PRN ×2 (03:18→09:20)
[2018-09-17 04:31] LABS: Hemoglobin 9.1 g/dL (14.0-18.0); Mean Corpuscular HGB CONC 32.9 g/dL (32.0-36.0); Mean Corpuscular Hemoglobin 26.9 pg (27.0-31.0); Mean Corpuscular Volume 81.7 fL (78.0-98.0); Mean Platelet Volume 6.1 fL (7.4-10.4); Platelet Count 463 thou/uL (130-400); RBC Distribution Width 14.3 % (11.5-14.5); Red Blood Cell (RBC) Count 3.38 mill/uL (4.70-6.10); White Blood Cell (WBC) Count 49.4 thou/uL (4.8-10.8)
[2018-09-17 04:42] LABS: ALT (SGPT) Less than 7 U/L (8-55); AST (SGOT) 11 U/L (5-34); Albumin 2.6 g/dL (3.5-5.0); Alkaline Phosphatase 148 U/L (40-150); Anion Gap 12 mmol/L (10-20); BUN (Urea Nitrogen) 7 mg/dL (8.4-25.7); Bilirubin, Total 0.3 mg/dL (0.2-1.2); Calc. Creatinine Clearance 66 mL/min (70-130); Carbon Dioxide 24 mmol/L (22-29); Chloride 93 mmol/L (98-107); Estimated GFR-MDRD 84; Globulin 3.4 g/dL (2.4-3.5); Glucose 83 mg/dL (70-105); Potassium 3.3 mmol/L (3.5-5.1); Sodium 126 mmol/L (136-145)
[2018-09-17 04:51] LABS: Calcium 12.2 mg/dL (7.8-10.44)
[2018-09-17 04:56] LABS: Band 16 % (5-11); Hypochromia SLIGHT = 6-15 cells (100X) (0-5/hpf); Lymphocytes 1 % (21-51); MDiff Complete? YES; Monocytes 3 % (0-10); Neutrophil 79 % (42-75); PLT Morphology Comment Appears Increased; Promyelocytes 1 % (0-0)
[2018-09-17] MEDS: Levothyroxine Sodium 100 MCG TAB PO SCH (06:18)
[2018-09-17 08:08] LABS: Magnesium 1.4 mg/dL (1.6-2.6)
[2018-09-17] MEDS: NS 0.9% w/ 20 MEQ KCL 1,000 ML/1,000 ML BAG IV SCH ×2 (08:21→22:31)
[2018-09-17] MEDS: Cefepime 1 GM in Sodium Chloride 0.9% 100 ML IVPB SCH ×2 (09:20→21:02)
[2018-09-17] MEDS: Enoxaparin Sodium 40 MG/0.4 ML SYRINGE SC SCH (09:21)
[2018-09-17] MEDS: clonazePAM 0.5 MG TAB PO PRN ×2 (09:21→20:03)
[2018-09-17] MEDS: Famotidine/PF 20 mg/2ml Vial SLOW IVP SCH ×2 (09:21→20:58)
[2018-09-17] MEDS: Sodium Chloride 1 GM TAB PO SCH ×2 (09:22→21:01)
--- NOTE | 2018-09-17 09:24 | PDOC.PN ---
- Subjective Encounter Start Date: 09/17/18 Encounter Start Time: 07:00 -: old records requested/rev Patient seen and examined. No new complaints. No overnight events - Objective Resuscitation Status - Order Detail: 09/16/18 16:59 Resuscitation Status Routine Resuscitation Status: FULL: Full Resuscitation MAR Reviewed: Yes Vital Signs & Weight: Vital Signs (12 hours) Temp Pulse Resp BP Pulse Ox 09/17/18 07:50 96.2 F L 92 17 128/61 97 09/17/18 07:43 98 09/17/18 07:41 78 16 98 09/17/18 04:33 97.7 F 76 12 119/66 100 09/17/18 00:31 97.8 F 77 12 128/69 98 Weight Weight 114 lb 3.191 oz I&O: 09/16/18 09/17/18 09/18/18 06:59 06:59 06:59 Intake Total 1651 Output Total 875 Balance 776 Result Diagrams: 09/17/18 04:11 09/17/18 04:11 Phys Exam - Physical Examination Constitutional: NAD cachectic HEENT: PERRLA, moist MMs, sclera anicteric Neck: no JVD, supple trach, Respiratory: no wheezing, no rales, no rhonchi Cardiovascular: RRR, no significant murmur, no rub tender chest wall mass left upper part Gastrointestinal: soft, non-tender, no distention, positive bowel sounds Musculoskeletal: no edema, pulses present Neurological: moves all 4 limbs Lymphatic: no nodes Psychiatric: normal affect Skin: no rash, normal turgor Dx/Plan (1) Hypercalcemia of malignancy Code(s): E83.52 - HYPERCALCEMIA Status: Acute (2) Hypomagnesemia Code(s): E83.42 - HYPOMAGNESEMIA Status: Acute (3) Hypokalemia Code(s): E87.6 - HYPOKALEMIA Status: Acute (4) Intractable pain Code(s): R52 - PAIN, UNSPECIFIED Status: Acute (5) Leukemoid reaction Code(s): D72.823 - LEUKEMOID REACTION Status: Acute Comment: rule out sepsis (6) COPD (chronic obstructive pulmonary disease) with emphysema Code(s): J43.9 - EMPHYSEMA, UNSPECIFIED Status: Chronic Qualifiers: (7) Chest wall mass Status: Chronic Comment: with intractable pain (8) Chronic hyponatremia Code(s): E87.1 - HYPO-OSMOLALITY AND HYPONATREMIA Status: Chronic 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 (9) Hypothyroidism Code(s): E03.9 - HYPOTHYROIDISM, UNSPECIFIED Status: Chronic Qualifiers: Comment: likely due to prior radiation (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 Code(s): C32.9 - MALIGNANT NEOPLASM OF LARYNX, UNSPECIFIED Status: Chronic Comment: h/o laryngectomy, has tracheal stoma (11) Lung cancer Code(s): C34.90 - MALIGNANT NEOPLASM OF UNSP PART OF UNSP BRONCHUS OR LUNG Status: Chronic (12) Protein-calorie malnutrition, severe Code(s): E43 - UNSPECIFIED SEVERE PROTEIN-CALORIE MALNUTRITION Status: Chronic - Plan cont current plan of care, continue antibiotics, social media developer * continue IVF with potassium * replace magnesium sulfate * continue empiric antibiotics for now * monitor labs * prognosis is very poor * oncology and palliative care consulted. * nutritional support * medication reviewed as below * symptomatic treatment Review of Systems - Review of Systems Constitutional: weakness. negative: fever, chills, sweats, malaise, other ENT: negative: Ear Pain, Ear Discharge, Nose Pain, Nose Discharge, Nose Congestion, Mouth Pain, Mouth Swelling, Throat Pain, Throat Swelling, Other Respiratory: negative: Cough, Dry, Shortness of Breath, Hemoptysis, SOB with Excertion, Pleuritic Pain, Sputum, Wheezing Cardiovascular: chest pain. negative: palpitations, orthopnea, paroxysmal nocturnal dyspnea, edema, light headedness, other Gastrointestinal: negative: Nausea, Vomiting, Abdominal Pain, Diarrhea, Constipation, Melena, Hematochezia, Other Genitourinary: negative: Dysuria, Frequency, Incontinence, Hematuria, Retention , Other Musculoskeletal: negative: Neck Pain, Shoulder Pain, Arm Pain, Back Pain, Hand Pain, Leg Pain, Foot Pain, Other Skin: negative: Rash, Lesions, Sunday, Bruising, Other - Medications/Allergies Allergies/Adverse Reactions: Allergies Allergy/AdvReac Type Severity Reaction Status Date / Time acetaminophen [From Tylenol] Allergy n/v, hives Verified 09/16/18 17:59 Medications: Current Medications Albuterol/Ipratropium (Duoneb) 3 ml NEB [id number] ABBIE Last Admin: 09/17/18 07:41 Dose: 3 ml Artificial Tears (Tears Naturale) 2 drop EA EYE PRN PRN PRN Reason: Dry Eyes Bisacodyl (Dulcolax) 10 mg PO DAILYPRN PRN PRN Reason: Constipation Bisacodyl (Dulcolax) 10 mg MA DAILYPRN PRN PRN Reason: Constipation Clonazepam (Klonopin) 0.5 mg PO BID PRN PRN Reason: Anxiety Last Admin: 09/16/18 20:05 Dose: 0.5 mg Clonidine (Catapres) 0.1 mg PO Q4H PRN PRN Reason: SBP Greater Than 170 Enoxaparin Sodium (Lovenox) 40 mg SC 0900 [facility] Famotidine (Pepcid) 20 mg SLOW IVP Q12HR [facility] Last Admin: 09/16/18 19:46 Dose: 20 mg Guaifenesin (Robitussin Sf) 200 mg PO Q4H PRN PRN Reason: Cough Hydralazine HCl (Apresoline) 10 mg SLOW IVP Q4H PRN PRN Reason: SBP > 180 and HR < 70 Cefepime HCl 1 gm/ Sodium (Chloride) 100 mls @ 200 mls/hr IVPB Q12HR [facility] Last Admin: 09/16/18 19:54 Dose: 100 mls Levofloxacin 500 mg/ Device 100 mls @ 100 mls/hr IVPB Q24HR [facility] Last Admin: 09/16/18 18:33 Dose: 100 mls Potassium Chloride/Sodium Chloride (Ns 0.9% W/ 20 Meq Kcl) 1,000 ml in 1,000 mls @ 100 mls/hr IV .Q10H [facility] Last Admin: 09/16/18 19:50 Dose: 1,000 mls Vancomycin HCl 500 mg/ Sodium (Chloride) 100 mls @ 100 mls/hr IVPB 1000,2200 [facility] Last Admin: 09/16/18 22:05 Dose: 100 mls Ketorolac Tromethamine (Toradol) 15 mg IVP Q6H PRN PRN Reason: Pain Stop: 09/21/18 17:09 Levothyroxine Sodium (Synthroid) 100 mcg PO 0600 [facility] Last Admin: 09/17/18 06:18 Dose: 100 mcg Loperamide HCl (Imodium) 2 mg PO PRN PRN PRN Reason: Diarrhea/Loose Stools Loratadine (Claritin) 10 mg PO DAILYPRN PRN PRN Reason: Sinus Symptoms Mineral Oil/White Petrolatum (Eucerin Cream) 0 gm TOP BIDPRN PRN PRN Reason: Dry Skin Miscellaneous Medication (Pharmacy To Dose) 1 each IVPB PRN PRN PRN Reason: Pharmacy to dose Morphine Sulfate (Morphine) 2 mg SLOW IVP Q4H PRN PRN Reason: Severe Pain (7-10) Last Admin: 09/17/18 03:18 Dose: 2 mg Ondansetron HCl (Zofran Odt) 4 mg SL Q6H PRN PRN Reason: Nausea/Vomiting Ondansetron HCl (Zofran) 4 mg IVP Q6H PRN PRN Reason: Nausea/Vomiting Senna/Docusate Sodium (Senokot S) 2 tab PO BID PRN PRN Reason: Constipation Sodium Chloride ([place] Nas[place] 0.65%) 0 ml EA NARE QIDPRN PRN PRN Reason: Nasal Congestion Sodium Chloride (Sodium Chloride) 1 gm PO BID ABBIE Last Admin: 09/16/18 20:05 Dose: 1 gm Sodium Chloride (Flush - Normal Saline) 10 ml IVF Q12HR ABBIE Sodium Chloride (Flush - Normal Saline) 10 ml IVF PRN PRN PRN Reason: Saline Flush Throat Lozenges (Cepastat Lozenges) 1 [place] PO Q2H PRN PRN Reason: Sore Throat Tramadol HCl (Ultram) 50 mg PO Q4H PRN PRN Reason: Moderate Pain (4-6) Zolpidem Tartrate (Ambien) 5 mg PO HSPRN PRN PRN Reason: Insomnia
[2018-09-17] MEDS ORDERED: Magnesium Sulfate 3 GM in Sodium Chloride 0.9% 100 ML IVPB SCH (09:30)
[2018-09-17] MEDS: Vancomycin HCl 500 MG in Sodium Chloride 0.9% 100 ML IVPB SCH ×2 (10:28→22:07)
[2018-09-17 12:54] VITALS: BMI 14.3
--- NOTE | 2018-09-17 14:15 | EKG ---
Test Reason : Blood Pressure : / mmHG Vent. Rate : 107 BPM Atrial Rate : 107 BPM P-R Int : 142 ms QRS Dur : 082 ms QT Int : 318 ms P-R-T Axes : 090 092 085 degrees QTc Int : 424 ms Sinus tachycardia Rightward axis Abnormal ECG Confirmed by VINH BERGERON DO ([id number]), material expeditor ALESIA SOTOMAYOR ([id number] on 09/17/2018 2:15:05 PM Referred By: Confirmed By:VINH BERGERON DO
[2018-09-17] MEDS: Morphine 2 MG/ML SYRINGE SLOW IVP PRN ×2 (17:18→21:25)
--- NOTE | 2018-09-18 00:15 | CON ---
DATE OF CONSULTATION: REASON FOR CONSULTATION: Metastatic lung cancer and laryngeal cancer. 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 The patient was recently admitted to the hospital for the same complaint and had imaging that showed necrotic chest wall and axillary masses consistent with recurrence of cancer. The patient was discharged with reasonably controlled pain on September 04, 2018, and has subsequently returned to the ER a couple times and is now readmitted to the hospital. The patient states his pain is approximately 6/10 in intensity and is currently 5/10 since admission to the hospital. The patient also complained of left upper extremity swelling and pain. The patient denies fevers, nausea, vomiting, diarrhea, constipation, or other symptoms at this time. Of note, the patient does not speak and communicates with hand gestures or by writing in his notebook. The patient is only able to eat very small amounts of food. The patient has been seen by Palliative Care and given information on outpatient palliative care followup in previous admission and this admission. I had a long discussion during the patient's last admission about potential treatment versus hospice and the patient had not decided what he wanted to do upon discharge. I discussed the option of immunotherapy with the patient, which involved Keytruda or Opdivo, possibly given every 3-4 weeks depending on drug and he states that he is interested in treatment if he can get his pain under control and get some rest. The patient would like to remain full code and is not interested in hospice at this time. The patient has social and transportation issues and did not receive all of his chemotherapy or radiation during primary treatment of his cancer. The patient does state that he lives with his son who may be able to get him to appointments. However, he does not believe he can make it to an appointment more than once or maybe twice per month. REVIEW OF SYSTEMS: Ten-point review of systems negative except as per HPI. PAST MEDICAL HISTORY: Laryngeal cancer, lung cancer, COPD, tuberculosis, tobacco abuse, and hypothyroidism. PAST SURGICAL HISTORY: Laryngectomy, tracheostomy, lymph node dissection, and PEG tube placement. PSYCHIATRIC HISTORY: Anxiety, depression. CURRENT MEDICATIONS: Reviewed. PHYSICAL EXAMINATION: VITAL SIGNS: Temperature 97.6, pulse 81, respirations 16, saturating 94% to 98% on room air, blood pressure 142 to 116 over 69 to 79. GENERAL APPEARANCE: The patient is sitting up in bed, in no acute distress. HEENT: Normocephalic, atraumatic. The patient has temporal wasting and appears extremely cachectic. Complete laryngectomy is noted. NECK: Complete laryngectomy. Otherwise, supple without lymphadenopathy. CARDIAC: S1, S2 with regular rhythm and rate. RESPIRATIONS: Nonlabored. Otherwise clear to auscultation bilaterally. ABDOMEN: Soft, nondistended, and nontender. CHEST: Left upper chest wall mass that is erythematous and tender to palpation and palpable axillary mass as well. EXTREMITIES: No significant edema. NEUROLOGIC: Cranial nerves 2 through 12 grossly intact. PSYCHIATRIC: Awake, alert and oriented x3. Appropriate mood and affect, but does appear depressed. LABORATORY DATA: White blood cells 49.4, hemoglobin 9.1, platelets 463. Sodium 126, potassium 3.3, chloride 93, CO2 of 24, BUN 7, creatinine 0.93. Calcium 13.3 on admission, down to 12.2. Albumin 3.3 on admission, currently 2.6. PTH less than 4. 25-hydroxy vitamin D 25.9. IMAGING DATA: CT angio of the chest shows no evidence of acute pulmonary embolism. Stable multiple left rib destructive lesions and large masses in the left anterolateral and axillary chest wall. Moderate-sized pericardial effusion, which is stable. Small stable right pulmonary nodule. Some minimal increased parenchymal density posteriorly in the upper lobe on the left side raising concern for the possibility of some minimal acute pneumonitis versus some progressive disease involving the large left cavitary lesion. Vascular ultrasound dated September 16, 2018, shows evidence of thrombus in the left subclavian vein. However, this is nonocclusive and flow is demonstrated. The left upper extremity showed normal flow with no evidence of thrombus. There were large masses in the left axilla and along the chest wall inferior to the axilla, presumably representing massive adenopathy. ASSESSMENT AND PLAN: 53-year-old male with a history of squamous cell carcinoma of the larynx, status post laryngectomy and squamous cell carcinoma of the left upper lung invading the chest wall and axilla, status post chemotherapy and radiation with local recurrence of disease, presenting to the hospital with symptomatic pain in his left chest wall. The patient has presented with this complaint multiple times and is able to be discharged home after pain control. The patient has been previously evaluated by Dr. Nicole, who does not believe this is infection. 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 I discussed with the patient his prognosis and the possibility of treatment with immunotherapy such as Keytruda or Opdivo. This would require the patient to come to the office at least every 3 weeks, possibly 4 weeks with Opdivo if he is able to get a ride and the patient states he is still interested in treatment at this time. He lives with his son and thinks that he maybe able to get him to an appointment. The patient has been noncompliant in the past and I stressed the importance of complying if we are starting treatment. The patient has also been seen by Palliative Care and has been given information on outpatient palliative care, which can come to the house and help manage his symptoms and his pain. I stressed the importance of this whether he goes on treatment or not because this can help control his pain at home and prevent recurrent admissions to the hospital. The patient desires to remain full code and have the option for treatment and is not interested in hospice at this time. We will continue to follow along with you this patient. I would also recommend starting the patient on anticoagulation for this thrombus as he does have cancer and is predisposed to further propagation of the blood clot , especially due to likely compression from the mass. Thank you for this consult. Job ID: [id number]
[2018-09-18] MEDS: Morphine 2 MG/ML SYRINGE SLOW IVP PRN (01:27)
[2018-09-18] MEDS: Levothyroxine Sodium 100 MCG TAB PO SCH (05:47)
[2018-09-18] MEDS: Morphine 10 MG/ML VIAL SLOW IVP PRN ×2 (05:48→11:52)
[2018-09-18] MEDS: Sodium Chloride 1 GM TAB PO SCH ×2 (08:07→20:43)
[2018-09-18] MEDS: Enoxaparin Sodium 40 MG/0.4 ML SYRINGE SC SCH (08:09)
[2018-09-18] MEDS: Famotidine/PF 20 mg/2ml Vial SLOW IVP SCH ×2 (08:09→20:43)
[2018-09-18] MEDS: NS 0.9% w/ 20 MEQ KCL 1,000 ML/1,000 ML BAG IV SCH ×2 (08:13→18:01)
[2018-09-18 09:24] LABS: Anion Gap 12 mmol/L (10-20); BUN (Urea Nitrogen) 5 mg/dL (8.4-25.7); Calc. Creatinine Clearance 74 mL/min (70-130); Calcium 11.2 mg/dL (7.8-10.44); Carbon Dioxide 24 mmol/L (22-29); Chloride 98 mmol/L (98-107); Estimated GFR-MDRD Greater than 90; Glucose 103 mg/dL (70-105); Potassium 3.5 mmol/L (3.5-5.1); Sodium 130 mmol/L (136-145)
[2018-09-18 09:40] LABS: White Blood Cell (WBC) Count 46.2 thou/uL (4.8-10.8)
[2018-09-18 09:41] LABS: Hemoglobin 8.9 g/dL (14.0-18.0); Mean Corpuscular HGB CONC 31.6 g/dL (32.0-36.0); Mean Corpuscular Volume 82.4 fL (78.0-98.0); Mean Platelet Volume 6.4 fL (7.4-10.4); Platelet Count 485 thou/uL (130-400); RBC Distribution Width 14.4 % (11.5-14.5); Red Blood Cell (RBC) Count 3.41 mill/uL (4.70-6.10)
[2018-09-18 10:01] LABS: Band 34 % (5-11); Eosinophils 1 % (0-10); Lymphocytes 2 % (21-51); MDiff Complete? YES; Monocytes 4 % (0-10); Neutrophil 59 % (42-75); PLT Morphology Comment Appears Increased; Polychromasia SLIGHT = 2-3 cells (100X) (0-2/hpf); Toxic Granulation MODERATE
[2018-09-18] MEDS: clonazePAM 0.5 MG TAB PO PRN (11:08)
--- NOTE | 2018-09-18 11:24 | PDOC.PN ---
- Subjective Encounter Start Date: 09/18/18 Encounter Start Time: 07:15 pt's pain controlled with current pain meds, no fever Patient seen and examined. No new complaints. No overnight events - Objective Resuscitation Status - Order Detail: 09/16/18 16:59 Resuscitation Status Routine Resuscitation Status: FULL: Full Resuscitation MAR Reviewed: Yes Vital Signs & Weight: Vital Signs (12 hours) Temp Pulse Resp BP Pulse Ox 09/18/18 08:00 98 F 96 20 139/67 94 L 09/18/18 06:28 70 12 97 09/18/18 04:00 98.1 F 92 16 131/67 97 09/18/18 01:15 74 16 98 09/17/18 23:46 97.7 F 95 16 131/74 95 Weight Admit Weight 114 lb 3.191 oz Weight 114 lb 3.191 oz I&O: 09/17/18 09/18/18 09/19/18 06:59 06:59 06:59 Intake Total 1651 4350 Output Total 875 3025 Balance 776 1325 Result Diagrams: 09/18/18 08:58 09/18/18 08:58 Phys Exam - Physical Examination Constitutional: NAD cachectic HEENT: PERRLA, moist MMs, sclera anicteric Neck: no JVD, supple laryngectomy Respiratory: no wheezing, no rales, no rhonchi chest wall mass tender Cardiovascular: RRR, no significant murmur, no rub Gastrointestinal: soft, non-tender, no distention, positive bowel sounds Musculoskeletal: no edema, pulses present Neurological: non-focal, normal sensation Lymphatic: no nodes Psychiatric: normal affect, A&O x 3 Skin: no rash, normal turgor Dx/Plan (1) Hypercalcemia of malignancy Code(s): E83.52 - HYPERCALCEMIA Status: Acute (2) Hypomagnesemia Code(s): E83.42 - HYPOMAGNESEMIA Status: Acute (3) Hypokalemia Code(s): E87.6 - HYPOKALEMIA Status: Acute (4) Intractable pain Code(s): R52 - PAIN, UNSPECIFIED Status: Acute (5) Leukemoid reaction Code(s): D72.823 - LEUKEMOID REACTION Status: Acute Comment: rule out sepsis (6) COPD (chronic obstructive pulmonary disease) with emphysema Code(s): J43.9 - EMPHYSEMA, UNSPECIFIED Status: Chronic Qualifiers: (7) Chest wall mass Status: Chronic Comment: with intractable pain (8) Chronic hyponatremia Code(s): E87.1 - HYPO-OSMOLALITY AND HYPONATREMIA Status: Chronic 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 (9) Hypothyroidism Code(s): E03.9 - HYPOTHYROIDISM, UNSPECIFIED Status: Chronic Qualifiers: Comment: likely due to prior radiation (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 Code(s): C32.9 - MALIGNANT NEOPLASM OF LARYNX, UNSPECIFIED Status: Chronic Comment: h/o laryngectomy, has tracheal stoma (11) Lung cancer Code(s): C34.90 - MALIGNANT NEOPLASM OF UNSP PART OF UNSP BRONCHUS OR LUNG Status: Chronic (12) Protein-calorie malnutrition, severe Code(s): E43 - UNSPECIFIED SEVERE PROTEIN-CALORIE MALNUTRITION Status: Chronic - Plan cont current plan of care, social media marketing manager * will dc antibiotics as infection ruled out * continue ivf * monitor labs * pain control * palliative care on case * oncology recommendation noted * prognosis is very poor * he declines hospice * medication reviewed as below * symptomatic treatment. Review of Systems - Review of Systems ENT: negative: Ear Pain, Ear Discharge, Nose Pain, Nose Discharge, Nose Congestion, Mouth Pain, Mouth Swelling, Throat Pain, Throat Swelling, Other Respiratory: negative: Cough, Dry, Shortness of Breath, Hemoptysis, SOB with Excertion, Pleuritic Pain, Sputum, Wheezing Cardiovascular: chest pain. negative: palpitations, orthopnea, paroxysmal nocturnal dyspnea, edema, light headedness, other Gastrointestinal: negative: Nausea, Vomiting, Abdominal Pain, Diarrhea, Constipation, Melena, Hematochezia, Other Genitourinary: negative: Dysuria, Frequency, Incontinence, Hematuria, Retention , Other Musculoskeletal: negative: Neck Pain, Shoulder Pain, Arm Pain, Back Pain, Hand Pain, Leg Pain, Foot Pain, Other Skin: negative: Rash, Lesions, Sunday, Bruising, Other - Medications/Allergies Allergies/Adverse Reactions: Allergies Allergy/AdvReac Type Severity Reaction Status Date / Time acetaminophen [From Tylenol] Allergy n/v, hives Verified 09/16/18 17:59 Medications: Current Medications Albuterol/Ipratropium (Duoneb) 3 ml NEB [id number] ABBIE Last Admin: 09/18/18 06:28 Dose: 3 ml Artificial Tears (Tears Naturale) 2 drop EA EYE PRN PRN PRN Reason: Dry Eyes Bisacodyl (Dulcolax) 10 mg PO DAILYPRN PRN PRN Reason: Constipation Bisacodyl (Dulcolax) 10 mg [place] DAILYPRN PRN PRN Reason: Constipation Cholecalciferol (Vitamin D3) 1,000 units PO DAILY [facility] Last Admin: 09/18/18 08:07 Dose: 1,000 units Clonazepam (Klonopin) 0.5 mg PO BID PRN PRN Reason: Anxiety Last Admin: 09/18/18 11:08 Dose: 0.5 mg Clonidine (Catapres) 0.1 mg PO Q4H PRN PRN Reason: SBP Greater Than 170 Enoxaparin Sodium (Lovenox) 40 mg SC 0900 [facility] Last Admin: 09/18/18 08:09 Dose: 40 mg Famotidine (Pepcid) 20 mg SLOW IVP Q12HR [facility] Last Admin: 09/18/18 08:09 Dose: 20 mg Guaifenesin (Robitussin Sf) 200 mg PO Q4H PRN PRN Reason: Cough Hydralazine HCl (Apresoline) 10 mg SLOW IVP Q4H PRN PRN Reason: SBP > 180 and HR < 70 Potassium Chloride/Sodium Chloride (Ns 0.9% W/ 20 Meq Kcl) 1,000 ml in 1,000 mls @ 100 mls/hr IV .Q10H [facility] Last Admin: 09/18/18 08:13 Dose: 1,000 mls Ketorolac Tromethamine (Toradol) 15 mg IVP Q6H PRN PRN Reason: Pain Stop: 09/21/18 17:09 Levothyroxine Sodium (Synthroid) 100 mcg PO 0600 [facility] Last Admin: 09/18/18 05:47 Dose: 100 mcg Loperamide HCl (Imodium) 2 mg PO PRN PRN PRN Reason: Diarrhea/Loose Stools Loratadine (Claritin) 10 mg PO DAILYPRN PRN PRN Reason: Sinus Symptoms Mineral Oil/White Petrolatum (Eucerin Cream) 0 gm TOP BIDPRN PRN PRN Reason: Dry Skin Morphine Sulfate (Morphine) 2 mg SLOW IVP Q4H PRN PRN Reason: Severe Pain (7-10) Last Admin: 09/18/18 05:48 Dose: 2 mg Ondansetron HCl (Zofran Odt) 4 mg SL Q6H PRN PRN Reason: Nausea/Vomiting Ondansetron HCl (Zofran) 4 mg IVP Q6H PRN PRN Reason: Nausea/Vomiting Senna/Docusate Sodium (Senokot S) 2 tab PO BID PRN PRN Reason: Constipation Sodium Chloride ([place] Nasal [place] 0.65%) 0 ml EA NARE QIDPRN PRN PRN Reason: Nasal Congestion Sodium Chloride (Sodium Chloride) 1 gm PO BID [facility] Last Admin: 09/18/18 08:07 Dose: 1 gm Sodium Chloride (Flush - Normal Saline) 10 ml IVF Q12HR [facility] Last Admin: 09/18/18 10:46 Dose: Not Given Sodium Chloride (Flush - Normal Saline) 10 ml IVF PRN PRN PRN Reason: Saline Flush Throat Lozenges (Cepastat Lozenges) 1 [place] PO Q2H PRN PRN Reason: Sore Throat Tramadol HCl (Ultram) 50 mg PO Q4H PRN PRN Reason: Moderate Pain (4-6) Zolpidem Tartrate (Ambien) 5 mg PO HSPRN PRN PRN Reason: Insomnia
[2018-09-18] MEDS: Morphine 4 MG/ML VIAL SLOW IVP PRN (16:45)
[2018-09-19] MEDS: Morphine 4 MG/ML VIAL SLOW IVP PRN ×4 (00:41→21:19)
[2018-09-19] MEDS: NS 0.9% w/ 20 MEQ KCL 1,000 ML/1,000 ML BAG IV SCH ×2 (04:41→16:00)
[2018-09-19] MEDS: Levothyroxine Sodium 100 MCG TAB PO SCH (05:55)
[2018-09-19] MEDS: Sodium Chloride 1 GM TAB PO SCH ×2 (08:53→21:19)
[2018-09-19] MEDS: Enoxaparin Sodium 40 MG/0.4 ML SYRINGE SC SCH (08:55)
[2018-09-19] MEDS: Famotidine/PF 20 mg/2ml Vial SLOW IVP SCH ×2 (08:55→21:19)
[2018-09-19] MEDS: Ketorolac Tromethamine 30 MG/ML VIAL IVP PRN ×2 (08:56→17:39)
--- NOTE | 2018-09-19 11:07 | PDOC.PN ---
- Subjective Encounter Start Date: 09/19/18 Encounter Start Time: 07:10 Patient seen and examined. No new complaints. No overnight events - Objective Resuscitation Status - Order Detail: 09/16/18 16:59 Resuscitation Status Routine Resuscitation Status: FULL: Full Resuscitation MAR Reviewed: Yes Vital Signs & Weight: Vital Signs (12 hours) Temp Pulse Resp BP Pulse Ox 09/19/18 08:00 97.6 F 97 16 138/74 94 L 09/19/18 06:25 75 14 96 Weight Admit Weight 114 lb 3.191 oz Weight 114 lb 3.191 oz I&O: 09/18/18 09/19/18 09/20/18 06:59 06:59 06:59 Intake Total 4350 1700 Output Total 3025 800 Balance 1325 900 Result Diagrams: 09/18/18 08:58 09/18/18 08:58 Phys Exam - Physical Examination Constitutional: NAD cachectic HEENT: PERRLA, moist MMs, sclera anicteric Neck: no JVD, supple laryngectomy+ Respiratory: no wheezing, no rales, no rhonchi Cardiovascular: RRR, no significant murmur, no rub Gastrointestinal: soft, non-tender, no distention, positive bowel sounds Musculoskeletal: no edema, pulses present Neurological: non-focal, normal sensation Lymphatic: no nodes Psychiatric: normal affect Skin: no rash, normal turgor Dx/Plan (1) Hypercalcemia of malignancy Code(s): E83.52 - HYPERCALCEMIA Status: Acute (2) Hypomagnesemia Code(s): E83.42 - HYPOMAGNESEMIA Status: Acute (3) Hypokalemia Code(s): E87.6 - HYPOKALEMIA Status: Acute (4) Intractable pain Code(s): R52 - PAIN, UNSPECIFIED Status: Acute (5) Leukemoid reaction Code(s): D72.823 - LEUKEMOID REACTION Status: Acute Comment: rule out sepsis (6) COPD (chronic obstructive pulmonary disease) with emphysema Code(s): J43.9 - EMPHYSEMA, UNSPECIFIED Status: Chronic Qualifiers: (7) Chest wall mass Status: Chronic Comment: with intractable pain (8) Chronic hyponatremia Code(s): E87.1 - HYPO-OSMOLALITY AND HYPONATREMIA Status: Chronic 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 (9) Hypothyroidism Code(s): E03.9 - HYPOTHYROIDISM, UNSPECIFIED Status: Chronic Qualifiers: Comment: likely due to prior radiation (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 Code(s): C32.9 - MALIGNANT NEOPLASM OF LARYNX, UNSPECIFIED Status: Chronic Comment: h/o laryngectomy, has tracheal stoma (11) Lung cancer Code(s): C34.90 - MALIGNANT NEOPLASM OF UNSP PART OF UNSP BRONCHUS OR LUNG Status: Chronic (12) Protein-calorie malnutrition, severe Code(s): E43 - UNSPECIFIED SEVERE PROTEIN-CALORIE MALNUTRITION Status: Chronic - Plan cont current plan of care, social worker aide * medication reviewed as below * symptomatic treatment * pain controlled with current meds * he is continue to be high risk for readmission * will consider discharge in next 24-48 hours. Review of Systems - Review of Systems ENT: negative: Ear Pain, Ear Discharge, Nose Pain, Nose Discharge, Nose Congestion, Mouth Pain, Mouth Swelling, Throat Pain, Throat Swelling, Other Respiratory: negative: Cough, Dry, Shortness of Breath, Hemoptysis, SOB with Excertion, Pleuritic Pain, Sputum, Wheezing Cardiovascular: negative: chest pain, palpitations, orthopnea, paroxysmal nocturnal dyspnea, edema, light headedness, other Gastrointestinal: negative: Nausea, Vomiting, Abdominal Pain, Diarrhea, Constipation, Melena, Hematochezia, Other Genitourinary: negative: Dysuria, Frequency, Incontinence, Hematuria, Retention , Other Musculoskeletal: negative: Neck Pain, Shoulder Pain, Arm Pain, Back Pain, Hand Pain, Leg Pain, Foot Pain, Other Skin: negative: Rash, Lesions, Sunday, Bruising, Other - Medications/Allergies Allergies/Adverse Reactions: Allergies Allergy/AdvReac Type Severity Reaction Status Date / Time acetaminophen [From Tylenol] Allergy n/v, hives Verified 09/16/18 17:59 Medications: Current Medications Albuterol/Ipratropium (Duoneb) 3 ml NEB Q5OW-AL ABBIE Last Admin: 09/19/18 06:25 Dose: 3 ml Artificial Tears (Tears Naturale) 2 drop EA EYE PRN PRN PRN Reason: Dry Eyes Bisacodyl (Dulcolax) 10 mg PO DAILYPRN PRN PRN Reason: Constipation Bisacodyl (Dulcolax) 10 mg [place] DAILYPRN PRN PRN Reason: Constipation Cholecalciferol (Vitamin D3) 1,000 units PO DAILY [facility] Last Admin: 09/19/18 08:53 Dose: 1,000 units Clonazepam (Klonopin) 0.5 mg PO BID PRN PRN Reason: Anxiety Last Admin: 09/18/18 11:08 Dose: 0.5 mg Clonidine (Catapres) 0.1 mg PO Q4H PRN PRN Reason: SBP Greater Than 170 Enoxaparin Sodium (Lovenox) 40 mg SC 0900 [facility] Last Admin: 09/19/18 08:55 Dose: 40 mg Famotidine (Pepcid) 20 mg SLOW IVP Q12HR [facility] Last Admin: 09/19/18 08:55 Dose: 20 mg Guaifenesin (Robitussin Sf) 200 mg PO Q4H PRN PRN Reason: Cough Hydralazine HCl (Apresoline) 10 mg SLOW IVP Q4H PRN PRN Reason: SBP > 180 and HR < 70 Potassium Chloride/Sodium Chloride (Ns 0.9% W/ 20 Meq Kcl) 1,000 ml in 1,000 mls @ 100 mls/hr IV .Q10H [facility] Last Admin: 09/19/18 04:41 Dose: 1,000 mls Ketorolac Tromethamine (Toradol) 15 mg IVP Q6H PRN PRN Reason: Pain Stop: 09/21/18 17:09 Last Admin: 09/19/18 08:56 Dose: 15 mg Levothyroxine Sodium (Synthroid) 100 mcg PO 0600 [facility] Last Admin: 09/19/18 05:55 Dose: 100 mcg Loperamide HCl (Imodium) 2 mg PO PRN PRN PRN Reason: Diarrhea/Loose Stools Loratadine (Claritin) 10 mg PO DAILYPRN PRN PRN Reason: Sinus Symptoms Mineral Oil/White Petrolatum (Eucerin Cream) 0 gm TOP BIDPRN PRN PRN Reason: Dry Skin Morphine Sulfate (Morphine) 2 mg SLOW IVP Q4H PRN PRN Reason: Severe Pain (7-10) Last Admin: 09/19/18 06:29 Dose: 2 mg Ondansetron HCl (Zofran Odt) 4 mg SL Q6H PRN PRN Reason: Nausea/Vomiting Ondansetron HCl (Zofran) 4 mg IVP Q6H PRN PRN Reason: Nausea/Vomiting Senna/Docusate Sodium (Senokot S) 2 tab PO BID PRN PRN Reason: Constipation Sodium Chloride ([place] Nasal [place] 0.65%) 0 ml EA NARE QIDPRN PRN PRN Reason: Nasal Congestion Sodium Chloride (Sodium Chloride) 1 gm PO BID [facility] Last Admin: 09/19/18 08:53 Dose: 1 gm Sodium Chloride (Flush - Normal Saline) 10 ml IVF Q12HR [facility] Last Admin: 09/19/18 08:57 Dose: Not Given Sodium Chloride (Flush - Normal Saline) 10 ml IVF PRN PRN PRN Reason: Saline Flush Throat Lozenges (Cepastat Lozenges) 1 [place] PO Q2H PRN PRN Reason: Sore Throat Tramadol HCl (Ultram) 50 mg PO Q4H PRN PRN Reason: Moderate Pain (4-6) Zolpidem Tartrate (Ambien) 5 mg PO HSPRN PRN PRN Reason: Insomnia
[2018-09-19] MEDS: clonazePAM 0.5 MG TAB PO PRN (17:37)
[2018-09-20] MEDS: Ketorolac Tromethamine 30 MG/ML VIAL IVP PRN ×2 (00:34→08:46)
[2018-09-20] MEDS: NS 0.9% w/ 20 MEQ KCL 1,000 ML/1,000 ML BAG IV SCH ×3 (00:37→22:47)
[2018-09-20] MEDS: Levothyroxine Sodium 100 MCG TAB PO SCH (06:49)
[2018-09-20] MEDS: Morphine 4 MG/ML VIAL SLOW IVP PRN ×3 (07:27→20:34)
--- NOTE | 2018-09-20 08:44 | PDOC.PN ---
- Subjective Encounter Start Date: 09/20/18 Encounter Start Time: 07:10 Patient seen and examined. No new complaints. No overnight events - Objective Resuscitation Status - Order Detail: 09/16/18 16:59 Resuscitation Status Routine Resuscitation Status: FULL: Full Resuscitation MAR Reviewed: Yes Vital Signs & Weight: Vital Signs (12 hours) Pulse Ox 09/20/18 00:09 95 Weight Admit Weight 114 lb 3.191 oz Weight 114 lb 3.191 oz I&O: 09/19/18 09/20/18 09/21/18 06:59 06:59 06:59 Intake Total 1700 2025 Output Total 800 900 Balance 900 1125 Result Diagrams: 09/18/18 08:58 09/18/18 08:58 Phys Exam - Physical Examination Constitutional: NAD HEENT: PERRLA, moist MMs, sclera anicteric, oral pharynx no lesions Neck: no JVD, supple Respiratory: no wheezing, no rales, no rhonchi Cardiovascular: RRR, no significant murmur, no rub Gastrointestinal: soft, non-tender, no distention, positive bowel sounds Musculoskeletal: no edema, pulses present Neurological: non-focal, normal sensation Lymphatic: no nodes Psychiatric: normal affect, A&O x 3 Skin: no rash, normal turgor Dx/Plan (1) Hypercalcemia of malignancy Code(s): E83.52 - HYPERCALCEMIA Status: Acute (2) Hypomagnesemia Code(s): E83.42 - HYPOMAGNESEMIA Status: Acute (3) Hypokalemia Code(s): E87.6 - HYPOKALEMIA Status: Acute (4) Intractable pain Code(s): R52 - PAIN, UNSPECIFIED Status: Acute (5) Leukemoid reaction Code(s): D72.823 - LEUKEMOID REACTION Status: Acute Comment: rule out sepsis (6) COPD (chronic obstructive pulmonary disease) with emphysema Code(s): J43.9 - EMPHYSEMA, UNSPECIFIED Status: Chronic Qualifiers: (7) Chest wall mass Status: Chronic Comment: with intractable pain (8) Chronic hyponatremia Code(s): E87.1 - HYPO-OSMOLALITY AND HYPONATREMIA Status: Chronic 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 (9) Hypothyroidism Code(s): E03.9 - HYPOTHYROIDISM, UNSPECIFIED Status: Chronic Qualifiers: Comment: likely due to prior radiation (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 Review of Systems - Review of Systems ENT: negative: Ear Pain, Ear Discharge, Nose Pain, Nose Discharge, Nose Congestion, Mouth Pain, Mouth Swelling, Throat Pain, Throat Swelling, Other Respiratory: negative: Cough, Dry, Shortness of Breath, Hemoptysis, SOB with Excertion, Pleuritic Pain, Sputum, Wheezing Cardiovascular: chest pain. negative: palpitations, orthopnea, paroxysmal nocturnal dyspnea, edema, light headedness, other Gastrointestinal: negative: Nausea, Vomiting, Abdominal Pain, Diarrhea, Constipation, Melena, Hematochezia, Other Genitourinary: negative: Dysuria, Frequency, Incontinence, Hematuria, Retention , Other Musculoskeletal: negative: Neck Pain, Shoulder Pain, Arm Pain, Back Pain, Hand Pain, Leg Pain, Foot Pain, Other - Medications/Allergies Allergies/Adverse Reactions: Allergies Allergy/AdvReac Type Severity Reaction Status Date / Time acetaminophen [From Tylenol] Allergy n/v, hives Verified 09/16/18 17:59 Medications: Current Medications Albuterol/Ipratropium (Duoneb) 3 ml NEB [id number] [facility] Last Admin: 09/20/18 00:09 Dose: 3 ml Artificial Tears (Tears Naturale) 2 drop EA EYE PRN PRN PRN Reason: Dry Eyes Bisacodyl (Dulcolax) 10 mg PO DAILYPRN PRN PRN Reason: Constipation Bisacodyl (Dulcolax) 10 mg [place] DAILYPRN PRN PRN Reason: Constipation Cholecalciferol (Vitamin D3) 1,000 units PO DAILY [facility] Last Admin: 09/19/18 08:53 Dose: 1,000 units Clonazepam (Klonopin) 0.5 mg PO BID PRN PRN Reason: Anxiety Last Admin: 09/19/18 17:37 Dose: 0.5 mg Clonidine (Catapres) 0.1 mg PO Q4H PRN PRN Reason: SBP Greater Than 170 Enoxaparin Sodium (Lovenox) 40 mg SC 0900 [facility] Last Admin: 09/19/18 08:55 Dose: 40 mg Famotidine (Pepcid) 20 mg SLOW IVP Q12HR [facility] Last Admin: 09/19/18 21:19 Dose: 20 mg Guaifenesin (Robitussin Sf) 200 mg PO Q4H PRN PRN Reason: Cough Hydralazine HCl (Apresoline) 10 mg SLOW IVP Q4H PRN PRN Reason: SBP > 180 and HR < 70 Potassium Chloride/Sodium Chloride (Ns 0.9% W/ 20 Meq Kcl) 1,000 ml in 1,000 mls @ 100 mls/hr IV .Q10H [facility] Last Admin: 09/20/18 00:37 Dose: 1,000 mls Ketorolac Tromethamine (Toradol) 15 mg IVP Q6H PRN PRN Reason: Pain Stop: 09/21/18 17:09 Last Admin: 09/20/18 00:34 Dose: 15 mg Levothyroxine Sodium (Synthroid) 100 mcg PO 0600 [facility] Last Admin: 09/20/18 06:49 Dose: 100 mcg Loperamide HCl (Imodium) 2 mg PO PRN PRN PRN Reason: Diarrhea/Loose Stools Loratadine (Claritin) 10 mg PO DAILYPRN PRN PRN Reason: Sinus Symptoms Mineral Oil/White Petrolatum (Eucerin Cream) 0 gm TOP BIDPRN PRN PRN Reason: Dry Skin Morphine Sulfate (Morphine) 2 mg SLOW IVP Q4H PRN PRN Reason: Severe Pain (7-10) Last Admin: 09/20/18 07:27 Dose: 2 mg Ondansetron HCl (Zofran Odt) 4 mg SL Q6H PRN PRN Reason: Nausea/Vomiting Ondansetron HCl (Zofran) 4 mg IVP Q6H PRN PRN Reason: Nausea/Vomiting Senna/Docusate Sodium (Senokot S) 2 tab PO BID PRN PRN Reason: Constipation Sodium Chloride ([place] Nasal [place] 0.65%) 0 ml EA NARE QIDPRN PRN PRN Reason: Nasal Congestion Sodium Chloride (Sodium Chloride) 1 gm PO BID [facility] Last Admin: 09/19/18 21:19 Dose: 1 gm Sodium Chloride (Flush - Normal Saline) 10 ml IVF Q12HR [facility] Last Admin: 09/19/18 21:20 Dose: 10 ml Sodium Chloride (Flush - Normal Saline) 10 ml IVF PRN PRN PRN Reason: Saline Flush Throat Lozenges (Cepastat Lozenges) 1 [place] PO Q2H PRN PRN Reason: Sore Throat Tramadol HCl (Ultram) 50 mg PO Q4H PRN PRN Reason: Moderate Pain (4-6) Zolpidem Tartrate (Ambien) 5 mg PO HSPRN PRN PRN Reason: Insomnia
[2018-09-20] MEDS: Famotidine/PF 20 mg/2ml Vial SLOW IVP SCH ×2 (08:46→20:31)
[2018-09-20] MEDS: Sodium Chloride 1 GM TAB PO SCH ×2 (08:46→20:31)
[2018-09-20] MEDS: Enoxaparin Sodium 40 MG/0.4 ML SYRINGE SC SCH (08:46)
[2018-09-20] MEDS: clonazePAM 0.5 MG TAB PO PRN ×2 (11:01→22:48)
[2018-09-21 04:40] LABS: ALT (SGPT) Less than 7 U/L (8-55); AST (SGOT) 12 U/L (5-34); Albumin 2.2 g/dL (3.5-5.0); Alkaline Phosphatase 154 U/L (40-150); Anion Gap 10 mmol/L (10-20); BUN (Urea Nitrogen) 8 mg/dL (8.4-25.7); Bilirubin, Total 0.2 mg/dL (0.2-1.2); Calc. Creatinine Clearance 80 mL/min (70-130); Carbon Dioxide 23 mmol/L (22-29); Chloride 102 mmol/L (98-107); Estimated GFR-MDRD Greater than 90; Globulin 3.2 g/dL (2.4-3.5); Glucose 92 mg/dL (70-105); Magnesium 1.2 mg/dL (1.6-2.6); Phosphorus 2.3 mg/dL (2.3-4.7); Potassium 4.5 mmol/L (3.5-5.1); Protein, Total 5.4 g/dL (6.0-8.3); Sodium 130 mmol/L (136-145)
[2018-09-21 04:58] LABS: Band 29 % (5-11); Eosinophils 3 % (0-10); Hemoglobin 8.1 g/dL (14.0-18.0); Lymphocytes 4 % (21-51); MDiff Complete? YES; Mean Corpuscular HGB CONC 32.9 g/dL (32.0-36.0); Mean Corpuscular Volume 82.1 fL (78.0-98.0); Monocytes 5 % (0-10); Neutrophil 59 % (42-75); PLT Morphology Comment Appears Increased; Platelet Count 523 thou/uL (130-400); RBC Distribution Width 14.5 % (11.5-14.5); White Blood Cell (WBC) Count 36.7 thou/uL (4.8-10.8)
[2018-09-21] MEDS: Levothyroxine Sodium 100 MCG TAB PO SCH (06:22)
[2018-09-21] MEDS ORDERED: Magnesium Sulfate 4 GM in Sodium Chloride 0.9% 250 ML 250 ML IVPB SCH (07:15)
--- NOTE | 2018-09-21 08:52 | PDOC.PN ---
- Subjective Encounter Start Date: 09/21/18 Encounter Start Time: 07:10 Patient seen and examined. No new complaints. No overnight events - Objective Resuscitation Status - Order Detail: 09/16/18 16:59 Resuscitation Status Routine Resuscitation Status: FULL: Full Resuscitation MAR Reviewed: Yes Vital Signs & Weight: Vital Signs (12 hours) Temp Pulse Resp BP Pulse Ox 09/21/18 08:00 98.6 F 104 H 16 133/70 94 L 09/21/18 07:05 97 09/21/18 07:04 97 16 97 09/20/18 23:21 98.4 F Weight Admit Weight 114 lb 3.191 oz Weight 114 lb 3.191 oz I&O: 09/20/18 09/21/18 09/22/18 06:59 06:59 06:59 Intake Total 2025 2750.5 Output Total 900 675 Balance 1125 2075.5 Result Diagrams: 09/21/18 04:08 09/21/18 04:08 Phys Exam - Physical Examination Constitutional: NAD HEENT: PERRLA, moist MMs, sclera anicteric Neck: no JVD, supple Respiratory: no wheezing, no rales, no rhonchi Cardiovascular: RRR, no significant murmur, no rub Gastrointestinal: soft, non-tender, no distention, positive bowel sounds Musculoskeletal: no edema, pulses present Neurological: non-focal Lymphatic: no nodes Psychiatric: normal affect Skin: no rash, normal turgor Dx/Plan (1) Hypercalcemia of malignancy Code(s): E83.52 - HYPERCALCEMIA Status: Acute (2) Hypomagnesemia Code(s): E83.42 - HYPOMAGNESEMIA Status: Acute (3) Hypokalemia Code(s): E87.6 - HYPOKALEMIA Status: Acute (4) Intractable pain Code(s): R52 - PAIN, UNSPECIFIED Status: Acute (5) Leukemoid reaction Code(s): D72.823 - LEUKEMOID REACTION Status: Acute Comment: rule out sepsis (6) COPD (chronic obstructive pulmonary disease) with emphysema Code(s): J43.9 - EMPHYSEMA, UNSPECIFIED Status: Chronic Qualifiers: (7) Chest wall mass Status: Chronic Comment: with intractable pain (8) Chronic hyponatremia Code(s): E87.1 - HYPO-OSMOLALITY AND HYPONATREMIA Status: Chronic 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 (9) Hypothyroidism Code(s): E03.9 - HYPOTHYROIDISM, UNSPECIFIED Status: Chronic Qualifiers: Comment: likely due to prior radiation (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 Review of Systems - Review of Systems ENT: negative: Ear Pain, Ear Discharge, Nose Pain, Nose Discharge, Nose Congestion, Mouth Pain, Mouth Swelling, Throat Pain, Throat Swelling, Other Respiratory: negative: Cough, Dry, Shortness of Breath, Hemoptysis, SOB with Excertion, Pleuritic Pain, Sputum, Wheezing Cardiovascular: negative: chest pain, palpitations, orthopnea, paroxysmal nocturnal dyspnea, edema, light headedness, other Gastrointestinal: negative: Nausea, Vomiting, Abdominal Pain, Diarrhea, Constipation, Melena, Hematochezia, Other Genitourinary: negative: Dysuria, Frequency, Incontinence, Hematuria, Retention , Other Musculoskeletal: negative: Neck Pain, Shoulder Pain, Arm Pain, Back Pain, Hand Pain, Leg Pain, Foot Pain, Other - Medications/Allergies Allergies/Adverse Reactions: Allergies Allergy/AdvReac Type Severity Reaction Status Date / Time acetaminophen [From Tylenol] Allergy n/v, hives Verified 09/16/18 17:59 Medications: Current Medications Albuterol/Ipratropium (Duoneb) 3 ml NEB [id number] [facility] Last Admin: 09/21/18 07:04 Dose: 3 ml Artificial Tears (Tears Naturale) 2 drop EA EYE PRN PRN PRN Reason: Dry Eyes Bisacodyl (Dulcolax) 10 mg PO DAILYPRN PRN PRN Reason: Constipation Bisacodyl (Dulcolax) 10 mg [place] DAILYPRN PRN PRN Reason: Constipation Cholecalciferol (Vitamin D3) 1,000 units PO DAILY [facility] Clonazepam (Klonopin) 0.5 mg PO BID PRN PRN Reason: Anxiety Last Admin: 09/20/18 22:48 Dose: 0.5 mg Clonidine (Catapres) 0.1 mg PO Q4H PRN PRN Reason: SBP Greater Than 170 Enoxaparin Sodium (Lovenox) 40 mg SC 0900 [facility] Last Admin: 09/20/18 08:46 Dose: 40 mg Famotidine (Pepcid) 20 mg SLOW IVP Q12HR [facility] Last Admin: 09/20/18 20:31 Dose: 20 mg Guaifenesin (Robitussin Sf) 200 mg PO Q4H PRN PRN Reason: Cough Hydralazine HCl (Apresoline) 10 mg SLOW IVP Q4H PRN PRN Reason: SBP > 180 and HR < 70 Potassium Chloride/Sodium Chloride (Ns 0.9% W/ 20 Meq Kcl) 1,000 ml in 1,000 mls @ 100 mls/hr IV .Q10H [facility] Last Admin: 09/20/18 22:47 Dose: 1,000 mls Magnesium Sulfate 4 gm/ Sodium (Chloride) 258 mls @ 86 mls/hr IVPB 0715 [facility] Stop: 09/21/18 10:14 Last Admin: 09/21/18 07:55 Dose: 258 mls Levothyroxine Sodium (Synthroid) 100 mcg PO 0600 [facility] Last Admin: 09/21/18 06:22 Dose: 100 mcg Loperamide HCl (Imodium) 2 mg PO PRN PRN PRN Reason: Diarrhea/Loose Stools Loratadine (Claritin) 10 mg PO DAILYPRN PRN PRN Reason: Sinus Symptoms Mineral Oil/White Petrolatum (Eucerin Cream) 0 gm TOP BIDPRN PRN PRN Reason: Dry Skin Morphine Sulfate (Morphine) 2 mg SLOW IVP Q4H PRN PRN Reason: Severe Pain (7-10) Last Admin: 09/20/18 20:34 Dose: 2 mg Ondansetron HCl (Zofran Odt) 4 mg SL Q6H PRN PRN Reason: Nausea/Vomiting Ondansetron HCl (Zofran) 4 mg IVP Q6H PRN PRN Reason: Nausea/Vomiting Senna/Docusate Sodium (Senokot S) 2 tab PO BID PRN PRN Reason: Constipation Sodium Chloride ([place] Nasal [place] 0.65%) 0 ml EA NARE QIDPRN PRN PRN Reason: Nasal Congestion Sodium Chloride (Sodium Chloride) 1 gm PO BID [facility] Last Admin: 09/20/18 20:31 Dose: 1 gm Sodium Chloride (Flush - Normal Saline) 10 ml IVF Q12HR [facility] Last Admin: 09/20/18 20:31 Dose: 10 ml Sodium Chloride (Flush - Normal Saline) 10 ml IVF PRN PRN PRN Reason: Saline Flush Last Admin: 09/20/18 11:57 Dose: 10 ml Throat Lozenges (Cepastat Lozenges) 1 [place] PO Q2H PRN PRN Reason: Sore Throat Tramadol HCl (Ultram) 50 mg PO Q4H PRN PRN Reason: Moderate Pain (4-6) Zolpidem Tartrate (Ambien) 5 mg PO HSPRN PRN PRN Reason: Insomnia
[2018-09-21] MEDS: Enoxaparin Sodium 40 MG/0.4 ML SYRINGE SC SCH (09:36)
[2018-09-21] MEDS: Sodium Chloride 1 GM TAB PO SCH ×2 (09:36→20:32)
[2018-09-21] MEDS: NS 0.9% w/ 20 MEQ KCL 1,000 ML/1,000 ML BAG IV SCH ×3 (09:37→20:56)
[2018-09-21] MEDS: Famotidine/PF 20 mg/2ml Vial SLOW IVP SCH (09:37)
[2018-09-21] MEDS: Morphine 4 MG/ML VIAL SLOW IVP PRN ×3 (13:19→23:47)
[2018-09-21] MEDS: clonazePAM 0.5 MG TAB PO PRN (13:20)
[2018-09-21] MEDS: Famotidine 20 MG TAB PO SCH (20:32)
[2018-09-22] MEDS: Morphine 4 MG/ML VIAL SLOW IVP PRN ×2 (03:49→08:40)
[2018-09-22] MEDS: clonazePAM 0.5 MG TAB PO PRN (04:59)
[2018-09-22] MEDS: Levothyroxine Sodium 100 MCG TAB PO SCH (04:59)
[2018-09-22 08:53] VITALS: BP 145/83; TEMP 98.7
[2018-09-22] MEDS: Enoxaparin Sodium 40 MG/0.4 ML SYRINGE SC SCH (09:07)
[2018-09-22] MEDS: Famotidine 20 MG TAB PO SCH (09:08)
[2018-09-22] MEDS: Sodium Chloride 1 GM TAB PO SCH (09:08)
--- NOTE | 2018-09-22 09:29 | PDOC.PN ---
- Subjective Encounter Start Date: 09/22/18 - Objective Resuscitation Status - Order Detail: 09/16/18 16:59 Resuscitation Status Routine Resuscitation Status: FULL: Full Resuscitation Vital Signs & Weight: Vital Signs (12 hours) Temp Pulse Resp BP Pulse Ox 09/22/18 08:52 98.7 F 109 H 28 H 145/83 H 92 L 09/22/18 04:08 99.1 F 09/22/18 00:00 99.7 F H Weight Admit Weight 114 lb 3.191 oz Weight 114 lb 3.191 oz I&O: 09/21/18 09/22/18 09/23/18 06:59 06:59 06:59 Intake Total 2750.5 3550 Output Total 675 1400 Balance 2075.5 2150 Result Diagrams: 09/21/18 04:08 09/21/18 04:08 Dx/Plan (1) Hypercalcemia of malignancy Code(s): E83.52 - HYPERCALCEMIA Status: Acute (2) Hypomagnesemia Code(s): E83.42 - HYPOMAGNESEMIA Status: Acute (3) Hypokalemia Code(s): E87.6 - HYPOKALEMIA Status: Acute (4) Intractable pain Code(s): R52 - PAIN, UNSPECIFIED Status: Acute (5) Leukemoid reaction Code(s): D72.823 - LEUKEMOID REACTION Status: Acute Comment: rule out sepsis (6) COPD (chronic obstructive pulmonary disease) with emphysema Code(s): J43.9 - EMPHYSEMA, UNSPECIFIED Status: Chronic Qualifiers: (7) Chest wall mass Status: Chronic Comment: with intractable pain (8) Chronic hyponatremia Code(s): E87.1 - HYPO-OSMOLALITY AND HYPONATREMIA Status: Chronic 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
--- NOTE | 2018-09-22 09:32 | PDOC.PN ---
- Subjective Encounter Start Date: 09/22/18 Encounter Start Time: 07:00 yesterday pt was accepted for inpt hospice, but pt is still reluctant to consider himself DNR, no overnight event he is very weak, his prognosis is very poor - Objective Resuscitation Status - Order Detail: 09/16/18 16:59 Resuscitation Status Routine Resuscitation Status: FULL: Full Resuscitation MAR Reviewed: Yes Vital Signs & Weight: Vital Signs (12 hours) Temp Pulse Resp BP Pulse Ox 09/22/18 08:52 98.7 F 109 H 28 H 145/83 H 92 L 09/22/18 04:08 99.1 F 09/22/18 00:00 99.7 F H Weight Admit Weight 114 lb 3.191 oz Weight 114 lb 3.191 oz I&O: 09/21/18 09/22/18 09/23/18 06:59 06:59 06:59 Intake Total 2750.5 3550 Output Total 675 1400 Balance 2075.5 2150 Result Diagrams: 09/21/18 04:08 09/21/18 04:08 Phys Exam - Physical Examination Constitutional: NAD HEENT: PERRLA, moist MMs, sclera anicteric Neck: no JVD, supple Respiratory: no wheezing, no rales, no rhonchi Cardiovascular: RRR, no significant murmur, no rub Gastrointestinal: soft, non-tender, no distention, positive bowel sounds Musculoskeletal: no edema, pulses present Neurological: non-focal, normal sensation Lymphatic: no nodes Psychiatric: normal affect Skin: no rash, normal turgor Dx/Plan (1) Hypercalcemia of malignancy Code(s): E83.52 - HYPERCALCEMIA Status: Acute (2) Hypomagnesemia Code(s): E83.42 - HYPOMAGNESEMIA Status: Acute (3) Hypokalemia Code(s): E87.6 - HYPOKALEMIA Status: Acute (4) Intractable pain Code(s): R52 - PAIN, UNSPECIFIED Status: Acute (5) Leukemoid reaction Code(s): D72.823 - LEUKEMOID REACTION Status: Acute Comment: rule out sepsis (6) COPD (chronic obstructive pulmonary disease) with emphysema Code(s): J43.9 - EMPHYSEMA, UNSPECIFIED Status: Chronic Qualifiers: (7) Chest wall mass Status: Chronic Comment: with intractable pain (8) Chronic hyponatremia Code(s): E87.1 - HYPO-OSMOLALITY AND HYPONATREMIA Status: Chronic 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 (9) Hypothyroidism Code(s): E03.9 - HYPOTHYROIDISM, UNSPECIFIED Status: Chronic Qualifiers: Comment: likely due to prior radiation (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 Code(s): C32.9 - MALIGNANT NEOPLASM OF LARYNX, UNSPECIFIED Status: Chronic Comment: h/o laryngectomy, has tracheal stoma (11) Lung cancer Code(s): C34.90 - MALIGNANT NEOPLASM OF UNSP PART OF UNSP BRONCHUS OR LUNG Status: Chronic (12) Protein-calorie malnutrition, severe Code(s): E43 - UNSPECIFIED SEVERE PROTEIN-CALORIE MALNUTRITION Status: Chronic - Plan cont current plan of care, social services aide * at this point we are only controlling his chronic pain, his cancer is not curable * best option for him for better pain control and quality of life, hospice * medication reviewed as below * symptomatic treatment. * ok to discharge anytime when safe discharge plan arranged Review of Systems - Review of Systems ENT: negative: Ear Pain, Ear Discharge, Nose Pain, Nose Discharge, Nose Congestion, Mouth Pain, Mouth Swelling, Throat Pain, Throat Swelling, Other Respiratory: negative: Cough, Dry, Shortness of Breath, Hemoptysis, SOB with Excertion, Pleuritic Pain, Sputum, Wheezing Cardiovascular: negative: chest pain, palpitations, orthopnea, paroxysmal nocturnal dyspnea, edema, light headedness, other Gastrointestinal: negative: Nausea, Vomiting, Abdominal Pain, Diarrhea, Constipation, Melena, Hematochezia, Other Genitourinary: negative: Dysuria, Frequency, Incontinence, Hematuria, Retention , Other Musculoskeletal: negative: Neck Pain, Shoulder Pain, Arm Pain, Back Pain, Hand Pain, Leg Pain, Foot Pain, Other Skin: negative: Rash, Lesions, Sunday, Bruising, Other - Medications/Allergies Allergies/Adverse Reactions: Allergies Allergy/AdvReac Type Severity Reaction Status Date / Time acetaminophen [From Tylenol] Allergy n/v, hives Verified 09/16/18 17:59 Medications: Current Medications Albuterol/Ipratropium (Duoneb) 3 ml NEB [id number] [facility] Last Admin: 09/22/18 07:12 Dose: Not Given Artificial Tears (Tears Naturale) 2 drop EA EYE PRN PRN PRN Reason: Dry Eyes Bisacodyl (Dulcolax) 10 mg PO DAILYPRN PRN PRN Reason: Constipation Bisacodyl (Dulcolax) 10 mg [place] DAILYPRN PRN PRN Reason: Constipation Cholecalciferol (Vitamin D3) 1,000 units PO DAILY [facility] Last Admin: 09/22/18 09:07 Dose: Not Given Clonazepam (Klonopin) 0.5 mg PO BID PRN PRN Reason: Anxiety Last Admin: 09/22/18 04:59 Dose: 0.5 mg Clonidine (Catapres) 0.1 mg PO Q4H PRN PRN Reason: SBP Greater Than 170 Enoxaparin Sodium (Lovenox) 40 mg SC 0900 [facility] Last Admin: 09/22/18 09:07 Dose: Not Given Famotidine (Pepcid) 20 mg PO BID [facility] Last Admin: 09/22/18 09:08 Dose: Not Given Guaifenesin (Robitussin Sf) 200 mg PO Q4H PRN PRN Reason: Cough Hydralazine HCl (Apresoline) 10 mg SLOW IVP Q4H PRN PRN Reason: SBP > 180 and HR < 70 Potassium Chloride/Sodium Chloride (Ns 0.9% W/ 20 Meq Kcl) 1,000 ml in 1,000 mls @ 100 mls/hr IV .Q10H [facility] Last Admin: 09/21/18 20:56 Dose: 1,000 mls Levothyroxine Sodium (Synthroid) 100 mcg PO 0600 [facility] Last Admin: 09/22/18 04:59 Dose: 100 mcg Loperamide HCl (Imodium) 2 mg PO PRN PRN PRN Reason: Diarrhea/Loose Stools Loratadine (Claritin) 10 mg PO DAILYPRN PRN PRN Reason: Sinus Symptoms Mineral Oil/White Petrolatum (Eucerin Cream) 0 gm TOP BIDPRN PRN PRN Reason: Dry Skin Morphine Sulfate (Morphine) 2 mg SLOW IVP Q4H PRN PRN Reason: Severe Pain (7-10) Last Admin: 09/22/18 03:49 Dose: 2 mg Ondansetron HCl (Zofran Odt) 4 mg SL Q6H PRN PRN Reason: Nausea/Vomiting Ondansetron HCl (Zofran) 4 mg IVP Q6H PRN PRN Reason: Nausea/Vomiting Senna/Docusate Sodium (Senokot S) 2 tab PO BID PRN PRN Reason: Constipation Sodium Chloride ([place] Nasal [place] 0.65%) 0 ml EA NARE QIDPRN PRN PRN Reason: Nasal Congestion Sodium Chloride (Sodium Chloride) 1 gm PO BID [facility] Last Admin: 09/22/18 09:08 Dose: Not Given Sodium Chloride (Flush - Normal Saline) 10 ml IVF Q12HR [facility] Last Admin: 09/22/18 09:08 Dose: 10 ml Sodium Chloride (Flush - Normal Saline) 10 ml IVF PRN PRN PRN Reason: Saline Flush Last Admin: 09/20/18 11:57 Dose: 10 ml Throat Lozenges (Cepastat Lozenges) 1 [place] PO Q2H PRN PRN Reason: Sore Throat Tramadol HCl (Ultram) 50 mg PO Q4H PRN PRN Reason: Moderate Pain (4-6) Zolpidem Tartrate (Ambien) 5 mg PO HSPRN PRN PRN Reason: Insomnia
--- NOTE | 2018-09-22 11:45 | DIS ---
DATE OF ADMISSION: 09/16/2018 DATE OF DISCHARGE: 09/22/2018 PRIMARY CARE PHYSICIAN: [facility] Call Admission. DISCHARGE DISPOSITION: Inpatient hospice for comfort care. PRIMARY DISCHARGE DIAGNOSES: 1. Advanced laryngeal squamous cell carcinoma. 2. Lung cancer. 3. Hypercalcemia of malignancy. 4. Hypokalemia. 5. Hypomagnesemia. 6. Intractable cancer pain. 7. Leukemoid reaction. 8. Chest wall mass from metastasis. 9. Chronic hyponatremia. SECONDARY DISCHARGE DIAGNOSES: 1. Chronic obstructive pulmonary disease. 2. Hypothyroidism. 3. Severe protein-calorie malnutrition. PRIMARY PROCEDURE/OPERATION: None. RADIOLOGICAL INVESTIGATIONS: CT angiography, chest x-ray, and ultrasound lower extremity. SIGNIFICANT LABS: WBC 36.7, hemoglobin 8.1, and platelet 523. Sodium 130, creatinine 0.76, alkaline phosphatase 154, albumin 2.2, PTH less than 4, and vitamin D 25.9. Urinalysis, suggestive UTI. Blood culture negative. DISCHARGE MEDICATIONS: The patient will be given following medication, further medication will defer to hospice team. 1. Clonazepam 0.5 mg b.i.d. 2. Vitamin D3 of 1000 units p.o. daily. 3. Vitamin B12 of 1000 mcg p.o. daily. 4. Folic acid 1 mg daily. 5. DuoNeb q.6 hourly and p.r.n. 6. Synthroid 100 mcg daily. 7. Multivitamin 1 tablet daily. 8. Sodium chloride 1 g p.o. b.i.d. 9. Thiamine 100 mg daily. 10. Tramadol 50 mg q.6 hourly p.r.n. CONTRAINDICATION: None. CODE STATUS: DNR. INPATIENT ROTARY DRILL OPERATOR: Dr. Juarez was well consulted while in hospital. Palliative Care was following while in the hospital. TEST RESULTS PENDING ON DISCHARGE: None. ALLERGIES: ACETAMINOPHEN. DISCHARGE PLAN: Posthospital, the patient was discharged to inpatient hospice for comfort care. 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 He was brought to ER for intractable chest wall pain from metastasis. He was significantly dehydrated. He had significant abnormal electrolytes. While in hospital, he was given pain control with morphine. He was hydrated with IV fluid and electrolyte was replaced. This patient also had initially leukemoid reaction and we initially treated him with broad-spectrum antibiotic therapy, but as culture came back negative, we discontinued antibiotic therapy. This patient's prognosis is extremely poor. Oncology also planning to do immunotherapy palliation. This patient is not a candidate for any kind of chemotherapy because of poor performance status and nutritional status. The patient's family member and patient decided to become DNR and they accepted hospice option. The patient was seen and examined at bedside today. Please see my progress note from today. Once hospice arranged at that time, the patient will be discharged to hospice facility. Job ID: [id number] MTDD
[2018-09-22] MEDS: Morphine 4 MG/ML VIAL SLOW IVP SCH ×2 (12:38→12:42)
== END 2018-09-22 15:07 | disposition hospice, inpatient (51) | DRG 146 ==
LOC: ERS 12:33 → ONC 16:03
PROVIDERS: ADMIT Internal Medicine; ATTEND Internal Medicine
DX: C32.9 Malignant neoplasm of larynx, unspecified (principal); E43 Unspecified severe protein-calorie malnutrition; E22.2 Syndrome of inappropriate secretion of antidiuretic hormone; C77.9 Secondary and unspecified malignant neoplasm of lymph node, unspecified; Z68.1 Body mass index [BMI] 19.9 or less, adult; C79.51 Secondary malignant neoplasm of bone; Z51.5 Encounter for palliative care; D72.829 Elevated white blood cell count, unspecified; E83.52 Hypercalcemia; E03.9 Hypothyroidism, unspecified; F41.9 Anxiety disorder, unspecified; F32.9 Major depressive disorder, single episode, unspecified; D63.8 Anemia in other chronic diseases classified elsewhere; D47.3 Essential (hemorrhagic) thrombocythemia; E87.6 Hypokalemia; E88.09 Other disorders of plasma-protein metabolism, not elsewhere classified; G89.3 Neoplasm related pain (acute) (chronic); Z66 Do not resuscitate; D72.823 Leukemoid reaction; J43.9 Emphysema, unspecified; Z87.891 Personal history of nicotine dependence; Z85.118 Personal history of other malignant neoplasm of bronchus and lung; Z90.02 Acquired absence of larynx; Z93.0 Tracheostomy status; Z80.1 Family history of malignant neoplasm of trachea, bronchus and lung; Z80.8 Family history of malignant neoplasm of other organs or systems
CPT/HCPCS: 36415; 71045; 71275; 80048; 80053; 81001; 82306; 83605; 83735; 83970; 84100; 84484; 85025; 87040; 93005; 94640; 96361; 96374; 96375; G8978-GP-CK; G8979-GP-CI; G8987-GO-CL; G8988-GO-CJ; J0692; J1650; J1885; J1956; J2270; J2405; J3370; J3475; J7050; J7620; Q9967; S0028